=== PATIENT | female | born 1970 | race Hispanic/Latino ===

== ENCOUNTER 2018-08-09 10:46 | Emergency (ER) | payer SELFPAY ==
--- OUTSIDE RECORDS SUMMARY | 2018-08-09 10:48 | XMS REPORT | Clinical Summary ---
:1970 Author Organization [facility] Address [address] [place] [id number] Care Team Providers Name Role Phone Lizz Primary Care Provider Allergies Active Allergy Reactions Severity Noted Date Comments Cephalosporins Rash Low 03/16/2017 Medications Medication Sig Dispensed Refills Start Date End Date Status loratadine (CLARITIN) Take 10 mg by 0 Active 10 mg tablet mouth daily. Active Problems Problem Noted Date Renal mass, right 03/16/2017 Family History Medical History Relation Name Comments Diabetes Father Hypertension Father Diabetes Mother Relation Name Status Comments Father Mother Social History Tobacco Use Types Packs/Day Years Used Date Never Assessed Sex Assigned at Date Recorded Not on file Job Start Date Occupation Industry Not on file Not on file Not on file Travel History Travel Start Travel End No recent travel history available. Last Filed Vital Signs Not on file Plan of Treatment Not on file Results Not on fileafter 08/08/2017 Advance Directives For more information, please contact:[address] [phone] Code Status Date Activated Date Inactivated Comments Full Code 03/16/2017 2:34 AM 03/16/2017 7:57 PM This code status was determined by: Patient
--- OUTSIDE RECORDS SUMMARY | 2018-08-09 10:49 | XMS REPORT ---
:1970 Author [facility] Address [address] [place] [address] Dr. Solis [address] [place] [id number] Care Team Providers Name Role Phone GANGA MARTINS Unavailable Unavailable Problems This patient has no known problems. Allergies, Adverse Reactions, Alerts This patient has no known allergies or adverse reactions. Medications This patient has no known medications. Results Test Description Test Time Test Comments Text Results Atomic Results Result Comments URINE CULTURE 2017-03-18 10:05:00 Test Item Value Reference Range Comments CULTURE (BEAKER) (test drgu=7277) >100,000 col/mL skin fredo URINALYSIS W/ [id number] 14:13:00 Test Item Value Reference Range Comments COLOR (BEAKER) (test ufnp=963) [place] CLARITY (BEAKER) (test rksw=066) [place]y SPECIFIC GRAVITY UA (BEAKER) (test bxyy=069) 1.007 1.001-1.035 PH UA (BEAKER) (test pjbm=041) 6.5 5.0-8.0 PROTEIN UA (BEAKER) (test yfyc=285) 100 mg/dL Negative GLUCOSE UA (BEAKER) (test kwlg=333) Negative Negative KETONES UA (BEAKER) (test xuqo=025) Negative Negative BILIRUBIN UA (BEAKER) (test svff=862) Negative Negative BLOOD UA (BEAKER) (test qtvq=880) Large Negative NITRITE UA (BEAKER) (test qmji=694) Negative Negative LEUKOCYTE ESTERASE UA (BEAKER) (test zprr=174) Small Negative UROBILINOGEN UA (BEAKER) (test hgqf=488) 0.2 mg/dL 0.2-1.0 RBC UA (BEAKER) (test qktl=636) 60 /HPF WBC UA (BEAKER) (test ptim=847) 9 /HPF BACTERIA (BEAKER) (test adbq=255) Few MUCUS (BEAKER) (test uhoq=7665) Rare SQUAMOUS EPITHELIAL (BEAKER) (test cgwj=932) 1 /HPF SOURCE(BEAKER) (test hjcj=6818) Urine, Voided [id number] 05:05:00 Test Item Value Reference Range Comments PHOSPHORUS (BEAKER) (test qfhq=180) 2.4 mg/dL 2.3-4.7 [id number] 05:05:00 Test Item Value Reference Range Comments MAGNESIUM (BEAKER) (test xnbp=943) 2.1 mg/dL 1.6-2.6 BASIC METABOLIC [id number] 05:05:00 Test Item Value Reference Range Comments SODIUM (BEAKER) (test 136 meq/L 136-145 mith=475) POTASSIUM (BEAKER) (test 3.8 meq/L 3.5-5.1 ohpb=071) CHLORIDE (BEAKER) (test 101 meq/L 98-107 yvyn=365) CO2 (BEAKER) (test 28 meq/L 22-29 mvon=387) BLOOD UREA NITROGEN 10 mg/dL 7-21 (BEAKER) (test irhx=459) CREATININE (BEAKER) (test 0.82 mg/dL 0.57-1.25 riky=981) GLUCOSE RANDOM (BEAKER) 132 mg/dL 70-105 (test otso=022) CALCIUM (BEAKER) (test 8.7 mg/dL 8.4-10.2 qgju=350) EGFR (BEAKER) (test 75 mL/min/1.73 sq m ESTIMATED GFR IS NOT yejz=2228) ACCURATE CREATININE CLEARANCE IN PREDICTING GLOMERULAR FILTRATION RATE. ESTIMATED GFR IS NOT APPLICABLE FOR DIALYSIS PATIENTS. HEPATIC FUNCTION [id number] 05:05:00 Test Item Value Reference Range Comments TOTAL PROTEIN (BEAKER) (test uecn=633) 6.9 gm/dL 6.0-8.3 ALBUMIN (BEAKER) (test zcfw=6313) 3.7 g/dL 3.5-5.0 BILIRUBIN TOTAL (BEAKER) (test zqnn=114) 0.6 mg/dL 0.2-1.2 BILIRUBIN DIRECT (BEAKER) (test itrn=968) 0.3 mg/dL 0.1-0.5 ALKALINE PHOSPHATASE (BEAKER) (test kvnm=094) 61 U/L 40-150 AST (SGOT) (BEAKER) (test ruqg=098) 28 U/L 5-34 ALT (SGPT) (BEAKER) (test spub=390) 32 U/L 6-55 PROTHROMBIN [id number] 04:57:00 Test Item Value Reference Range Comments PROTIME (BEAKER) (test bfzi=951) 14.4 seconds 11.7-14.7 INR (BEAKER) (test inxk=788) 1.1 <=5.9 RECOMMENDED COUMADIN/WARFARIN INR THERAPY RANGESSTANDARD DOSE: 2.0 - 3.0 Includes: PROPHYLAXIS forvenous thrombosis, systemic embolization; TREATMENT for venous thrombosis and/or pulmonary embolus.HIGH RISK: Target INR is 2.5-3.5 for patients with mechanical heart valves.CBC W/PLT COUNT & AUTO [id number] 04:44:00 Test Item Value Reference Range Comments WHITE BLOOD CELL COUNT (BEAKER) (test jekn=860) 7.6 K/ L 3.5-10.5 RED BLOOD CELL COUNT (BEAKER) (test npgg=355) 4.10 M/ L 3.93-5.22 HEMOGLOBIN (BEAKER) (test npla=621) 11.7 GM/DL 11.2-15.7 HEMATOCRIT (BEAKER) (test astx=678) 35.3 % 34.1-44.9 MEAN CORPUSCULAR VOLUME (BEAKER) (test nsoh=554) 86.1 fL 79.4-94.8 MEAN CORPUSCULAR HEMOGLOBIN (BEAKER) (test 28.5 pg 25.6-32.2 cdjk=187) MEAN CORPUSCULAR HEMOGLOBIN CONC (BEAKER) (test 33.1 GM/DL 32.2-35.5 oekt=848) RED CELL DISTRIBUTION WIDTH (BEAKER) (test 13.2 % 11.7-14.4 lmmw=947) PLATELET COUNT (BEAKER) (test vwzp=708) 266 K/CU MM 150-450 MEAN PLATELET VOLUME (BEAKER) (test gpcw=101) 9.1 fL 9.4-12.3 NUCLEATED RED BLOOD CELLS (BEAKER) (test 0 /100 WBC 0-0 kkca=517) NEUTROPHILS RELATIVE PERCENT (BEAKER) (test 63 % khfh=585) LYMPHOCYTES RELATIVE PERCENT (BEAKER) (test 29 % cpgn=110) MONOCYTES RELATIVE PERCENT (BEAKER) (test 7 % bsow=300) EOSINOPHILS RELATIVE PERCENT (BEAKER) (test 0 % ekvf=908) BASOPHILS RELATIVE PERCENT (BEAKER) (test 0 % qkca=548) NEUTROPHILS ABSOLUTE COUNT (BEAKER) (test 4.82 K/ L 1.56-6.13 jytc=099) LYMPHOCYTES ABSOLUTE COUNT (BEAKER) (test 2.17 K/ L 1.18-3.74 hvfn=512) MONOCYTES ABSOLUTE COUNT (BEAKER) (test 0.52 K/ L 0.24-0.36 rgrx=033) EOSINOPHILS ABSOLUTE COUNT (BEAKER) (test 0.03 K/ L 0.04-0.36 bmlo=953) BASOPHILS ABSOLUTE COUNT (BEAKER) (test 0.03 K/ L 0.01-0.08 yqwr=190) IMMATURE GRANULOCYTES-RELATIVE PERCENT (BEAKER) 0 % 0-1 (test elcc=7502)
[2018-08-09] MEDS ORDERED: IPRATROPIUM BROM 0.5MG/2.5ML ONE (11:49)
[2018-08-09] MEDS ORDERED: LEVALBUTEROL 1.25 MG/3 ML NEB ONE (11:49)
[2018-08-09] MEDS ORDERED: VANCOMYCIN 1 GM/250 ML BAG ONE (11:50)
[2018-08-09] MEDS ORDERED: PIPER/TAZO/NS 3.375gm 3.375 GM/100 ML BAG ONE (11:50)
[2018-08-09 12:17] LABS: Absolute Lymphocytes (CBC) 1.8 K/uL (0.7-4.9); Absolute Monocytes 0.4 K/uL (0.1-1.3); Absolute Neutrophil 4.3 K/uL (1.8-8.0); Basophils % 0.6 % (0-1.3); Eosinophils % 0.9 % (0-4.4); Hematocrit 39.8 % (36.0-45.0); Lymphocytes % 27.2 % (15.3-44.8); MPV 7.5 fL (7.6-11.3); Monocytes % 6.7 % (3.3-12.3)
[2018-08-09 12:34] LABS: Albumin 3.9 g/dL (3.4-5.0); Bilirubin Direct 0.1 mg/dL (0-0.2); Bilirubin Total 0.4 mg/dL (0.2-1.0); Potassium 3.9 mmol/L (3.5-5.1); Protein, Total 8.1 g/dL (6.4-8.2)
--- NOTE | 2018-08-09 13:21 | RAD REPORT ---
EXAM DESCRIPTION: CT - Chest For Pe Angio - 08/09/2018 1:11 pm CLINICAL HISTORY: Chest pain. shortness of breath, chest pain COMPARISON: Abdomen Pelvis W Contrast dated 08/09/2018; Abdomen Pelvis W Contrast dated 10/10/2017 ; Abdomen Pelvis W Contrast dated 03/15/2017 TECHNIQUE: CT angiogram of the pulmonary arteries was performed with MIP. All CT scans are performed using dose optimization technique as appropriate and may include automated exposure control or mA/KV adjustment according to patient size. FINDINGS: No evidence of pulmonary thromboembolism. No acute aortic finding demonstrated. 6 mm noncalcified pulmonary nodule seen in the anterior right upper lobe. Mild interstitial pulmonary edema is present. No significant pericardial or pleural fluid. No concerning bony finding. IMPRESSION: No evidence of pulmonary thromboembolism. Mild interstitial pulmonary edema. 6 mm noncalcified pulmonary nodule anterior right upper lobe. Given the known history of malignancy i n this patient, a short interval follow-up is recommended in 2-3 months.
--- NOTE | 2018-08-09 13:23 | RAD REPORT ---
EXAM DESCRIPTION: CTAbdomen Pelvis W Contrast - 08/09/2018 1:06 pm CLINICAL HISTORY: Abdominal pain. right flank pain, IV ONLY COMPARISON: Abdomen Pelvis W Contrast dated 10/10/2017; Abdomen Pelvis W Contrast dated 03/15/2017 ; CT ABD PELVIS W CONTRAST dated 11/15/2014 TECHNIQUE: Biphasic CT imaging of the abdomen and pelvis was performed with 100 ml non-ionic IV cont rast. All CT scans are performed using dose optimization technique as appropriate and may include automated exposure control or mA/KV adjustment according to patient size. FINDINGS: The lung bases are clear. Mild diffuse fatty liver is present. Cholecystectomy clips. The spleen, pancreas and adrenal glands a re normal. Normal left kidney seen. Right kidney surgically absent. No abnormality seen in the right renal fossa. No bowel obstruction, free air, free fluid or abscess. The appendix is normal. No evidence of signi ficant lymphadenopathy. No suspicious bony findings. IMPRESSION: No acute intra-abdominal or pelvic finding. Status post right nephrectomy with no worrisome abnormality in the right renal fossa.
--- NOTE | 2018-08-09 13:39 | EDPHYS ---
Physician Documentation [facility] Name: Elvia Dumont Age: 48 yrs Sex: Female : 1970 Arrival Date: 08/09/2018 Time: 10:49 Bed 6 Private MD: None, None ED Physician Modesto Dyer HPI: 08/09 12:04 This 48 yrs old Female presents to ER via Ambulatory with complaints of jmm Shortness Of Breath, Side Pain where kidney was removed 12/08. 12:04 The patient has shortness of breath at rest. Onset: The symptoms/episode began/occurred jmm gradually, 1 month(s) ago. Duration: The symptoms are continuous, and are steadily getting worse. Associated signs and symptoms: Pertinent positives: flank pain. This is a 48 year old female with a history of s/p right nephrectomy due to renal cell cancer that presents to the ED with right flank pain and shortness of breath progressively worsening since this past June. Patient states the pain is similar to the pain experienced with her diagnosis of renal cell carcinoma. . 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 - Social history:: Smoking status: Patient/guardian denies using tobacco. - Ebola Screening: : No symptoms or risks identified at this time. ROS: 12:04 Constitutional: Negative for fever, chills, and weight loss, Cardiovascular: Negative jmm for chest pain, palpitations, and edema. 12:04 Respiratory: Positive for shortness of breath. 12:04 Abdomen/GI: Positive for 12:04 Back: Positive for flank pain. 12:04 All other systems are negative. Exam: 12:04 Constitutional: This is a well developed, well nourished patient who is awake, alert, jmm and in no acute distress. Head/Face: atraumatic. Eyes: EOMI, no conjunctival erythema appreciated ENT: Moist Mucus Membranes Neck: Trachea midline, Supple Chest/axilla: Normal chest wall appearance and motion. Cardiovascular: Regular rate and rhythm. No edema appreciated Respiratory: Normal respirations, no respiratory distress appreciated 12:04 Abdomen/GI: Inspection: abdomen appears normal, Palpation: soft, mild abdominal tenderness, in the right upper quadrant. 12:04 Back: CVA tenderness, that is mild, is noted on the right. 12:04 Musculoskeletal/extremity: ROM: intact in all extremities. 12:04 Skin: Appearance: Color: normal in color. 12:04 Neuro: Orientation: is normal, Mentation: is normal, Memory: is normal. 12:04 Psych: Behavior/mood is pleasant, cooperative. Vital Signs: 11:14 BP 132 / 87; Pulse 75; Resp 18; Temp 97.6; Pulse Ox 100% on R/A; Weight 94.35 kg (R); aj1 Height 4 ft. 8 in. (142.24 cm) (R); Pain 10/10; 12:19 BP 112 / 70; Pulse 68; Resp 18; Pulse Ox 98% on R/A; sv 13:21 BP 108 / 61; Pulse 75; Resp 17; Pulse Ox 100% ; sv 13:55 BP 123 / 58; Pulse 67; Resp 20; Pulse Ox 100% ; sv 11:14 Body Mass Index 46.63 (94.35 kg, 142.24 cm) aj1 MDM: 12:04 Patient medically screened. real 13:37 Data reviewed: vital signs, nurses notes, radiologic studies, CT scan. Counseling: I real had a detailed discussion with the patient and/or guardian regarding: the historical points, exam findings, and any diagnostic results supporting the discharge/admit diagnosis, lab results, radiology results, the need for outpatient follow up, to return to the emergency department if symptoms worsen or persist or if there are any questions or concerns that arise at home. ED course: CT negative for an acute process. Patient is advised to follow up with urology next for reevaluation. Patient is otherwise given strict return precautions. Patient understood and agrees with the plan of care. . 08/09 11:47 Order name: Urine Dipstick--Ancillary (enter results) bd 08/09 11:47 Order name: Urine --Ancillary (enter results) bd 08/09 12:07 Order name: Basic Metabolic Panel; Complete Time: 12:44 isma 08/09 12:07 Order name: CBC with Diff; Complete Time: 12:22 [facility] 08/09 12:07 Order name: Creatinine for Radiology; Complete Time: 12:31 [facility] 08/09 12:07 Order name: Hepatic Function; Complete Time: 12:44 [facility] 08/09 11:47 Order name: Urine Dipstick-Ancillary (obtain specimen); Complete Time: 11:47 sv 08/09 12:07 Order name: Lipase; Complete Time: 12:44 [facility] 08/09 12:07 Order name: IV Saline Lock; Complete Time: 12:13 [facility] 08/09 12:07 Order name: Labs collected and sent; Complete Time: 12:13 [facility] 08/09 12:07 Order name: CT Chest For PE Angio; Complete Time: 13:30 [facility] 08/09 12:07 Order name: CT Abd/Pelvis - W/Contrast; Complete Time: 13:30 [facility] Administered Medications: No medications were administered Disposition: 08/09/18 13:38 Discharged to Home. Impression: Flank Pain. - Condition is Stable. - Discharge Instructions: Flank Pain, Adult. - Prescriptions for Tramadol 50 mg Oral Tablet - take 1 tablet by ORAL route every 8 hours as needed; 12 tablet. - Medication Reconciliation Form, Thank You Letter, Antibiotic Education, Prescription Opioid Use form. - Follow up: Private Physician; When: 2 - 3 days; Reason: Recheck today's complaints, Continuance of care, Re-evaluation by your physician. - Notes: Your CT scan shows you have a pulmonary nodule. It is recommended you get a repeat chest CT in to 2-3 months to reevaluate the nodule. Please return to the ED if your pain worsened, you develop vomiting, chest pain, or worsening shortness of breath. Addendum: 08/11/2018 10:25 Co-signature as Attending Physician, Modesto Dyer MD. g s Signatures: Dispatcher [employer] EDAngie Odom RN RN ajHortencia Marshall RN RN sv aEn Bajwa PA PA jmm Starr, Gregory, MD MD gs Corrections: (The following items were deleted from the chart) 08/09 13:56 13:38 08/09/2018 13:38 Discharged to Home. Impression: Flank Pain. Condition is Stable. sv Forms are Medication Reconciliation Form, Thank You Letter, Antibiotic Education, Prescription Opioid Use. Follow up: Private Physician; When: 2 - 3 days; Reason: Recheck today's complaints, Continuance of care, Re-evaluation by your physician. real
--- NOTE | 2018-08-09 13:39 | ER ---
Nurse's Notes [facility] Name: Elvia Dumont Age: 48 yrs Sex: Female : 1970 Arrival Date: 08/09/2018 Time: 10:49 Bed 6 Private MD: None, None Diagnosis: Flank Pain Presentation: 08/09 11:11 Presenting complaint: Patient states: "I had kidney cancer and I had my kidney removed aj1 in November. I'm feeling a lot of pain in that spot, it goes all the way from my back and into my belly. The pain is taking my breath away. I made an appointment with my doctor but I won't be seen for another two weeks" Reports this pain has been going on for the past week and has gotten progressively worse. Reports nausea, dizziness. Denies V/D. Denies fever. Reports blood in her urine today. Transition of care: patient was not received from another setting of care. Onset of symptoms was August 05, 2017. Risk Assessment: Do you want to hurt yourself or someone else? Patient reports no desire to harm self or others. Initial Sepsis Screen: Does the patient meet any 2 criteria? No. Patient's initial sepsis screen is negative. Does the patient have a suspected source of infection? Yes: Dysuria/Frequency/Urgency/UTI. Care prior to arrival: None. 11:11 Method Of Arrival: Ambulatory aj 11:11 Acuity: ASIA 3 aj1 Triage Assessment: 11:14 General: Appears in no apparent distress. uncomfortable, Behavior is cooperative, aj1 restless. Pain: Complains of pain in back and abdomen Pain currently is 10 out of 10 on a pain scale. Neuro: Level of Consciousness is awake, alert, obeys commands. Cardiovascular: Patient's skin is warm and dry. Respiratory: Reports shortness of breath Airway is patent Respiratory effort is even, unlabored, Respiratory pattern is regular, symmetrical, Onset: The symptoms/episode began/occurred one week ago, the patient has mild shortness of breath. 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 - Social history:: Smoking status: Patient/guardian denies using tobacco. - Ebola Screening: : No symptoms or risks identified at this time. Screenin:05 Abuse screen: Denies threats or abuse. Denies injuries from another. Nutritional sv screening: No deficits noted. Tuberculosis screening: No symptoms or risk factors identified. Fall Risk None identified. Assessment: 11:45 General: Appears in no apparent distress. uncomfortable, obese, well developed, sv Behavior is calm, cooperative, appropriate for age. Pain: Complains of pain in posterior aspect of right lateral abdomen, anterior aspect of right lateral abdomen and right upper quadrant Pain currently is 10 out of 10 on a pain scale. Pain began 2-3 days ago. Is continuous, Aggravated by increased activity, deep breathing Noted to be grimacing, Also complains of shortness of breath. Neuro: Level of Consciousness is awake, alert, obeys commands, Oriented to person, place, time, situation, Moves all extremities. Full function Speech is normal. Cardiovascular: Heart tones S1 S2 present Patient's skin is warm and dry. Rhythm is sinus rhythm Chest pain is denied. Respiratory: Reports shortness of breath at rest on exertion pain with movement pain with respiration Airway is patent Respiratory effort is even, unlabored, Respiratory pattern is regular, symmetrical, Breath sounds are clear bilaterally. : Reports "When I wipe after peeing there is some streaks of blood.". Derm: Skin is pink, warm \\T\\ dry. 12:45 Reassessment: Patient appears in no apparent distress at this time. No changes from sv previously documented assessment. Patient and/or family updated on plan of care and expected duration. Pain level reassessed. Patient is alert, oriented x 3, equal unlabored respirations, skin warm/dry/pink. 13:55 Reassessment: Patient appears in no apparent distress at this time. No changes from sv previously documented assessment. Patient and/or family updated on plan of care and expected duration. Pain level reassessed. Patient is alert, oriented x 3, equal unlabored respirations, skin warm/dry/pink. Vital Signs: 11:14 BP 132 / 87; Pulse 75; Resp 18; Temp 97.6; Pulse Ox 100% on R/A; Weight 94.35 kg (R); aj1 Height 4 ft. 8 in. (142.24 cm) (R); Pain 10/10; 12:19 BP 112 / 70; Pulse 68; Resp 18; Pulse Ox 98% on R/A; sv 13:21 BP 108 / 61; Pulse 75; Resp 17; Pulse Ox 100% ; sv 13:55 BP 123 / 58; Pulse 67; Resp 20; Pulse Ox 100% ; sv 11:14 Body Mass Index 46.63 (94.35 kg, 142.24 cm) aj1 ED Course: 10:49 Patient arrived in ED. sb2 10:50 None, None is Private Physician. sb2 11:14 Triage completed. aj1 11:14 Arm band placed on Patient placed in waiting room, Patient notified of wait time. aj1 11:46 Hortencia Ramirez, LEO is Primary Nurse. sv 11:49 Ean Bajwa PA is PHCP. m 11:49 Modesto Dyer MD is Attending Physician. jmm 11:55 maitre d' on. Pulse ox on. NIBP on. sv 12:05 Patient has correct armband on for positive identification. Placed in gown. Bed in low sv position. Call light in reach. Adult w/ patient. 12:05 Initial lab(s) drawn, by me, sent to lab. Inserted saline lock: 20 gauge in left sv forearm, using aseptic technique. Blood collected. Flushed left forearm with 5 ml normal saline. 13:05 CT completed. Patient moved to CT via stretcher. Patient moved back from CT. bq 13:06 CT Chest For PE Angio In Process Unspecified. EDMS 13:06 CT Abd/Pelvis - W/Contrast In Process Unspecified. EDMS 13:56 No provider procedures requiring assistance completed. IV discontinued, intact, sv bleeding controlled, No redness/swelling at site. Pressure dressing applied. Administered Medications: No medications were administered Outcome: 13:38 Discharge ordered by . jmm 13:56 Discharged to home ambulatory, with family. sv 13:56 Condition: stable 13:56 Discharge instructions given to patient, Instructed on discharge instructions, follow up and referral plans. medication usage, Demonstrated understanding of instructions, follow-up care, medications, Prescriptions given X 1. 13:56 Patient left the ED. sv Signatures: Dispatcher [employer] EDMS Angie Ibanez, RN RN aj1 Hortencia Ramirez RN RN sv Ean Bajwa PA PA jmm Quilty, Betty bq Billeau, Sheri sb2
[2018-08-09 14:09] VITALS: TEMP 97.6
[2018-08-09 14:12] VITALS: O2SAT 100
[2018-08-09 14:13] VITALS: BP 123/58
[2018-08-09 17:44] LABS: Urine Blood NEGATIVE (NEG); Urine Glucose NEGATIVE (NEG); Urine Protein NEGATIVE (NEG); Urine pH 6.5 (5.0-7.0)
== END 2018-08-09 13:56 | disposition home or self-care (01) ==
LOC: ER 10:46
DX: R10.9 Unspecified abdominal pain (principal); Z88.3 Allergy status to other anti-infective agents; Z85.528 Personal history of other malignant neoplasm of kidney; Z90.5 Acquired absence of kidney
CPT/HCPCS: 36415; 71275; 74177; 80048; 80076; 81003; 81025; 83690; 85025; 99285; J2543; J3370; Q9967

== ENCOUNTER 2018-08-30 12:23 | Emergency (ER) | payer SELFPAY ==
--- OUTSIDE RECORDS SUMMARY | 2018-08-30 12:25 | XMS REPORT ---
:1970 Author Organization [facility] Address [address] [place] [address] Dr. Solis [address] [place] [id number] Care Team Providers Name Role Phone GANGA MARTINS Unavailable Unavailable Problems This patient has no known problems. Allergies, Adverse Reactions, Alerts This patient has no known allergies or adverse reactions. Medications This patient has no known medications. Results Test Description Test Time Test Comments Text Results Atomic Results Result Comments URINE CULTURE 2017-03-18 10:05:00 Test Item Value Reference Range Comments CULTURE (BEAKER) (test cqed=0609) >100,000 col/mL skin fredo URINALYSIS W/ [id number] 14:13:00 Test Item Value Reference Range Comments COLOR (BEAKER) (test iadj=758) [place] CLARITY (BEAKER) (test lffy=650) Hazy SPECIFIC GRAVITY UA (BEAKER) (test rhmp=273) 1.007 1.001-1.035 PH UA (BEAKER) (test urfj=639) 6.5 5.0-8.0 PROTEIN UA (BEAKER) (test ndyw=879) 100 mg/dL Negative GLUCOSE UA (BEAKER) (test gknu=121) Negative Negative KETONES UA (BEAKER) (test atym=623) Negative Negative BILIRUBIN UA (BEAKER) (test niyh=900) Negative Negative BLOOD UA (BEAKER) (test zpir=603) Large Negative NITRITE UA (BEAKER) (test wzzn=378) Negative Negative LEUKOCYTE ESTERASE UA (BEAKER) (test dbiu=469) Small Negative UROBILINOGEN UA (BEAKER) (test viqw=130) 0.2 mg/dL 0.2-1.0 RBC UA (BEAKER) (test vqnu=059) 60 /HPF WBC UA (BEAKER) (test fzmv=299) 9 /HPF BACTERIA (BEAKER) (test xacm=794) Few MUCUS (BEAKER) (test jlim=0817) Rare SQUAMOUS EPITHELIAL (BEAKER) (test cbqi=661) 1 /HPF SOURCE(BEAKER) (test jtkg=4347) Urine, Voided [id number] 05:05:00 Test Item Value Reference Range Comments PHOSPHORUS (BEAKER) (test ezls=123) 2.4 mg/dL 2.3-4.7 [id number] 05:05:00 Test Item Value Reference Range Comments MAGNESIUM (BEAKER) (test gnpx=459) 2.1 mg/dL 1.6-2.6 BASIC METABOLIC [id number] 05:05:00 Test Item Value Reference Range Comments SODIUM (BEAKER) (test 136 meq/L 136-145 yjeq=653) POTASSIUM (BEAKER) (test 3.8 meq/L 3.5-5.1 pvys=093) CHLORIDE (BEAKER) (test 101 meq/L 98-107 xvib=338) CO2 (BEAKER) (test 28 meq/L 22-29 zvwj=842) BLOOD UREA NITROGEN 10 mg/dL 7-21 (BEAKER) (test khdp=838) CREATININE (BEAKER) (test 0.82 mg/dL 0.57-1.25 evfx=971) GLUCOSE RANDOM (BEAKER) 132 mg/dL 70-105 (test fbpu=329) CALCIUM (BEAKER) (test 8.7 mg/dL 8.4-10.2 crif=587) EGFR (BEAKER) (test 75 mL/min/1.73 sq m ESTIMATED GFR IS NOT ggva=7290) ACCURATE CREATININE CLEARANCE IN PREDICTING GLOMERULAR FILTRATION RATE. ESTIMATED GFR IS NOT APPLICABLE FOR DIALYSIS PATIENTS. HEPATIC FUNCTION [id number] 05:05:00 Test Item Value Reference Range Comments TOTAL PROTEIN (BEAKER) (test cufh=714) 6.9 gm/dL 6.0-8.3 ALBUMIN (BEAKER) (test dtzj=3879) 3.7 g/dL 3.5-5.0 BILIRUBIN TOTAL (BEAKER) (test sxqk=008) 0.6 mg/dL 0.2-1.2 BILIRUBIN DIRECT (BEAKER) (test yxib=903) 0.3 mg/dL 0.1-0.5 ALKALINE PHOSPHATASE (BEAKER) (test uidy=494) 61 U/L 40-150 AST (SGOT) (BEAKER) (test pubr=479) 28 U/L 5-34 ALT (SGPT) (BEAKER) (test yent=490) 32 U/L 6-55 PROTHROMBIN [id number] 04:57:00 Test Item Value Reference Range Comments PROTIME (BEAKER) (test pmff=322) 14.4 seconds 11.7-14.7 INR (BEAKER) (test lcfd=330) 1.1 <=5.9 RECOMMENDED COUMADIN/WARFARIN INR THERAPY RANGESSTANDARD DOSE: 2.0 - 3.0 Includes: PROPHYLAXIS forvenous thrombosis, systemic embolization; TREATMENT for venous thrombosis and/or pulmonary embolus.HIGH RISK: Target INR is 2.5-3.5 for patients with mechanical heart valves.CBC W/PLT COUNT & AUTO [id number] 04:44:00 Test Item Value Reference Range Comments WHITE BLOOD CELL COUNT (BEAKER) (test mpqs=182) 7.6 K/ L 3.5-10.5 RED BLOOD CELL COUNT (BEAKER) (test nhwt=139) 4.10 M/ L 3.93-5.22 HEMOGLOBIN (BEAKER) (test jkqv=049) 11.7 GM/DL 11.2-15.7 HEMATOCRIT (BEAKER) (test njxj=670) 35.3 % 34.1-44.9 MEAN CORPUSCULAR VOLUME (BEAKER) (test yyrc=900) 86.1 fL 79.4-94.8 MEAN CORPUSCULAR HEMOGLOBIN (BEAKER) (test 28.5 pg 25.6-32.2 upqe=141) MEAN CORPUSCULAR HEMOGLOBIN CONC (BEAKER) (test 33.1 GM/DL 32.2-35.5 jbqo=389) RED CELL DISTRIBUTION WIDTH (BEAKER) (test 13.2 % 11.7-14.4 yqrn=764) PLATELET COUNT (BEAKER) (test akgg=920) 266 K/CU MM 150-450 MEAN PLATELET VOLUME (BEAKER) (test vzuv=498) 9.1 fL 9.4-12.3 NUCLEATED RED BLOOD CELLS (BEAKER) (test 0 /100 WBC 0-0 uzlb=634) NEUTROPHILS RELATIVE PERCENT (BEAKER) (test 63 % hneo=648) LYMPHOCYTES RELATIVE PERCENT (BEAKER) (test 29 % klyp=787) MONOCYTES RELATIVE PERCENT (BEAKER) (test 7 % kvky=043) EOSINOPHILS RELATIVE PERCENT (BEAKER) (test 0 % pcoi=938) BASOPHILS RELATIVE PERCENT (BEAKER) (test 0 % iwse=642) NEUTROPHILS ABSOLUTE COUNT (BEAKER) (test 4.82 K/ L 1.56-6.13 lrxo=302) LYMPHOCYTES ABSOLUTE COUNT (BEAKER) (test 2.17 K/ L 1.18-3.74 eicd=966) MONOCYTES ABSOLUTE COUNT (BEAKER) (test 0.52 K/ L 0.24-0.36 eazl=729) EOSINOPHILS ABSOLUTE COUNT (BEAKER) (test 0.03 K/ L 0.04-0.36 gtmt=961) BASOPHILS ABSOLUTE COUNT (BEAKER) (test 0.03 K/ L 0.01-0.08 pbwn=168) IMMATURE GRANULOCYTES-RELATIVE PERCENT (BEAKER) 0 % 0-1 (test rssu=2633)
--- OUTSIDE RECORDS SUMMARY | 2018-08-30 12:25 | XMS REPORT | Clinical Summary ---
:1970 Author Organization [facility] Address [address] [place] [id number] Care Team Providers Name Role Phone Lizz [...] Not on file Results Not on fileafter 08/29/2017 Advance Directives For more information, please contact:[address] [phone] Code Status Date Activated Date Inactivated Comments Full Code 03/16/2017 2:34 AM 03/16/2017 7:57 PM This code status was determined by: Patient
[2018-08-30 14:30] LABS: Urine Blood 2+ (NEG); Urine Glucose NEGATIVE (NEG); Urine Protein 1+ (NEG); Urine Specific Gravity 1.025 (1.005-1.030)
[2018-08-30 14:33] LABS: Urine Bacteria <20 /HPF (<20); Urine RBC <5 /HPF (NONE SEEN)
[2018-08-30 14:34] LABS: Urine Culture Reflex Order NOT NEEDED
[2018-08-30] MEDS ORDERED: NA CHLORIDE 0.9% 1,000 ML ONE (14:43)
[2018-08-30 15:01] LABS: Absolute Monocytes 0.6 K/uL (0.1-1.3); Absolute Neutrophil 2.7 K/uL (1.8-8.0); Basophils % 0.4 % (0-1.3); Eosinophils % 0.8 % (0-4.4); Hematocrit 39.8 % (36.0-45.0); Lymphocytes % 23.1 % (15.3-44.8); MPV 7.7 fL (7.6-11.3); Monocytes % 14.5 % (3.3-12.3); RBC Red Blood Cell Count 4.67 M/uL (3.86-4.86)
--- NOTE | 2018-08-30 15:09 | RAD REPORT ---
EXAM DESCRIPTION: RAD - Chest Pa And Lat (2 Views) - 08/30/2018 2:50 pm CLINICAL HISTORY: Cough;Fever Chest pain. COMPARISON: Chest For Pe Angio dated 08/09/2018 FINDINGS: The lungs are clear. The heart is normal in size. No displaced fractures. IMPRESSION: No acute or concerning finding suspected.
[2018-08-30 15:22] LABS: Albumin 3.7 g/dL (3.4-5.0); Bilirubin Total 0.4 mg/dL (0.2-1.0); Potassium 3.6 mmol/L (3.5-5.1)
[2018-08-30] MEDS ORDERED: ACETAMINOPHEN 500 MG TAB ONE (15:45)
--- NOTE | 2018-08-30 15:45 | ER ---
Nurse's Notes [facility] Name: Elvia Dumont Age: 48 yrs Sex: Female : 1970 Arrival Date: 08/30/2018 Time: 12:27 Bed 13 Private MD: Diagnosis: Influenza due to identified novel influenza A virus with other respiratory manifestations Presentation: 08/30 12:46 Presenting complaint: Patient states: cough that began on Friday. Pt states "I went to [facility] an ER in [place] but they didn't give me any medicines". Pt also reports fever. Transition of care: patient was not received from another setting of care. Onset of symptoms was July 2018. Risk Assessment: Do you want to hurt yourself or someone else? Patient reports no desire to harm self or others. Initial Sepsis Screen: Does the patient meet any 2 criteria? No. Patient's initial sepsis screen is negative. Does the patient have a suspected source of infection? No. Patient's initial sepsis screen is negative. Care prior to arrival: None. 12:46 Method Of Arrival: Wheelchair [facility] 12:46 Acuity: ASIA 3 aa5 Triage Assessment: 14:42 General: Appears in no apparent distress. uncomfortable, Behavior is calm, cooperative. ls4 Pain: Complains of pain in "all over". Neuro: Level of Consciousness is awake, alert, obeys commands, Oriented to person, place, time, situation, Sales And Service Representative are equal bilaterally. Cardiovascular: Denies chest pain, Capillary refill < 3 seconds Patient's skin is warm and dry. Rhythm is regular. Respiratory: Reports cough that is non-productive, dry. Derm: Skin is intact, Skin is Skin is pink, warm \\T\\ dry. 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 - Social history:: Smoking status: Patient/guardian denies using tobacco. - Ebola Screening: : No symptoms or risks identified at this time. Screenin:46 Abuse screen: Denies threats or abuse. Denies injuries from another. Nutritional ls4 screening: No deficits noted. Tuberculosis screening: No symptoms or risk factors identified. Fall Risk None identified. Assessment: 15:09 Reassessment: Patient and/or family updated on plan of care and expected duration. Pain ls4 level reassessed. Patient is alert, oriented x 3, equal unlabored respirations, skin warm/dry/pink. see triage assessment . Vital Signs: 12:48 BP 106 / 68; Pulse 90; Resp 18 S; Temp 100.2(TE); Pulse Ox 96% on R/A; Weight 92.53 kg aa5 (R); Height 4 ft. 8 in. (142.24 cm) (R); Pain 10/10; 14:00 BP 107 / 70; Pulse 88; Resp 16; Temp 99.9(O); Pulse Ox 99% on R/A; Pain 5/10; ls4 15:30 BP 110 / 78; Pulse 78; Resp 18; Temp 99.0; Pulse Ox 99% on R/A; Pain 4/10; ls4 12:48 Body Mass Index 45.74 (92.53 kg, 142.24 cm) aa5 ED Course: 12:27 Patient arrived in ED. mr 12:47 Triage completed. aa5 12:47 Arm band placed on. aa5 13:43 [facility]. cp 13:43 Matthew Thapa MD is Attending Physician. cp 13:46 Yelena Baxter, LEO is Primary Nurse. ls4 13:46 Patient has correct armband on for positive identification. Placed in gown. Bed in low ls4 position. Call light in reach. Side rails up X 1. Pulse ox on. NIBP on. 13:59 Urine collected: clean catch specimen, cloudy. mh5 14:00 Patient has correct armband on for positive identification. Placed in gown. Bed in low mh5 position. Call light in reach. Side rails up X 1. Adult w/ patient. 14:08 Strep Sent. mh5 14:08 Flu Sent. mh5 14:45 Inserted saline lock: 20 gauge in right antecubital area, using aseptic technique. ls4 14:45 No provider procedures requiring assistance completed. ls4 14:46 IV discontinued, intact, bleeding controlled, No redness/swelling at site. Pressure ls4 dressing applied. 14:48 XRAY Chest Pa And Lat (2 Views) In Process Unspecified. EDMS Administered Medications: 14:41 Drug: NS 0.9% 1000 ml Route: IV; Rate: 1 bolus; Site: right antecubital; ls4 15:45 Follow up: IV Status: Completed infusion; IV Intake: 1000ml ls4 15:44 Drug: Tylenol 1000 mg Route: PO; ls4 16:14 Follow up: Response: No adverse reaction; Marked relief of symptoms; Temperature is ls4 decreased Intake: 15:45 IV: 1000ml; Total: 1000ml. ls4 Outcome: 15:44 Discharge ordered by MD. anthony 16:15 Patient left the ED. ls4 16:16 Condition: stable ls4 16:16 Discharged to home ambulatory, with family. ls4 16:16 Discharge instructions given to patient, family, Instructed on discharge instructions, follow up and referral plans. medication usage, safety practices, Demonstrated understanding of instructions, follow-up care, medications, Prescriptions given X 2. Signatures: Dispatcher [employer] EDFL Jessica CarrollTennille, RN RN aa5 Matthew Daly PA PA Zaira Palomino 5 Yelena Baxter, RN RN ls4
--- NOTE | 2018-08-30 15:45 | EDPHYS ---
Physician Documentation [facility] Name: Elvia Dumont Age: 48 yrs Sex: Female : 1970 Arrival Date: 08/30/2018 Time: 12:27 Bed 13 Private MD: ED Physician Matthew Thapa HPI: 08/30 14:10 This 48 yrs old Female presents to ER via Wheelchair with complaints of Flu cp Symptoms. 14:10 The patient or guardian reports cough, that is intermittent, flu symptoms, arthralgias, cp low-grade fever, myalgias, general weakness. 14:10 Onset: The symptoms/episode began/occurred 2 day(s) ago. Associated signs and symptoms: cp Pertinent positives: nausea, sore throat, Pertinent negatives: chest pain, diarrhea, vomiting. Severity of symptoms: in the emergency department the symptoms are unchanged despite home interventions. 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 - Social history:: Smoking status: Patient/guardian denies using tobacco. - Ebola Screening: : No symptoms or risks identified at this time. ROS: 14:15 Constitutional: Positive for body aches, fever, poor PO intake. cp 14:15 Eyes: Negative for injury, pain, redness, and discharge. cp 14:15 ENT: Positive for rhinorrhea, sore throat, Negative for drainage from ear(s), ear pain, difficulty swallowing, difficulty handling secretions. 14:15 Neck: Negative for stiffness. 14:15 Cardiovascular: Negative for chest pain, palpitations. 14:15 Respiratory: Positive for cough, Negative for shortness of breath, wheezing. 14:15 Abdomen/GI: Negative for abdominal pain, vomiting, diarrhea, constipation. 14:15 Back: Negative for radiated pain. 14:15 : Negative for urinary symptoms. 14:15 Skin: Negative for cellulitis, rash. 14:15 Neuro: Positive for general weakness, Negative for altered mental status. 14:15 All other systems are negative. Exam: 14:20 Constitutional: The patient appears in no acute distress, alert, awake, cp non-diaphoretic, non-toxic, well developed, well nourished. 14:20 Head/Face: Normocephalic, atraumatic. cp 14:20 Eyes: Periorbital structures: appear normal, Pupils: equal, round, and reactive to light and accomodation, Extraocular movements: intact throughout, Conjunctiva: normal, no exudate, no injection, Sclera: no appreciated abnormality, Lids and lashes: appear normal, bilaterally. 14:20 ENT: External ear(s): are unremarkable, Ear canal(s): are normal, clear, TM's: bulging, is not appreciated, bilaterally, dullness, bilaterally, erythema, is not appreciated, bilaterally. 14:20 Neck: ROM/movement: is normal, is supple, without pain, no range of motions limitations, no meningismus, no nuchal rigidity, Lymph nodes: no appreciated lymphadenopathy. 14:20 Chest/axilla: Inspection: normal, Palpation: is normal, no crepitus, no tenderness. 14:20 Cardiovascular: Rate: normal, Rhythm: regular, Heart sounds: murmur, not appreciated, Edema: is not appreciated, JVD: is not appreciated. 14:20 Respiratory: the patient does not display signs of respiratory distress, Respirations: normal, no use of accessory muscles, no retractions, no splinting, no tachypnea, labored breathing, is not present, Breath sounds: are clear throughout, no decreased breath sounds, no stridor, no wheezing. 14:20 Abdomen/GI: Inspection: abdomen appears normal, Bowel sounds: active, all quadrants, Palpation: abdomen is soft and non-tender, in all quadrants, rebound tenderness, is not appreciated, voluntary guarding, is not appreciated, involuntary guarding, is not appreciated. 14:20 Back: pain, is absent, ROM is normal. 14:20 Skin: cellulitis, is not appreciated, no rash present. 14:20 Neuro: Orientation: to person, place \T\ time. Mentation: is normal, Cerebellar function: is grossly normal, Motor: moves all fours, strength is normal, Sensation: is normal. Vital Signs: 12:48 BP 106 / 68; Pulse 90; Resp 18 S; Temp 100.2(TE); Pulse Ox 96% on R/A; Weight 92.53 kg aa5 (R); Height 4 ft. 8 in. (142.24 cm) (R); Pain 10/10; 14:00 BP 107 / 70; Pulse 88; Resp 16; Temp 99.9(O); Pulse Ox 99% on R/A; Pain 5/10; ls4 15:30 BP 110 / 78; Pulse 78; Resp 18; Temp 99.0; Pulse Ox 99% on R/A; Pain 4/10; ls4 12:48 Body Mass Index 45.74 (92.53 kg, 142.24 cm) aa5 MDM: 13:43 Patient medically screened. cp 15:00 Differential diagnosis: bronchitis, flu, pneumonia, UTI. cp 15:44 Data reviewed: vital signs, nurses notes, lab test result(s), radiologic studies, plain cp films. 15:44 Test interpretation: by ED physician or midlevel provider: plain radiologic studies. cp Counseling: I had a detailed discussion with the patient and/or guardian regarding: the historical points, exam findings, and any diagnostic results supporting the discharge/admit diagnosis, lab results, radiology results, to return to the emergency department if symptoms worsen or persist or if there are any questions or concerns that arise at home. Response to treatment: the patient's symptoms have markedly improved after treatment, and as a result, I will discharge patient. 08/30 14:05 Order name: Flu; Complete Time: 15:28 [facility] 08/30 15:28 Interpretation: Normal except: FLUA FLU A ----- \T\nbsp; \T\nbsp; \T\nbsp; \T\nbsp; \T\nbsp; cp \T\nbsp; \T\nbsp; \T\nbsp; \T\nbsp; POSITIVE for FLU A protein antigen. 08/30 14:05 Order name: Strep; Complete Time: 15:28 [facility] 08/30 15:29 Interpretation: Reviewed. 08/30 14:13 Order name: Urine Microscopic Only; Complete Time: 15:28 [facility] 08/30 15:28 Interpretation: Normal except: SQEPI 5-10. 08/30 14:15 Order name: Urine Dipstick--Ancillary (enter results); Complete Time: 15:28 08/30 14:15 Order name: Urine --Ancillary (enter results); Complete Time: 15:28 eb 08/30 14:15 Order name: Urine Dipstick-Ancillary (obtain specimen); Complete Time: 14:42 cp 08/30 14:15 Order name: Urine Test (obtain specimen); Complete Time: 14:42 cp 08/30 14:15 Order name: CBC with Diff; Complete Time: 15:28 cp 08/30 15:29 Interpretation: Normal except: MN% 14.5. cp 08/30 14:15 Order name: CMP; Complete Time: 15:28 cp 08/30 14:15 Order name: XRAY Chest Pa And Lat (2 Views); Complete Time: 15:28 cp 08/30 14:30 Order name: Throat Culture EDMS Administered Medications: 14:41 Drug: NS 0.9% 1000 ml Route: IV; Rate: 1 bolus; Site: right antecubital; ls4 15:45 Follow up: IV Status: Completed infusion; IV Intake: 1000ml ls4 15:44 Drug: Tylenol 1000 mg Route: PO; ls4 16:14 Follow up: Response: No adverse reaction; Marked relief of symptoms; Temperature is ls4 decreased Disposition: 08/31 09:17 Co-signature as Attending Physician, Matthew Thapa MD I agree with the assessment and jen plan of care. PA/BRILLIANDEER LOPPER's history reviewed, patient interviewed, and examined. Disposition: 08/30/18 15:44 Discharged to Home. Impression: Influenza due to identified novel influenza A virus with other respiratory manifestations. - Condition is Stable. - Discharge Instructions: Influenza, Adult. - Prescriptions for Tamiflu 75 mg Oral Capsule - take 1 capsule by ORAL route every 12 hours for 5 days; 10 capsule. Tessalon Perles 100 mg Oral Capsule - take 2 capsule by ORAL route every 8 hours As needed; 30 capsule. - Medication Reconciliation Form, Thank You Letter, Antibiotic Education, Prescription Opioid Use form. - Follow up: Private Physician; When: 1 - 2 days; Reason: Recheck today's complaints. - Problem is new. - Symptoms have improved. Signatures: Dispatcher [employer] EDMS Matthew Thapa MD MD cha Calderon, Audri, RN RN aa5 Matthew Daly PA PA cp Stewart, Lisa RN RN ls4 Corrections: (The following items were deleted from the chart) 08/30 16:15 15:44 08/30/2018 15:44 Discharged to Home. Impression: Influenza due to identified ls4 novel influenza A virus with other respiratory manifestations. Condition is Stable. Forms are Medication Reconciliation Form, Thank You Letter, Antibiotic Education, Prescription Opioid Use. Follow up: Private Physician; When: 1 - 2 days; Reason: Recheck today's complaints. Problem is new. Symptoms have improved. cp
[2018-08-30 16:22] VITALS: BP 106/68; TEMP 100.2; O2SAT 96
== END 2018-08-30 16:15 | disposition home or self-care (01) ==
LOC: ER 12:23
DX: J10.1 Influenza due to other identified influenza virus with other respiratory manifestations (principal)
CPT/HCPCS: 36415; 71046; 80053; 81003; 81015; 81025; 85025; 87070; 87081; 87804; 96360; 99284; J7030

== ENCOUNTER 2020-11-20 18:42 | Inpatient (IN) | payer SELFPAY ==
--- OUTSIDE RECORDS SUMMARY | 2020-11-20 18:45 | XMS REPORT | Continuity of Care Document ---
:1970 Author Organization [facility] t Address [address] [place] [address] Care Team Providers Name Role Phone Sharpless Primary Care Physician Lazaro BAILEY C Attending Clinician YUMIKO MARTINS Attending Clinician Unavailable YUMIKO MARTINS Admitting Clinician Unavailable Problems Condition Condition Condition Status Onset Resolution Last Treating Co mments Source Name Details Category Date Date Treatment Clinician Date Renal Renal Disease Active [facility] Allergies, Adverse Reactions, Alerts Allergy Allergy Status Severity Reaction(s) Onset Inactive Treating Comm ents Source Name Type Date Date Clinician Cephalos Propensi Active Rash [facility] - adverse 00:[facility]: [facility] reaction [facility] s Family History Family Member Diagnosis Comments Start Date Stop Date Source Natural father Diabetes [facility] Natural father Hypertension [facility] Natural mother Diabetes [facility] Social History Social Habit Start Date Stop Date Quantity Comments Source Sex Assigned At [facility] Medications Ordered Filled Start Stop Current Ordering Indication Dosage Frequency Signature Comments Components Source Medication Medication Date Date Medication? Clinician (SIG) Name Name loratadine Yes 10mg QD Take [address] (CLARITIN) 8-20 by mouth [facility] - 10 mg 17:57: daily. Medical tablet [address] [place] [address] Procedures This patient has no known procedures. Encounters Start End Encounter Admission Attending Care Care Encounter Source Date/Time Date/Time Type Type Clinicians Facility Department ID 2019-03-03 2019-03-03 Jos PATEL [id number] 00:00:00 00:00:00 Management , Marli CYR [id number] [facility] [id number] Results Test Description Test Time Test Comments Results Result Comments Source URINE CULTURE 2017-03-18 10:05:00 Test Item Value Reference Range Interpretation Comme nts CULTURE (BEAKER) (test code = 1095) >100,000 col/mL skin fredo URINALYSIS W/ [id number] 14:13:00 Test Item Value Reference Range Interpretation Comments COLOR (BEAKER) (test code = [place] 470) CLARITY (BEAKER) (test code = Hazy 469) SPECIFIC GRAVITY UA (BEAKER) 1.007 1.001-1.035 (test code = 468) PH UA (BEAKER) (test code = 6.5 5.0-8.0 467) PROTEIN UA (BEAKER) (test code 100 mg/dL Negative A = 464) GLUCOSE UA (BEAKER) (test code Negative Negative = 365) KETONES UA (BEAKER) (test code Negative Negative = 371) BILIRUBIN UA (BEAKER) (test Negative Negative code = 462) BLOOD UA (BEAKER) (test code = Large Negative A 461) NITRITE UA (BEAKER) (test code Negative Negative = 465) LEUKOCYTE ESTERASE UA (BEAKER) Small Negative A (test code = 466) UROBILINOGEN UA (BEAKER) (test 0.2 mg/dL 0.2-1.0 code = 463) RBC UA (BEAKER) (test code = 60 /HPF 519) WBC UA (BEAKER) (test code = 9 /HPF 520) BACTERIA (BEAKER) (test code = Few 517) MUCUS (BEAKER) (test code = Rare 1574) SQUAMOUS EPITHELIAL (BEAKER) 1 /HPF (test code = 516) SOURCE(BEAKER) (test code = Urine, Voided 4462) [id number] 05:05:00 Test Item Value Reference Range Interpretation Comments PHOSPHORUS (BEAKER) (test code = 2.4 mg/dL 2.3-4.7 604) [id number] 05:05:00 Test Item Value Reference Range Interpretation Comments MAGNESIUM (BEAKER) (test code = 2.1 mg/dL 1.6-2.6 627) BASIC METABOLIC [id number] 05:05:00 Test Item Value Reference Range Interpretation Comments SODIUM (BEAKER) 136 meq/L 136-145 (test code = 381) POTASSIUM (BEAKER) 3.8 meq/L 3.5-5.1 (test code = 379) CHLORIDE (BEAKER) 101 meq/L 98-107 (test code = 382) CO2 (BEAKER) (test 28 meq/L 22-29 code = 355) BLOOD UREA NITROGEN 10 mg/dL 7-21 (BEAKER) (test code = 354) CREATININE (BEAKER) 0.82 mg/dL 0.57-1.25 (test code = 358) GLUCOSE RANDOM 132 mg/dL 70-105 H (BEAKER) (test code = 652) CALCIUM (BEAKER) 8.7 mg/dL 8.4-10.2 (test code = 697) EGFR (BEAKER) (test 75 mL/min/1.73 ESTIMA LUCI GFR IS code = 1092) sq m NOT ACCURATE CREATININE CLEARANCE IN PREDICTING GLOMERULAR FILTRATION RATE . ESTIMATED GFR I S NOT APPLICABLE FOR DIALYSIS PATIEN TS. HEPATIC FUNCTION [id number] 05:05:00 Test Item Value Reference Range Interpretation Comments TOTAL PROTEIN (BEAKER) (test code = 6.9 gm/dL 6.0-8.3 770) ALBUMIN (BEAKER) (test code = 1145) 3.7 g/dL 3.5-5.0 BILIRUBIN TOTAL (BEAKER) (test code 0.6 mg/dL 0.2-1.2 = 377) BILIRUBIN DIRECT (BEAKER) (test 0.3 mg/dL 0.1-0.5 code = 706) ALKALINE PHOSPHATASE (BEAKER) (test 61 U/L 40-150 code = 346) AST (SGOT) (BEAKER) (test code = 28 U/L 5-34 353) ALT (SGPT) (BEAKER) (test code = 32 U/L 6-55 347) PROTHROMBIN [id number] 04:57:00 Test Item Value Reference Range Interpretation Comments PROTIME (BEAKER) (test code = 14.4 seconds 11.7-14.7 759) INR (BEAKER) (test code = 370) 1.1 <=5.9 RECOMMENDED COUMADIN/WARFARIN INR THERAPY RANGESSTANDARD DOSE: 2.0 - 3.0 Includes: PROPHYLAXIS forvenous thrombosis, systemic embolization; TREATMENT for venous thrombosis and/or pulmonary embolus.HIGH RISK: Target INR is 2.5-3.5 for patients with mechanical heart valves.CBC W/PLT COUNT & AUTO DIFFERENTIAL 2017-03-16 04:44:00 Test Item Value Reference Range Interpretation Comments WHITE BLOOD CELL COUNT (BEAKER) 7.6 K/ L 3.5-10.5 (test code = 775) RED BLOOD CELL COUNT (BEAKER) 4.10 M/ L 3.93-5.22 (test code = 761) HEMOGLOBIN (BEAKER) (test code = 11.7 GM/DL 11.2-15.7 410) HEMATOCRIT (BEAKER) (test code = 35.3 % 34.1-44.9 411) MEAN CORPUSCULAR VOLUME (BEAKER) 86.1 fL 79.4-94.8 (test code = 753) MEAN CORPUSCULAR HEMOGLOBIN 28.5 pg 25.6-32.2 (BEAKER) (test code = 751) MEAN CORPUSCULAR HEMOGLOBIN CONC 33.1 GM/DL 32.2-35.5 (BEAKER) (test code = 752) RED CELL DISTRIBUTION WIDTH 13.2 % 11.7-14.4 (BEAKER) (test code = 412) PLATELET COUNT (BEAKER) (test 266 K/CU MM 150-450 code = 756) MEAN PLATELET VOLUME (BEAKER) 9.1 fL 9.4-12.3 L (test code = 754) NUCLEATED RED BLOOD CELLS 0 /100 WBC 0-0 (BEAKER) (test code = 413) NEUTROPHILS RELATIVE PERCENT 63 % (BEAKER) (test code = 429) LYMPHOCYTES RELATIVE PERCENT 29 % (BEAKER) (test code = 430) MONOCYTES RELATIVE PERCENT 7 % (BEAKER) (test code = 431) EOSINOPHILS RELATIVE PERCENT 0 % (BEAKER) (test code = 432) BASOPHILS RELATIVE PERCENT 0 % (BEAKER) (test code = 437) NEUTROPHILS ABSOLUTE COUNT 4.82 K/ L 1.56-6.13 (BEAKER) (test code = 670) LYMPHOCYTES ABSOLUTE COUNT 2.17 K/ L 1.18-3.74 (BEAKER) (test code = 414) MONOCYTES ABSOLUTE COUNT (BEAKER) 0.52 K/ L 0.24-0.36 H (test code = 415) EOSINOPHILS ABSOLUTE COUNT 0.03 K/ L 0.04-0.36 L (BEAKER) (test code = 416) BASOPHILS ABSOLUTE COUNT (BEAKER) 0.03 K/ L 0.01-0.08 (test code = 417) IMMATURE GRANULOCYTES-RELATIVE 0 % 0-1 PERCENT (BEAKER) (test code = 2305)
[2020-11-20 21:27] LABS: Urine Blood Negative (Negative); Urine Glucose Negative (Negative); Urine Protein Negative (Negative); Urine Specific Gravity 1.025 (1.005-1.030)
[2020-11-20 22:52] LABS: Absolute Lymphocytes (CBC) 2.2 K/uL (0.7-4.9); Basophils % 0.6 % (0-1.3); Lymphocytes % 29.9 % (15.3-44.8); MPV 7.6 fL (7.6-11.3); RBC Red Blood Cell Count 4.63 M/uL (3.86-4.86)
[2020-11-20 22:53] LABS: Protime INR 0.95
[2020-11-20 23:03] LABS: Albumin 3.8 g/dL (3.4-5.0); Bilirubin Direct 0.1 mg/dL (0-0.2); Bilirubin Total 0.4 mg/dL (0.2-1.0); Potassium 3.6 mmol/L (3.5-5.1)
[2020-11-20] MEDS ORDERED: ONDANSETRON 4 MG/2 ML VIAL ONE (23:19)
[2020-11-21] MEDS ORDERED: MEPERIDINE HCL 25 MG/ML SYR ONE (00:13)
--- NOTE | 2020-11-21 00:47 | ER ---
Nurse's Notes [facility] Name: Elvia Dumont Age: 50 yrs Sex: Female : 1970 Arrival Date: 11/20/2020 Time: 18:45 Bed 26 Private MD: Diagnosis: Unspecified abdominal pain;Nonspecific rectal bleeding;Possible rectal mass/cancer Presentation: 11/20 19:11 Chief complaint: Patient states: R flank pain since this morning, radiating across the ca1 back. Reports nausea, bloody-mucous stool Denies fever. Coronavirus screen: nausea, Client presents with at least one sign or symptom that may indicate coronavirus-19. Standard/surgical mask placed on the client. Provider contacted for isolation considerations. Ebola Screen: Patient negative for fever greater than or equal to 101.5 degrees Fahrenheit, and additional compatible Ebola Virus Disease symptoms Patient denies exposure to infectious person. Patient denies travel to an Ebola-affected area in the 21 days before illness onset. No symptoms or risks identified at this time. Initial Sepsis Screen: Does the patient meet any 2 criteria? No. Patient's initial sepsis screen is negative. Does the patient have a suspected source of infection? No. Patient's initial sepsis screen is negative. Risk Assessment: Do you want to hurt yourself or someone else? Patient reports no desire to harm self or others. Onset of symptoms was November 20, 2020. 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 Flu vaccine is not up to date. - Social history:: Smoking status: Patient/guardian denies using tobacco, the patient reports quitting approximately 30 years ago. - Family history:: not pertinent. - Hospitalizations: : No recent hospitalization is reported. Screenin:13 Abuse screen: Denies threats or abuse. Denies injuries from another. Nutritional zb screening: No deficits noted. Tuberculosis screening: No symptoms or risk factors identified. Fall Risk None identified. Assessment: 21:41 Reassessment: ecp at bedside. zb 22:14 General: Appears in no apparent distress. uncomfortable, Behavior is calm, cooperative, zb appropriate for age. Pain: Complains of pain in posterior aspect of right lateral abdomen, anterior aspect of right lateral abdomen and right upper quadrant Pain radiates to back Pain currently is 6 out of 10 on a pain scale. at worst was 10 out of 10 on a pain scale. Quality of pain is described as aching, Pain began today Is intermittent. Neuro: Level of Consciousness is awake, alert, obeys commands, Oriented to person, place, time, Moves all extremities. Full function. Cardiovascular: Patient's skin is warm and dry. Respiratory: Airway is patent Respiratory effort is even, unlabored, Respiratory pattern is regular, symmetrical. GI: Abdomen is round obese, Bowel sounds present X 4 quads. Abdomen is tender to palpation in right upper quadrant Reports upper abdominal pain, constipation, nausea. Derm: Skin is intact, is healthy with good turgor, Skin is dry, Skin is normal, Skin temperature is warm. Musculoskeletal: Circulation, motion, and sensation intact. Range of motion: intact in all extremities. 22:59 Reassessment: Patient appears in no apparent distress at this time. Patient and/or zb family updated on plan of care and expected duration. Pain level reassessed. Patient is alert, oriented x 3, equal unlabored respirations, skin warm/dry/pink. pt c/o nausea. notified ecp. medication ordered. 23:58 Reassessment: notified ecp to c/o of pain. states she was okay with medication. zb medication ordered and given. Vital Signs: 19:11 BP 153 / 90; Pulse 66; Resp 18 S; Temp 98.5(TE); Pulse Ox 95% on R/A; Weight 93.44 kg ca1 (R); Height 4 ft. 8 in. (142.24 cm) (R); Pain 10/10; 22:00 BP 128 / 63; Pulse 70; Resp 16; Pulse Ox 99% on R/A; zb 23:00 BP 124 / 63; Pulse 70; Resp 18; Pulse Ox 99% on R/A; zb 11/21 00:00 BP 120 / 71; Pulse 69; Resp 18; Pulse Ox 100% on R/A; zb 11/20 19:11 Body Mass Index 46.18 (93.44 kg, 142.24 cm) ca1 ED Course: 11/20 18:45 Patient arrived in ED. as 19:14 Triage completed. ca1 19:15 Arm band placed on right wrist. ca1 21:40 Kemar Mendez MD is Attending Physician. rn 21:59 Thao Castellano RN is Primary Nurse. zb 22:13 Patient has correct armband on for positive identification. Placed in gown. Bed in low zb position. Call light in reach. Pulse ox on. NIBP on. Door closed. Noise minimized. Warm blanket given. 22:16 Initial lab(s) drawn, by me, sent to lab. Inserted saline lock: 20 gauge in right zb antecubital area, using aseptic technique. 23:54 CT Abd/Pelvis - IV Contrast Only In Process Unspecified. EDMS 11/21 00:00 Primary Nurse role handed off by Thao Castellano RN iw 00:00 Smita Silverman RN is Primary Nurse. iw 00:46 Tirso Hay DO is Hospitalizing Provider. rn 04:48 No provider procedures requiring assistance completed. Patient admitted, IV remains in iw place. Administered Medications: 11/20 23:00 Drug: Zofran (Ondansetron) 4 mg Route: IVP; Site: right antecubital; zb 23:46 Follow up: Response: No adverse reaction; Nausea unchanged zb 23:57 Drug: Demerol (meperidine) 25 mg {Note: RASS 0.} Route: IVP; Site: right antecubital; zb 11/21 00:30 Follow up: Response: No adverse reaction; Pain is decreased iw Outcome: 00:47 Decision to Hospitalize by Provider. rn 04:48 Admitted to Med/surg accompanied by tech, family with patient. iw 04:48 Condition: good 04:48 Discharge instructions given to patient, Instructed on the need for admit. 04:49 Patient left the ED. iw Signatures: Dispatcher [employer] EDUT Clara Harkins Irene, LEO RN iw Kemar Mendez MD MD rn Acob, Cheryl, RN RN ca1 Thao Castellano RN RN zb
--- NOTE | 2020-11-21 00:47 | EDPHYS ---
Physician Documentation [facility] Name: Elvia Dumont Age: 50 yrs Sex: Female : 1970 Arrival Date: 11/20/2020 Time: 18:45 Bed 26 Private MD: ED Physician Kemar Mendez HPI: 11/20 22:43 This 50 yrs old Female presents to ER via Ambulatory with complaints of Flank rn Pain, Nausea. 22:43 The patient presents with abdominal pain in the right upper quadrant, right lower rn quadrant. Onset: The symptoms/episode began/occurred 2 month(s) ago. The symptoms do not radiate. Associated signs and symptoms: Pertinent positives: anorexia, blood in stools, Pertinent negatives: diarrhea, fever, shortness of breath, vomiting blood. The symptoms are described as achy, crampy, intermittent. Modifying factors: The symptoms are alleviated by nothing, the symptoms are aggravated by touching the area. Severity of pain: At its worst the pain was moderate in the emergency department the pain is unchanged. The patient has not experienced similar symptoms in the past. The patient has been recently seen by a physician:. Reports 2 months right sided abd pain, assoc with intermittent bloody stool, no vomiting or hematemesis, has not had imaging, referred to GI but has not seen them due to insurance reasons. Reports pain worse today so came in.. 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 Flu vaccine is not up to date. - Social history:: Smoking status: Patient/guardian denies using tobacco, the patient reports quitting approximately 30 years ago. - Family history:: not pertinent. - Hospitalizations: : No recent hospitalization is reported. ROS: 22:43 Constitutional: Negative for fever, chills, and weight loss, Eyes: Negative for injury, rn pain, redness, and discharge, Neck: Negative for injury, pain, and swelling, Cardiovascular: Negative for chest pain, palpitations, and edema, Respiratory: Negative for shortness of breath, cough, wheezing, and pleuritic chest pain, Abdomen/GI: + right sided abd pain and blood in stool Back: Negative for injury and pain, : Negative for injury, bleeding, discharge, and swelling, MS/Extremity: Negative for injury and deformity, Skin: Negative for injury, rash, and discoloration, Neuro: Negative for headache, weakness, numbness, tingling, and seizure. Exam: 22:43 Constitutional: This is a well developed, well nourished patient who is awake, alert, rn slow to get into bed Head/Face: Normocephalic, atraumatic. Eyes: Pupils equal round and reactive to light, extra-ocular motions intact. Lids and lashes normal. Conjunctiva and sclera are non-icteric and not injected. Cornea within normal limits. Periorbital areas with no swelling, redness, or edema. Cardiovascular: Regular rate and rhythm. No pulse deficits. Respiratory: No increased work of breathing, no retractions or nasal flaring. Abdomen/GI: soft, + right sided tenderness, no masses Skin: Warm, dry MS/ Extremity: Pulses equal, no cyanosis. Neuro: Awake and alert, GCS 15, oriented to person, place, time, and situation. Cranial nerves II-XII grossly intact. Motor strength 5/5 in all extremities. Sensory grossly intact. Cerebellar exam normal. Normal gait. Vital Signs: 19:11 BP 153 / 90; Pulse 66; Resp 18 S; Temp 98.5(TE); Pulse Ox 95% on R/A; Weight 93.44 kg ca1 (R); Height 4 ft. 8 in. (142.24 cm) (R); Pain 10/10; 22:00 BP 128 / 63; Pulse 70; Resp 16; Pulse Ox 99% on R/A; zb 23:00 BP 124 / 63; Pulse 70; Resp 18; Pulse Ox 99% on R/A; zb 11/21 00:00 BP 120 / 71; Pulse 69; Resp 18; Pulse Ox 100% on R/A; zb 11/20 19:11 Body Mass Index 46.18 (93.44 kg, 142.24 cm) ca1 MDM: 11/20 21:40 Patient medically screened. rn 11/21 00:44 Differential diagnosis: appendicitis, non-specific abd pain, Ureterolithiasis, colon rn cancer, nonspecific pain. Data reviewed: vital signs, nurses notes, lab test result(s), radiologic studies, CT scan, and as a result, I will admit patient. Counseling: I had a detailed discussion with the patient and/or guardian regarding: the historical points, exam findings, and any diagnostic results supporting the discharge/admit diagnosis, lab results, radiology results, the need for further work-up and treatment in the hospital. Response to treatment: the patient's symptoms have mildly improved after treatment, and as a result, I will admit patient. Admission orders: after a detailed discussion of the patient's condition and case, the admit orders are written by me. ED course: Pt with right sided abd pain for atleast a month, denies rectal pain or fullness, having normal bowel movements, CT shows questionable fullness of soft tissues of rectum, possibly a mass/early cancer vs nothing given patient without focal rectal complaints. Will admit to hospitalist service for GI consult, given patient has seen Dr. Hobson and Rashaun in past and has had colonoscopy with them. Stable vitals and h/h. . 11/20 21:26 Order name: Urine Dipstick-Ancillary; Complete Time: 21:40 [facility] 11/20 21:51 Order name: Basic Metabolic Panel 11/20 21:51 Order name: CBC with Diff; Complete Time: 23:34 11/20 21:51 Order name: Hepatic Function 11/20 21:51 Order name: Lipase 11/20 21:51 Order name: Protime (+inr); Complete Time: 23:34 11/20 21:51 Order name: CT Abd/Pelvis - IV Contrast Only 11/20 21:51 Order name: Ptt, Activated; Complete Time: 23:34 11/20 21:52 Order name: Basic Metabolic Panel; Complete Time: 23:34 [facility] 11/20 21:52 Order name: Liver (Hepatic) Function; Complete Time: 23:34 [facility] 11/20 21:52 Order name: Lipase; Complete Time: 23:34 [facility] 11/21 03:08 Order name: SARS-COV-[address] [facility] 11/20 21:51 Order name: IV Saline Lock; Complete Time: 22:12 11/20 21:51 Order name: Labs collected and sent; Complete Time: 22:12 rn Administered Medications: 11/20 23:00 Drug: Zofran (Ondansetron) 4 mg Route: IVP; Site: right antecubital; zb 23:46 Follow up: Response: No adverse reaction; Nausea unchanged zb 23:57 Drug: Demerol (meperidine) 25 mg {Note: RASS 0.} Route: IVP; Site: right antecubital; zb 11/21 00:30 Follow up: Response: No adverse reaction; Pain is decreased iw Disposition: 11/21/20 00:47 Hospitalization ordered by Tirso Hay for Observation. Preliminary diagnosis are Unspecified abdominal pain, Nonspecific rectal bleeding, Possible rectal mass/cancer. - Bed requested for Telemetry/MedSurg (observation). - Status is Observation. iw - Condition is Stable. - Problem is an ongoing problem. - Symptoms are unchanged. Signatures: Dispatcher [employer] EDMS Bibiana Lozada RN RN mw Williams, Irene, RN RN iw Kemar Mendez MD MD rn Acob, Cheryl, RN RN ca1 Brown, Zipporah, RN RN zb Corrections: (The following items were deleted from the chart) 02:05 01:14 CORONAVIRUS+MR.LAB.BRZ ordered. EDWI EDMS 03:16 00:47 Hospitalization Ordered by Tirso Hay DO for Observation. Preliminary mw diagnosis is Unspecified abdominal pain; Nonspecific rectal bleeding; Possible rectal mass/cancer. Bed requested for Telemetry/MedSurg (observation). Status is Observation. Condition is Stable. Problem is an ongoing problem. Symptoms are unchanged. rn 04:49 03:16 11/21/2020 00:47 Hospitalization Ordered by Tirso Hay DO for Observation. iw Preliminary diagnosis is Unspecified abdominal pain; Nonspecific rectal bleeding; Possible rectal mass/cancer. Bed requested for Telemetry/MedSurg (observation). Status is Observation. Condition is Stable. Problem is an ongoing problem. Symptoms are unchanged. mw
--- NOTE | 2020-11-21 02:44 | P.HP ---
Certification for Inpatient Patient admitted to: Observation With expected LOS: <2 Midnights Patient will require the following post-hospital care: None Practitioner: I am a practitioner with admitting privileges, knowledge of patient current condition, hospital course, and medical plan of care. Services: Services provided to patient in accordance with Admission requirements found in Title 42 Section 412.3 of the Code of Federal Regulations Patient History Date of Service: 11/21/20 Primary Care Provider: Erasmo cannon Reason for admission: Hematochezia, rectal mass History of Present Illness: 50-year-old female with history of renal cell carcinoma status post right nephrectomy presents emergency department for bright red blood per rectum for approximately the last 2 months. Patient reports mild worsening in symptoms over the course of the last few days with some right lower quadrant abdominal pain as well. Workup in the emergency department, labs unremarkable hemoglobin 13.1 hematocrit 39.0 chemistry GFR 65 which is actually improved from patient's baseline urinalysis negative, CT demonstrates vague fullness in the soft tissues of the rectum, questionable rectal mass. Patient reports she has been having small amounts of bright red blood, mucus in her stool. ED provider was planning on discharging patient to follow up with GI on an outpatient basis for further evaluation but he was discovered the patient is without insurance and would not be able to follow up outpatient, for this reason ED provider wishes to admit for further evaluation and management. When I saw the patient in the emergency department she is awake, alert, oriented x3. Patient denies any pain at this time, vital signs are stable. Discussed with patient that she will likely not have colonoscopy while she is in the hospital and will need to follow up on outpatient basis, she wishes to stay in the hospital under observation in his case discussed with GI in the morning. Allergies Cephalosporins Allergy (Verified 12/16/14 13:33) Unknown Home Medications: NK [No Home Meds] 03/15/17 - Past Medical/Surgical History Diabetic: No -: Tobacco abuse -: Knee arthritis -: GERD -: Renal cell carcinoma -: Cholecystectomy -: Tubal ligation -: Uterine ablation -: Nephrectomy Psychosocial/ Personal History: The patient is of 20 years, she has 5 children. She does not work. - Family History Father -: Diabetes Mother -: Heart disease, Diabetes - Social History Smoking Status: Never smoker Alcohol use: Yes CD- Drugs: No Caffeine use: Yes Place of Residence: Home Review of Systems 10-point ROS is otherwise unremarkable Gastrointestinal: Constipation, Hematochezia, As per HPI Physical Examination - Physical Exam General: Alert, In no apparent distress HEENT: Atraumatic, PERRLA, Mucous membr. moist/pink Neck: Supple, 2+ carotid pulse no bruit, No LAD Respiratory: Clear to auscultation bilaterally, Normal air movement Cardiovascular: Regular rate/rhythm, Normal S1 S2 Gastrointestinal: Normal bowel sounds, No tenderness Musculoskeletal: No tenderness Integumentary: No rashes Neurological: Normal speech, Normal strength at 5/5 x4 extr, Normal tone, Normal affect - Studies Laboratory Data (last 24 hrs) 11/20/20 22:07: PT 10.9, INR 0.95, APTT 32.2 11/20/20 22:07: WBC 7.30, Hgb 13.1, Hct 39.0, Plt Count 299 11/20/20 22:07: Sodium 137, Potassium 3.6, BUN 12, Creatinine 0.92, Glucose 158 H, Total Bilirubin 0.4, AST 43 H, ALT 58, Alkaline Phosphatase 97, Lipase 171 Assessment and Plan - Plan Assessment Hematochezia, possible rectal mass history of renal cell carcinoma with nephrectomy: Plan Hematochezia, possible rectal mass history of renal cell carcinoma with nephrectomy: CBC unremarkable, hemoglobin hematocrit levels normal, vital signs stable, there is some hematochezia noted but not significant volumes of blood. Rectal exam negative for obvious external hemorrhoids, no obvious rectal mass appreciated on rectal exam. GI consulted, will discuss case with them in the morning, NPO after midnight in case of need for endoscopy. DVT prophylaxis with SCDs. Patient will likely need to follow up with GI on an outpatient basis for further evaluation and management. Discussed with patient additional means for obtaining healthcare insurance so she can have these tests performed, patient reports that she is working with the indigent office at her primary care doctor's office as well as with [facility] financial assistance program. Discharge Plan: Home Plan to discharge in: 24 Hours - Advance Directives Does patient have a Living Will: No Does patient have a Durable POA for Healthcare: No - Code Status/Comfort Care Code Status Assessed: Yes (Full code) Critical Care: No Time Spent Managing Pts Care (In Minutes): 55
[2020-11-21] MEDS ORDERED: ONDANSETRON 4 MG/2 ML VIAL IV PRN (04:52)
[2020-11-21] MEDS ORDERED: MORPHINE 2 MG/ML SYR IV PRN (05:14)
[2020-11-21 05:42] LABS: Absolute Lymphocytes (CBC) 2.1 K/uL (0.7-4.9); Basophils % 0.7 % (0-1.3); Hematocrit 37.5 % (36.0-45.0); MPV 7.7 fL (7.6-11.3)
[2020-11-21 06:03] LABS: Potassium 3.8 mmol/L (3.5-5.1)
[2020-11-21 08:18] VITALS: BMI 46.1
[2020-11-21 10:52] VITALS: O2SAT 94
[2020-11-21] MEDS ORDERED: KCL 20 MEQ/100 mL IVPB 20 MEQ/100 ML BAG IV SCH (12:00)
[2020-11-21 12:11] VITALS: TEMP 97.8
[2020-11-21] MEDS ORDERED: NA CHLORIDE 0.9% 250 ML ONE (12:42)
--- NOTE | 2020-11-21 13:27 | P.DS ---
Admission Date: 11/21/20 Discharge Date: 11/21/20 Primary Care Provider: [facility] Disposition: ROUTINE DISCHARGE Discharge Condition: GOOD Reason for Admission: Hematochezia, rectal mass Consultations: GI-Dr. Rodney Procedures: COVID: Negative CT scan: FINDINGS: Lower lungs are clear. Abdomen: Liver is enlarged and fatty in attenuation. There is no biliary dilatation. Cholecystectomy was performed. The pancreas and spleen are normal in appearance. The adrenal glands and left kidney are normal. Right kidney is absent. Abdominal aorta is normal in course and caliber without aneurysm. There is no free air. There is no retroperitoneal adenopathy. Pelvis: There is no bowel obstruction. Urinary bladder is unremarkable. There is no free fluid. Uterus is normal in size. Appendix is normal. There is vague fullness of the soft tissues of the rectum. Skeleton: There are no acute osseous findings. No suspicious bony lesions. IMPRESSION: Questionable rectal mass. Medical Problem List: Right lower quadrant abdominal pain with noted CT finding of vague fullness in the soft tissue of the rectum Brief History of Present Illness: 50-year-old female with history of renal cell carcinoma status post right nephrectomy presents emergency department for bright red blood per rectum for approximately the last 2 months. Patient reports mild worsening in symptoms over the course of the last few days with some right lower quadrant abdominal pain as well. Workup in the emergency department, labs unremarkable hemoglobin 13.1 hematocrit 39.0 chemistry GFR 65 which is actually improved from patient's baseline urinalysis negative, CT demonstrates vague fullness in the soft tissues of the rectum, questionable rectal mass. Patient reports she has been having small amounts of bright red blood, mucus in her stool. She was admitted for further evaluation and treatment. Hospital Course: Patient presented with right lower quadrant abdominal pain. CT scan showed fullness to the rectal region. Hemoglobin stable. No evidence of bleeding identified. Patient able to tolerate diet. Case discussed in detail with GI. No further intervention required at this time. Patient will follow up with GI as an outpatient to further evaluate. Patient would benefit with colonoscopy to further address. Vital Signs/Physical Exam: Temp Pulse Resp BP Pulse Ox 97.8 F 76 18 129/75 95 11/21/20 12:00 11/21/20 12:00 11/21/20 12:00 11/21/20 12:00 11/21/20 12:00 General: Alert, In no apparent distress, Oriented x3, Cooperative HEENT: Atraumatic Neck: Supple Respiratory: Clear to auscultation bilaterally, Normal air movement Cardiovascular: Normal pulses, Regular rate/rhythm Gastrointestinal: Normal bowel sounds, No tenderness, No masses, No rebound, No guarding Neurological: Normal speech, Normal strength at 5/5 x4 extr, Normal tone, Normal affect Laboratory Data at Discharge: WBC 6.20 K/uL (4.3-10.9) D 11/21/20 05:05 Hgb 12.4 g/dL (12.0-15.0) 11/21/20 05:05 Hct 37.5 % (36.0-45.0) 11/21/20 05:05 Plt Count 295 K/uL (152-406) 11/21/20 05:05 PT 10.9 SECONDS (9.5-12.5) 11/20/20 22:07 INR 0.95 11/20/20 22:07 APTT 32.2 SECONDS (24.3-36.9) 11/20/20 22:07 Sodium 139 mmol/L (136-145) 11/21/20 05:05 Potassium 3.8 mmol/L (3.5-5.1) 11/21/20 05:05 BUN 11 mg/dL (7-18) 11/21/20 05:05 Creatinine 0.88 mg/dL (0.55-1.3) 11/21/20 05:05 Glucose 183 mg/dL (74-106) H 11/21/20 05:05 Total Bilirubin 0.4 mg/dL (0.2-1.0) 11/20/20 22:07 AST 43 U/L (15-37) H 11/20/20 22:07 ALT 58 U/L (12-78) 11/20/20 22:07 Alkaline Phosphatase 97 U/L (45-117) 11/20/20 22:07 Lipase 171 U/L (73-393) 11/20/20 22:07 Home Medications: NK [No Home Meds] 03/15/17 Physician Discharge Instructions: Patient presented with right lower quadrant abdominal pain. CT scan showed fullness to the rectal region. Hemoglobin stable. No evidence of bleeding identified. Patient able to tolerate diet. Case discussed in detail with GI. No further intervention required at this time. Patient will follow up with GI as an outpatient to further evaluate. Patient would benefit with colonoscopy to further address. Diet: GI soft Activity: Ad april Followup: NONE,NONE [Primary Care Provider] - Time spent managing pt's care (in minutes): 55
--- NOTE | 2020-11-21 13:40 | RAD REPORT ---
EXAM DESCRIPTION: CT - Abdomen Pelvis W Contrast - 11/21/2020 6:41 am CLINICAL HISTORY: Right sided abd pain x 2 months, rectal bleeding COMPARISON: None. TECHNIQUE: CT ABDOMEN PELVIS WITH IV CONTRAST on 11/20/2020 9:51 PM CDT This exam was performed according to our departmental dose-optimization program, which includes autom ated exposure control, adjustment of the mA and/or kV according to patient size and/or use of iterati ve reconstruction technique. FINDINGS: Lower lungs are clear. Abdomen: Liver is enlarged and fatty in attenuation. There is no biliary dilatation. Cholecystectomy was performed. The pancreas and spleen are normal in appearance. The adrenal glands and left kidney a re normal. Right kidney is absent. Abdominal aorta is normal in course and caliber without aneurysm. There is no free air. There is no r etroperitoneal adenopathy. Pelvis: There is no bowel obstruction. Urinary bladder is unremarkable. There is no free fluid. Uteru s is normal in size. Appendix is normal. There is vague fullness of the soft tissues of the rectum. Skeleton: There are no acute osseous findings. No suspicious bony lesions. IMPRESSION: Questionable rectal mass. Correlate with physical exam. Electronically signed by: Nate Boo MD 11/21/2020 12:05 AM CDT Due to temporary technical issues with the PACS/Fluency reporting system, reports are being signed by the in house radiologists without review as a courtesy to insure prompt reporting. The interpreting radiologist is fully responsible for the content of the report.
[2020-11-21] MEDS ORDERED: NA CHLORIDE 0.9% 500 ML ONE (15:51)
[2020-11-21] MEDS ORDERED: CIPROFLOXACIN 400mg IV 400 MG/200 ML BAG IV ONE (16:00)
[2020-11-21 16:15] VITALS: BP 146/67
[2020-11-21] MEDS ORDERED: METRONIDAZOLE 500mg IVPB 500 MG/100 ML BAG IV SCH (17:00)
== END 2020-11-21 19:17 | disposition home or self-care (01) | DRG 395 ==
LOC: ER 18:42 → ERHOLD 11-21 02:35 → 4TH 11-21 04:23 → OBSVTOIN 11-21 08:00
PROVIDERS: ADMIT Family Medicine; ATTEND Family Medicine
DX: K62.89 Other specified diseases of anus and rectum (principal); K21.9 Gastro-esophageal reflux disease without esophagitis; Z88.1 Allergy status to other antibiotic agents; Z85.528 Personal history of other malignant neoplasm of kidney; Z90.49 Acquired absence of other specified parts of digestive tract; Z98.51 Tubal ligation status; Z20.822 Contact with and (suspected) exposure to COVID-19
CPT/HCPCS: 36415; 74177; 80048; 80076; 81003; 83690; 85025; 85610; 85730; 96374; 96375; 99285; G0378; J0744; J2405; J3480; J7040; J7050; Q9967; U0003

== ENCOUNTER 2021-02-24 16:48 | Emergency (ER) | payer OTHER ==
--- OUTSIDE RECORDS SUMMARY | 2021-02-24 16:51 | XMS REPORT | Continuity of Care Document ---
:1970 Author Organization [facility] t Address [address] [place] [address] Care Team Providers Name Role Phone Sharpless [...] Date Stop Date Source Natural father Diabetes [facility] Natural father Hypertension [facility] Natural mother Diabetes [facility] Social History Social Habit Start Date Stop Date Quantity Comments Source Sex Assigned At [facility] Medications Ordered Filled Start Stop Current Ordering Indication Dosage Frequency Signature Comments Components Source Medication Medication Date Date Medication? Clinician (SIG) Name Name loratadine Yes 10mg QD Take [address] (CLARITIN) 8-20 by mouth [facility] - 10 mg 17:57: daily. Medical tablet [address] [place] [address] Procedures This patient has no known procedures. Encounters Start End Encounter Admission Attending Care Care Encounter Source Date/Time Date/Time Type Type Clinicians Facility Department ID 2019-03-03 2019-03-03 Jos PATEL [id number] 00:00:00 00:00:00 Management , Marli CYR [id number] [facility] [id number] Results Test Description Test Time Test Comments Results Result Comments Source URINE CULTURE 2017-03-18 10:05:00 Test Item Value Reference Range Interpretation Comme nts CULTURE (BEAKER) (test code = 1095) >100,000 col/mL skin fredo URINALYSIS W/ [id number] 14:13:00 Test Item Value Reference Range Interpretation Comments COLOR (BEAKER) (test code = [place] 470) CLARITY (BEAKER) (test code = Hazy [...] 516) SOURCE(BEAKER) (test code = Urine, Voided 8059) [id number] 05:05:00 Test Item Value Reference Range Interpretation Comments PHOSPHORUS (BEAKER) (test code = 2.4 mg/dL 2.3-4.7 604) [id number] 05:05:00 Test Item Value Reference Range Interpretation Comments MAGNESIUM (BEAKER) (test code = 2.1 mg/dL 1.6-2.6 627) BASIC METABOLIC [id number] 05:05:00 Test Item Value Reference Range Interpretation [...] APPLICABLE FOR DIALYSIS PATIEN TS. HEPATIC FUNCTION [id number] 05:05:00 Test Item Value Reference Range Interpretation [...] code = 32 U/L 6-55 347) PROTHROMBIN [id number] 04:57:00 Test Item Value Reference Range Interpretation [...] % 0-1 PERCENT (BEAKER) (test code = 4082)
[2021-02-24 19:13] LABS: Absolute Lymphocytes (CBC) 0.7 K/uL (0.7-4.9); Basophils % 0.3 % (0-1.3); Hematocrit 41.5 % (36.0-45.0); Lymphocytes % 15.9 % (15.3-44.8); MPV 7.2 fL (7.6-11.3)
[2021-02-24] MEDS ORDERED: NA CHLORIDE 0.9% 1,000 ML ONE (19:13)
[2021-02-24 19:18] LABS: Protime INR 1.03
--- NOTE | 2021-02-24 19:29 | RAD REPORT ---
EXAM DESCRIPTION: RAD - Chest Single View - 02/24/2021 6:20 pm CLINICAL HISTORY: Chest pain;Cough;Dyspnea COMPARISON: Chest Pa And Lat (2 Views) dated 08/30/2018 FINDINGS: No evidence of edema or pneumonia. Relative basilar opacification favored to be secondary to overlapping soft tissues. The heart size is within normal limits.No acute osseous abnormality. No significant pleural effusions or pneumothorax. IMPRESSION: No acute cardiopulmonary disease.
[2021-02-24 19:36] LABS: ALT/SGPT 128 U/L (12-78); AST/SGOT 124 U/L (15-37); Albumin 3.7 g/dL (3.4-5.0); Alkaline Phosphatase 86 U/L (45-117); BUN Blood Urea Nitrogen 11 mg/dL (7-18); Bicarbonate 27 mmol/L (21-32); Bilirubin Direct 0.1 mg/dL (0-0.2); Bilirubin Total 0.4 mg/dL (0.2-1.0); Glucose Level 110 mg/dL (74-106); Magnesium 2.1 mg/dL (1.8-2.4); NT PRO-BNP 14 pg/mL (<125); Protein, Total 8.1 g/dL (6.4-8.2); Sodium Level 137 mmol/L (136-145); Troponin (Emerg Dept Use Only) < 0.02 ng/mL (0.0-0.045)
[2021-02-24] MEDS ORDERED: ACETAMINOPHEN 325 MG TABLET ONE (20:45)
[2021-02-24] MEDS ORDERED: IBUPROFEN 400 MG TAB ONE (20:45)
[2021-02-24] MEDS ORDERED: ONDANSETRON 4 MG/2 ML VIAL ONE (21:43)
--- NOTE | 2021-02-24 22:31 | ER ---
Nurse's Notes [facility] Name: Elvia Dumont Age: 50 yrs Sex: Female : 1970 Arrival Date: 02/24/2021 Time: 16:49 Bed 2 Private MD: Diagnosis: Coronavirus infection, unspecified Presentation: 02/24 17:43 Chief complaint: Patient states: COVID + since February 20, is having pain in midsternal iw area and mild cough, also has fever, nausea diarrhea, fatigue. Coronavirus screen: Ebola Screen: Patient negative for fever greater than or equal to 101.5 degrees Fahrenheit, and additional compatible Ebola Virus Disease symptoms Patient denies exposure to infectious person. Patient denies travel to an Ebola-affected area in the 21 days before illness onset. No symptoms or risks identified at this time. Onset of symptoms was February 20, 2021. 17:43 Method Of Arrival: Ambulatory iw 17:43 Acuity: ASIA 3 iw 19:17 Initial Sepsis Screen: Does the patient meet any 2 criteria? No. Patient's initial ph sepsis screen is negative. Does the patient have a suspected source of infection? No. Patient's initial sepsis screen is negative. Risk Assessment: Do you want to hurt yourself or someone else? Patient reports no desire to harm self or others. PRESS MANAGER: 21:00 LMP 02/24/2021 lp1 Historical: - Allergies: 17:44 CEPHALOSPORINS; iw - PMHx: 17:44 back problems; stage 3 kidney cancer, right kidney removed; iw - Immunization history:: Adult Immunizations unknown. - Social history:: Smoking status: Patient denies any tobacco usage or history of. Screenin:15 Abuse screen: Denies threats or abuse. Denies injuries from another. Nutritional ph screening: No deficits noted. Tuberculosis screening: No symptoms or risk factors identified. Fall Risk None identified. Assessment: 19:15 General: Appears in no apparent distress. comfortable, obese, well groomed, Behavior is ph calm, cooperative, appropriate for age, Reports chills for fever for > 3 days. Pain: Complains of pain in mid-sternal area Is intermittent. Neuro: Level of Consciousness is awake, alert, obeys commands, Oriented to person, place, time, situation, Reports dizziness, weakness. Cardiovascular: Reports chest pain, [employer], denies at this time. Respiratory: Airway is patent Respiratory effort is even, unlabored, Respiratory pattern is regular, symmetrical, Denies cough, shortness of breath. GI: Reports diarrhea, nausea, Patient currently denies abdominal pain, vomiting. Derm: Skin is intact, Skin is pink, warm \T\ dry. Musculoskeletal: Circulation, motion, and sensation intact. Range of motion: intact in all extremities. 20:30 Reassessment: Patient reports feeling cold, chills, general body aches; Provider lp1 notified. Neuro: Level of Consciousness is awake, alert, obeys commands. Respiratory: Respiratory effort is even, unlabored. Derm: Skin is intact, Skin is dry, Skin is flushed. 21:30 Reassessment: Patient appears in no apparent distress at this time. Patient ambulated lp1 independently to bathroom. Vital Signs: 18:05 BP 141 / 73; Pulse 88; Resp 18 S; Temp 98.3; Pulse Ox 98% on R/A; iw 19:57 BP 138 / 69; Pulse 89; Resp 20; Temp 100.1(O); Pulse Ox 100% on R/A; lp1 21:00 BP 116 / 58; Pulse 80; Resp 20; Pulse Ox 100% on R/A; lp1 22:50 BP 109 / 61; Pulse 80; Resp 20; Temp 100(O); Pulse Ox 99% on R/A; lp1 ED Course: 16:49 Patient arrived in ED. mr 17:44 Triage completed. iw 18:03 Zaynab Coyne, RN is Primary Nurse. ph 18:05 Arm band placed on. iw 18:10 Ean Bajwa PA is PHCP. jmm 18:10 Kemar Mendez MD is Attending Physician. jmm 18:20 CXR XRAY In Process Unspecified. EDMS 19:00 Initial lab(s) drawn, by me, sent to lab. Inserted saline lock: 20 gauge in right ph antecubital area, using aseptic technique. Blood collected. 19:17 Patient has correct armband on for positive identification. Call light in reach. Side ph rails up X2. Pulse ox on. NIBP on. Door closed. Noise minimized. Warm blanket given. 19:17 No provider procedures requiring assistance completed. ph 19:43 Primary Nurse role handed off by Zaynba Coyne RN mw2 19:56 Rashmi Enriquez, RN is Primary Nurse. lp1 22:51 IV discontinued, No redness/swelling at site. Pressure dressing applied. lp1 Administered Medications: 19:56 Drug: NS 0.9% 1000 ml Route: IV; Rate: 1 bolus; Site: right antecubital; lp1 21:11 Follow up: IV Status: Completed infusion; IV Intake: 1000ml lp1 21:11 Drug: Motrin (ibuprofen) 400 mg Route: PO; lp1 22:53 Follow up: Response: Temperature is decreased lp1 21:11 Drug: Tylenol 650 mg Route: PO; lp1 22:53 Follow up: Response: Temperature is decreased lp1 21:22 Drug: Zofran (Ondansetron) 4 mg Route: IVP; Site: right antecubital; lp1 22:53 Follow up: Response: Marked relief of symptoms lp1 Intake: 21:11 IV: 1000ml; Total: 1000ml. lp1 Outcome: 22:31 Discharge ordered by . [facility] 22:51 Discharged to home ambulatory. lp1 22:51 Condition: stable 22:51 Discharge instructions given to patient, Instructed on discharge instructions, follow up and referral plans. medication usage, Demonstrated understanding of instructions, follow-up care, medications, Prescriptions given X 1. 22:54 Patient left the ED. lp1 Signatures: Dispatcher [employer] EDMS Ean Bajwa PA PA jmm Rivera, Mary Smita Silverman RN RN Rashmi Enriquez RN RN lp1 Zaynab Coyne RN RN Krystian Byers mw2
--- NOTE | 2021-02-24 22:31 | EDPHYS ---
Physician Documentation [facility] Name: Elvia Dumont Age: 50 yrs Sex: Female : 1970 Arrival Date: 02/24/2021 Time: 16:49 Bed 2 Private MD: ED Physician Kemar Mendez HPI: 02/24 22:29 This 50 yrs old Female presents to ER via Ambulatory with complaints of jmm COVID+, Fever. 22:29 The patient presents to the emergency department with nausea, vomiting, diarrhea. jmm Onset: The symptoms/episode began/occurred gradually, 3 day(s) ago. Possible causes: travel, Coronavirus. The symptoms are aggravated by nothing. The symptoms are alleviated by nothing. Associated signs and symptoms: Pertinent negatives: vomiting. This is a 50-year-old female with a history of of kidney cancer the presents emerged department with complaints of vomiting, diarrhea, fatigue, body aches. Patient was recently diagnosed with coronavirus. 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 - Social history:: Smoking status: Patient denies any tobacco usage or history of. ROS: 22:29 Constitutional: Negative for fever, chills, and weight loss, Cardiovascular: Negative jmm for chest pain, palpitations, and edema, Respiratory: Negative for shortness of breath, cough, wheezing, and pleuritic chest pain. 22:29 Abdomen/GI: Positive for vomiting, diarrhea. 22:29 All other systems are negative. Exam: 22:29 Constitutional: This is a well developed, well nourished patient who is awake, alert, jmm and in no acute distress. Head/Face: atraumatic. Eyes: EOMI, no conjunctival erythema appreciated ENT: Moist Mucus Membranes Neck: Trachea midline, Supple Chest/axilla: Normal chest wall appearance and motion. Cardiovascular: Regular rate and rhythm. No edema appreciated Respiratory: Normal respirations, no respiratory distress appreciated Abdomen/GI: Non distended, soft Back: Normal ROM Skin: General appearance color normal MS/ Extremity: Moves all extremities, no obvious deformities appreciated, no edema noted to the lower extremities Neuro: Awake and alert, normal gait Psych: Behavior is normal, Mood is normal, Patient is cooperative and pleasant Vital Signs: 18:05 BP 141 / 73; Pulse 88; Resp 18 S; Temp 98.3; Pulse Ox 98% on R/A; iw 19:57 BP 138 / 69; Pulse 89; Resp 20; Temp 100.1(O); Pulse Ox 100% on R/A; lp1 21:00 BP 116 / 58; Pulse 80; Resp 20; Pulse Ox 100% on R/A; lp1 22:50 BP 109 / 61; Pulse 80; Resp 20; Temp 100(O); Pulse Ox 99% on R/A; lp1 MDM: 18:26 Patient medically screened. real 22:29 Data reviewed: vital signs, nurses notes. Counseling: I had a detailed discussion with real the patient and/or guardian regarding: the historical points, exam findings, and any diagnostic results supporting the discharge/admit diagnosis, lab results, radiology results, the need for outpatient follow up, to return to the emergency department if symptoms worsen or persist or if there are any questions or concerns that arise at home. ED course: Patient is alert nontoxic in appearance in the ED. Patient is advised to follow-up with PCP and otherwise given strict return precautions. Patient understood and agrees with plan of care.. 02/24 18:26 Order name: Basic Metabolic Panel; Complete Time: 19:41 [facility] 02/24 18:26 Order name: CBC with Diff; Complete Time: 19:41 [facility] 02/24 18:26 Order name: LFT's; Complete Time: 19:41 [facility] 02/24 18:26 Order name: Magnesium; Complete Time: 19:41 [facility] 02/24 18:26 Order name: NT PRO-BNP; Complete Time: 19:41 [facility] 02/24 18:26 Order name: PT-INR; Complete Time: 19:41 [facility] 02/24 17:44 Order name: CXR XRAY; Complete Time: 19:41 02/24 18:26 Order name: Troponin (emerg Dept Use Only); Complete Time: 19:41 [facility] 02/24 18:26 Order name: EKG; Complete Time: 18:27 [facility] 02/24 18:26 Order name: Cardiac monitoring; Complete Time: 21:19 [facility] 02/24 18:26 Order name: EKG - Nurse/Tech; Complete Time: 21:19 [facility] 02/24 18:26 Order name: IV Saline Lock; Complete Time: 19:15 [facility] 02/24 18:26 Order name: Labs collected and sent; Complete Time: 19:15 [facility] 02/24 18:26 Order name: O2 Per Protocol; Complete Time: 19:15 [facility] 02/24 18:26 Order name: O2 Sat Monitoring; Complete Time: 19:15 [facility] Administered Medications: 19:56 Drug: NS 0.9% 1000 ml Route: IV; Rate: 1 bolus; Site: right antecubital; lp1 21:11 Follow up: IV Status: Completed infusion; IV Intake: 1000ml lp1 21:11 Drug: Motrin (ibuprofen) 400 mg Route: PO; lp1 22:53 Follow up: Response: Temperature is decreased lp1 21:11 Drug: Tylenol 650 mg Route: PO; lp1 22:53 Follow up: Response: Temperature is decreased lp1 21:22 Drug: Zofran (Ondansetron) 4 mg Route: IVP; Site: right antecubital; lp1 22:53 Follow up: Response: Marked relief of symptoms lp1 Disposition: 02/25 07:01 Co-signature as Attending Physician, Kemar Mendez MD. rn Disposition Summary: 02/24/21 22:31 Discharge Ordered Location: Home [facility] Condition: Stable [facility] Diagnosis - Coronavirus infection, unspecified [facility] Followup: [facility] - With: Private Physician - When: 2 - 3 days - Reason: Recheck today's complaints, Continuance of care, Re-evaluation by your physician Discharge Instructions: - Discharge Summary Sheet [facility] - COVID-19 [facility] Forms: - Medication Reconciliation Form [facility] - Thank You Letter [facility] - Antibiotic Education [facility] - Prescription Opioid Use [facility] Prescriptions: - ondansetron 4 mg Oral tablet,disintegrating - place 1 tablet by TRANSLINGUAL route 4 times per day; 20 tablet; Refills: 0, [facility] Product Selection Permitted Signatures: Dispatcher [employer] EDEan Holloway PA PA [facility] mSita Silverman RN RN iw Nieto, Roman, MD MD rn Pena, Laura, RN RN 1 Zaynab Coyne RN RN ph
[2021-02-25 00:46] VITALS: BP 109/61; TEMP 100; O2SAT 99
== END 2021-02-24 22:54 | disposition home or self-care (01) ==
LOC: ER 16:48
DX: U07.1 COVID-19 (principal); Z85.528 Personal history of other malignant neoplasm of kidney; Z88.3 Allergy status to other anti-infective agents
CPT/HCPCS: 96361; 93005; 85025; 80048; 36415; 83735; 85610; 80076; 84484; 83880; 71045; 96374; 99284; J7030; J2405

== ENCOUNTER 2021-02-27 19:06 | Inpatient (IN) | payer OTHER ==
--- OUTSIDE RECORDS SUMMARY | 2021-02-27 19:09 | XMS REPORT | Continuity of Care Document ---
:1970 Author Organization [facility] t Address [address] [place] [address] Care Team Providers Name Role Phone Sharpless [...] Date Stop Date Source Natural father Diabetes [facility] Natural father Hypertension [facility] Natural mother Diabetes [facility] Social History Social Habit Start Date Stop Date Quantity Comments Source Sex Assigned At [facility] Medications Ordered Filled Start Stop Current Ordering Indication Dosage Frequency Signature Comments Components Source Medication Medication Date Date Medication? Clinician (SIG) Name Name loratadine Yes 10mg QD Take [address] (CLARITIN) 8-20 by mouth [facility] - 10 mg 17:57: daily. Medical tablet [address] [place] [address] Procedures This patient has no known procedures. Encounters Start End Encounter Admission Attending Care Care Encounter Source Date/Time Date/Time Type Type Clinicians Facility Department ID 2019-03-03 2019-03-03 Jos PATEL [id number] 00:00:00 00:00:00 Management , Marli CYR [id number] [facility] [id number] Results Test Description Test Time Test Comments Results Result Comments Source URINE CULTURE 2017-03-18 10:05:00 Test Item Value Reference Range Interpretation Comme nts CULTURE (BEAKER) (test code = 1095) >100,000 col/mL skin fredo URINALYSIS W/ [id number] 14:13:00 Test Item Value Reference Range Interpretation Comments COLOR (BEAKER) (test code = Decker 470) CLARITY (BEAKER) (test code = Hazy [...] 516) SOURCE(BEAKER) (test code = Urine, Voided 4995) [id number] 05:05:00 Test Item Value Reference Range Interpretation Comments PHOSPHORUS (BEAKER) (test code = 2.4 mg/dL 2.3-4.7 604) [id number] 05:05:00 Test Item Value Reference Range Interpretation Comments MAGNESIUM (BEAKER) (test code = 2.1 mg/dL 1.6-2.6 627) BASIC METABOLIC [id number] 05:05:00 Test Item Value Reference Range Interpretation [...] APPLICABLE FOR DIALYSIS PATIEN TS. HEPATIC FUNCTION [id number] 05:05:00 Test Item Value Reference Range Interpretation [...] code = 32 U/L 6-55 347) PROTHROMBIN [id number] 04:57:00 Test Item Value Reference Range Interpretation [...] % 0-1 PERCENT (BEAKER) (test code = 3072)
[2021-02-27 23:05] LABS: Urine Blood 3+ (Negative); Urine Glucose Negative (Negative); Urine Protein 2+ (Negative); Urine Specific Gravity >=1.030 (1.005-1.030); Urine pH 6.5 (5.0-7.0)
[2021-02-27 23:11] LABS: Absolute Lymphocytes (CBC) 0.5 K/uL (0.7-4.9); Basophils % 0.3 % (0-1.3); Lymphocytes % 19.8 % (15.3-44.8); MPV 7.8 fL (7.6-11.3); Protime INR 1.03; RBC Red Blood Cell Count 4.71 M/uL (3.86-4.86)
[2021-02-27] MEDS ORDERED: AZITHROMYCIN 500 MG INJ IVPB ONE (23:54)
[2021-02-27] MEDS ORDERED: METHYLPREDNISOLONE 40 MG INJ ONE (23:54)
[2021-02-27] MEDS ORDERED: NA CHLORIDE 0.9% 250 ML ONE (23:55)
[2021-02-27] MEDS ORDERED: ALBUTEROL INHALER 60 PUFF/8 GM IH ONE (23:55)
[2021-02-28 00:01] LABS: ALT/SGPT 228 U/L (12-78); Albumin 3.6 g/dL (3.4-5.0); Alkaline Phosphatase 84 U/L (45-117); BUN Blood Urea Nitrogen 8 mg/dL (7-18); Bicarbonate 27 mmol/L (21-32); Bilirubin Direct 0.2 mg/dL (0-0.2); Bilirubin Total 0.3 mg/dL (0.2-1.0); Glucose Level 150 mg/dL (74-106); Magnesium 2.3 mg/dL (1.8-2.4); NT PRO-BNP 41 pg/mL (<125); Protein, Total 7.8 g/dL (6.4-8.2); Sodium Level 135 mmol/L (136-145); Troponin (Emerg Dept Use Only) < 0.02 ng/mL (0.0-0.045)
[2021-02-28 00:02] LABS: AST/SGOT 312 U/L (15-37)
[2021-02-28 00:42] LABS: Urine Specific Gravity/Preg >1.030 (1.005-1.030)
[2021-02-28 00:54] LABS: Blood Morphology Comment NOT SEEN (NOT SEEN); Platelet Estimate ADEQ; White Blood Cell Scan OK (OK)
--- NOTE | 2021-02-28 03:04 | EDPHYS ---
Physician Documentation [facility] Name: Elvia Dumont Age: 50 yrs Sex: Female : 1970 Arrival Date: 02/27/2021 Time: 19:09 Bed 17 Private MD: ED Physician Aneudy Fong HPI: 02/27 22:00 This 50 yrs old Female presents to ER via Wheelchair with complaints of mh7 Breathing Difficulty, Covid+. 22:00 The patient or guardian reports cough, that is intermittent, described as moderate, mh7 with no sputum, difficulty breathing. Onset: The symptoms/episode began/occurred 6 day(s) ago, and became worse 2 day(s) ago. Severity of symptoms: At their worst the symptoms were moderate, 2 day(s) ago, in the emergency department the symptoms are unchanged. Modifying factors: The symptoms are alleviated by nothing, the symptoms are aggravated by exertion. Associated signs and symptoms: Pertinent positives: rhinorrhea, Pertinent negatives: chest pain, diarrhea, ear ache, fever, nausea, sore throat, vomiting. 22:00 States that she tested positive for Covid about 6 days ago. States that she has not mh7 received a Covid vaccination.. 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 - Social history:: Smoking status: Patient denies any tobacco usage or history of. ROS: 22:00 Constitutional: Negative for fever, chills, and weight loss, Eyes: Negative for injury, mh7 pain, redness, and discharge, Neck: Negative for injury, pain, and swelling, Cardiovascular: Negative for chest pain, palpitations, and edema, Abdomen/GI: Negative for abdominal pain, nausea, vomiting, diarrhea, and constipation, Back: Negative for injury and pain, : Negative for injury, bleeding, discharge, and swelling, MS/Extremity: Negative for injury and deformity, Skin: Negative for injury, rash, and discoloration, Neuro: Negative for headache, weakness, numbness, tingling, and seizure, Psych: Negative for depression, anxiety, suicide ideation, homicidal ideation, and hallucinations, Allergy/Immunology: Negative for hives, rash, and allergies, Endocrine: Negative for neck swelling, polydipsia, polyuria, polyphagia, and marked weight changes, Hematologic/Lymphatic: Negative for swollen nodes, abnormal bleeding, and unusual bruising. Exam: 22:00 Constitutional: This is a well developed, well nourished patient who is awake, alert, mh7 and in no acute distress. Head/Face: Normocephalic, atraumatic. Eyes: Pupils equal round and reactive to light, extra-ocular motions intact. Lids and lashes normal. Conjunctiva and sclera are non-icteric and not injected. Cornea within normal limits. Periorbital areas with no swelling, redness, or edema. Neck: Trachea midline, no thyromegaly or masses palpated, and no cervical lymphadenopathy. Supple, full range of motion without nuchal rigidity, or vertebral point tenderness. No Meningismus. Chest/axilla: Normal chest wall appearance and motion. Nontender with no deformity. No lesions are appreciated. Cardiovascular: Regular rate and rhythm with a normal S1 and S2. No gallops, murmurs, or rubs. Normal PMI, no JVD. No pulse deficits. Respiratory: Lungs have equal breath sounds bilaterally, clear to auscultation and percussion. No rales, rhonchi or wheezes noted. No increased work of breathing, no retractions or nasal flaring. Abdomen/GI: Soft, non-tender, with normal bowel sounds. No distension or tympany. No guarding or rebound. No evidence of tenderness throughout. Back: No spinal tenderness. No costovertebral tenderness. Full range of motion. Skin: Warm, dry with normal turgor. Normal color with no rashes, no lesions, and no evidence of cellulitis. MS/ Extremity: Pulses equal, no cyanosis. Neurovascular intact. Full, normal range of motion. Neuro: Awake and alert, GCS 15, oriented to person, place, time, and situation. Cranial nerves II-XII grossly intact. Motor strength 5/5 in all extremities. Sensory grossly intact. Cerebellar exam normal. Normal gait. Psych: Awake, alert, with orientation to person, place and time. Behavior, mood, and affect are within normal limits. Vital Signs: 19:33 BP 105 / 57; Pulse 74; Resp 18 S; Temp 98.3(TE); Pulse Ox 94% on R/A; Weight 95.25 kg ca1 (R); Height 4 ft. 8 in. (142.24 cm) (R); 23:06 BP 147 / 90; Pulse 80; Resp 26; Temp 98.7; Pulse Ox 96% ; ms4 02/28 00:23 BP 128 / 73; Pulse 85; Resp 18; Pulse Ox 96% ; ms4 02:42 Pulse Ox 87% ; ea 02/27 19:33 Body Mass Index 47.08 (95.25 kg, 142.24 cm) ca1 02:42 pt O2 sats dropped to 87% after ambulation, pt placed on O2 at 2L per nasal cannula ea MDM: 03:00 Differential Diagnosis: Bronchitis Influenza Upper Respiratory Infection Viral Syndrome mh7 Pneumonia. Data reviewed: vital signs, nurses notes, lab test result(s), cardiac enzymes, CBC, electrolytes, urinalysis, EKG, radiologic studies, CT scan, plain films. Data interpreted: Pulse oximetry: on 2L(s) per nasal canula, is 94 %. Interpretation: acceptable. Counseling: I had a detailed discussion with the patient and/or guardian regarding: the historical points, exam findings, and any diagnostic results supporting the discharge/admit diagnosis, lab results, radiology results, the need for further work-up and treatment in the hospital. Response to treatment: the patient's symptoms have mildly improved after treatment. 03:03 Patient medically screened. [facility] 02/27 22:04 Order name: Basic Metabolic Panel [facility] 02/27 22:04 Order name: CBC with Diff [facility] 02/27 22:04 Order name: LFT's; Complete Time: 00:31 [facility] 02/27 22:04 Order name: Magnesium; Complete Time: 00:31 [facility] 02/27 22:04 Order name: NT PRO-BNP; Complete Time: 00:31 [facility] 02/27 22:04 Order name: PT-INR; Complete Time: 23:18 [facility] 02/27 22:04 Order name: Troponin (emerg Dept Use Only); Complete Time: 00:31 [facility] 02/27 22:05 Order name: Basic Metabolic Panel; Complete Time: 00:31 EDMS 02/27 22:05 Order name: CBC with Automated Diff; Complete Time: 02:58 [facility] 02/27 22:05 Order name: Lactate; Complete Time: 23:24 mh7 02/27 23:05 Order name: Urine Dipstick-Ancillary; Complete Time: 23:18 EDMS 02/27 23:09 Order name: Urine --Ancillary (enter results); Complete Time: 02:58 ms4 02/27 23:18 Order name: CBC Smear Scan; Complete Time: 02:58 EDMS 02/27 23:25 Order name: Blood Culture Adult (2) mh7 02/27 23:25 Order name: Procalcitonin; Complete Time: 02:58 mh7 02/28 08:50 Order name: C-Reactive Protein; Complete Time: 18:40 EDMS 02/28 09:07 Order name: Ferritin; Complete Time: 18:40 EDMS 02/28 09:30 Order name: Glucose, Ancillary Testing; Complete Time: 18:40 EDMS 02/28 11:43 Order name: Glucose, Ancillary Testing; Complete Time: 18:40 EDMS 02/28 17:09 Order name: Glucose, Ancillary Testing; Complete Time: 18:40 EDMS 02/28 20:51 Order name: Glucose, Ancillary Testing EDMS 03/01 06:06 Order name: CBC with Automated Diff EDMS 03/01 06:43 Order name: Comprehensive Metabolic Panel EDMS 03/01 06:43 Order name: Lipid Profile EDMS 03/01 06:43 Order name: C-Reactive Protein EDMS 03/01 06:43 Order name: T4 Free EDMS 03/01 06:43 Order name: Magnesium EDMS 03/01 06:43 Order name: Thyroid Stimulating Hormone EDMS 03/01 06:43 Order name: Ferritin EDMS 08/ 09:12 Order name: Hemoglobin A1c EDMS / 12:31 Order name: Glucose, Ancillary Testing EDMS 03/01 17:37 Order name: Glucose, Ancillary Testing EDMS 03/01 20:46 Order name: Glucose, Ancillary Testing EDMS 03/02 05:40 Order name: CBC with Automated Diff EDMS / 05:55 Order name: Comprehensive Metabolic Panel EDMS 03/02 05:55 Order name: C-Reactive Protein EDMS 03/02 05:55 Order name: Magnesium EDMS 03/02 05:55 Order name: Ferritin EDMS 03/02 08:30 Order name: Glucose, Ancillary Testing EDMS 03/02 12:42 Order name: Glucose, Ancillary Testing EDMS 08/ 17:11 Order name: Glucose, Ancillary Testing EDMS 08/ 20:18 Order name: Glucose, Ancillary Testing EDMS 08 06:10 Order name: CBC with Automated Diff EDMS 03/03 06:28 Order name: Comprehensive Metabolic Panel EDMS 08/ 06:28 Order name: C-Reactive Protein EDMS 08 06:28 Order name: Magnesium EDMS 08 06:28 Order name: Ferritin EDMS 03/03 08:23 Order name: Glucose, Ancillary Testing EDMS 03/03 09:33 Order name: Manual Differential EDMS 03/03 12:10 Order name: Glucose, Ancillary Testing EDMS 03/03 12:28 Order name: Troponin I EDMS 03/03 17:35 Order name: Glucose, Ancillary Testing EDMS 03/03 20:41 Order name: Glucose, Ancillary Testing EDMS 08 08:18 Order name: Glucose, Ancillary Testing EDMS 03/04 09:30 Order name: Comprehensive Metabolic Panel EDMS 03/04 09:30 Order name: C-Reactive Protein EDMS 03/04 09:30 Order name: Magnesium EDMS 03/04 09:30 Order name: Ferritin EDMS 03/04 09:49 Order name: CBC with Automated Diff EDMS 03/04 12:01 Order name: Glucose, Ancillary Testing EDMS 03/04 17:23 Order name: Glucose, Ancillary Testing EDMS 03/04 21:38 Order name: Glucose, Ancillary Testing EDMS 02/27 22:04 Order name: XRAY Chest (1 view); Complete Time: 18:40 7 02/27 22:04 Order name: EKG; Complete Time: 22:05 mh7 02/27 22:04 Order name: Cardiac monitoring; Complete Time: 23:01 mh7 02/27 22:04 Order name: EKG - Nurse/Tech; Complete Time: 23:00 mh7 02/27 22:04 Order name: IV Saline Lock; Complete Time: 23:01 mh7 02/27 22:04 Order name: Labs collected and sent; Complete Time: 23:01 mh7 02/27 22:04 Order name: O2 Per Protocol; Complete Time: 23:01 mh7 02/27 22:04 Order name: O2 Sat Monitoring; Complete Time: 23:01 mh7 02/27 22:05 Order name: Urine Dipstick-Ancillary (obtain specimen); Complete Time: 23:08 7 02/27 22:05 Order name: Urine Test (obtain specimen); Complete Time: 23:08 7 02/28 00:50 Order name: Chest Abd Pelvis Wo Con; Complete Time: 18:40 EDMS 03/01 09:37 Order name: RAD EDMS 03/05 05:00 Order name: CBC with Automated Diff EDMS 03/05 05:10 Order name: Comprehensive Metabolic Panel EDMS 03/05 05:10 Order name: C-Reactive Protein EDMS 03/05 05:10 Order name: Magnesium EDMS 03/05 05:10 Order name: Ferritin EDMS 03/05 08:07 Order name: Glucose, Ancillary Testing EDMS 03/05 12:03 Order name: Glucose, Ancillary Testing EDMS 03/05 17:01 Order name: Glucose, Ancillary Testing EDMS 03/05 20:51 Order name: Glucose, Ancillary Testing EDMS 03/06 05:13 Order name: CBC with Automated Diff EDMS 03/06 05:29 Order name: Comprehensive Metabolic Panel EDMS 03/06 05:29 Order name: C-Reactive Protein EDMS 03/06 05:29 Order name: Magnesium EDMS 03/06 05:29 Order name: Ferritin EDMS 03/06 07:40 Order name: Glucose, Ancillary Testing EDMS 03/06 12:33 Order name: Glucose, Ancillary Testing EDMS 03/06 17:25 Order name: Glucose, Ancillary Testing EDMS 03/06 21:57 Order name: Glucose, Ancillary Testing EDMS 03/07 04:53 Order name: CBC with Automated Diff EDMS 03/07 05:14 Order name: Comprehensive Metabolic Panel EDMS 03/07 05:14 Order name: C-Reactive Protein EDMS 03/07 05:14 Order name: Magnesium EDMS 03/07 05:14 Order name: Ferritin EDMS 03/07 05:33 Order name: Manual Differential EDMS 03/07 07:45 Order name: Glucose, Ancillary Testing EDMS Administered Medications: 00:11 Drug: SOLU-Medrol (methylPrednisoLONE) 80 mg Route: IVP; Rate: bolus; Infused Over: 5 ms4 mins; Site: right antecubital; 02:00 Follow up: Response: No adverse reaction ea 00:12 Drug: AZITHromycin 500 mg Route: IVPB; Infused Over: 1 hrs; Site: right antecubital; ms4 02:00 Follow up: IV Status: Completed infusion ea 00:12 Drug: Albuterol HFA Inhaler 2 puffs Route: Inhalation; ms4 02:00 Follow up: Response: No adverse reaction ea Disposition Summary: 02/28/21 03:03 Hospitalization Ordered Hospitalization Status: Inpatient Admission [facility] Provider: Tirso Hay [facility] Condition: Stable [facility] Problem: an ongoing problem [facility] Symptoms: have improved [facility] Bed/Room Type: Standard [facility] Location: Telemetry/MedSurg (Inpatient)(03/07/21 10:24) Room Assignment: [facility](03/07/21 10:24) Diagnosis - COVID Pneumonia, Hypoxia [facility] Forms: - Medication Reconciliation Form [facility] - SBAR form [facility] Signatures: Dispatcher [employer] EDMS Quyen Maier Martha, RN RN Leonard Hubbard, AVIATION TACTICAL READINESS OFFICER-C AVIATION TACTICAL READINESS OFFICER-Cla1 Simin Salcido RN RN [facility] Aneudy Fong MD MD [facility] Marilynn Galindo RN RN ms4 Katie Mayo RN, ea Corrections: (The following items were deleted from the chart) 00:50 00:34 Thorax Wo Con+CT.RAD.BRZ ordered. EDMS EDMS 00:50 00:34 Abdomen Pelvis Wo Con+CT.RAD.BRZ ordered. EDMS EDMS 03:19 03:03 Telemetry/MedSurg (Inpatient) [facility] mw 03:19 03:03 [facility] mw 03/07 10:24 02/28 03:19 [facility] ER HOLD mw bd 03/07 10:24 02/28 03:19 ERHOLD- mw bd
--- NOTE | 2021-02-28 03:04 | ER ---
Nurse's Notes [facility] Name: Elvia Dumont Age: 50 yrs Sex: Female : 1970 Arrival Date: 02/27/2021 Time: 19:09 Bed 17 Private MD: Diagnosis: COVID Pneumonia, Hypoxia Presentation: 02/27 19:31 Chief complaint: Patient states: Covid+ 02/20/2021. Symptoms getting worse, can't keep ca1 anything down, SPO2 at home was at 84%. C/O cough and SOB. Coronavirus screen: Client denies travel out of the [place] in the last 14 days. Client reports previous positive COVID test result. Date of collection: February 20, 2021 Staff notified of need for isolation. Ebola Screen: Patient negative for fever greater than or equal to 101.5 degrees Fahrenheit, and additional compatible Ebola Virus Disease symptoms Patient denies exposure to infectious person. Patient denies travel to an Ebola-affected area in the 21 days before illness onset. No symptoms or risks identified at this time. 19:31 Method Of Arrival: Wheelchair ca1 19:33 Initial Sepsis Screen: Does the patient meet any 2 criteria? No. Patient's initial ca1 sepsis screen is negative. Does the patient have a suspected source of infection? No. Patient's initial sepsis screen is negative. Risk Assessment: Do you want to hurt yourself or someone else? Patient reports no desire to harm self or others. Onset of symptoms was February 20, 2021. 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 - Social history:: Smoking status: Patient denies any tobacco usage or history of. Screenin:33 Abuse screen: Denies threats or abuse. Nutritional screening: No deficits noted. ea Tuberculosis screening: No symptoms or risk factors identified. Fall Risk None identified. Assessment: 23:33 General: Appears uncomfortable, Behavior is appropriate for age. Pain: Denies pain. ea Neuro: Level of Consciousness is awake, alert, obeys commands, Oriented to person, place, time. Cardiovascular: Patient's skin is warm and dry. Respiratory: Airway is patent Respiratory effort is even, unlabored, Respiratory pattern is tachypnea. Derm: Skin is dry, Skin is pale, Skin temperature is warm. 02/28 01:39 Reassessment: Mother [phone]. ms4 03:02 Reassessment: Patient and/or family updated on plan of care and expected duration. Pain ea level reassessed. Pt ambulated approx 50 ft sats decreased to 87% room air, pt placed on O2 at 2L per nasal cannula, provider notified. Vital Signs: 02/27 19:33 BP 105 / 57; Pulse 74; Resp 18 S; Temp 98.3(TE); Pulse Ox 94% on R/A; Weight 95.25 kg ca1 (R); Height 4 ft. 8 in. (142.24 cm) (R); 23:06 BP 147 / 90; Pulse 80; Resp 26; Temp 98.7; Pulse Ox 96% ; ms4 04 00:23 BP 128 / 73; Pulse 85; Resp 18; Pulse Ox 96% ; ms4 02:42 Pulse Ox 87% ; ea 02/27 19:33 Body Mass Index 47.08 (95.25 kg, 142.24 cm) ca1 02:42 pt O2 sats dropped to 87% after ambulation, pt placed on O2 at 2L per nasal cannula ea ED Course: 02/27 19:09 Patient arrived in ED. bp1 19:34 Triage completed. ca1 19:34 Arm band placed on right wrist. ca1 21:47 Aneudy Fong MD is Attending Physician. mh7 22:44 XRAY Chest (1 view) In Process Unspecified. EDMS 23:05 Inserted saline lock: 20 gauge in right antecubital area, using aseptic technique. ms4 Blood collected. Flushed right antecubital. 23:33 Patient has correct armband on for positive identification. Bed in low position. Call ea light in reach. Side rails up X2. 23:34 Katie Mayo, LEO is Primary Nurse. ea 02/28 01:24 Chest Abd Pelvis Wo Con In Process Unspecified. EDMS 03:02 Tirso Hay DO is Hospitalizing Provider. 7 03:03 No provider procedures requiring assistance completed. Patient admitted, IV remains in ea place. Administered Medications: 00:11 Drug: SOLU-Medrol (methylPrednisoLONE) 80 mg Route: IVP; Rate: bolus; Infused Over: 5 ms4 mins; Site: right antecubital; 02:00 Follow up: Response: No adverse reaction ea 00:12 Drug: AZITHromycin 500 mg Route: IVPB; Infused Over: 1 hrs; Site: right antecubital; ms4 02:00 Follow up: IV Status: Completed infusion ea 00:12 Drug: Albuterol HFA Inhaler 2 puffs Route: Inhalation; ms4 02:00 Follow up: Response: No adverse reaction Outcome: 03:03 Decision to Hospitalize by Provider. [facility] 03:03 Admitted to ER Hold. Please see [facility] for further documentation. ea 03:03 Condition: stable 03:03 Instructed on the need for admit, Demonstrated understanding of instructions. 03/07 11:38 Patient left the ED. tr6 Signatures: Dispatcher [employer] EDKatie Cho RN RN Simin Salcido RN RN [facility] Lucie Garcia Maurice, MD MD [facility] Kianna Rapp RN RN tr6 Marilynn Galindo RN RN ms4
--- NOTE | 2021-02-28 03:27 | P.HP ---
Certification for Inpatient Patient admitted to: Inpatient With expected LOS: >2 Midnights Patient will require the following post-hospital care: None Practitioner: I am a practitioner with admitting privileges, knowledge of patient current condition, hospital course, and medical plan of care. Services: Services provided to patient in accordance with Admission requirements found in Title 42 Section 412.3 of the Code of Federal Regulations Patient History Date of Service: 02/28/21 Reason for admission: COVID-19 pneumonia History of Present Illness: 50-year-old female with history of renal cancer status post right nephrectomy, diabetes mellitus type 2 presents emergency department for shortness of breath. Patient reports testing positive for Covid on 02/20/2021 with worsening shortness of breath since then. Patient was evaluated in the emergency department, labs were significant for white blood cell count 2.7 platelet count 115 sodium 135 GFR 52 glucose 150 AST 312 ALT 228 procalcitonin 0.17 specific gravity of the urine greater than 1.030. When ambulating patient saturations dropped into the high 80s, tachypneic at rest. Patient does admit to history of hepatic steatosis, elevated LFTs and also has been taking Tylenol for the last week approximately 2 to 3 g/day. ED provider wishes to admit for further evaluation and management. Patient unvaccinated Allergies Cephalosporins Allergy (Verified 11/21/20 05:15) Unknown Home Medications: Ciprofloxacin HCl [Cipro 500 MG Tablet] 500 mg PO BID #20 tab 11/21/20 metroNIDAZOLE [Flagyl] 500 mg PO Q8H #30 tablet 11/21/20 - Past Medical/Surgical History Diabetic: No -: Fatty liver -: GERD -: Renal cell carcinoma -: Cholecystectomy -: Tubal ligation -: Uterine ablation -: Right nephrectomy Psychosocial/ Personal History: The patient is of 20 years, she has 5 children. She does not work. - Family History Father -: Diabetes Mother -: Heart disease, Diabetes - Social History Smoking Status: Former smoker Alcohol use: Yes CD- Drugs: No Caffeine use: No Place of Residence: Home Review of Systems 10-point ROS is otherwise unremarkable General: Fever, Chills, Weakness, Malaise Respiratory: Cough, Dry, Shortness of Breath Physical Examination - Physical Exam General: Alert, In no apparent distress, Oriented x3 HEENT: Atraumatic, PERRLA, EOMI, Sclerae nonicteric Neck: Supple, 2+ carotid pulse no bruit, No LAD, Without JVD or thyroid abnormality Respiratory: Normal air movement, Diminished Cardiovascular: Regular rate/rhythm, Normal S1 S2 Gastrointestinal: Normal bowel sounds, No tenderness Musculoskeletal: No tenderness Integumentary: No rashes Neurological: Normal speech, Normal strength at 5/5 x4 extr, Normal tone, Normal affect - Studies Laboratory Data (last 24 hrs) 02/27/21 22:48: PT 11.8, INR 1.03 02/27/21 22:48: WBC 2.70 L D, Hgb 13.0, Hct 40.0, Plt Count 115 L D 02/27/21 22:48: Sodium 135 L, Potassium 4.0, BUN 8, Creatinine 1.12, Glucose 150 H, Magnesium 2.3, Total Bilirubin 0.3, AST 312 H* D, ALT 228 H D, Alkaline Phosphatase 84 Assessment and Plan - Plan Assessment: Acute hypoxic respiratory failure secondary to COVID-19 pneumonia complicated with leukopenia/thrombocytopenia Elevated aminotransferase levels secondary to fatty liver disease complicated with Tylenol use Diabetes mellitus type 2 History of renal cancer status post right nephrectomy Plan: Acute hypoxic respiratory failure secondary to COVID-19 pneumonia complicated with leukopenia/thrombocytopenia: Continue with IV steroids, oral supplements, supplemental oxygen as needed, daily room air saturations, room air saturations for home O2. Pulmonology consulted anticipate discharge on home oxygen in the next 24 to 48 hours. Patient stable at this time. Hold parameters in place for Lovenox with platelet count less than 100. Elevated aminotransferase levels secondary to fatty liver disease complicated with Tylenol use: Patient cautioned on overuse of Tylenol, patient has been taking appropriate doses reports taking 650 mg p.o. twice daily to 3 times daily for fever at home over the course of the last 1 week. We will try to limit patient's Tylenol use, also need to avoid NSAIDs given patient's history of renal cancer, nephrectomy. Diabetes mellitus type 2: AC at bedtime Accu-Chek, sliding scale insulin therapy. A1c with lab. History of renal cancer status post right nephrectomy: Stable. DVT PPX: Lovenox Code status: Full Discharge Plan: Home Plan to discharge in: 48 Hours - Advance Directives Does patient have a Living Will: No Does patient have a Durable POA for Healthcare: No - Code Status/Comfort Care Code Status Assessed: Yes (Full code) Critical Care: No Time Spent Managing Pts Care (In Minutes): 55
--- NOTE | 2021-02-28 06:21 | P.PN ---
Subjective Date of Service: 02/28/21 Chief Complaint: COVID-19 pneumonia Subjective: Other (Overall stable currently on 2 L per nasal cannula) Physical Examination - Studies Laboratory Data (last 24 hrs) 02/27/21 22:48: PT 11.8, INR 1.03 02/27/21 22:48: WBC 2.70 L D, Hgb 13.0, Hct 40.0, Plt Count 115 L D 02/27/21 22:48: Sodium 135 L, Potassium 4.0, BUN 8, Creatinine 1.12, Glucose 150 H, Magnesium 2.3, Total Bilirubin 0.3, AST 312 H* D, ALT 228 H D, Alkaline Phosphatase 84 Assessment & Plan Discharge Plan: Home Plan to discharge in: 72 Hours Physician Review Additional Text: COVID: Positive, unvaccinated CT scan: COMPARISON: 11/20/2020 TECHNIQUE: CT of the chest, abdomen and pelvis performed without IV contrast. Suboptimal evaluation of the soft tissues, solid organs, and vasculature due to lack of IV contrast. This exam was performed according to our departmental dose- optimization program, which includes automated exposure control, adjustment of the mA and/or kV according to patient size and/or use of iterative reconstr uction technique. FINDINGS: Chest: Thyroid: No abnormalities of the visualized thyroid. Great Vessels: Great vessels have normal anatomic configuration. Thoracic Aorta: No abnormalities of the thoracic aorta identified. Pulmonary arteries: The main pulmonary artery is not dilated. Heart: No cardiomegaly, significant pericardial effusion, or coronary artery atherosclerosis Lymph Nodes: No enlarged mediastinal lymph nodes identified. Esophagus: No abnormalities of the esophagus identified Other: No additional findings. Lungs: Diffuse multifocal bilateral groundglass and airspace opacities. Pleura: No pleural effusion or pneumothorax. Trachea/Airways: No abnormalities of the visualized trachea or airways. Abdomen: Liver: Hepatomegaly and decreased density. Gallbladder: Prior cholecystectomy. Spleen, Pancreas, and Adrenal Glands: The spleen, pancreas, and adrenal glands are unremarkable. Kidneys: Prior right colectomy. No left-sided hydronephrosis. Vasculature: Aortoiliac atherosclerosis. IVC is unremarkable. Stomach: The stomach and duodenum have normal course. Other: No free intraperitoneal air. No free fluid or lymphadenopathy. Pelvis: Bladder: Urinary bladder is unremarkable. Bowel: No dilated loops of large or small bowel. Appendix: Normal appendix. Pelvis: Uterus is not enlarged. Bones: Multilevel degenerative endplate spondylosis of the spine. Osteoarthritic change of IMPRESSION: 1. Diffuse multifocal bilateral groundglass and airspace opacities. Commonly reported imaging features of viral pneumonia are present. Other processes such as influenza pneumonia and organizing pneumonia, as can be seen with drug toxicity and connective tissue disease, can cause similar imaging pattern. 2. Hepatomegaly and hepatic steatosis. CXR: COMPARISON: Chest Single View dated 02/24/2021; Chest Pa And Lat (2 Views) dated 08/30/2018 FINDINGS: Portable technique limits examination quality. Moderate bilateral pulmonary opacities are present most compatible with underlying COVID-19 infection. Findings are moderately worsened since the comparative study. The heart is normal in size. No displaced fractures. Physical exam: General: Alert, In no apparent distress, Oriented x3 HEENT: Atraumatic, PERRLA, EOMI, Sclerae nonicteric Neck: Neck supple Respiratory: Diminished. Currently on 2 L per nasal cannula Cardiovascular: Regular rate/rhythm, Normal S1 S2 Gastrointestinal: Normal bowel sounds, No tenderness Musculoskeletal: No tenderness Integumentary: No rashes Neurological: Normal speech, Normal strength at 5/5 x4 extr, Normal tone, Normal affect Impression: Acute hypoxic respiratory failure secondary to COVID-19 pneumonia complicated with leukopenia/thrombocytopenia, unvaccinated Elevated aminotransferase levels secondary to fatty liver disease complicated with Tylenol use Diabetes mellitus type 2 History of renal cancer status post right nephrectomy Plan: Acute hypoxic respiratory failure secondary to COVID-19 pneumonia complicated with leukopenia/thrombocytopenia, unvaccinated: Overall stable. Continue with oxygen. Currently on 2 L per nasal cannula. Continue IV steroids and supplements. Patient not a candidate for remdesivir or baricitinib due to elevated liver function. Pulmonology consulted. Await recommendation. Encourage ambulation, proning, incentive spirometer. Anticipate continued improvement over the next 48 hours. Elevated aminotransferase levels secondary to fatty liver disease complicated with Tylenol use: We will monitor lab closely. Avoid excessive Tylenol use. Diabetes mellitus type 2: Monitor Accu-Cheks. Sliding scale in place. Will check A1c. History of renal cancer status post right nephrectomy: Stable. DVT PPX: Lovenox Code status: Full Advance care [id number] minutes: Home at discharge Time Spent Managing Pts Care (In Minutes): 55
[2021-02-28] MEDS: INSULIN -REGULAR HUMAN 50 UNIT/0.5 ML ML SQ SCH ×4 (07:30→21:00)
--- NOTE | 2021-02-28 07:40 | EKG ---
Test Date: 2021-02-27 Test Time: 22:47:37 [employer] Reconditioning: MS MEASUREMENT RESULTS: Intervals: Rate: 76 FL: 150 QRSD: 72 QT: 394 QTc: 443 Rindge: P: 45 FL: 150 QRS: -5 T: 25 INTERPRETIVE STATEMENTS: Normal sinus rhythm Minimal voltage criteria for LVH, may be normal variant Cannot rule out Anterior infarct, age undetermined Abnormal ECG Compared to ECG 02/24/2021 21:17:03 Left ventricular hypertrophy now present Myocardial infarct finding still present Electronically Signed On 02-28-21 07:39:43 CDT by Brayden Pedroza
[2021-02-28] MEDS ORDERED: VITAMIN D 1000 UNIT TAB ONE (07:57)
[2021-02-28] MEDS ORDERED: ZINC SULFATE 220 MG CAP ONE (07:57)
[2021-02-28] MEDS ORDERED: METHYLPREDNISOLONE 40 MG INJ ONE ×3 (07:57→21:36)
[2021-02-28] MEDS ORDERED: ASCORBIC ACID 500 MG TABLET ONE ×3 (07:57→21:36)
[2021-02-28] MEDS ORDERED: ENOXAPARIN 40 MG/0.4 ML SQ ONE (07:58)
--- NOTE | 2021-02-28 08:38 | RAD REPORT ---
EXAM DESCRIPTION: RAD - Chest Single View - 02/27/2021 10:44 pm CLINICAL HISTORY: Cough;SOB Chest pain. COMPARISON: Chest Single View dated 02/24/2021; Chest Pa And Lat (2 Views) dated 08/30/2018 FINDINGS: Portable technique limits examination quality. Moderate bilateral pulmonary opacities are present most compatible with underlying COVID-19 infection . Findings are moderately worsened since the comparative study. The heart is normal in size. No displ aced fractures.
[2021-02-28] MEDS: VITAMIN D 1000 UNIT TAB PO SCH (08:44)
[2021-02-28] MEDS: ENOXAPARIN 40 MG/0.4 ML SQ SCH (08:44)
[2021-02-28] MEDS: ASCORBIC ACID 500 MG TABLET PO SCH ×4 (08:44→21:00)
[2021-02-28] MEDS: ZINC SULFATE 220 MG CAP PO SCH (08:45)
[2021-02-28] MEDS ORDERED: METHYLPREDNISOLONE 40 MG INJ IV SCH (09:00)
[2021-02-28] MEDS: THIAMINE HCL 100 MG TABLET PO SCH (09:00)
[2021-02-28] MEDS ORDERED: INSULIN -REGULAR HUMAN 50 UNIT/0.5 ML ML ONE ×3 (12:02→21:36)
--- NOTE | 2021-02-28 12:05 | RAD REPORT ---
EXAM DESCRIPTION: CT of the chest, abdomen, and pelvis without contrast CLINICAL HISTORY: Pneumonia COMPARISON: 11/20/2020 TECHNIQUE: CT of the chest, abdomen and pelvis performed without IV contrast. Suboptimal evaluation of the soft tissues, solid organs, and vasculature due to lack of IV contrast. This exam was performe d according to our departmental dose-optimization program, which includes automated exposure control, adjustment of the mA and/or kV according to patient size and/or use of iterative reconstruction tech nique. FINDINGS: Chest: Thyroid: No abnormalities of the visualized thyroid. Great Vessels: Great vessels have normal anatomic configuration. Thoracic Aorta: No abnormalities of the thoracic aorta identified. Pulmonary arteries: The main pulmonary artery is not dilated. Heart: No cardiomegaly, significant pericardial effusion, or coronary artery atherosclerosis Lymph Nodes: No enlarged mediastinal lymph nodes identified. Esophagus: No abnormalities of the esophagus identified Other: No additional findings. Lungs: Diffuse multifocal bilateral groundglass and airspace opacities. Pleura: No pleural effusion or pneumothorax. Trachea/Airways: No abnormalities of the visualized trachea or airways. Abdomen: Liver: Hepatomegaly and decreased density. Gallbladder: Prior cholecystectomy. Spleen, Pancreas, and Adrenal Glands: The spleen, pancreas, and adrenal glands are unremarkable. Kidneys: Prior right colectomy. No left-sided hydronephrosis. Vasculature: Aortoiliac atherosclerosis. IVC is unremarkable. Stomach: The stomach and duodenum have normal course. Other: No free intraperitoneal air. No free fluid or lymphadenopathy. Pelvis: Bladder: Urinary bladder is unremarkable. Bowel: No dilated loops of large or small bowel. Appendix: Normal appendix. Pelvis: Uterus is not enlarged. Bones: Multilevel degenerative endplate spondylosis of the spine. Osteoarthritic change of IMPRESSION: 1. Diffuse multifocal bilateral groundglass and airspace opacities. Commonly reported imaging features of viral pneumonia are present. Other processes such as influenza pneumonia and orga nizing pneumonia, as can be seen with drug toxicity and connective tissue disease, can cause similar imaging pattern. 2. Hepatomegaly and hepatic steatosis. Electronically signed by: Rohit Fenton 02/28/2021 1:48 AM CDT Due to temporary technical issues with the PACS/Fluency reporting system, reports are being signed by the in house radiologists without review as a courtesy to insure prompt reporting. The interpreting radiologist is fully responsible for the content of the report.
[2021-02-28] MEDS: METHYLPREDNISOLONE 125 MG INJ IV SCH ×2 (14:00→21:00)
[2021-02-28] MEDS ORDERED: METHYLPREDNISOLONE 125 MG INJ IV SCH (21:00)
[2021-03-01 05:59] LABS: Absolute Lymphocytes (CBC) 0.3 K/uL (0.7-4.9); Basophils % 0.1 % (0-1.3); Hematocrit 37.6 % (36.0-45.0); Lymphocytes % 11.1 % (15.3-44.8); MPV 7.7 fL (7.6-11.3); RBC Red Blood Cell Count 4.43 M/uL (3.86-4.86)
--- NOTE | 2021-03-01 06:17 | P.PN ---
Subjective Date of Service: 03/01/21 Chief Complaint: COVID-19 pneumonia Subjective: Other (Slight improvement noted) Physical Examination - Vital Signs Temperature: 98.0 F Blood Pressure: 120/60 Pulse: 63 Respirations: 22 Pulse Ox (%): 94 Assessment & Plan Discharge Plan: Home Plan to discharge in: 24 Hours Physician Review Additional Text: COVID: Positive, unvaccinated CT scan: COMPARISON: 11/20/2020 TECHNIQUE: CT of the chest, abdomen and pelvis performed without IV contrast. Suboptimal evaluation of the soft tissues, solid organs, and vasculature due to lack of IV contrast. This exam was performed according to our departmental dose- optimization program, which includes automated exposure control, adjustment of the mA and/or kV according to patient size and/or use of iterative reconstruction technique. FINDINGS: Chest: Thyroid: No abnormalities of the visualized thyroid. Great Vessels: Great vessels have normal anatomic configuration. Thoracic Aorta: No abnormalities of the thoracic aorta identified. Pulmonary arteries: The main pulmonary artery is not dilated. Heart: No cardiomegaly, significant pericardial effusion, or coronary artery atherosclerosis Lymph Nodes: No enlarged mediastinal lymph nodes identified. Esophagus: No abnormalities of the esophagus identified Other: No additional findings. Lungs: Diffuse multifocal bilateral groundglass and airspace opacities. Pleura: No pleural effusion or pneumothorax. Trachea/Airways: No abnormalities of the visualized trachea or airways. Abdomen: Liver: Hepatomegaly and decreased density. Gallbladder: Prior cholecystectomy. Spleen, Pancreas, and Adrenal Glands: The spleen, pancreas, and adrenal glands are unremarkable. Kidneys: Prior right colectomy. No left-sided hydronephrosis. Vasculature: Aortoiliac atherosclerosis. IVC is unremarkable. Stomach: The stomach and duodenum have normal course. Other: No free intraperitoneal air. No free fluid or lymphadenopathy. Pelvis: Bladder: Urinary bladder is unremarkable. Bowel: No dilated loops of large or small bowel. Appendix: Normal appendix. Pelvis: Uterus is not enlarged. Bones: Multilevel degenerative endplate spondylosis of the spine. Osteoarthritic change of IMPRESSION: 1. Diffuse multifocal bilateral groundglass and airspace opacities. Commonly reported imaging features of viral pneumonia are present. Other processes such as influenza pneumonia and organizing pneumonia, as can be seen with drug toxicity and connective tissue disease, can cause similar imaging pattern. 2. Hepatomegaly and hepatic steatosis. Follow up CXR: COMPARISON: Chest Single View dated 02/27/2021; Chest Single View dated 02/24/2021; Chest Pa And Lat (2 Views) dated 08/30/2018 FINDINGS: Portable technique limits examination quality. Mild bilateral pulmonary opacities are present, appearing slightly progressive since the comparative study. The heart is normal in size. No displaced fractures. IMPRESSION: Mild worsening in lung aeration is noted. Physical exam: General: Alert, In no apparent distress, Oriented x3 HEENT: Atraumatic, PERRLA, EOMI, Sclerae nonicteric Neck: Neck supple Respiratory: Better air movement today. Currently on 2 L per nasal cannula Cardiovascular: Regular rate/rhythm, Normal S1 S2 Gastrointestinal: Normal bowel sounds, No tenderness Musculoskeletal: No tenderness Integumentary: No rashes Neurological: Normal speech, Normal strength at 5/5 x4 extr, Normal tone, Normal affect Impression: Acute hypoxic respiratory failure secondary to COVID-19 pneumonia complicated with leukopenia/thrombocytopenia, unvaccinated Elevated aminotransferase levels secondary to fatty liver disease complicated with Tylenol use Diabetes mellitus type 2 History of renal cancer status post right nephrectomy Plan: Acute hypoxic respiratory failure secondary to COVID-19 pneumonia complicated with leukopenia/thrombocytopenia, unvaccinated: Slight improvement noted. Still on 2 L per nasal cannula. Some desaturations with exertion. Still slightly tachypneic. Continue with IV steroids and supplements. Patient not a candidate for remdesivir or baricitinib due to elevated liver function. Encourage ambulation, incentive spirometer, and proning. Likely home tomorrow. Anticipate continued improvement over the next 48 hours. Elevated aminotransferase levels secondary to fatty liver disease complicated with Tylenol use: Lab improved.. Avoid excessive Tylenol use. Diabetes mellitus type 2: Monitor Accu-Cheks. Sliding scale in place. Sliding scale in place. Hemoglobin A1c 7.7. Will start low-dose Lantus. History of renal cancer status post right nephrectomy: Stable. DVT PPX: Lovenox Code status: Full Advance care [id number] minutes: Home at discharge Time Spent Managing Pts Care (In Minutes): 55
[2021-03-01] MEDS: BENZONATATE 100 MG CAP PO PRN ×2 (06:24→17:31)
[2021-03-01] MEDS ORDERED: BENZONATATE 100 MG CAP PO ONE ×3 (06:38→17:51)
[2021-03-01 06:41] LABS: Albumin 3.2 g/dL (3.4-5.0); Bilirubin Total 0.3 mg/dL (0.2-1.0); C-Reactive Protein 28.7 mg/L (<3.00); Ferritin 1709.2 ng/mL (8-388); Magnesium 2.5 mg/dL (1.8-2.4); Potassium 4.2 mmol/L (3.5-5.1); Protein, Total 7.3 g/dL (6.4-8.2); Thyroid Stimulating Hormone 0.711 uIU/mL (0.360-3.740)
[2021-03-01] MEDS: ENOXAPARIN 40 MG/0.4 ML SQ SCH (08:17)
[2021-03-01] MEDS: INSULIN -REGULAR HUMAN 50 UNIT/0.5 ML ML SQ SCH ×4 (08:17→21:14)
[2021-03-01] MEDS: THIAMINE HCL 100 MG TABLET PO SCH (08:17)
[2021-03-01] MEDS: VITAMIN D 1000 UNIT TAB PO SCH (08:17)
[2021-03-01] MEDS: ASCORBIC ACID 500 MG TABLET PO SCH ×4 (08:17→21:14)
[2021-03-01] MEDS: ZINC SULFATE 220 MG CAP PO SCH (08:18)
[2021-03-01] MEDS: METHYLPREDNISOLONE 125 MG INJ IV SCH ×3 (08:18→21:14)
[2021-03-01] MEDS ORDERED: METHYLPREDNISOLONE 125 MG INJ ONE ×3 (08:36→21:05)
[2021-03-01] MEDS ORDERED: ZINC SULFATE 220 MG CAP ONE (08:36)
[2021-03-01] MEDS ORDERED: THIAMINE HCL 100 MG TABLET ONE (08:36)
[2021-03-01] MEDS ORDERED: ASCORBIC ACID 500 MG TABLET ONE ×4 (08:37→21:05)
[2021-03-01] MEDS ORDERED: ENOXAPARIN 40 MG/0.4 ML SQ ONE (08:37)
[2021-03-01] MEDS ORDERED: INSULIN -REGULAR HUMAN 50 UNIT/0.5 ML ML ONE ×3 (08:37→21:03)
[2021-03-01] MEDS ORDERED: VITAMIN D 1000 UNIT TAB ONE (08:37)
--- NOTE | 2021-03-01 09:36 | RAD REPORT ---
EXAM DESCRIPTION: RAD - Chest Single View - 03/01/2021 5:53 am CLINICAL HISTORY: Follow-up Covid Chest pain. COMPARISON: Chest Single View dated 02/27/2021; Chest Single View dated 02/24/2021; Chest Pa And Lat (2 Views) dated 08/30/2018 FINDINGS: Portable technique limits examination quality. Mild bilateral pulmonary opacities are present, appearing slightly progressive since the comparative study. The heart is normal in size. No displaced fractures. IMPRESSION: Mild worsening in lung aeration is noted.
[2021-03-01] MEDS ORDERED: GLUCAGON 1 MG/VIAL IM PRN (13:47)
[2021-03-01] MEDS ORDERED: D50W 25 GM/50 ML SYRINGE IV PRN (13:47)
--- NOTE | 2021-03-01 14:39 | P.CNS ---
Date of Consult: 03/01/21 (pt consented to TV) Chief Complaint: COVID-19 pneumonia History of Present Illness: Age 50 Aw COVID penumonia, Metabolic syndrome. abnormal LFT Not vaccinated Allergies Cephalosporins Allergy (Verified 11/21/20 05:15) Unknown Home Medications: Glipizide [Glipizide ER] 5 mg PO DAILY 03/01/21 Pantoprazole Sodium [Protonix] 1 tab PO DAILY 03/01/21 - Past Medical/Surgical History Diabetic: No -: Fatty liver -: GERD -: Renal cell carcinoma -: Cholecystectomy -: Tubal ligation -: Uterine ablation -: Right nephrectomy Psychosocial/ Personal History: The patient is of 20 years, she has 5 children. She does not work. - Family History Father Medical History: Heart disease, Diabetes, Kidney disease Mother Medical History: Heart disease, Diabetes - Social History Alcohol use: Yes CD- Drugs: No Caffeine use: No Place of Residence: Home Review of Systems General: Weakness Respiratory: Shortness of Breath Physical Examination Temp Pulse Resp BP Pulse Ox 98.0 F 63 22 H 120/60 94 03/01/21 13:47 03/01/21 13:47 03/01/21 13:47 03/01/21 13:47 03/01/21 13:47 General: Alert, Oriented x3, Cooperative, Mild distress - Problems (1) Pneumonia due to COVID-19 virus Current Visit: Yes Status: Acute Plan: Ae 50 AW COVIDpenumonia/on NC O2/Ct scan conistent with COVID/ Abnormal LFT/Add ivermactin/ Pt does qualify for barcitinib/ poss DC am
[2021-03-01] MEDS ORDERED: ONDANSETRON 4 MG (ODT) TAB ONE (16:28)
[2021-03-01] MEDS ORDERED: predniSONE 20 MG TAB ONE (16:39)
[2021-03-01] MEDS ORDERED: INSULIN GLARGINE 100 UNITS/ML SQ SCH (21:00)
[2021-03-01] MEDS ORDERED: INSULIN GLARGINE 100 UNITS/ML SQ ONE (21:02)
[2021-03-01] MEDS ORDERED: MELATONIN 5 MG TABLET PO ONE (22:21)
[2021-03-01] MEDS: MELATONIN 5 MG TABLET PO PRN (22:50)
[2021-03-02 05:21] LABS: Absolute Lymphocytes (CBC) 0.3 K/uL (0.7-4.9); Basophils % 0.2 % (0-1.3); Hematocrit 37.7 % (36.0-45.0); Lymphocytes % 6.9 % (15.3-44.8); MPV 7.5 fL (7.6-11.3); RBC Red Blood Cell Count 4.42 M/uL (3.86-4.86)
[2021-03-02 05:54] LABS: Albumin 3.1 g/dL (3.4-5.0); Bilirubin Total 0.3 mg/dL (0.2-1.0); C-Reactive Protein 12.2 mg/L (<3.00); Ferritin 1310.9 ng/mL (8-388); Magnesium 2.9 mg/dL (1.8-2.4); Potassium 4.1 mmol/L (3.5-5.1); Protein, Total 7.1 g/dL (6.4-8.2)
--- NOTE | 2021-03-02 06:22 | P.PN ---
Subjective Date of Service: 03/02/21 Chief Complaint: COVID-19 pneumonia Subjective: Other (Patient requiring more oxygen. This morning was at 6 L.) Physical Examination - Vital Signs Temperature: 98.6 F Blood Pressure: 98/43 Pulse: 73 Respirations: 28 Pulse Ox (%): 90 Assessment & Plan Discharge Plan: Home Plan to discharge in: Greater than 2 days Physician Review Additional Text: COVID: Positive, unvaccinated CT scan: COMPARISON: 11/20/2020 TECHNIQUE: CT of the chest, abdomen and pelvis performed without IV contrast. Suboptimal evaluation of the soft tissues, solid organs, and vasculature due to lack of IV contrast. This exam was performed according to our departmental dose- optimization program, which includes automated exposure control, adjustment of the mA and/or kV according to patient size and/or use of iterative reconstruction technique. FINDINGS: Chest: Thyroid: No abnormalities of the visualized thyroid. Great Vessels: Great vessels have normal anatomic configuration. Thoracic Aorta: No abnormalities of the thoracic aorta identified. Pulmonary arteries: The main pulmonary artery is not dilated. Heart: No cardiomegaly, significant pericardial effusion, or coronary artery atherosclerosis Lymph Nodes: No enlarged mediastinal lymph nodes identified. Esophagus: No abnormalities of the esophagus identified Other: No additional findings. Lungs: Diffuse multifocal bilateral groundglass and airspace opacities. Pleura: No pleural effusion or pneumothorax. Trachea/Airways: No abnormalities of the visualized trachea or airways. Abdomen: Liver: Hepatomegaly and decreased density. Gallbladder: Prior cholecystectomy. Spleen, Pancreas, and Adrenal Glands: The spleen, pancreas, and adrenal glands are unremarkable. Kidneys: Prior right colectomy. No left-sided hydronephrosis. Vasculature: Aortoiliac atherosclerosis. IVC is unremarkable. Stomach: The stomach and duodenum have normal course. Other: No free intraperitoneal air. No free fluid or lymphadenopathy. Pelvis: Bladder: Urinary bladder is unremarkable. Bowel: No dilated loops of large or small bowel. Appendix: Normal appendix. Pelvis: Uterus is not enlarged. Bones: Multilevel degenerative endplate spondylosis of the spine. Osteoarthritic change of IMPRESSION: 1. Diffuse multifocal bilateral groundglass and airspace opacities. Commonly reported imaging features of viral pneumonia are present. Other processes such as influenza pneumonia and organizing pneumonia, as can be seen with drug toxicity and connective tissue disease, can cause similar imaging pattern. 2. Hepatomegaly and hepatic steatosis. Follow up CXR: COMPARISON: Chest Single View dated 02/27/2021; Chest Single View dated 02/24/2021; Chest Pa And Lat (2 Views) dated 08/30/2018 FINDINGS: Portable technique limits examination quality. Mild bilateral pulmonary opacities are present, appearing slightly progressive since the comparative study. The heart is normal in size. No displaced fractures. IMPRESSION: Mild worsening in lung aeration is noted. Physical exam: General: Alert, In no apparent distress, Oriented x3 HEENT: Atraumatic, PERRLA, EOMI, Sclerae nonicteric Neck: Neck supple Respiratory: Better air movement today. Currently on 6 L. Cardiovascular: Regular rate/rhythm, Normal S1 S2 Gastrointestinal: Normal bowel sounds, No tenderness Musculoskeletal: No tenderness Integumentary: No rashes Neurological: Normal speech, Normal strength at 5/5 x4 extr, Normal tone, Normal affect Impression: Acute hypoxic respiratory failure secondary to COVID-19 pneumonia complicated with leukopenia/thrombocytopenia, unvaccinated Elevated aminotransferase levels secondary to fatty liver disease complicated with Tylenol use Diabetes mellitus type 2 History of renal cancer status post right nephrectomy Plan: Acute hypoxic respiratory failure secondary to COVID-19 pneumonia complicated with leukopenia/thrombocytopenia, unvaccinated: Patient requiring more oxygen. Continue to wean off if possible. Patient not a candidate for baricitinib. Continue IV steroids, supplements. Encourage incentive spirometer. Encourage ambulation. Encourage proning. Await recommendations by pulmonology. We will continue to monitor closely. Elevated aminotransferase levels secondary to fatty liver disease complicated with Tylenol use: Lab improved.. Avoid excessive Tylenol use. Diabetes mellitus type 2: Monitor Accu-Cheks. Sliding scale in place. Sliding scale in place. Hemoglobin A1c 7.7. Continue to adjust Lantus for better control History of renal cancer status post right nephrectomy: Stable. DVT PPX: Lovenox Code status: Full Advance care minutes: Home at discharge Time Spent Managing Pts Care (In Minutes): 55
[2021-03-02] MEDS: INSULIN -REGULAR HUMAN 50 UNIT/0.5 ML ML SQ SCH ×4 (07:30→22:11)
[2021-03-02] MEDS: METHYLPREDNISOLONE 125 MG INJ IV SCH ×3 (09:00→20:44)
[2021-03-02] MEDS: ZINC SULFATE 220 MG CAP PO SCH (09:00)
[2021-03-02] MEDS: VITAMIN D 1000 UNIT TAB PO SCH (09:00)
[2021-03-02] MEDS: ENOXAPARIN 40 MG/0.4 ML SQ SCH (09:00)
[2021-03-02] MEDS: ASCORBIC ACID 500 MG TABLET PO SCH ×4 (09:00→20:44)
[2021-03-02] MEDS ORDERED: INSULIN GLARGINE 100 UNITS/ML SQ SCH ×2 (09:00→21:00)
[2021-03-02] MEDS: THIAMINE HCL 100 MG TABLET PO SCH (09:00)
[2021-03-02] MEDS ORDERED: INSULIN -REGULAR HUMAN 50 UNIT/0.5 ML ML ONE ×4 (09:25→21:52)
[2021-03-02] MEDS ORDERED: INSULIN GLARGINE 100 UNITS/ML SQ ONE ×2 (09:25→21:52)
[2021-03-02] MEDS ORDERED: METHYLPREDNISOLONE 125 MG INJ ONE ×4 (09:27→20:14)
[2021-03-02] MEDS ORDERED: VITAMIN D 1000 UNIT TAB ONE (09:27)
[2021-03-02] MEDS ORDERED: ZINC SULFATE 220 MG CAP ONE (09:27)
[2021-03-02] MEDS ORDERED: THIAMINE HCL 100 MG TABLET ONE (09:27)
[2021-03-02] MEDS ORDERED: ENOXAPARIN 40 MG/0.4 ML SQ ONE (09:28)
[2021-03-02] MEDS ORDERED: ASCORBIC ACID 500 MG TABLET ONE ×3 (09:28→20:13)
--- NOTE | 2021-03-02 12:53 | P.PN ---
Subjective Date of Service: 03/02/21 Chief Complaint: COVID-19 pneumonia Subjective: Worsening (o2 requirements has increased) Review of Systems General: Weakness Respiratory: Shortness of Breath Physical Examination - Vital Signs Temperature: 98.0 F Blood Pressure: 108/66 Pulse: 69 Respirations: 30 Pulse Ox (%): 86 - Physical Exam General: Alert, Cooperative, Mild distress Assessment & Plan - Problems (Diagnosis) (1) Pneumonia due to COVID-19 virus Current Visit: Yes Status: Acute Plan: Resp failure/ Worse/ Continue to monitor/ Xarleto/ Does nto qualify for Barcitinib
[2021-03-02] MEDS ORDERED: ALBUTEROL INHALER 60 PUFF/8 GM IH ONE (16:44)
[2021-03-02] MEDS: RIVAROXABAN 20 MG TABLET PO SCH (17:00)
[2021-03-03 06:06] LABS: Absolute Lymphocytes (CBC) 0.3 K/uL (0.7-4.9); Basophils % 0.1 % (0-1.3); Hematocrit 37.2 % (36.0-45.0); Lymphocytes % 5.8 % (15.3-44.8); MPV 7.3 fL (7.6-11.3); RBC Red Blood Cell Count 4.42 M/uL (3.86-4.86)
--- NOTE | 2021-03-03 06:18 | P.PN ---
Subjective Date of Service: 03/03/21 Chief Complaint: COVID-19 pneumonia Subjective: Other (Patient remained stable on 15 L. Some report of indigestion and epigastric pain.) Physical Examination - Vital Signs Temperature: 97.3 F Blood Pressure: 93/44 Pulse: 61 Respirations: 19 Pulse Ox (%): 95 Assessment & Plan Discharge Plan: Home Plan to discharge in: Greater than 2 days Physician Review Additional Text: COVID: Positive, unvaccinated CT scan: COMPARISON: 11/20/2020 TECHNIQUE: CT of the chest, abdomen and pelvis performed without IV contrast. Suboptimal evaluation of the soft tissues, solid organs, and vasculature due to lack of IV contrast. This exam was performed according to our departmental dose- optimization program, which includes automated exposure control, adjustment of the mA and/or kV according to patient size and/or use of iterative reconstruction technique. FINDINGS: Chest: Thyroid: No abnormalities of the visualized thyroid. Great Vessels: Great vessels have normal anatomic configuration. Thoracic Aorta: No abnormalities of the thoracic aorta identified. Pulmonary arteries: The main pulmonary artery is not dilated. Heart: No cardiomegaly, significant pericardial effusion, or coronary artery atherosclerosis Lymph Nodes: No enlarged mediastinal lymph nodes identified. Esophagus: No abnormalities of the esophagus identified Other: No additional findings. Lungs: Diffuse multifocal bilateral groundglass and airspace opacities. Pleura: No pleural effusion or pneumothorax. Trachea/Airways: No abnormalities of the visualized trachea or airways. Abdomen: Liver: Hepatomegaly and decreased density. Gallbladder: Prior cholecystectomy. Spleen, Pancreas, and Adrenal Glands: The spleen, pancreas, and adrenal glands are unremarkable. Kidneys: Prior right colectomy. No left-sided hydronephrosis. Vasculature: Aortoiliac atherosclerosis. IVC is unremarkable. Stomach: The stomach and duodenum have normal course. Other: No free intraperitoneal air. No free fluid or lymphadenopathy. Pelvis: Bladder: Urinary bladder is unremarkable. Bowel: No dilated loops of large or small bowel. Appendix: Normal appendix. Pelvis: Uterus is not enlarged. Bones: Multilevel degenerative endplate spondylosis of the spine. Osteoarthritic change of IMPRESSION: 1. Diffuse multifocal bilateral groundglass and airspace opacities. Commonly reported imaging features of viral pneumonia are present. Other processes such as influenza pneumonia and organizing pneumonia, as can be seen with drug toxicity and connective tissue disease, can cause similar imaging pattern. 2. Hepatomegaly and hepatic steatosis. Follow up CXR: COMPARISON: Chest Single View dated 02/27/2021; Chest Single View dated 02/24/2021; Chest Pa And Lat (2 Views) dated 08/30/2018 FINDINGS: Portable technique limits examination quality. Mild bilateral pulmonary opacities are present, appearing slightly progressive since the comparative study. The heart is normal in size. No displaced fractures. IMPRESSION: Mild worsening in lung aeration is noted. Physical exam: General: Alert, In no apparent distress, Oriented x3 HEENT: Atraumatic, PERRLA, EOMI, Sclerae nonicteric Neck: Neck supple Respiratory: Overall stable. Currently on 15 L. Cardiovascular: Regular rate/rhythm, Normal S1 S2 Gastrointestinal: Normal bowel sounds, No tenderness Musculoskeletal: No tenderness Integumentary: No rashes Neurological: Normal speech, Normal strength at 5/5 x4 extr, Normal tone, Normal affect Impression: Acute hypoxic respiratory failure secondary to bilateral Covid pneumonia with hypoxia, unvaccinated Elevated aminotransferase levels secondary to fatty liver disease complicated with Tylenol use Diabetes mellitus type 2 History of renal cancer status post right nephrectomy GERD Plan: Acute hypoxic respiratory failure secondary to bilateral Covid pneumonia with hypoxia, unvaccinated: Patient stable on 15 L. Continue to wean off. Continue IV steroids and supplements. CRP and ferritin improved. Continue to monitor CRP, ferritin and lab closely. Encourage incentive spirometer, ambulation and proning. Case discussed with pulmonology. Patient on Xarelto for DVT prophylaxis. Continue to monitor closely. Continue to adjust insulin for better diabetic control. Consider decreasing steroids if less than 10 L on oxygen. Elevated aminotransferase levels secondary to fatty liver disease complicated with Tylenol use: Lab improved.. Avoid excessive Tylenol use. Diabetes mellitus type 2: Monitor Accu-Cheks. Sliding scale in place. Sliding scale in place. Hemoglobin A1c 7.7. Continue to adjust Lantus for better control. History of renal cancer status post right nephrectomy: Overall stable. GERD: Patient with epigastric pain. Will provide Pepcid. Will check troponin DVT PPX: Xarelto Code status: Full Advance care [id number] minutes: Home at discharge Time Spent Managing Pts Care (In Minutes): 55
[2021-03-03 06:28] LABS: Bilirubin Total 0.4 mg/dL (0.2-1.0); C-Reactive Protein 10.4 mg/L (<3.00); Ferritin 838.4 ng/mL (8-388); Magnesium 2.8 mg/dL (1.8-2.4); Potassium 4.3 mmol/L (3.5-5.1)
[2021-03-03] MEDS: INSULIN -REGULAR HUMAN 50 UNIT/0.5 ML ML SQ SCH ×4 (07:30→21:57)
[2021-03-03] MEDS: INSULIN GLARGINE 100 UNITS/ML SQ SCH ×2 (08:45→21:58)
[2021-03-03] MEDS: METHYLPREDNISOLONE 125 MG INJ IV SCH ×3 (08:45→22:02)
[2021-03-03] MEDS: ZINC SULFATE 220 MG CAP PO SCH (08:45)
[2021-03-03] MEDS: VITAMIN D 1000 UNIT TAB PO SCH (08:45)
[2021-03-03] MEDS ORDERED: INSULIN GLARGINE 100 UNITS/ML SQ ONE ×2 (08:45→22:15)
[2021-03-03] MEDS ORDERED: INSULIN -REGULAR HUMAN 50 UNIT/0.5 ML ML ONE ×4 (08:46→22:16)
[2021-03-03] MEDS ORDERED: METHYLPREDNISOLONE 125 MG INJ ONE ×3 (08:48→20:44)
[2021-03-03] MEDS ORDERED: VITAMIN D 1000 UNIT TAB ONE (08:48)
[2021-03-03] MEDS ORDERED: ZINC SULFATE 220 MG CAP ONE (08:48)
[2021-03-03] MEDS: THIAMINE HCL 100 MG TABLET PO SCH (09:00)
[2021-03-03] MEDS: ASCORBIC ACID 500 MG TABLET PO SCH ×4 (09:00→21:57)
[2021-03-03 09:33] LABS: Blood Morphology Comment NOT SEEN (NOT SEEN); Platelet Estimate ADEQ
[2021-03-03] MEDS ORDERED: ASCORBIC ACID 500 MG TABLET ONE ×4 (09:56→20:44)
[2021-03-03] MEDS ORDERED: THIAMINE HCL 100 MG TABLET ONE (09:56)
[2021-03-03] MEDS ORDERED: ONDANSETRON 4 MG/2 ML VIAL ONE (10:24)
[2021-03-03] MEDS: RIVAROXABAN 20 MG TABLET PO SCH (17:00)
[2021-03-03] MEDS ORDERED: FAMOTIDINE 20 MG TAB ONE (20:44)
[2021-03-03] MEDS: FAMOTIDINE 20 MG TAB PO SCH (21:57)
--- NOTE | 2021-03-04 06:26 | P.PN ---
Subjective Date of Service: 03/04/21 Chief Complaint: COVID-19 pneumonia Subjective: Improving Physical Examination - Vital Signs Temperature: 98.4 F Blood Pressure: 126/70 Pulse: 62 Respirations: 21 Pulse Ox (%): 95 Assessment & Plan Discharge Plan: Home Plan to discharge in: 48 Hours Physician Review Additional Text: COVID: Positive, unvaccinated CT scan: COMPARISON: 11/20/2020 TECHNIQUE: CT of the chest, abdomen and pelvis performed without IV contrast. Suboptimal evaluation of the soft tissues, solid organs, and vasculature due to lack of IV contrast. This exam was performed according to our departmental dose- optimization program, which includes automated exposure control, adjustment of the mA and/or kV according to patient size and/or use of iterative reconstruction technique. FINDINGS: Chest: Thyroid: No abnormalities of the visualized thyroid. Great Vessels: Great vessels have normal anatomic configuration. Thoracic Aorta: No abnormalities of the thoracic aorta identified. Pulmonary arteries: The main pulmonary artery is not dilated. Heart: No cardiomegaly, significant pericardial effusion, or coronary artery atherosclerosis Lymph Nodes: No enlarged mediastinal lymph nodes identified. Esophagus: No abnormalities of the esophagus identified Other: No additional findings. Lungs: Diffuse multifocal bilateral groundglass and airspace opacities. Pleura: No pleural effusion or pneumothorax. Trachea/Airways: No abnormalities of the visualized trachea or airways. Abdomen: Liver: Hepatomegaly and decreased density. Gallbladder: Prior cholecystectomy. Spleen, Pancreas, and Adrenal Glands: The spleen, pancreas, and adrenal glands are unremarkable. Kidneys: Prior right colectomy. No left-sided hydronephrosis. Vasculature: Aortoiliac atherosclerosis. IVC is unremarkable. Stomach: The stomach and duodenum have normal course. Other: No free intraperitoneal air. No free fluid or lymphadenopathy. Pelvis: Bladder: Urinary bladder is unremarkable. Bowel: No dilated loops of large or small bowel. Appendix: Normal appendix. Pelvis: Uterus is not enlarged. Bones: Multilevel degenerative endplate spondylosis of the spine. Osteoarthritic change of IMPRESSION: 1. Diffuse multifocal bilateral groundglass and airspace opacities. Commonly reported imaging features of viral pneumonia are present. Other processes such as influenza pneumonia and organizing pneumonia, as can be seen with drug toxicity and connective tissue disease, can cause similar imaging pattern. 2. Hepatomegaly and hepatic steatosis. Follow up CXR: COMPARISON: Chest Single View dated 02/27/2021; Chest Single View dated 02/24/2021; Chest Pa And Lat (2 Views) dated 08/30/2018 FINDINGS: Portable technique limits examination quality. Mild bilateral pulmonary opacities are present, appearing slightly progressive since the comparative study. The heart is normal in size. No displaced fractures. IMPRESSION: Mild worsening in lung aeration is noted. Physical exam: General: Alert, In no apparent distress, Oriented x3 HEENT: Atraumatic, PERRLA, EOMI, Sclerae nonicteric Neck: Neck supple Respiratory: Overall stable. Currently on 15 L. Cardiovascular: Regular rate/rhythm, Normal S1 S2 Gastrointestinal: Normal bowel sounds, No tenderness Musculoskeletal: No tenderness Integumentary: No rashes Neurological: Normal speech, Normal strength at 5/5 x4 extr, Normal tone, Normal affect Impression: Acute hypoxic respiratory failure secondary to bilateral Covid pneumonia with hypoxia, unvaccinated Elevated aminotransferase levels secondary to fatty liver disease complicated with Tylenol use Diabetes mellitus type 2 History of renal cancer status post right nephrectomy GERD Plan: Acute hypoxic respiratory failure secondary to bilateral Covid pneumonia with hypoxia, unvaccinated: Patient improved yesterday. Improvement in respirations. Currently on 6 L per nasal cannula. Continue to wean off oxygen to maintain sats above 93%. Continue IV steroids and supplements. CRP and ferritin improved. Continue to monitor CRP, ferritin and lab closely. Encourage incentive spirometer, ambulation and proning. Case discussed with pulmonology. Patient on Xarelto for DVT prophylaxis. Continue to monitor closely. Continue to adjust insulin for better diabetic control. Anticipate continued improvement over the next 48 hours. I will turn the service over to the hospitalist team tomorrow. I will go over the plan of care with him. Elevated aminotransferase levels secondary to fatty liver disease complicated with Tylenol use: Lab improved.. Avoid excessive Tylenol use. Diabetes mellitus type 2: Monitor Accu-Cheks. Sliding scale in place. Sliding scale in place. Hemoglobin A1c 7.7. Continue to adjust Lantus for better control. History of renal cancer status post right nephrectomy: Overall stable. GERD: Patient with epigastric pain. Will provide Pepcid. DVT PPX: Xarelto Code status: Full Advance care [id number] minutes: Home at discharge Time Spent Managing Pts Care (In Minutes): 55
[2021-03-04] MEDS: INSULIN -REGULAR HUMAN 50 UNIT/0.5 ML ML SQ SCH ×4 (07:30→21:00)
[2021-03-04] MEDS ORDERED: INSULIN GLARGINE 100 UNITS/ML SQ ONE (08:36)
[2021-03-04] MEDS ORDERED: INSULIN -REGULAR HUMAN 50 UNIT/0.5 ML ML ONE ×4 (08:37→22:10)
[2021-03-04] MEDS ORDERED: METHYLPREDNISOLONE 125 MG INJ ONE ×2 (08:40→22:09)
[2021-03-04] MEDS ORDERED: FAMOTIDINE 20 MG TAB ONE ×2 (08:40→22:09)
[2021-03-04] MEDS ORDERED: THIAMINE HCL 100 MG TABLET ONE (08:40)
[2021-03-04] MEDS ORDERED: ASCORBIC ACID 500 MG TABLET ONE ×4 (08:40→22:09)
[2021-03-04] MEDS ORDERED: ZINC SULFATE 220 MG CAP ONE (08:40)
[2021-03-04] MEDS ORDERED: VITAMIN D 1000 UNIT TAB ONE (08:40)
[2021-03-04] MEDS: INSULIN GLARGINE 100 UNITS/ML SQ SCH ×2 (09:00→21:00)
[2021-03-04] MEDS: METHYLPREDNISOLONE 125 MG INJ IV SCH ×3 (09:00→21:00)
[2021-03-04] MEDS: ZINC SULFATE 220 MG CAP PO SCH (09:00)
[2021-03-04] MEDS: ASCORBIC ACID 500 MG TABLET PO SCH ×4 (09:00→21:00)
[2021-03-04] MEDS: FAMOTIDINE 20 MG TAB PO SCH ×2 (09:00→21:00)
[2021-03-04] MEDS: THIAMINE HCL 100 MG TABLET PO SCH (09:00)
[2021-03-04] MEDS: VITAMIN D 1000 UNIT TAB PO SCH (09:00)
[2021-03-04 09:23] LABS: Absolute Lymphocytes (CBC) 0.3 K/uL (0.7-4.9); Basophils % 0.2 % (0-1.3); Hematocrit 39.9 % (36.0-45.0); Lymphocytes % 5.5 % (15.3-44.8); RBC Red Blood Cell Count 4.68 M/uL (3.86-4.86)
[2021-03-04 09:30] LABS: Bilirubin Total 0.4 mg/dL (0.2-1.0); C-Reactive Protein 23.9 mg/L (<3.00); Ferritin 774.2 ng/mL (8-388); Potassium 4.2 mmol/L (3.5-5.1); Protein, Total 7.5 g/dL (6.4-8.2)
[2021-03-04] MEDS ORDERED: METHYLPREDNISOLONE 40 MG INJ ONE (15:06)
[2021-03-04] MEDS: RIVAROXABAN 20 MG TABLET PO SCH (17:00)
[2021-03-04] MEDS: FENTANYL CITR 100 MCG/2 ML IV PRN (21:30)
[2021-03-04] MEDS ORDERED: FENTANYL CITR 100 MCG/2 ML ONE (22:09)
[2021-03-04] MEDS ORDERED: MELATONIN 5 MG TABLET PO ONE (22:22)
[2021-03-05 04:49] LABS: Absolute Lymphocytes (CBC) 0.3 K/uL (0.7-4.9); Basophils % 0.1 % (0-1.3); Hematocrit 39.5 % (36.0-45.0); Lymphocytes % 7.3 % (15.3-44.8); MPV 6.9 fL (7.6-11.3); RBC Red Blood Cell Count 4.67 M/uL (3.86-4.86)
[2021-03-05 05:09] LABS: Albumin 2.9 g/dL (3.4-5.0); Bilirubin Total 0.4 mg/dL (0.2-1.0); Ferritin 723.8 ng/mL (8-388); Magnesium 2.8 mg/dL (1.8-2.4); Potassium 4.6 mmol/L (3.5-5.1); Protein, Total 7.2 g/dL (6.4-8.2)
[2021-03-05] MEDS: FENTANYL CITR 100 MCG/2 ML IV PRN (06:00)
[2021-03-05] MEDS ORDERED: FENTANYL CITR 100 MCG/2 ML ONE (06:16)
[2021-03-05] MEDS: INSULIN -REGULAR HUMAN 50 UNIT/0.5 ML ML SQ SCH ×4 (07:30→21:27)
[2021-03-05] MEDS ORDERED: ASCORBIC ACID 500 MG TABLET ONE ×3 (08:13→21:37)
[2021-03-05] MEDS ORDERED: METHYLPREDNISOLONE 125 MG INJ ONE ×3 (08:13→21:37)
[2021-03-05] MEDS ORDERED: FAMOTIDINE 20 MG TAB ONE ×2 (08:14→21:38)
[2021-03-05] MEDS ORDERED: INSULIN GLARGINE 100 UNITS/ML SQ ONE ×2 (08:14→21:38)
[2021-03-05] MEDS ORDERED: THIAMINE HCL 100 MG TABLET ONE (08:14)
[2021-03-05] MEDS ORDERED: ZINC SULFATE 220 MG CAP ONE (08:14)
[2021-03-05] MEDS ORDERED: VITAMIN D 1000 UNIT TAB ONE (08:14)
[2021-03-05] MEDS: FAMOTIDINE 20 MG TAB PO SCH ×2 (08:43→21:27)
[2021-03-05] MEDS: THIAMINE HCL 100 MG TABLET PO SCH (08:43)
[2021-03-05] MEDS: METHYLPREDNISOLONE 125 MG INJ IV SCH ×3 (08:43→21:27)
[2021-03-05] MEDS: ASCORBIC ACID 500 MG TABLET PO SCH ×4 (08:44→21:27)
[2021-03-05] MEDS: VITAMIN D 1000 UNIT TAB PO SCH (08:44)
[2021-03-05] MEDS: ZINC SULFATE 220 MG CAP PO SCH (08:44)
[2021-03-05] MEDS ORDERED: INSULIN -REGULAR HUMAN 50 UNIT/0.5 ML ML ONE ×4 (08:55→21:39)
[2021-03-05] MEDS: INSULIN GLARGINE 100 UNITS/ML SQ SCH ×2 (09:00→21:28)
[2021-03-05 10:29] VITALS: BMI 46.8
[2021-03-05] MEDS: RIVAROXABAN 20 MG TABLET PO SCH (17:00)
--- NOTE | 2021-03-05 18:03 | P.PN ---
Subjective Date of Service: 03/05/21 Patient is doing well with no new complaints. States her whole family has been sick. She has got really ill and is very oxygen dependent. Continue monitoring her closely. Review of Systems 10-point ROS is otherwise unremarkable Physical Examination - Vital Signs Temperature: 97.9 F Blood Pressure: 123/77 Pulse: 61 Respirations: 18 Pulse Ox (%): 93 - Physical Exam General: Alert, In no apparent distress, Oriented x3 Respiratory: Diminished, Crackles/rales Cardiovascular: Regular rate/rhythm, Normal S1 S2, No murmurs Gastrointestinal: Normal bowel sounds, Soft and benign, Non-distended, No tend erness, No rebound, No guarding Musculoskeletal: No clubbing, No swelling, No tenderness Neurological: Normal strength at 5/5 x4 extr, Sensation intact, Cranial nerves 3-12 intact - Studies Microbiology Data (last 24 hrs): 02/27/21 23:56 Blood - Blood Aerobic Blood Culture - Final No growth in 5 days. 02/27/21 23:56 Blood - Blood Anaerobic Blood Culture - Final No growth in 5 days. 02/27/21 23:56 Blood - Blood Aerobic Blood Culture - Final No growth in 5 days. 02/27/21 23:56 Blood - Blood Anaerobic Blood Culture - Final No growth in 5 days. Medications List Reviewed: Yes Assessment & Plan - Problems (Diagnosis) (1) Pneumonia due to COVID-19 virus Current Visit: Yes Status: Acute (2) Dehydration Current Visit: No Status: Acute - Plan 1. Continue with IV steroids 2. Monitor inflammatory markers 3. Repeat chest x-ray 4. O2 per protocol 5. Pulmonary consultation pending 6. Continue with albuterol inhaler therapy; also supportive care 7. Monitor LFTs 8. GI and DVT prophylaxis Discharge Plan: Home Plan to discharge in: Greater than 2 days - Advance Directives Does patient have a Living Will: No Does patient have a Durable POA for Healthcare: No - Code Status/Comfort Care Code Status Assessed: Yes Code Status: Full Code Critical Care: No Time Spent Managing PTS Care (In Minutes): 30
--- NOTE | 2021-03-05 21:24 | P.PN ---
Subjective Date of Service: 03/05/21 Chief Complaint: COVID-19 pneumonia Subjective: Improving (Doign better) Review of Systems General: Weakness Respiratory: Shortness of Breath Physical Examination - Vital Signs Temperature: 97.9 F Blood Pressure: 123/77 Pulse: 61 Respirations: 18 Pulse Ox (%): 93 - Physical Exam General: Alert, In no apparent distress, Oriented x3, Cooperative - Studies Microbiology Data (last 24 hrs): 02/27/21 23:56 Blood - Blood Aerobic Blood Culture - Final No growth in 5 days. 02/27/21 23:56 Blood - Blood Anaerobic Blood Culture - Final No growth in 5 days. 02/27/21 23:56 Blood - Blood Aerobic Blood Culture - Final No growth in 5 days. 02/27/21 23:56 Blood - Blood Anaerobic Blood Culture - Final No growth in 5 days. Medications List Reviewed: Yes Assessment & Plan - Problems (Diagnosis) (1) Pneumonia due to COVID-19 virus Current Visit: Yes Status: Acute Plan: Imprvingposs Dc Am / titratge O2 down/ low dose lasix poss DC
[2021-03-06] MEDS: MELATONIN 5 MG TABLET PO PRN ×2 (00:02→21:59)
[2021-03-06] MEDS: ACETAMINOPHEN 500 MG TAB PO PRN (00:02)
[2021-03-06] MEDS ORDERED: ACETAMINOPHEN 500 MG TAB ONE (00:17)
[2021-03-06] MEDS ORDERED: MELATONIN 5 MG TABLET PO ONE ×2 (00:17→22:01)
[2021-03-06 05:10] LABS: Absolute Lymphocytes (CBC) 0.3 K/uL (0.7-4.9); Basophils % 0.2 % (0-1.3); Hematocrit 39.2 % (36.0-45.0); Lymphocytes % 7.6 % (15.3-44.8); MPV 6.7 fL (7.6-11.3); RBC Red Blood Cell Count 4.64 M/uL (3.86-4.86)
[2021-03-06 05:28] LABS: Albumin 2.8 g/dL (3.4-5.0); Bilirubin Total 0.4 mg/dL (0.2-1.0); C-Reactive Protein 4.9 mg/L (<3.00); Ferritin 598.2 ng/mL (8-388); Magnesium 2.5 mg/dL (1.8-2.4); Potassium 4.8 mmol/L (3.5-5.1)
[2021-03-06] MEDS: INSULIN -REGULAR HUMAN 50 UNIT/0.5 ML ML SQ SCH ×4 (07:30→21:00)
[2021-03-06] MEDS ORDERED: FUROSEMIDE 20 MG TABLET ONE (08:12)
[2021-03-06] MEDS ORDERED: ASCORBIC ACID 500 MG TABLET ONE (08:12)
[2021-03-06] MEDS ORDERED: METHYLPREDNISOLONE 125 MG INJ ONE (08:12)
[2021-03-06] MEDS ORDERED: INSULIN GLARGINE 100 UNITS/ML SQ ONE ×2 (08:12→22:33)
[2021-03-06] MEDS ORDERED: ZINC SULFATE 220 MG CAP ONE (08:13)
[2021-03-06] MEDS ORDERED: VITAMIN D 1000 UNIT TAB ONE (08:13)
[2021-03-06] MEDS ORDERED: FAMOTIDINE 20 MG TAB ONE (08:13)
[2021-03-06] MEDS ORDERED: THIAMINE HCL 100 MG TABLET ONE (08:13)
[2021-03-06] MEDS ORDERED: INSULIN -REGULAR HUMAN 50 UNIT/0.5 ML ML ONE ×4 (08:14→22:35)
[2021-03-06] MEDS: FAMOTIDINE 20 MG TAB PO SCH ×2 (09:00→21:00)
[2021-03-06] MEDS: FUROSEMIDE 20 MG TABLET PO SCH (09:00)
[2021-03-06] MEDS: INSULIN GLARGINE 100 UNITS/ML SQ SCH ×2 (09:00→21:00)
[2021-03-06] MEDS: METHYLPREDNISOLONE 125 MG INJ IV SCH ×3 (09:00→21:00)
[2021-03-06] MEDS: ZINC SULFATE 220 MG CAP PO SCH (09:00)
[2021-03-06] MEDS: VITAMIN D 1000 UNIT TAB PO SCH (09:00)
[2021-03-06] MEDS: ASCORBIC ACID 500 MG TABLET PO SCH ×4 (09:00→21:00)
[2021-03-06] MEDS: THIAMINE HCL 100 MG TABLET PO SCH (09:00)
[2021-03-06] MEDS: ALBUTEROL INHALER 60 PUFF/8 GM IH SCH ×3 (10:30→20:30)
[2021-03-06] MEDS ORDERED: ALBUTEROL INHALER 60 PUFF/8 GM IH ONE (11:06)
[2021-03-06] MEDS ORDERED: METHYLPREDNISOLONE 40 MG INJ ONE (11:06)
[2021-03-06] MEDS: FENTANYL CITR 100 MCG/2 ML IV PRN ×2 (12:21→21:55)
[2021-03-06] MEDS ORDERED: FENTANYL CITR 100 MCG/2 ML ONE ×2 (12:35→22:01)
[2021-03-06] MEDS: BENZONATATE 100 MG CAP PO PRN ×2 (13:56→21:59)
[2021-03-06] MEDS ORDERED: BENZONATATE 100 MG CAP PO ONE ×2 (14:07→22:00)
[2021-03-06] MEDS: RIVAROXABAN 20 MG TABLET PO SCH (17:00)
[2021-03-06] MEDS: ONDANSETRON 4 MG/2 ML VIAL IV PRN (21:59)
[2021-03-06] MEDS ORDERED: ONDANSETRON 4 MG/2 ML VIAL ONE (22:01)
[2021-03-07] MEDS: ALBUTEROL INHALER 60 PUFF/8 GM IH SCH ×4 (02:30→19:35)
[2021-03-07 04:52] LABS: Absolute Lymphocytes (CBC) 0.3 K/uL (0.7-4.9); Basophils % 0.4 % (0-1.3); Hematocrit 39.4 % (36.0-45.0); Lymphocytes % 4.9 % (15.3-44.8); RBC Red Blood Cell Count 4.71 M/uL (3.86-4.86)
[2021-03-07 05:13] LABS: Albumin 2.8 g/dL (3.4-5.0); Bilirubin Total 0.4 mg/dL (0.2-1.0); C-Reactive Protein 6.12 mg/L (<3.00); Magnesium 2.4 mg/dL (1.8-2.4); Potassium 4.4 mmol/L (3.5-5.1); Protein, Total 6.9 g/dL (6.4-8.2)
[2021-03-07 05:33] LABS: Blood Morphology Comment NOT SEEN (NOT SEEN); Platelet Estimate ADEQ
[2021-03-07] MEDS: INSULIN -REGULAR HUMAN 50 UNIT/0.5 ML ML SQ SCH ×4 (07:30→20:20)
[2021-03-07] MEDS: ZINC SULFATE 220 MG CAP PO SCH (09:00)
[2021-03-07] MEDS: FAMOTIDINE 20 MG TAB PO SCH ×2 (09:00→19:35)
[2021-03-07] MEDS: FUROSEMIDE 20 MG TABLET PO SCH (09:00)
[2021-03-07] MEDS: THIAMINE HCL 100 MG TABLET PO SCH (09:00)
[2021-03-07] MEDS: ASCORBIC ACID 500 MG TABLET PO SCH ×4 (09:00→19:34)
[2021-03-07] MEDS: VITAMIN D 1000 UNIT TAB PO SCH (09:00)
[2021-03-07] MEDS: INSULIN GLARGINE 100 UNITS/ML SQ SCH ×2 (09:00→20:20)
[2021-03-07] MEDS: METHYLPREDNISOLONE 125 MG INJ IV SCH ×3 (09:00→19:35)
[2021-03-07] MEDS ORDERED: INSULIN GLARGINE 100 UNITS/ML SQ ONE (09:19)
[2021-03-07] MEDS ORDERED: INSULIN -REGULAR HUMAN 50 UNIT/0.5 ML ML ONE (09:19)
[2021-03-07] MEDS ORDERED: THIAMINE HCL 100 MG TABLET ONE (09:21)
[2021-03-07] MEDS ORDERED: ASCORBIC ACID 500 MG TABLET ONE (09:21)
[2021-03-07] MEDS ORDERED: VITAMIN D 1000 UNIT TAB ONE (09:21)
[2021-03-07] MEDS ORDERED: METHYLPREDNISOLONE 40 MG INJ ONE (09:21)
[2021-03-07] MEDS ORDERED: ZINC SULFATE 220 MG CAP ONE (09:21)
[2021-03-07] MEDS ORDERED: FUROSEMIDE 20 MG TABLET ONE (09:21)
[2021-03-07] MEDS ORDERED: FAMOTIDINE 20 MG TAB ONE (09:22)
[2021-03-07] MEDS: BENZONATATE 100 MG CAP PO PRN ×2 (09:57→19:49)
[2021-03-07] MEDS ORDERED: BENZONATATE 100 MG CAP PO ONE (10:22)
[2021-03-07] MEDS: RIVAROXABAN 20 MG TABLET PO SCH (16:37)
[2021-03-07] MEDS: FENTANYL CITR 100 MCG/2 ML IV PRN (19:44)
[2021-03-07] MEDS: ONDANSETRON 4 MG/2 ML VIAL IV PRN (19:49)
[2021-03-07] MEDS: MELATONIN 5 MG TABLET PO PRN (19:49)
[2021-03-07] MEDS: ENSURE HIGH PROTEIN 237 ML CAN PO SCH (20:22)
[2021-03-07] MEDS: ACETAMINOPHEN 500 MG TAB PO PRN (22:32)
[2021-03-08] MEDS: ALBUTEROL INHALER 60 PUFF/8 GM IH SCH ×4 (02:04→20:30)
--- NOTE | 2021-03-08 02:21 | P.PN ---
Date of Service: 03/06/21 Subjective Patient is feeling a little bit better. Patient's oxygen saturations are improving. Review of Systems 10-point ROS is otherwise unremarkable Physical Examination - Vital Signs Reviewed - Physical Exam General: Alert, In no apparent distress, Oriented x3 Respiratory: Diminished breath sound bilaterally Cardiovascular: Regular rate/rhythm, Normal S1 S2, No murmurs Gastrointestinal: Normal bowel sounds, Soft and benign, Non-distended, No tenderness, No rebound, No guarding Musculoskeletal: No clubbing, No swelling, No tenderness Neurological: Generalized weakness; cranial nerves are intact Assessment & Plan - Problems (Diagnosis) (1) Pneumonia due to COVID-19 virus Current Visit: Yes Status: Acute (2) Dehydration Current Visit: No Status: Acute - Plan Continue with plan of care as mentioned below: 1. Continue with IV steroids 2. Monitor inflammatory markers 3. Repeat chest x-ray 4. O2 per protocol 5. Pulmonary consultation pending 6. Continue with albuterol inhaler therapy; also supportive care 7. Monitor LFTs 8. GI and DVT prophylaxis
--- NOTE | 2021-03-08 02:22 | P.PN ---
Date of Service: 03/07/21 Subjective Patient continues to improve with no new complaints. Oxygen saturations are improving. Her is also in the hospital but he is doing well. Review of Systems 10-point ROS is otherwise unremarkable Physical Examination - Vital Signs Reviewed - Physical Exam General: Alert, In no apparent distress, Oriented x3 Respiratory: Diminished breath sound bilaterally Cardiovascular: Regular rate/rhythm, Normal S1 S2, No murmurs Gastrointestinal: Normal bowel sounds, Soft and benign, Non-distended, No t enderness, No rebound, No guarding Musculoskeletal: No clubbing, No swelling, No tenderness Neurological: Generalized weakness; cranial nerves are intact Assessment & Plan - Problems (Diagnosis) (1) Pneumonia due to COVID-19 virus Current Visit: Yes Status: Acute (2) Dehydration Current Visit: No Status: Acute - Plan Continue with plan of care as mentioned below: 1. Continue with IV steroids; may change to oral steroids 2. Monitor inflammatory markers; these are improving 3. Repeat chest x-ray as needed 4. O2 per protocol 5. Pulmonary consultation pending 6. Continue with albuterol inhaler therapy; also supportive care 7. Monitor LFTs 8. GI and DVT prophylaxis
[2021-03-08] MEDS: THIAMINE HCL 100 MG TABLET PO SCH (07:53)
[2021-03-08] MEDS: ZINC SULFATE 220 MG CAP PO SCH (07:56)
[2021-03-08] MEDS: VITAMIN D 1000 UNIT TAB PO SCH (07:56)
[2021-03-08] MEDS: FAMOTIDINE 20 MG TAB PO SCH ×2 (07:56→20:42)
[2021-03-08] MEDS: ASCORBIC ACID 500 MG TABLET PO SCH ×4 (07:57→20:40)
[2021-03-08] MEDS: FUROSEMIDE 20 MG TABLET PO SCH (07:57)
[2021-03-08] MEDS: ENSURE HIGH PROTEIN 237 ML CAN PO SCH ×2 (07:58→21:00)
[2021-03-08] MEDS: METHYLPREDNISOLONE 125 MG INJ IV SCH ×3 (07:58→20:38)
[2021-03-08] MEDS: INSULIN -REGULAR HUMAN 50 UNIT/0.5 ML ML SQ SCH ×4 (08:14→21:08)
[2021-03-08] MEDS: INSULIN GLARGINE 100 UNITS/ML SQ SCH ×2 (08:14→21:09)
[2021-03-08] MEDS: BENZONATATE 100 MG CAP PO PRN ×2 (09:13→15:13)
[2021-03-08] MEDS ORDERED: INSULIN 70/30 100 UNITS/ML SQ ONE (16:00)
[2021-03-08] MEDS: RIVAROXABAN 20 MG TABLET PO SCH (16:07)
[2021-03-08] MEDS: FENTANYL CITR 100 MCG/2 ML IV PRN (20:39)
[2021-03-08] MEDS: ONDANSETRON 4 MG/2 ML VIAL IV PRN (20:42)
[2021-03-08] MEDS: MELATONIN 5 MG TABLET PO PRN (22:37)
[2021-03-09] MEDS: ALBUTEROL INHALER 60 PUFF/8 GM IH SCH ×4 (02:30→19:35)
[2021-03-09] MEDS: FUROSEMIDE 20 MG TABLET PO SCH (08:02)
[2021-03-09] MEDS: INSULIN -REGULAR HUMAN 50 UNIT/0.5 ML ML SQ SCH ×4 (08:02→20:22)
[2021-03-09] MEDS: VITAMIN D 1000 UNIT TAB PO SCH (08:03)
[2021-03-09] MEDS: THIAMINE HCL 100 MG TABLET PO SCH (08:03)
[2021-03-09] MEDS: METHYLPREDNISOLONE 125 MG INJ IV SCH ×3 (08:03→19:37)
[2021-03-09] MEDS: FAMOTIDINE 20 MG TAB PO SCH ×2 (08:03→19:38)
[2021-03-09] MEDS: ASCORBIC ACID 500 MG TABLET PO SCH ×4 (08:03→19:38)
[2021-03-09] MEDS: ENSURE HIGH PROTEIN 237 ML CAN PO SCH ×2 (08:04→19:40)
[2021-03-09] MEDS: INSULIN GLARGINE 100 UNITS/ML SQ SCH ×2 (08:04→20:23)
[2021-03-09] MEDS: ZINC SULFATE 220 MG CAP PO SCH (08:06)
[2021-03-09] MEDS: ONDANSETRON 4 MG/2 ML VIAL IV PRN (08:20)
--- NOTE | 2021-03-09 10:39 | P.PN ---
Date of Service: 03/08/21 Subjective Patient with no new complaints. Clinically patient continues to slowly improve. She needs to start again out of bed and doing more. Review of Systems 10-point ROS is otherwise unremarkable Physical Examination - Vital Signs Reviewed - Physical Exam General: Alert, In no apparent distress, Oriented x3 Respiratory: Diminished breath sound bilaterally Cardiovascular: Regular rate/rhythm, Normal S1 S2, No murmurs Gastrointestinal: Normal bowel sounds, Soft and benign, Non-distended, No tenderness, No rebound, No guarding Musculoskeletal: No clubbing, No swelling, No tenderness Neurological: Generalized weakness; cranial nerves are intact Assessment & Plan - Problems (Diagnosis) (1) Pneumonia due to COVID-19 virus Current Visit: Yes Status: Acute (2) Dehydration Current Visit: No Status: Acute - Plan Continue with plan of care as mentioned below: 1. Continue with IV steroids; may change to oral steroids 2. Monitor inflammatory markers; these are improving 3. Repeat chest x-ray as needed 4. O2 per protocol 5. Pulmonary consultation pending 6. Continue with albuterol inhaler therapy; also supportive care 7. Monitor LFTs 8. GI and DVT prophylaxis
[2021-03-09] MEDS: ACETAMINOPHEN 500 MG TAB PO PRN (15:36)
[2021-03-09] MEDS: RIVAROXABAN 20 MG TABLET PO SCH (16:55)
[2021-03-09] MEDS: BENZONATATE 100 MG CAP PO PRN (18:34)
[2021-03-09] MEDS: MELATONIN 5 MG TABLET PO PRN (19:38)
--- NOTE | 2021-03-09 21:38 | P.PN ---
Subjective Date of Service: 03/09/21 Chief Complaint: COVID-19 pneumonia Subjective: Improving (Better) Review of Systems General: Weakness Respiratory: Shortness of Breath Physical Examination - Vital Signs Temperature: 97.4 F Blood Pressure: 137/71 Pulse: 60 Respirations: 24 Pulse Ox (%): 93 - Physical Exam General: Alert, In no apparent distress, Oriented x3, Mild distress - Studies Medications List Reviewed: Yes Assessment & Plan - Problems (Diagnosis) (1) Pneumonia due to COVID-19 virus Current Visit: Yes Status: Acute Plan: IImproving CW wean down on o2/ labs reviewed/ DC palnning
[2021-03-10] MEDS: ALBUTEROL INHALER 60 PUFF/8 GM IH SCH ×4 (02:30→20:02)
[2021-03-10] MEDS: ACETAMINOPHEN 500 MG TAB PO PRN ×2 (03:20→19:59)
[2021-03-10] MEDS: ONDANSETRON 4 MG/2 ML VIAL IV PRN (03:21)
[2021-03-10 07:08] LABS: Albumin 2.9 g/dL (3.4-5.0); Bilirubin Total 0.5 mg/dL (0.2-1.0); Potassium 4.2 mmol/L (3.5-5.1); Protein, Total 6.7 g/dL (6.4-8.2)
--- NOTE | 2021-03-10 07:54 | P.PN ---
Date of Service: 03/09/21 Subjective Patient still feeling weak. She still feels like she is not short of breath. Have encouraged her to continue ambulating a little bit him placing will trying to lay prone as much as possible. She needs to continue working with the incentive spirometer. Review of Systems 10-point ROS is otherwise unremarkable Physical Examination - Vital Signs Reviewed - Physical Exam General: Alert, In no apparent distress, Oriented x3 Respiratory: Diminished breath sound bilaterally Cardiovascular: Regular rate/rhythm, Normal S1 S2, No murmurs Gastrointestinal: Normal bowel sounds, Soft and benign, Non-distended, No tenderness, No rebound, No guarding Musculoskeletal: No clubbing, No swelling, No tenderness Neurological: Generalized weakness; cranial nerves are intact Assessment & Plan - Problems (Diagnosis) (1) Pneumonia due to COVID-19 virus Current Visit: Yes Status: Acute (2) Dehydration Current Visit: No Status: Acute - Plan Continue with plan of care as mentioned below: 1. Continue with IV steroids; may change to oral steroids as clinically she is improving 2. Monitor inflammatory markers; these are improving 3. Continue aggressively try to wean down the oxygen to keep sats greater than 90% 4. GI and DVT prophylaxis
[2021-03-10] MEDS: VITAMIN D 1000 UNIT TAB PO SCH (08:14)
[2021-03-10] MEDS: ZINC SULFATE 220 MG CAP PO SCH (08:14)
[2021-03-10] MEDS: FUROSEMIDE 20 MG TABLET PO SCH (08:15)
[2021-03-10] MEDS: METHYLPREDNISOLONE 125 MG INJ IV SCH ×3 (08:15→19:59)
[2021-03-10] MEDS: FAMOTIDINE 20 MG TAB PO SCH ×2 (08:15→19:59)
[2021-03-10] MEDS: ASCORBIC ACID 500 MG TABLET PO SCH ×4 (08:15→19:59)
[2021-03-10] MEDS: THIAMINE HCL 100 MG TABLET PO SCH (08:15)
[2021-03-10] MEDS: INSULIN GLARGINE 100 UNITS/ML SQ SCH (08:17)
[2021-03-10] MEDS: ENSURE HIGH PROTEIN 237 ML CAN PO SCH ×2 (08:18→20:00)
[2021-03-10] MEDS: INSULIN -REGULAR HUMAN 50 UNIT/0.5 ML ML SQ SCH ×4 (08:20→20:00)
--- NOTE | 2021-03-10 08:23 | RAD REPORT ---
EXAM DESCRIPTION: RAD - Chest Single View - 03/10/2021 5:38 am CLINICAL HISTORY: penumonia, COVID-19 COMPARISON: March 01, February 27 chest films, February 28 CT chest TECHNIQUE: AP portable chest image was obtained 03/10/2021 5:38 am . FINDINGS: Lung volumes remain low. Bilateral pneumonia pattern has shown slightly improved aeration with the differential from prior imaging minimal. Heart and vasculature are normal. No measurable ple ural effusion and no pneumothorax. No acute bony abnormality seen. No acute aortic findings suspected . IMPRESSION: Chest is not substantially different from March 01. There does appear to be slightly imp roved aeration in the lower right lung field.
[2021-03-10] MEDS: BENZONATATE 100 MG CAP PO PRN (10:57)
--- NOTE | 2021-03-10 11:08 | P.PN ---
Subjective Date of Service: 03/10/21 Chief Complaint: COVID-19 pneumonia Subjective: No new changes, No C/O voiced Physical Examination - Vital Signs Temperature: 96.9 F Blood Pressure: 127/70 Pulse: 54 Respirations: 22 Pulse Ox (%): 92 - Physical Exam General: Alert, In no apparent distress, Oriented x3 HEENT: Atraumatic, Normocephalic, PERRLA Neck: Supple, 2+ carotid pulse no bruit, JVD not distended Respiratory: Clear to auscultation bilaterally, Normal air movement, Diminished Cardiovascular: No edema, Regular rate/rhythm, Normal S1 S2 Gastrointestinal: Normal bowel sounds, Soft and benign, Non-distended Integumentary: No rashes, No breakdown, No significant lesion - Studies Medications List Reviewed: Yes Assessment And Plan Physician Review Additional Text: COVID: Positive, unvaccinated CT scan: COMPARISON: 11/20/2020 TECHNIQUE: CT of the chest, abdomen and pelvis performed without IV contrast. Suboptimal evaluation of the soft tissues, solid organs, and vasculature due to lack of IV contrast. This exam was performed according to our departmental dose- optimization program, which includes automated exposure control, adjustment of the mA and/or kV according to patient size and/or use of iterative reconstruction technique. FINDINGS: Chest: Thyroid: No abnormalities of the visualized thyroid. Great Vessels: Great vessels have normal anatomic configuration. Thoracic Aorta: No abnormalities of the thoracic aorta identified. Pulmonary arteries: The main pulmonary artery is not dilated. Heart: No cardiomegaly, significant pericardial effusion, or coronary artery atherosclerosis Lymph Nodes: No enlarged mediastinal lymph nodes identified. Esophagus: No abnormalities of the esophagus identified Other: No additional findings. Lungs: Diffuse multifocal bilateral groundglass and airspace opacities. Pleura: No pleural effusion or pneumothorax. Trachea/Airways: No abnormalities of the visualized trachea or airways. Abdomen: Liver: Hepatomegaly and decreased density. Gallbladder: Prior cholecystectomy. Spleen, Pancreas, and Adrenal Glands: The spleen, pancreas, and adrenal glands are unremarkable. Kidneys: Prior right colectomy. No left-sided hydronephrosis. Vasculature: Aortoiliac atherosclerosis. IVC is unremarkable. Stomach: The stomach and duodenum have normal course. Other: No free intraperitoneal air. No free fluid or lymphadenopathy. Pelvis: Bladder: Urinary bladder is unremarkable. Bowel: No dilated loops of large or small bowel. Appendix: Normal appendix. Pelvis: Uterus is not enlarged. Impression: Acute hypoxic respiratory failure secondary to bilateral Covid pneumonia with hypoxia, unvaccinated Elevated aminotransferase levels secondary to fatty liver disease complicated with Tylenol use Diabetes mellitus type 2 History of renal cancer status post right nephrectomy GERD Plan: Doing well, O2 need weaning down to 11 L Continue to wean down as tolerated Continue steroids Continue antitussives Continue to monitor inflammatory markers Continue anticoagulation with Xarelto Continue insulin sliding scale with Accu-Cheks as well as long-acting insulin continue GI prophylaxis with Pepcid. DVT PPX: Xarelto Code status: Full Advance care [id number] minutes: Home at discharge Time Spent Managing PTS Care (In Minutes): 30
[2021-03-10] MEDS: RIVAROXABAN 20 MG TABLET PO SCH (16:38)
[2021-03-10] MEDS: MELATONIN 5 MG TABLET PO PRN (19:59)
[2021-03-10] MEDS ORDERED: INSULIN GLARGINE 100 UNITS/ML SQ SCH (21:00)
[2021-03-11] MEDS: ALBUTEROL INHALER 60 PUFF/8 GM IH SCH ×2 (02:30→08:30)
[2021-03-11 03:58] LABS: Hematocrit 38.1 % (36.0-45.0); MPV 7.1 fL (7.6-11.3); RBC Red Blood Cell Count 4.54 M/uL (3.86-4.86)
[2021-03-11 04:15] LABS: Albumin 2.8 g/dL (3.4-5.0); Bilirubin Total 0.5 mg/dL (0.2-1.0); Ferritin 402.6 ng/mL (8-388); Potassium 4.6 mmol/L (3.5-5.1); Protein, Total 6.5 g/dL (6.4-8.2)
--- NOTE | 2021-03-11 06:10 | P.PN ---
Subjective Date of Service: 03/11/21 Chief Complaint: COVID-19 pneumonia Subjective: Other (Patient reports improvement. Currently on 11 L per nasal cannula.) Physical Examination - Vital Signs Temperature: 97.5 F Blood Pressure: 124/66 Pulse: 52 Respirations: 20 Pulse Ox (%): 93 - Studies Medications List Reviewed: Yes Assessment & Plan Discharge Plan: LTAC Plan to discharge in: 48 Hours Physician Review Additional Text: COVID: Positive, unvaccinated CT scan: COMPARISON: 11/20/2020 TECHNIQUE: CT of the chest, abdomen and pelvis performed without IV contrast. Suboptimal evaluation of the soft tissues, solid organs, and vasculature due to lack of IV contrast. This exam was performed according to our departmental dose- optimization program, which includes automated exposure control, adjustment of the mA and/or kV according to patient size and/or use of iterative reconstruction technique. FINDINGS: Chest: Thyroid: No abnormalities of the visualized thyroid. Great Vessels: Great vessels have normal anatomic configuration. Thoracic Aorta: No abnormalities of the thoracic aorta identified. Pulmonary arteries: The main pulmonary artery is not dilated. Heart: No cardiomegaly, significant pericardial effusion, or coronary artery atherosclerosis Lymph Nodes: No enlarged mediastinal lymph nodes identified. Esophagus: No abnormalities of the esophagus identified Other: No additional findings. Lungs: Diffuse multifocal bilateral groundglass and airspace opacities. Pleura: No pleural effusion or pneumothorax. Trachea/Airways: No abnormalities of the visualized trachea or airways. Abdomen: Liver: Hepatomegaly and decreased density. Gallbladder: Prior cholecystectomy. Spleen, Pancreas, and Adrenal Glands: The spleen, pancreas, and adrenal glands are unremarkable. Kidneys: Prior right colectomy. No left-sided hydronephrosis. Vasculature: Aortoiliac atherosclerosis. IVC is unremarkable. Stomach: The stomach and duodenum have normal course. Other: No free intraperitoneal air. No free fluid or lymphadenopathy. Pelvis: Bladder: Urinary bladder is unremarkable. Bowel: No dilated loops of large or small bowel. Appendix: Normal appendix. Pelvis: Uterus is not enlarged. Bones: Multilevel degenerative endplate spondylosis of the spine. Osteoarthritic change of IMPRESSION: 1. Diffuse multifocal bilateral groundglass and airspace opacities. Commonly reported imaging features of viral pneumonia are present. Other processes such as influenza pneumonia and organizing pneumonia, as can be seen with drug toxicity and connective tissue disease, can cause similar imaging pattern. 2. Hepatomegaly and hepatic steatosis. Follow up CXR 03/10/2021: COMPARISON: March 01, February 27 chest films, February 28 CT chest TECHNIQUE: AP portable chest image was obtained 03/10/2021 5:38 am . FINDINGS: Lung volumes remain low. Bilateral pneumonia pattern has shown slightly improved aeration with the differential from prior imaging minimal. Heart and vasculature are normal. No measurable pleural effusion and no pneumothorax. No acute bony abnormality seen. No acute aortic findings gonzalez spected. IMPRESSION: Chest is not substantially different from March 01. There does appear to be slightly improved aeration in the lower right lung field. Physical exam: General: Alert, In no apparent distress, Oriented x3 HEENT: Atraumatic, PERRLA, EOMI, Sclerae nonicteric Neck: Neck supple Respiratory: Clear anteriorly. Currently on 11 L per nasal cannula Cardiovascular: Regular rate/rhythm, Normal S1 S2 Gastrointestinal: Normal bowel sounds, No tenderness Musculoskeletal: No tenderness Integumentary: No rashes Neurological: Normal speech, Normal strength at 5/5 x4 extr, Normal tone, Normal affect Impression: Acute hypoxic respiratory failure secondary to bilateral Covid pneumonia with hypoxia, unvaccinated Elevated aminotransferase levels secondary to fatty liver disease complicated with Tylenol use Diabetes mellitus type 2 History of renal cancer status post right nephrectomy GERD Plan: Acute hypoxic respiratory failure secondary to bilateral Covid pneumonia with hypoxia, unvaccinated: Patient reports improvement. Currently on 11 L per nasal cannula. This is improved. CRP remains improved. Continue to wean off oxygen to maintain at 93%. Continue to monitor CRP, ferritin and lab closely. Encourage incentive spirometer, ambulation and proning. Patient on Xarelto for DVT prophylaxis. Continue to monitor closely. Continue to adjust insulin for better diabetic control. Spoke with patient about long-term acute care facility placement. Patient in agreement. Will discuss with social worker. Elevated aminotransferase levels secondary to fatty liver disease complicated with Tylenol use: Lab improved.. Avoid excessive Tylenol use. Diabetes mellitus type 2: Monitor Accu-Cheks. Sliding scale in place. Sliding scale in place. Hemoglobin A1c 7.7. Continue to adjust Lantus for better control. History of renal cancer status post right nephrectomy: Overall stable. GERD: Patient with epigastric pain. Will provide Pepcid. DVT PPX: Xarelto Code status: Full [facility] care minutes: Long-term acute care facility placement Time Spent Managing Pts Care (In Minutes): 55
[2021-03-11] MEDS: INSULIN -REGULAR HUMAN 50 UNIT/0.5 ML ML SQ SCH ×4 (08:30→20:40)
[2021-03-11] MEDS: FUROSEMIDE 20 MG TABLET PO SCH (08:31)
[2021-03-11] MEDS: VITAMIN D 1000 UNIT TAB PO SCH (08:31)
[2021-03-11] MEDS: INSULIN GLARGINE 100 UNITS/ML SQ SCH ×2 (08:31→20:40)
[2021-03-11] MEDS: ZINC SULFATE 220 MG CAP PO SCH (08:31)
[2021-03-11] MEDS: METHYLPREDNISOLONE 125 MG INJ IV SCH (08:32)
[2021-03-11] MEDS: FAMOTIDINE 20 MG TAB PO SCH ×2 (08:32→20:39)
[2021-03-11] MEDS: ASCORBIC ACID 500 MG TABLET PO SCH ×4 (08:32→20:39)
[2021-03-11] MEDS: THIAMINE HCL 100 MG TABLET PO SCH (08:32)
[2021-03-11] MEDS: ENSURE HIGH PROTEIN 237 ML CAN PO SCH ×2 (08:33→20:40)
--- NOTE | 2021-03-11 12:33 | P.PN ---
Subjective Date of Service: 03/11/21 Chief Complaint: COVID-19 pneumonia Subjective: Improving (On 13l O2) Review of Systems Respiratory: Shortness of Breath Physical Examination - Vital Signs Temperature: 96.9 F Blood Pressure: 127/71 Pulse: 67 Respirations: 22 Pulse Ox (%): 91 - Physical Exam General: Alert, Cachectic - Studies Medications List Reviewed: Yes Assessment & Plan - Problems (Diagnosis) (1) Pneumonia due to COVID-19 virus Current Visit: Yes Status: Acute Plan: Stable improving.Wean down on o2/Decrease sose of steroids
[2021-03-11] MEDS: METHYLPREDNISOLONE 40 MG INJ IV SCH ×2 (14:12→20:40)
[2021-03-11] MEDS: RIVAROXABAN 20 MG TABLET PO SCH (16:18)
[2021-03-11] MEDS: ACETAMINOPHEN 500 MG TAB PO PRN (20:39)
[2021-03-11] MEDS: MELATONIN 5 MG TABLET PO PRN (20:43)
[2021-03-12 04:02] LABS: Absolute Lymphocytes (CBC) 0.3 K/uL (0.7-4.9); Basophils % 0.3 % (0-1.3); MPV 7.4 fL (7.6-11.3); RBC Red Blood Cell Count 4.53 M/uL (3.86-4.86)
[2021-03-12 04:35] LABS: ALT/SGPT 53 U/L (12-78); AST/SGOT 23 U/L (15-37); Albumin 2.8 g/dL (3.4-5.0); Alkaline Phosphatase 57 U/L (45-117); BUN Blood Urea Nitrogen 25 mg/dL (7-18); Bicarbonate 34 mmol/L (21-32); Bilirubin Total 0.5 mg/dL (0.2-1.0); Ferritin 389.5 ng/mL (8-388); Glucose Level 284 mg/dL (74-106); Magnesium 2.3 mg/dL (1.8-2.4); Potassium 4.7 mmol/L (3.5-5.1); Protein, Total 6.3 g/dL (6.4-8.2); Sodium Level 134 mmol/L (136-145)
[2021-03-12 04:45] LABS: C-Reactive Protein < 2.90 mg/L (<3.00)
--- NOTE | 2021-03-12 06:20 | P.PN ---
Subjective Date of Service: 03/12/21 Chief Complaint: COVID-19 pneumonia Subjective: Improving (Patient now down to 9 L per nasal cannula) Physical Examination - Vital Signs Temperature: 96.9 F Blood Pressure: 125/58 Pulse: 52 Respirations: 18 Pulse Ox (%): 93 - Studies Medications List Reviewed: Yes Assessment & Plan Discharge Plan: Home Plan to discharge in: Greater than 2 days Physician Review Additional Text: COVID: Positive, unvaccinated CT scan: COMPARISON: 11/20/2020 TECHNIQUE: CT of the chest, abdomen and pelvis performed without IV contrast. Suboptimal evaluation of the soft tissues, solid organs, and vasculature due to lack of IV contrast. This exam was performed according to our departmental dose- optimization program, which includes automated exposure control, adjustment of the mA and/or kV according to patient size and/or use of iterative reconstruction technique. FINDINGS: Chest: Thyroid: No abnormalities of the visualized thyroid. Great Vessels: Great vessels have normal anatomic configuration. Thoracic Aorta: No abnormalities of the thoracic aorta identified. Pulmonary arteries: The main pulmonary artery is not dilated. Heart: No cardiomegaly, significant pericardial effusion, or coronary artery atherosclerosis Lymph Nodes: No enlarged mediastinal lymph nodes identified. Esophagus: No abnormalities of the esophagus identified Other: No additional findings. Lungs: Diffuse multifocal bilateral groundglass and airspace opacities. Pleura: No pleural effusion or pneumothorax. Trachea/Airways: No abnormalities of the visualized trachea or airways. Abdomen: Liver: Hepatomegaly and decreased density. Gallbladder: Prior cholecystectomy. Spleen, Pancreas, and Adrenal Glands: The spleen, pancreas, and adrenal glands are unremarkable. Kidneys: Prior right colectomy. No left-sided hydronephrosis. Vasculature: Aortoiliac atherosclerosis. IVC is unremarkable. Stomach: The stomach and duodenum have normal course. Other: No free intraperitoneal air. No free fluid or lymphadenopathy. Pelvis: Bladder: Urinary bladder is unremarkable. Bowel: No dilated loops of large or small bowel. Appendix: Normal appendix. Pelvis: Uterus is not enlarged. Bones: Multilevel degenerative endplate spondylosis of the spine. Osteoarthritic change of IMPRESSION: 1. Diffuse multifocal bilateral groundglass and airspace opacities. Commonly reported imaging features of viral pneumonia are present. Other processes such as influenza pneumonia and organizing pneumonia, as can be seen with drug toxicity and connective tissue disease, can cause similar imaging pattern. 2. Hepatomegaly and hepatic steatosis. Follow up CXR 03/10/2021: COMPARISON: March 01, February 27 chest films, February 28 CT chest TECHNIQUE: AP portable chest image was obtained 03/10/2021 5:38 am . FINDINGS: Lung volumes remain low. Bilateral pneumonia pattern has shown slightly improved aeration with the differential from prior imaging minimal. Heart and vasculature are normal. No measurable pleural effusion and no pneumothorax. No acute bony abnormality seen. No acute aortic findings suspected. IMPRESSION: Chest is not substantially different from March 01. There does appear to be slightly improved aeration in the lower right lung field. Physical exam: General: Alert, In no apparent distress, Oriented x3 HEENT: Atraumatic, PERRLA, EOMI, Sclerae nonicteric Neck: Neck supple Respiratory: Clear anteriorly. Patient now down to 9 L. Cardiovascular: Regular rate/rhythm, Normal S1 S2 Gastrointestinal: Normal bowel sounds, No tenderness Musculoskeletal: No tenderness Integumentary: No rashes Neurological: Normal speech, Normal strength at 5/5 x4 extr, Normal tone, Normal affect Impression: Acute hypoxic respiratory failure secondary to bilateral Covid pneumonia with hypoxia, unvaccinated Elevated aminotransferase levels secondary to fatty liver disease complicated with Tylenol use Diabetes mellitus type 2 History of renal cancer status post right nephrectomy GERD Plan: Acute hypoxic respiratory failure secondary to bilateral Covid pneumonia with hypoxia, unvaccinated: Patient continues to slowly improve. Now down to 9 L per nasal cannula. Continue to wean off oxygen to maintain sats above 93%. CRP and ferritin improved. Continue to monitor CRP, ferritin and lab closely. Continue with IV Solu-Medrol, vitamin supplementation. Encourage incentive spirometer, ambulation and proning. Patient on Xarelto for DVT prophylaxis. Continue to monitor closely. Continue to adjust insulin for better diabetic control. Hopefully patient will continue to improve and possibility of home later this week. Elevated aminotransferase levels secondary to fatty liver disease complicated with Tylenol use: Lab improved. Avoid excessive Tylenol use. Diabetes mellitus type 2: Monitor Accu-Cheks. Sliding scale in place. Sliding scale in place. Hemoglobin A1c 7.7. Continue to adjust Lantus for better control. History of renal cancer status post right nephrectomy: Overall stable. GERD: Continue Pepcid. DVT PPX: Xarelto Code status: Full Advance care [id number] minutes: Home at discharge Time Spent Managing Pts Care (In Minutes): 55
[2021-03-12] MEDS: INSULIN -REGULAR HUMAN 50 UNIT/0.5 ML ML SQ SCH ×5 (07:30→20:10)
[2021-03-12 08:53] LABS: Blood Morphology Comment NOT SEEN (NOT SEEN); Platelet Estimate ADEQ; Platelets, Giant PRESENT
[2021-03-12] MEDS: INSULIN GLARGINE 100 UNITS/ML SQ SCH ×2 (09:12→20:10)
[2021-03-12] MEDS: ZINC SULFATE 220 MG CAP PO SCH (09:13)
[2021-03-12] MEDS: VITAMIN D 1000 UNIT TAB PO SCH (09:13)
[2021-03-12] MEDS: FUROSEMIDE 20 MG TABLET PO SCH (09:13)
[2021-03-12] MEDS: THIAMINE HCL 100 MG TABLET PO SCH (09:14)
[2021-03-12] MEDS: ASCORBIC ACID 500 MG TABLET PO SCH ×4 (09:14→20:11)
[2021-03-12] MEDS: ENSURE HIGH PROTEIN 237 ML CAN PO SCH ×2 (09:14→20:13)
[2021-03-12] MEDS: METHYLPREDNISOLONE 40 MG INJ IV SCH ×3 (09:14→20:11)
[2021-03-12] MEDS: FAMOTIDINE 20 MG TAB PO SCH ×2 (09:14→20:11)
[2021-03-12] MEDS: RIVAROXABAN 20 MG TABLET PO SCH (16:39)
[2021-03-12] MEDS: MELATONIN 5 MG TABLET PO PRN (20:11)
[2021-03-12] MEDS: ACETAMINOPHEN 500 MG TAB PO PRN (20:11)
[2021-03-13] MEDS: INSULIN -REGULAR HUMAN 50 UNIT/0.5 ML ML SQ SCH ×5 (00:31→22:27)
[2021-03-13] MEDS: ONDANSETRON 4 MG/2 ML VIAL IV PRN (03:36)
[2021-03-13 03:51] LABS: Absolute Lymphocytes (CBC) 0.3 K/uL (0.7-4.9); Basophils % 0.2 % (0-1.3); Hematocrit 40.1 % (36.0-45.0); Lymphocytes % 3.5 % (15.3-44.8); MPV 7.3 fL (7.6-11.3); RBC Red Blood Cell Count 4.75 M/uL (3.86-4.86)
[2021-03-13 04:14] LABS: ALT/SGPT 60 U/L (12-78); AST/SGOT 20 U/L (15-37); Alkaline Phosphatase 61 U/L (45-117); BUN Blood Urea Nitrogen 22 mg/dL (7-18); Bicarbonate 35 mmol/L (21-32); Bilirubin Total 0.6 mg/dL (0.2-1.0); Glucose Level 246 mg/dL (74-106); Magnesium 2.4 mg/dL (1.8-2.4); Potassium 4.6 mmol/L (3.5-5.1); Protein, Total 6.5 g/dL (6.4-8.2); Sodium Level 136 mmol/L (136-145)
[2021-03-13 04:41] LABS: C-Reactive Protein < 2.90 mg/L (<3.00)
--- NOTE | 2021-03-13 06:06 | P.PN ---
Subjective Date of Service: 03/13/21 Chief Complaint: COVID-19 pneumonia Subjective: Improving (Patient down to 7 L per nasal cannula) Physical Examination - Vital Signs Temperature: 97 F Blood Pressure: 129/73 Pulse: 86 Respirations: 19 Pulse Ox (%): 91 - Studies Medications List Reviewed: Yes Assessment & Plan Discharge Plan: Home Plan to discharge in: 48 Hours Physician Review Additional Text: COVID: Positive, unvaccinated CT scan: COMPARISON: 11/20/2020 TECHNIQUE: CT of the chest, abdomen and pelvis performed without IV contrast. Suboptimal evaluation of the soft tissues, solid organs, and vasculature due to lack of IV contrast. This exam was performed according to our departmental dose- optimization program, which includes automated exposure control, adjustment of the mA and/or kV according to patient size and/or use of iterative reconstruction technique. FINDINGS: Chest: Thyroid: No abnormalities of the visualized thyroid. Great Vessels: Great vessels have normal anatomic configuration. Thoracic Aorta: No abnormalities of the thoracic aorta identified. Pulmonary arteries: The main pulmonary artery is not dilated. Heart: No cardiomegaly, significant pericardial effusion, or coronary artery atherosclerosis Lymph Nodes: No enlarged mediastinal lymph nodes identified. Esophagus: No abnormalities of the esophagus identified Other: No additional findings. Lungs: Diffuse multifocal bilateral groundglass and airspace opacities. Pleura: No pleural effusion or pneumothorax. Trachea/Airways: No abnormalities of the visualized trachea or airways. Abdomen: Liver: Hepatomegaly and decreased density. Gallbladder: Prior cholecystectomy. Spleen, Pancreas, and Adrenal Glands: The spleen, pancreas, and adrenal glands are unremarkable. Kidneys: Prior right colectomy. No left-sided hydronephrosis. Vasculature: Aortoiliac atherosclerosis. IVC is unremarkable. Stomach: The stomach and duodenum have normal course. Other: No free intraperitoneal air. No free fluid or lymphadenopathy. Pelvis: Bladder: Urinary bladder is unremarkable. Bowel: No dilated loops of large or small bowel. Appendix: Normal appendix. Pelvis: Uterus is not enlarged. Bones: Multilevel degenerative endplate spondylosis of the spine. Osteoarthritic change of IMPRESSION: 1. Diffuse multifocal bilateral groundglass and airspace opacities. Commonly reported imaging features of viral pneumonia are present. Other processes such as influenza pneumonia and organizing pneumonia, as can be seen with drug toxicity and connective tissue disease, can cause similar imaging pattern. 2. Hepatomegaly and hepatic steatosis. Follow up CXR 03/10/2021: COMPARISON: March 01, February 27 chest films, February 28 CT chest TECHNIQUE: AP portable chest image was obtained 03/10/2021 5:38 am . FINDINGS: Lung volumes remain low. Bilateral pneumonia pattern has shown slightly improved aeration with the differential from prior imaging minimal. Heart and vasculature are normal. No measurable pleural effusion and no pneumothorax. No acute bony abnormality seen. No acute aortic findings suspected. IMPRESSION: Chest is not substantially different from March 01. There does appear to be slightly improved aeration in the lower right lung field. Physical exam: General: Alert, In no apparent distress, Oriented x3 HEENT: Atraumatic, PERRLA, EOMI, Sclerae nonicteric Neck: Neck supple Respiratory: Clear anteriorly. Patient now down to 7 L. Cardiovascular: Regular rate/rhythm, Normal S1 S2 Gastrointestinal: Normal bowel sounds, No tenderness Musculoskeletal: No tenderness Integumentary: No rashes Neurological: Normal speech, Normal strength at 5/5 x4 extr, Normal tone, Normal affect Impression: Acute hypoxic respiratory failure secondary to bilateral Covid pneumonia with hypoxia, unvaccinated Elevated aminotransferase levels secondary to fatty liver disease complicated with Tylenol use Diabetes mellitus type 2 History of renal cancer status post right nephrectomy GERD Plan: Acute hypoxic respiratory failure secondary to bilateral Covid pneumonia with hypoxia, unvaccinated: Patient continues to improve. Now down to 7 L per nasal cannula. Continue to wean off oxygen to maintain sats above 93%. CRP and ferritin improved. Continue to monitor CRP, ferritin and lab closely. Continue with IV Solu-Medrol, vitamin supplementation. Will decrease IV Solu-Medrol. Encourage incentive spirometer, ambulation and proning. Patient on Xarelto for DVT prophylaxis. Continue to monitor closely. Continue to adjust insulin for better diabetic control. Hopefully patient will continue to improve and possibility of home later this week. Elevated aminotransferase levels secondary to fatty liver disease complicated with Tylenol use: Lab improved. Avoid excessive Tylenol use. Diabetes mellitus type 2: Monitor Accu-Cheks. Sliding scale in place. Sliding scale in place. Hemoglobin A1c 7.7. Continue to adjust Lantus for better control. History of renal cancer status post right nephrectomy: Overall stable. GERD: Continue Pepcid. DVT PPX: Xarelto Code status: Full [facility] care [id number] minutes: Home at discharge Time Spent Managing Pts Care (In Minutes): 55
[2021-03-13] MEDS: VITAMIN D 1000 UNIT TAB PO SCH (09:02)
[2021-03-13] MEDS: METHYLPREDNISOLONE 40 MG INJ IV SCH ×3 (09:02→20:52)
[2021-03-13] MEDS: ASCORBIC ACID 500 MG TABLET PO SCH ×4 (09:02→20:52)
[2021-03-13] MEDS: INSULIN GLARGINE 100 UNITS/ML SQ SCH ×2 (09:03→22:27)
[2021-03-13] MEDS: ZINC SULFATE 220 MG CAP PO SCH (09:03)
[2021-03-13] MEDS: THIAMINE HCL 100 MG TABLET PO SCH (09:03)
[2021-03-13] MEDS: ENSURE HIGH PROTEIN 237 ML CAN PO SCH ×2 (09:05→20:52)
[2021-03-13] MEDS: FAMOTIDINE 20 MG TAB PO SCH ×2 (09:05→20:52)
[2021-03-13] MEDS: RIVAROXABAN 20 MG TABLET PO SCH (16:57)
[2021-03-13] MEDS: ACETAMINOPHEN 500 MG TAB PO PRN (20:53)
[2021-03-13] MEDS: BENZONATATE 100 MG CAP PO PRN (20:53)
[2021-03-13] MEDS: MELATONIN 5 MG TABLET PO PRN (20:53)
[2021-03-13 23:21] VITALS: O2SAT 93
[2021-03-14 04:24] LABS: Absolute Lymphocytes (CBC) 0.3 K/uL (0.7-4.9); Hematocrit 38.6 % (36.0-45.0); Lymphocytes % 3.3 % (15.3-44.8); MPV 7.2 fL (7.6-11.3); RBC Red Blood Cell Count 4.59 M/uL (3.86-4.86)
[2021-03-14 04:35] LABS: ALT/SGPT 65 U/L (12-78); AST/SGOT 18 U/L (15-37); Albumin 2.9 g/dL (3.4-5.0); Alkaline Phosphatase 59 U/L (45-117); BUN Blood Urea Nitrogen 23 mg/dL (7-18); Bicarbonate 33 mmol/L (21-32); Bilirubin Total 0.5 mg/dL (0.2-1.0); Ferritin 379.1 ng/mL (8-388); Glucose Level 261 mg/dL (74-106); Magnesium 2.4 mg/dL (1.8-2.4); Potassium 4.5 mmol/L (3.5-5.1); Protein, Total 6.2 g/dL (6.4-8.2); Sodium Level 137 mmol/L (136-145)
[2021-03-14 04:41] LABS: C-Reactive Protein < 2.90 mg/L (<3.00)
--- NOTE | 2021-03-14 06:09 | P.DS ---
Admission Date: 02/28/21 Discharge Date: 03/14/21 Primary Care Provider: [facility] Disposition: ROUTINE DISCHARGE Discharge Condition: GOOD Reason for Admission: COVID-19 pneumonia Consultations: Pulmonary-Dr. Walters Procedures: COVID: Positive, unvaccinated CT scan: COMPARISON: 11/20/2020 TECHNIQUE: CT of the chest, abdomen and pelvis performed without IV contrast. Suboptimal evaluation of the soft tissues, solid organs, and vasculature due to lack of IV contrast. This exam was performed according to our departmental dose- optimization program, which includes automated exposure control, adjustment of the mA and/or kV according to patient size and/or use of iterative reconstruction technique. FINDINGS: Chest: Thyroid: No abnormalities of the visualized thyroid. Great Vessels: Great vessels have normal anatomic configuration. Thoracic Aorta: No abnormalities of the thoracic aorta identified. Pulmonary arteries: The main pulmonary artery is not dilated. Heart: No cardiomegaly, significant pericardial effusion, or coronary artery atherosclerosis Lymph Nodes: No enlarged mediastinal lymph nodes identified. Esophagus: No abnormalities of the esophagus identified Other: No additional findings. Lungs: Diffuse multifocal bilateral groundglass and airspace opacities. Pleura: No pleural effusion or pneumothorax. Trachea/Airways: No abnormalities of the visualized trachea or airways. Abdomen: Liver: Hepatomegaly and decreased density. Gallbladder: Prior cholecystectomy. Spleen, Pancreas, and Adrenal Glands: The spleen, pancreas, and adrenal glands are unremarkable. Kidneys: Prior right colectomy. No left-sided hydronephrosis. Vasculature: Aortoiliac atherosclerosis. IVC is unremarkable. Stomach: The stomach and duodenum have normal course. Other: No free intraperitoneal air. No free fluid or lymphadenopathy. Pelvis: Bladder: Urinary bladder is unremarkable. Bowel: No dilated loops of large or small bowel. Appendix: Normal appendix. Pelvis: Uterus is not enlarged. Bones: Multilevel degenerative endplate spondylosis of the spine. Osteoarthritic change of IMPRESSION: 1. Diffuse multifocal bilateral groundglass and airspace opacities. Commonly reported imaging features of viral pneumonia are present. Other processes such as influenza pneumonia and organizing pneumonia, as can be seen with drug toxicity and connective tissue disease, can cause similar imaging pattern. 2. Hepatomegaly and hepatic steatosis. Follow up CXR 03/10/2021: COMPARISON: March 01, February 27 chest films, February 28 CT chest TECHNIQUE: AP portable chest image was obtained 03/10/2021 5:38 am . FINDINGS: Lung volumes remain low. Bilateral pneumonia pattern has shown slightly improved aeration with the differential from prior imaging minimal. Heart and vasculature are normal. No measurable pleural effusion and no pneumothorax. No acute bony abnormality seen. No acute aortic findings suspected. IMPRESSION: Chest is not substantially different from March 01. There does appear to be slightly improved aeration in the lower right lung field. Medical Problem List: Acute hypoxic respiratory failure secondary to bilateral Covid pneumonia with hypoxia, unvaccinated Elevated aminotransferase levels secondary to fatty liver disease complicated with Tylenol use Diabetes mellitus type 2 History of renal cancer status post right nephrectomy GERD Brief History of Present Illness: 50-year-old female with history of renal cancer status post right nephrectomy, diabetes mellitus type 2 presents emergency department for shortness of breath. Patient reports testing positive for Covid on 02/20/2021 with worsening shortness of breath since then. Patient was evaluated in the emergency department, labs were significant for white blood cell count 2.7 platelet count 115 sodium 135 GFR 52 glucose 150 AST 312 ALT 228 procalcitonin 0.17 specific gravity of the urine greater than 1.030. When ambulating patient saturations dropped into the high 80s, tachypneic at rest. Patient does admit to history of hepatic steatosis, elevated LFTs and also has been taking Tylenol for the last week approximately 2 to 3 g/day. Patient was admitted for treatment. Hospital Course: Patient presented with acute hypoxic respiratory failure secondary to bilateral Covid pneumonia with hypoxia. Patient is unvaccinated. The patient was admitted for treatment. The patient improved with IV Solumedrol and supplementation. Patient down to 4 L per nasal cannula. At discharge the patient will continue with home oxygen. At discharge she is to maintain sats above 93%. Continue with 4 L per nasal cannula. At discharge the patient will continue with prednisone 20 mg 1 pill twice daily for 7 days then 1 pill once daily for 7 days. At discharge the patient will continue with aspirin 81 mg daily. Patient will be given a limited supply of Tessalon Perles 100 mg 3 times a day as needed for cough. At discharge the patient will continue with vitamin supplementation including vitamin C 500 mg 1 pill 3 times a day, vitamin D 2000 units 1 pill daily, thiamine 100 mg 1 pill twice daily, zinc 220 mg 1 pill once daily, and Pepcid 20 mg 1 pill twice daily. Patient will continue with CDC guidelines on isolation for at least 10 days. The patient will continue with incentive spirometer, proning and slow ambulation. Patient may need to limit her activities. At discharge the patient will continue with handwashing, facemask use and social distancing. Recommend follow-up with pulmonology in 1 week to follow-up this hospitalization. Pulmonology will help wean the patient off oxygen and medication. The patient will establish care with a local PCP to follow-up this hospitalization as well. Patient had elevated liver function. Patient with fatty liver disease. This has remained stable. Recommend to recheck labCMP in 2 to 4 weeks to monitor her progress. Patient with diabetes mellitus type 2. Hemoglobin A1c 7.7. Patient previously on glipizide. This was discontinued. Patient required Lantus. At discharge the patient will continue with Lantus 25 units subcu twice daily. Recommend to monitor her blood sugars at least twice daily. Recommend to maintain blood sugar less than 140 fasting and less than 200 after meals. If blood sugar remains above 200 then she may need to increase her Lantus by 1 to 2 units. If blood sugars remain less than 100 then Lantus can be decreased. Her Lantus can eventually be decreased and switched over to oral agent with the help of her PCP. Patient will establish with a PCP locally. Recommend to recheck hem oglobin A1c every 3 months to monitor her progress. Recommend follow-up with PCP in 1 week to follow-up her care and further address her diabetes. Patient with history of renal cell carcinoma with prior right nephrectomy. Renal function stable at this time. Patient with GERD. At discharge patient will continue with Pepcid 20 mg 1 pill twice daily. Recommend to discontinue Protonix. Vital Signs/Physical Exam: Temp Pulse Resp BP Pulse Ox 96.1 F L 54 18 123/62 93 03/14/21 04:00 03/14/21 04:00 03/14/21 04:00 03/14/21 04:00 03/14/21 04:00 General: Alert, In no apparent distress, Oriented x3, Cooperative HEENT: Atraumatic Neck: Supple Respiratory: Clear to auscultation bilaterally, Other (On 4 L/m) Cardiovascular: Normal pulses, Regular rate/rhythm Gastrointestinal: Normal bowel sounds Musculoskeletal: No erythema, No tenderness, No warmth Integumentary: No tenderness/swelling Neurological: Normal speech, Normal strength at 5/5 x4 extr, Normal tone Laboratory Data at Discharge: WBC 8.00 K/uL (4.3-10.9) 03/14/21 03:45 Hgb 12.9 g/dL (12.0-15.0) 03/14/21 03:45 Hct 38.6 % (36.0-45.0) 03/14/21 03:45 Plt Count 318 K/uL (152-406) 03/14/21 03:45 PT 11.8 SECONDS (9.5-12.5) 02/27/21 22:48 INR 1.03 02/27/21 22:48 Sodium 137 mmol/L (136-145) 03/14/21 03:45 Potassium 4.5 mmol/L (3.5-5.1) 03/14/21 03:45 BUN 23 mg/dL (7-18) H 03/14/21 03:45 Creatinine 0.79 mg/dL (0.55-1.3) 03/14/21 03:45 Glucose 261 mg/dL (74-106) H 03/14/21 03:45 Magnesium 2.4 mg/dL (1.8-2.4) 03/14/21 03:45 Total Bilirubin 0.5 mg/dL (0.2-1.0) 03/14/21 03:45 AST 18 U/L (15-37) 03/14/21 03:45 ALT 65 U/L (12-78) 03/14/21 03:45 Alkaline Phosphatase 59 U/L (45-117) 03/14/21 03:45 Troponin I < 0.02 ng/mL (0.0-0.045) 03/03/21 11:59 Triglycerides 261 mg/dL (<150) H 03/01/21 05:38 Cholesterol 122 mg/dL (<200) 03/01/21 05:38 HDL Cholesterol 23 mg/dL (40-60) L 03/01/21 05:38 Cholesterol/HDL Ratio 5.30 03/01/21 05:38 Home Medications: Ascorbic Acid [Vitamin C*] 500 mg PO TID #90 tablet 03/14/21 Aspirin [Aspirin EC 81 MG] 81 mg PO DAILY #30 tablet. 03/14/21 Benzonatate [Tessalon Perle*] 100 mg PO TID PRN #15 cap 03/14/21 Cholecalciferol (Vitamin D3) [Vitamin D 1000 Iu Tab*] 2,000 unit PO DAILY #60 tab 03/14/21 Famotidine [Pepcid*] 20 mg PO BID #60 tab 03/14/21 Insulin Glargine Human [Lantus*] 25 units SQ BID #1 vial 03/14/21 Thiamine HCl [Vitamin B-1*] 100 mg PO BID #60 tablet 03/14/21 Zinc Sulfate [Zinc Sulfate*] 220 mg PO DAILY #30 cap 03/14/21 predniSONE [Prednisone*] 20 mg PO SEECOM #21 tab 03/14/21 New Medications: Aspirin [Aspirin EC 81 MG] 81 mg PO DAILY #30 tablet. Insulin Glargine Human [Lantus*] 25 units SQ BID #1 vial Famotidine [Pepcid*] 20 mg PO BID #60 tab predniSONE [Prednisone*] 20 mg PO SEECOM #21 tab Benzonatate [Tessalon Perle*] 100 mg PO TID PRN #15 cap PRN Reason: Cough Thiamine HCl [Vitamin B-1*] 100 mg PO BID #60 tablet Ascorbic Acid [Vitamin C*] 500 mg PO TID #90 tablet Cholecalciferol (Vitamin D3) [Vitamin D 1000 Iu Tab*] 2,000 unit PO DAILY #60 tab Zinc Sulfate [Zinc Sulfate*] 220 mg PO DAILY #30 cap Physician Discharge Instructions: Patient presented with acute hypoxic respiratory failure secondary to bilateral Covid pneumonia with hypoxia. Patient is unvaccinated. The patient was admitted for treatment. The patient improved with IV Solumedrol and supplementation. Patient down to 4 L per nasal cannula. At discharge the patient will continue with home oxygen. At discharge she is to maintain sats above 93%. Continue with 4 L per nasal cannula. At discharge the patient will continue with prednisone 20 mg 1 pill twice daily for 7 days then 1 pill once daily for 7 days. At discharge the patient will continue with aspirin 81 mg daily. Patient will be given a limited supply of Tessalon Perles 100 mg 3 times a day as needed for cough. At discharge the patient will continue with vitamin supplementation including vitamin C 500 mg 1 pill 3 times a day, vitamin D 2000 units 1 pill daily, thiamine 100 mg 1 pill twice daily, zinc 220 mg 1 pill once daily, and Pepcid 20 mg 1 pill twice daily. Patient will continue with CDC guidelines on isolation for at least 10 days. The patient will continue with incentive spirometer, proning and slow ambulation. Patient may need to limit her activities. At discharge the patient will continue with handwashing, facemask use and social distancing. Recommend follow-up with pulmonology in 1 week to follow-up this hospitalization. Pulmonology will help wean the patient off oxygen and medication. The patient will establish care with a local PCP to follow-up this hospitalization as well. Patient had elevated liver function. Patient with fatty liver disease. This has remained stable. Recommend to recheck labCMP in 2 to 4 weeks to monitor her progress. Patient with diabetes mellitus type 2. Hemoglobin A1c 7.7. Patient previously on glipizide. This was discontinued. Patient required Lantus. At discharge the patient will continue with Lantus 25 units subcu twice daily. Recommend to monitor her blood sugars at least twice daily. Recommend to maintain blood sugar less than 140 fasting and less than 200 after meals. If blood sugar remains above 200 then she may need to increase her Lantus by 1 to 2 units. If blood sugars remain less than 100 then Lantus can be decreased. Her Lantus can eventually be decreased and switched over to oral agent with the help of her PCP. Patient will establish with a PCP locally. Recommend to recheck hemoglobin A1c every 3 months to monitor her progress. Recommend follow-up with PCP in 1 week to follow-up her care and further address her diabetes. Patient with history of renal cell carcinoma with prior right nephrectomy. Renal function stable at this time. Patient with GERD. At discharge patient will continue with Pepcid 20 mg 1 pill twice daily. Recommend to discontinue Protonix. Diet: ADA Activity: Ad april Followup: Unknown,U [Primary Care Provider] - Time spent managing pt's care (in minutes): 55
--- NOTE | 2021-03-14 07:44 | RAD REPORT ---
EXAM DESCRIPTION: RAD - Chest Single View - 03/14/2021 5:05 am CLINICAL HISTORY: Follow-up Covid COMPARISON: Chest Single View dated 03/10/2021; Chest Single View dated 03/01/2021; Chest Single View d ated 02/27/2021; Chest Single View dated 02/24/2021 FINDINGS: Moderate widespread bilateral airspace disease which is not significant changed since 02/25 peer The heart size is within normal limits.No acute osseous abnormality. No significant pleur al effusions or pneumothorax. IMPRESSION: Multifocal pneumonia not significantly changed since 03/10/2021.
[2021-03-14] MEDS: VITAMIN D 1000 UNIT TAB PO SCH (08:54)
[2021-03-14] MEDS: THIAMINE HCL 100 MG TABLET PO SCH (08:54)
[2021-03-14] MEDS: ZINC SULFATE 220 MG CAP PO SCH (08:54)
[2021-03-14] MEDS: ASCORBIC ACID 500 MG TABLET PO SCH (08:54)
[2021-03-14] MEDS: ENSURE HIGH PROTEIN 237 ML CAN PO SCH (08:55)
[2021-03-14] MEDS: INSULIN -REGULAR HUMAN 50 UNIT/0.5 ML ML SQ SCH ×2 (08:55→11:30)
[2021-03-14] MEDS: FAMOTIDINE 20 MG TAB PO SCH (08:55)
[2021-03-14] MEDS: INSULIN GLARGINE 100 UNITS/ML SQ SCH (08:56)
[2021-03-14 09:00] VITALS: BP 115/57; TEMP 96.8
[2021-03-14] MEDS: METHYLPREDNISOLONE 40 MG INJ IV SCH (09:00)
== END 2021-03-14 12:49 | disposition home or self-care (01) | DRG 177 ==
LOC: ER 19:06 → ERHOLD 02-28 03:15 → 4TH 03-07 11:26
PROVIDERS: ADMIT Family Medicine; ATTEND Family Medicine
DX: U07.1 COVID-19 (principal); J12.82 Pneumonia due to coronavirus disease 2019; J96.01 Acute respiratory failure with hypoxia; E11.9 Type 2 diabetes mellitus without complications; K21.9 Gastro-esophageal reflux disease without esophagitis; R74.01 Elevation of levels of liver transaminase levels; K76.0 Fatty (change of) liver, not elsewhere classified; E86.0 Dehydration; D72.819 Decreased white blood cell count, unspecified; D69.6 Thrombocytopenia, unspecified; Z90.5 Acquired absence of kidney; Z85.528 Personal history of other malignant neoplasm of kidney
CPT/HCPCS: 36415; 71045; 71250; 74176; 80048; 80053; 80061; 80076; 81003; 81025; 82728; 82947; 83036; 83605; 83735; 83880; 84145; 84439; 84443; 84484; 85025; 85027; 85610; 86140; 87040; 93005; 94010; 94760; 96365; 96366; 96375; 99285; J0456; J1650; J1815; J2405; J2920; J2930; J3010; J7050; J7512

== ENCOUNTER 2022-05-19 08:10 | Emergency (ER) | payer OTHER ==
--- OUTSIDE RECORDS SUMMARY | 2022-05-19 08:19 | XMS REPORT | Continuity of Care Document ---
:1970 Author Organization [facility] t Address [address] [place] [address] Care Team Providers Name Role Phone Sharpless Primary Care Physician Miriam Attending Clinician Unavailable RADIOLOGY Attending Clinician Unavailable Marli Willis RN Attending Clinician GANGA MARTINS Attending Clinician Unavailable Miriam Admitting Clinician Unavailable GANGA MARTINS Admitting Clinician Unavailable Payers Payer Name Policy Type Policy Number Effective Date Expiration Date S friday HEALTH PLANS [id number] [place] Problems Condition Condition Condition Status Onset Resolution Last Treating Co mments Source Name Details Category Date Date Treatment Clinician Date Morbid Morbid Disease Active [facility] obesity obesity 5-14 [place] [place] index 00 [place] [facility]ical of of Branch 40.0-49.9 40.0-49.9 Renal mass Renal mass Disease Active Overview : Univers 4-02 Added ity of 00:00: automatic [place] 00 ally from Medical request Branch for surgery [id number] Renal Renal Disease Active [facility] Allergies, Adverse Reactions, Alerts Allergy Allergy Status Severity Reaction(s) Onset Inactive Treating Comm ents Source Name Type Date Date Clinician Cephalos Propensi Active porins ty to 5-09 adverse 00:00: reaction 00 to drug CEPHALOS Drug Active Low Rash [facility] PORINS Class 8-20 ity of 00:00: [address] Cephalos Propensi Active Rash [facility] adverse 00:[facility]: Medical reaction 00 Center s Family History Family Member Diagnosis Comments Start Date Stop Date Source Natural father Diabetes [facility] Natural father Hypertension [facility] Natural mother Diabetes [facility] Social History Social Habit Start Date Stop Date Quantity Comments Source Tobacco Comment 2017-12-05 2017-12-05 quit 30 years Univer sity of 00:00:00 00:00:00 ago [facility] Sex Ass[birth year] At [birth year] [facility] [address] Aleida [facility] 00:00:00 00:00:00 [facility] Center Smoking Status Start Date Stop Date Source Former smoker 2018-11-20 00:00:00 2018-11-20 00:00:00 [facility] Medications Ordered Filled Start Stop Current Ordering Indication Dosage Frequency Signature Comments Components Source Medication Medication Date Date Medication? Clinician (SIG) Name Name Dose No Unknown 02-01 00:00: 00 Dose 2021-0 No Unknown 02-01 00:00: 00 Vitamin D2 2021-0 No 1(50,00 1,250 mcg 5-11 0 unit) (50,000 00:00: unit) 00 capsule Dose 2021-0 No Unknown 5-11 00:00: 00 Dose 2021-0 No Unknown 5-11 00:00: 00 Dose 2021-0 No Unknown 5-11 00:00: 00 Dose 2021-0 No Unknown 5-11 00:00: 00 Dose 2-0 No Unknown 5-11 00:00: 00 Dose 2021-0 No Unknown 5-11 00:00: 00 Dose 2021-0 No Unknown 5-11 00:00: 00 Dose 2021-0 No Unknown 5-11 00:00: 00 Dose 2021-0 No Unknown 5-11 00:00: 00 Dose 2-0 No Unknown 5-11 00:00: 00 Dose 2021-0 No Unknown 5-10 00:00: 00 Dose 2022-0 No Unknown 5-10 00:00: 00 Dose 2022-0 No Unknown 5-10 00:00: 00 Dose 2022-0 No Unknown 5-09 00:00: 00 Dose 2022-0 No Unknown 5-09 00:00: 00 Dose 2022-0 No Unknown 5-09 00:00: 00 Dose 2022-0 No Unknown 5-09 00:00: 00 Dose 2022-0 No Unknown 5-09 00:00: 00 Dose 2022-0 No Unknown 5-09 00:00: 00 Dose 2022-0 No Unknown 5-09 00:00: 00 Dose 2022-0 No Unknown 5-09 00:00: 00 Dose 2022-0 No Unknown 5-09 00:00: 00 Dose 2022-0 No Unknown 5-09 00:00: 00 Dose 2022-0 No Unknown 5-09 00:00: 00 Dose 2022-0 No Unknown 5-09 00:00: 00 Dose 2022-0 No Unknown 5-09 00:00: 00 Dose 2022-0 No Unknown 5-09 00:00: 00 Dose 2022-0 No Unknown 5-09 00:00: 00 Dose 2022-0 No Unknown 5-09 00:00: 00 Dose 2022-0 No Unknown 5-09 00:00: 00 Dose 2022-0 No Unknown 5-09 00:00: 00 Dose 2022-0 No Unknown 5-09 00:00: 00 Dose 2022-0 No Unknown 5-09 00:00: 00 Dose 2022-0 No Unknown 5-09 00:00: 00 Dose 2022-0 No Unknown 5-09 00:00: 00 Dose 2022-0 No Unknown 5-09 00:00: 00 Dose 2022-0 No Unknown 5-09 00:00: 00 Dose 2022-0 No Unknown 5-09 00:00: 00 Dose 2022-0 No Unknown 5-09 00:00: 00 Dose 2022-0 No Unknown 5-09 00:00: 00 Dose 2022-0 No Unknown 5-09 00:00: 00 Dose 2022-0 No Unknown 5-09 00:00: 00 Dose 2022-0 No Unknown 5-09 00:00: 00 Dose 2022-0 No Unknown 5-09 00:00: 00 Dose 2022-0 No Unknown 5-09 00:00: 00 Dose 2022-0 No Unknown 5-09 00:00: 00 Dose 2022-0 No Unknown 5-09 00:00: 00 Dose 2022-0 No Unknown 5-09 00:00: 00 Dose 2022-0 No Unknown 5-09 00:00: 00 Dose 2022-0 No Unknown 5-09 00:00: 00 Dose 2022-0 No Unknown 5-09 00:00: 00 Dose 2022-0 No Unknown 5-09 00:00: 00 Dose 2022-0 No Unknown 5-09 00:00: 00 Dose 2022-0 No Unknown 5-09 00:00: 00 Dose 2022-0 No Unknown 5-09 00:00: 00 Dose 2022-0 No Unknown 5-09 00:00: 00 Dose 2022-0 No Unknown 5-09 00:00: 00 Dose 2022-0 No Unknown 5-09 00:00: 00 Dose 2022-0 No Unknown 5-09 00:00: 00 Dose 2022-0 No Unknown 5-09 00:00: 00 Dose 2022-0 No Unknown 5-09 00:00: 00 Dose 2022-0 No Unknown 5-09 00:00: 00 Dose 2022-0 No Unknown 5-09 00:00: 00 Dose 2022-0 No Unknown 5-09 00:00: 00 Dose 2022-0 No Unknown 5-09 00:00: 00 Dose 2022-0 No Unknown 5-09 00:00: 00 Dose 2022-0 No Unknown 5-09 00:00: 00 Dose 2022-0 No Unknown 5-09 00:00: 00 Dose 2022-0 No Unknown 5-09 00:00: 00 Dose 2022-0 No Unknown 5-09 00:00: 00 Dose 2022-0 No Unknown 5-09 00:00: 00 Dose 2022-0 No Unknown 5-09 00:00: 00 Dose 2022-0 No Unknown 5-09 00:00: 00 Dose 2022-0 No Unknown 5-09 00:00: 00 Dose 2022-0 No Unknown 5-09 00:00: 00 Dose 2022-0 No Unknown 5-09 00:00: 00 Dose 2022-0 No Unknown 5-09 00:00: 00 Dose 2022-0 No Unknown 5-09 00:00: 00 Dose 2022-0 No Unknown 5-09 00:00: 00 Dose 2022-0 No Unknown 5-09 00:00: 00 Dose 2022-0 No Unknown 5-09 00:00: 00 Dose 2022-0 No Unknown 5-09 00:00: 00 Dose 2022-0 No Unknown 5-09 00:00: 00 Dose 2022-0 No Unknown 5-09 00:00: 00 Dose 2022-0 No Unknown 5-09 00:00: 00 Dose 2022-0 No Unknown 5-09 00:00: 00 Dose 2022-0 No Unknown 5-09 00:00: 00 Dose 2022-0 No Unknown 5-09 00:00: 00 Dose 2022-0 No Unknown 5-09 00:00: 00 Dose 2022-0 No Unknown 5-09 00:00: 00 Dose 2022-0 No Unknown 5-09 00:00: 00 Dose 2022-0 No Unknown 5-09 00:00: 00 Dose 2022-0 No Unknown 5-09 00:00: 00 Dose 2022-0 No Unknown 5-09 00:00: 00 Dose 2022-0 No Unknown 5-09 00:00: 00 Dose 2022-0 No Unknown 5-09 00:00: 00 Dose 2022-0 No Unknown 5-09 00:00: 00 Dose 2022-0 No Unknown 5-09 00:00: 00 Dose 2022-0 No Unknown 5-09 00:00: 00 Dose 2022-0 No Unknown 5-09 00:00: 00 Dose 2022-0 No Unknown 5-09 00:00: 00 Dose 2022-0 No Unknown 5-09 00:00: 00 Dose 2022-0 No Unknown 5-09 00:00: 00 Dose 2022-0 No Unknown 5-09 00:00: 00 Dose 2022-0 No Unknown 5-09 00:00: 00 Dose 2022-0 No Unknown 5-09 00:00: 00 Dose 2022-0 No Unknown 5-09 00:00: 00 Dose 2022-0 No Unknown 5-09 00:00: 00 Dose 2022-0 No Unknown 5-09 00:00: 00 Dose 2022-0 No Unknown 5-09 00:00: 00 Dose 2022-0 No Unknown 5-09 00:00: 00 Dose 2022-0 No Unknown 5-09 00:00: 00 Dose 2022-0 No Unknown 5-09 00:00: 00 Dose 2022-0 No Unknown 5-09 00:00: 00 Dose 2022-0 No Unknown 5-09 00:00: 00 Dose 2022-0 No Unknown 5-09 00:00: 00 Dose 2022-0 No Unknown 5-09 00:00: 00 Dose 2022-0 No Unknown 5-09 00:00: 00 Dose 2022-0 No Unknown 5-09 00:00: 00 Dose 2022-0 No Unknown 5-09 00:00: 00 Dose 2022-0 No Unknown 5-09 00:00: 00 Dose 2022-0 No Unknown 5-09 00:00: 00 Dose 2022-0 No Unknown 5-09 00:00: 00 Dose 2022-0 No Unknown 5-09 00:00: 00 Dose 2022-0 No Unknown 5-09 00:00: 00 Dose 2022-0 No Unknown 5-09 00:00: 00 Dose 2022-0 No Unknown 5-09 00:00: 00 Dose 2022-0 No Unknown 5-09 00:00: 00 Dose 2022-0 No Unknown 5-09 00:00: 00 Dose 2022-0 No Unknown 5-09 00:00: 00 Dose 2022-0 No Unknown 5-09 00:00: 00 Dose 2022-0 No Unknown 5-09 00:00: 00 Dose 2022-0 No Unknown 5-09 00:00: 00 Dose 2022-0 No Unknown 5-09 00:00: 00 Dose 2022-0 No Unknown 5-09 00:00: 00 Dose 2022-0 No Unknown 5-09 00:00: 00 Dose 2022-0 No Unknown 5-09 00:00: 00 Dose 2022-0 No Unknown 5-09 00:00: 00 Dose 2022-0 No Unknown 5-09 00:00: 00 Dose 2022-0 No Unknown 5-09 00:00: 00 Dose 2022-0 No Unknown 5-09 00:00: 00 Dose 2022-0 No Unknown 5-09 00:00: 00 Dose 2022-0 No Unknown 5-09 00:00: 00 Dose 2022-0 No Unknown 5-09 00:00: 00 Dose 2022-0 No Unknown 5-09 00:00: 00 Dose 2022-0 No Unknown 5-09 00:00: 00 Dose 2022-0 No Unknown 5-09 00:00: 00 Dose 2022-0 No Unknown 5-09 00:00: 00 Dose 2022-0 No Unknown 5-09 00:00: 00 Dose 2022-0 No Unknown 5-09 00:00: 00 Dose 2022-0 No Unknown 5-09 00:00: 00 Dose 2022-0 No Unknown 5-09 00:00: 00 Dose 2022-0 No Unknown 5-09 00:00: 00 Dose 2022-0 No Unknown 5-09 00:00: 00 Dose 2022-0 No Unknown 5-09 00:00: 00 Dose 2022-0 No Unknown 5-09 00:00: 00 Dose 2022-0 No Unknown 5-09 00:00: 00 Dose 2022-0 No Unknown 5-09 00:00: 00 Dose 2022-0 No Unknown 5-09 00:00: 00 Dose 2022-0 No Unknown 5-09 00:00: 00 Dose 2022-0 No Unknown 5-09 00:00: 00 Dose 2022-0 No Unknown 5-09 00:00: 00 Dose 2022-0 No Unknown 5-09 00:00: 00 Dose 2022-0 No Unknown 5-09 00:00: 00 Dose 2022-0 No Unknown 5-09 00:00: 00 Dose 2022-0 No Unknown 5-09 00:00: 00 Dose 2022-0 No Unknown 5-09 00:00: 00 Dose 2022-0 No Unknown 5-09 00:00: 00 Dose 2022-0 No Unknown 5-09 00:00: 00 Dose 2022-0 No Unknown 5-09 00:00: 00 Dose 2022-0 No Unknown 5-09 00:00: 00 Dose 2022-0 No Unknown 5-09 00:00: 00 Dose 2022-0 No Unknown 5-09 00:00: 00 Dose 2022-0 No Unknown 5-09 00:00: 00 Dose 2022-0 No Unknown 5-09 00:00: 00 Dose 2022-0 No Unknown 5-09 00:00: 00 Dose 2022-0 No Unknown 5-09 00:00: 00 Dose 2022-0 No Unknown 5-09 00:00: 00 Dose 2022-0 No Unknown 5-09 00:00: 00 Dose 2022-0 No Unknown 5-09 00:00: 00 Dose 2022-0 No Unknown 5-09 00:00: 00 Dose 2022-0 No Unknown 5-09 00:00: 00 Dose 2022-0 No Unknown 5-09 00:00: 00 Dose 2022-0 No Unknown 5-09 00:00: 00 Dose 2022-0 No Unknown 5-09 00:00: 00 Dose 2022-0 No Unknown 5-09 00:00: 00 Dose 2022-0 No Unknown 5-09 00:00: 00 Dose 2022-0 No Unknown 5-09 00:00: 00 Dose 2022-0 No Unknown 5-09 00:00: 00 Dose 2022-0 No Unknown 5-09 00:00: 00 Dose 2022-0 No Unknown 5-09 00:00: 00 Dose 2022-0 No Unknown 5-09 00:00: 00 Dose 2022-0 No Unknown 5-09 00:00: 00 Dose 2022-0 No Unknown 5-09 00:00: 00 Dose 2022-0 No Unknown 5-09 00:00: 00 Dose 2022-0 No Unknown 5-09 00:00: 00 Dose 2022-0 No Unknown 5-09 00:00: 00 Dose 2022-0 No Unknown 5-09 00:00: 00 Dose 2022-0 No Unknown 5-09 00:00: 00 Dose 2022-0 No Unknown 5-09 00:00: 00 Dose 2022-0 No Unknown 5-09 00:00: 00 Dose 2022-0 No Unknown 5-09 00:00: 00 Dose 2022-0 No Unknown 5-09 00:00: 00 Dose 2022-0 No Unknown 5-09 00:00: 00 Dose 2022-0 No Unknown 5-09 00:00: 00 Dose 2022-0 No Unknown 5-09 00:00: 00 Dose 2022-0 No Unknown 5-09 00:00: 00 Dose 2022-0 No Unknown 5-09 00:00: 00 Dose 2022-0 No Unknown 5-09 00:00: 00 Dose 2022-0 No Unknown 5-09 00:00: 00 Dose 2022-0 No Unknown 5-09 00:00: 00 Dose 2022-0 No Unknown 5-09 00:00: 00 Dose 2022-0 No Unknown 5-09 00:00: 00 Dose 2022-0 No Unknown 5-09 00:00: 00 Dose 2022-0 No Unknown 5-09 00:00: 00 Dose 2022-0 No Unknown 5-09 00:00: 00 Dose 2022-0 No Unknown 5-09 00:00: 00 Dose 2022-0 No Unknown 5-09 00:00: 00 Dose 2022-0 No Unknown 5-09 00:00: 00 Dose 2022-0 No Unknown 5-09 00:00: 00 Dose 2022-0 No Unknown 5-09 00:00: 00 Dose 2022-0 No Unknown 5-09 00:00: 00 Dose 2022-0 No Unknown 5-09 00:00: 00 Dose 2022-0 No Unknown 5-09 00:00: 00 Dose 2022-0 No Unknown 5-09 00:00: 00 Dose 2022-0 No Unknown 5-09 00:00: 00 Dose 2022-0 No Unknown 5-09 00:00: 00 Dose 2022-0 No Unknown 5-09 00:00: 00 Dose 2022-0 No Unknown 5-09 00:00: 00 Dose 2022-0 No Unknown 5-09 00:00: 00 Dose 2022-0 No Unknown 5-09 00:00: 00 Dose 2022-0 No Unknown 5-09 00:00: 00 Dose 2022-0 No Unknown 5-09 00:00: 00 Dose 2022-0 No Unknown 5-09 00:00: 00 Dose 2022-0 No Unknown 5-09 00:00: 00 Dose 2022-0 No Unknown 5-09 00:00: 00 Dose 2022-0 No Unknown 5-09 00:00: 00 Dose 2022-0 No Unknown 5-09 00:00: 00 Dose 2022-0 No Unknown 5-09 00:00: 00 Dose 2022-0 No Unknown 5-09 00:00: 00 Dose 2022-0 No Unknown 5-09 00:00: 00 Dose 2022-0 No Unknown 5-09 00:00: 00 Dose 2022-0 No Unknown 5-09 00:00: 00 Dose 2022-0 No Unknown 5-09 00:00: 00 Dose 2022-0 No Unknown 5-09 00:00: 00 Dose 2022-0 No Unknown 5-09 00:00: 00 Dose 2022-0 No Unknown 5-09 00:00: 00 Dose 2022-0 No Unknown 5-09 00:00: 00 Dose 2022-0 No Unknown 5-09 00:00: 00 Dose 2022-0 No Unknown 5-09 00:00: 00 Dose 2022-0 No Unknown 5-09 00:00: 00 Dose 2022-0 No Unknown 5-09 00:00: 00 Dose 2022-0 No Unknown 5-09 00:00: 00 Dose 2022-0 No Unknown 5-09 00:00: 00 Dose 2022-0 No Unknown 5-09 00:00: 00 Dose 2022-0 No Unknown 5-09 00:00: 00 Dose 2022-0 No Unknown 5-09 00:00: 00 Dose 2022-0 No Unknown 5-09 00:00: 00 Dose 2022-0 No Unknown 5-09 00:00: 00 Dose 2022-0 No Unknown 5-09 00:00: 00 Dose 2022-0 No Unknown 5-09 00:00: 00 Dose 2022-0 No Unknown 5-09 00:00: 00 Dose 2022-0 No Unknown 5-09 00:00: 00 Dose 2022-0 No Unknown 5-09 00:00: 00 Dose 2022-0 No Unknown 5-09 00:00: 00 Dose 2022-0 No Unknown 5-09 00:00: 00 Dose 2022-0 No Unknown 5-09 00:00: 00 Dose 2022-0 No Unknown 5-09 00:00: 00 Dose 2022-0 No Unknown 5-09 00:00: 00 Dose 2022-0 No Unknown 5-09 00:00: 00 Dose 2022-0 No Unknown 5-09 00:00: 00 Dose 2022-0 No Unknown 5-09 00:00: 00 Dose 2022-0 No Unknown 5-09 00:00: 00 Dose 2022-0 No Unknown 5-09 00:00: 00 Dose 2022-0 No Unknown 5-09 00:00: 00 Dose 2022-0 No Unknown 5-09 00:00: 00 Dose 2022-0 No Unknown 5-09 00:00: 00 Dose 2022-0 No Unknown 5-09 00:00: 00 Dose 2022-0 No Unknown 5-09 00:00: 00 Dose 2022-0 No Unknown 5-09 00:00: 00 Dose 2022-0 No Unknown 5-09 00:00: 00 Dose 2022-0 No Unknown 5-09 00:00: 00 Dose 2022-0 No Unknown 5-09 00:00: 00 Dose 2022-0 No Unknown 5-09 00:00: 00 Dose 2022-0 No Unknown 5-09 00:00: 00 Dose 2022-0 No Unknown 5-09 00:00: 00 Dose 2022-0 No Unknown 5-09 00:00: 00 Dose 2022-0 No Unknown 5-09 00:00: 00 Dose 2022-0 No Unknown 5-09 00:00: 00 Dose 2022-0 No Unknown 5-09 00:00: 00 Dose 2022-0 No Unknown 5-09 00:00: 00 Dose 2022-0 No Unknown 5-09 00:00: 00 Dose 2022-0 No Unknown 5-09 00:00: 00 Dose 2022-0 No Unknown 5-09 00:00: 00 Dose 2022-0 No Unknown 5-09 00:00: 00 Dose 2022-0 No Unknown 5-09 00:00: 00 Dose 2022-0 No Unknown 5-09 00:00: 00 Dose 2022-0 No Unknown 5-09 00:00: 00 Dose 2022-0 No Unknown 5-09 00:00: 00 Dose 2022-0 No Unknown 5-09 00:00: 00 Dose 2022-0 No Unknown 5-09 00:00: 00 Dose 2022-0 No Unknown 5-09 00:00: 00 Dose 2022-0 No Unknown 5-09 00:00: 00 Dose 2022-0 No Unknown 5-09 00:00: 00 Dose 2022-0 No Unknown 5-09 00:00: 00 Dose 2022-0 No Unknown 5-09 00:00: 00 Dose 2022-0 No Unknown 5-09 00:00: 00 Dose 2022-0 No Unknown 5-09 00:00: 00 Dose 2022-0 No Unknown 5-09 00:00: 00 Dose 2022-0 No Unknown 5-09 00:00: 00 Dose 2022-0 No Unknown 5-09 00:00: 00 Dose 2022-0 No Unknown 5-09 00:00: 00 Dose 2022-0 No Unknown 5-09 00:00: 00 Dose 2022-0 No Unknown 5-09 00:00: 00 Dose 2022-0 No Unknown 5-09 00:00: 00 Dose 2022-0 No Unknown 5-09 00:00: 00 Dose 2022-0 No Unknown 5-09 00:00: 00 Dose 2022-0 No Unknown 5-09 00:00: 00 Dose 2022-0 No Unknown 5-09 00:00: 00 Dose 2022-0 No Unknown 5-09 00:00: 00 Dose 2022-0 No Unknown 5-09 00:00: 00 Dose 2022-0 No Unknown 5-09 00:00: 00 Dose 2022-0 No Unknown 5-09 00:00: 00 Dose 2022-0 No Unknown 5-09 00:00: 00 Dose 2022-0 No Unknown 5-09 00:00: 00 Dose 2022-0 No Unknown 5-09 00:00: 00 Dose 2022-0 No Unknown 5-09 00:00: 00 Dose 2022-0 No Unknown 5-09 00:00: 00 Dose 2022-0 No Unknown 5-09 00:00: 00 Dose 2022-0 No Unknown 5-09 00:00: 00 Dose 2022-0 No Unknown 5-09 00:00: 00 Dose 2022-0 No Unknown 5-09 00:00: 00 Dose 2022-0 No Unknown 5-09 00:00: 00 Dose 2022-0 No Unknown 5-09 00:00: 00 Dose 2022-0 No Unknown 5-09 00:00: 00 Dose 2022-0 No Unknown 5-09 00:00: 00 Dose 2022-0 No Unknown 5-09 00:00: 00 Dose 2022-0 No Unknown 5-09 00:00: 00 Dose 2022-0 No Unknown 5-09 00:00: 00 Dose 2022-0 No Unknown 5-09 00:00: 00 Dose 2022-0 No Unknown 5-09 00:00: 00 Dose 2022-0 No Unknown 5-09 00:00: 00 Dose 2022-0 No Unknown 5-09 00:00: 00 Dose 2022-0 No Unknown 5-09 00:00: 00 Dose 2022-0 No Unknown 5-09 00:00: 00 Dose 2022-0 No Unknown 5-09 00:00: 00 Dose 2022-0 No Unknown 5-09 00:00: 00 Dose 2022-0 No Unknown 5-09 00:00: 00 Dose 2022-0 No Unknown 5-09 00:00: 00 Dose 2022-0 No Unknown 5-09 00:00: 00 Dose 2022-0 No Unknown 5-09 00:00: 00 Dose 2022-0 No Unknown 5-09 00:00: 00 Dose 2022-0 No Unknown 5-09 00:00: 00 Dose 2022-0 No Unknown 5-09 00:00: 00 Dose 2022-0 No Unknown 5-09 00:00: 00 Dose 2022-0 No Unknown 5-09 00:00: 00 Dose 2022-0 No Unknown 5-09 00:00: 00 Dose 2022-0 No Unknown 5-09 00:00: 00 Dose 2022-0 No Unknown 5-09 00:00: 00 Dose 2022-0 No Unknown 5-09 00:00: 00 Dose 2022-0 No Unknown 5-09 00:00: 00 Dose 2022-0 No Unknown 5-09 00:00: 00 Dose 2022-0 No Unknown 5-09 00:00: 00 Dose 2022-0 No Unknown 5-09 00:00: 00 Dose 2022-0 No Unknown 5-09 00:00: 00 Dose 2022-0 No Unknown 5-09 00:00: 00 Dose 2022-0 No Unknown 5-09 00:00: 00 Dose 2022-0 No Unknown 5-09 00:00: 00 Dose 2022-0 No Unknown 5-09 00:00: 00 Dose 2022-0 No Unknown 5-09 00:00: 00 Dose 2022-0 No Unknown 5-09 00:00: 00 Dose 2022-0 No Unknown 5-09 00:00: 00 Dose 2022-0 No Unknown 5-09 00:00: 00 Dose 2022-0 No Unknown 5-09 00:00: 00 Dose 2022-0 No Unknown 5-09 00:00: 00 Dose 2022-0 No Unknown 5-09 00:00: 00 Dose 2022-0 No Unknown 5-09 00:00: 00 Dose 2022-0 No Unknown 5-09 00:00: 00 Dose 2022-0 No Unknown 5-09 00:00: 00 Dose 2022-0 No Unknown 5-09 00:00: 00 Dose 2022-0 No Unknown 5-09 00:00: 00 Dose 2022-0 No Unknown 5-09 00:00: 00 Dose 2022-0 No Unknown 5-09 00:00: 00 Dose 2022-0 No Unknown 5-09 00:00: 00 Dose 2022-0 No Unknown 5-09 00:00: 00 Dose 2022-0 No Unknown 5-09 00:00: 00 Dose 2022-0 No Unknown 5-09 00:00: 00 Dose 2022-0 No Unknown 5-09 00:00: 00 Dose 2022-0 No Unknown 5-09 00:00: 00 Dose 2022-0 No Unknown 5-09 00:00: 00 Dose 2022-0 No Unknown 5-09 00:00: 00 Dose 2022-0 No Unknown 5-09 00:00: 00 Dose 2022-0 No Unknown 5-09 00:00: 00 Dose 2022-0 No Unknown 5-09 00:00: 00 Dose 2022-0 No Unknown 5-09 00:00: 00 Dose 2022-0 No Unknown 5-09 00:00: 00 Dose 2022-0 No Unknown 5-09 00:00: 00 Dose 2022-0 No Unknown 5-09 00:00: 00 Dose 2022-0 No Unknown 5-09 00:00: 00 Dose 2022-0 No Unknown 5-09 00:00: 00 Dose 2022-0 No Unknown 5-09 00:00: 00 Dose 2022-0 No Unknown 5-09 00:00: 00 Dose 2022-0 No Unknown 5-09 00:00: 00 Dose 2022-0 No Unknown 5-09 00:00: 00 Dose 2022-0 No Unknown 5-09 00:00: 00 Dose 2022-0 No Unknown 5-09 00:00: 00 Dose 2022-0 No Unknown 5-09 00:00: 00 Dose 2022-0 No Unknown 5-09 00:00: 00 Dose 2022-0 No Unknown 5-09 00:00: 00 Dose 2022-0 No Unknown 5-09 00:00: 00 Dose 2022-0 No Unknown 5-09 00:00: 00 Dose 2022-0 No Unknown 5-09 00:00: 00 Dose 2022-0 No Unknown 5-09 00:00: 00 Dose 2022-0 No Unknown 5-09 00:00: 00 Dose 2022-0 No Unknown 5-09 00:00: 00 Dose 2022-0 No Unknown 5-09 00:00: 00 Dose 2022-0 No Unknown 5-09 00:00: 00 Dose 2022-0 No Unknown 5-09 00:00: 00 Dose 2022-0 No Unknown 5-09 00:00: 00 Dose 2022-0 No Unknown 5-09 00:00: 00 Dose 2022-0 No Unknown 5-09 00:00: 00 Dose 2022-0 No Unknown 5-09 00:00: 00 Dose 2022-0 No Unknown 5-09 00:00: 00 Dose 2022-0 No Unknown 5-09 00:00: 00 Dose 2022-0 No Unknown 5-09 00:00: 00 Dose 2022-0 No Unknown 5-09 00:00: 00 Dose 2022-0 No Unknown 5-09 00:00: 00 Dose 2022-0 No Unknown 5-09 00:00: 00 Dose 2022-0 No Unknown 5-09 00:00: 00 Dose 2022-0 No Unknown 5-09 00:00: 00 Dose 2022-0 No Unknown 5-09 00:00: 00 Dose 2022-0 No Unknown 5-09 00:00: 00 Dose 2022-0 No Unknown 5-09 00:00: 00 Dose 2022-0 No Unknown 5-09 00:00: 00 Dose 2022-0 No Unknown 5-09 00:00: 00 Dose 2022-0 No Unknown 5-09 00:00: 00 Dose 2022-0 No Unknown 5-09 00:00: 00 Dose 2022-0 No Unknown 5-09 00:00: 00 Dose 2022-0 No Unknown 5-09 00:00: 00 Dose 2022-0 No Unknown 5-09 00:00: 00 Dose 2022-0 No Unknown 5-09 00:00: 00 Dose 2022-0 No Unknown 5-09 00:00: 00 Dose 2022-0 No Unknown 5-09 00:00: 00 Dose 2022-0 No Unknown 5-09 00:00: 00 Dose 2022-0 No Unknown 5-09 00:00: 00 Dose 2022-0 No Unknown 5-09 00:00: 00 Dose 2022-0 No Unknown 5-09 00:00: 00 Dose 2022-0 No Unknown 5-09 00:00: 00 Dose 2022-0 No Unknown 5-09 00:00: 00 Dose 2022-0 No Unknown 5-09 00:00: 00 Dose 2022-0 No Unknown 5-09 00:00: 00 Dose 2022-0 No Unknown 5-09 00:00: 00 Dose 2022-0 No Unknown 5-09 00:00: 00 Dose 2022-0 No Unknown 5-09 00:00: 00 Dose 2022-0 No Unknown 5-09 00:00: 00 Dose 2022-0 No Unknown 5-09 00:00: 00 Dose 2022-0 No Unknown 5-09 00:00: 00 Dose 2022-0 No Unknown 5-09 00:00: 00 Dose 2022-0 No Unknown 5-09 00:00: 00 Dose 2022-0 No Unknown 5-09 00:00: 00 Dose 2022-0 No Unknown 5-09 00:00: 00 Dose 2022-0 No Unknown 5-09 00:00: 00 Dose 2022-0 No Unknown 5-09 00:00: 00 Dose 2022-0 No Unknown 5-09 00:00: 00 Dose 2022-0 No Unknown 5-09 00:00: 00 Dose 2022-0 No Unknown 5-09 00:00: 00 Dose 2022-0 No Unknown 5-09 00:00: 00 Dose 2022-0 No Unknown 5-09 00:00: 00 Dose 2022-0 No Unknown 5-09 00:00: 00 Dose 2022-0 No Unknown 5-09 00:00: 00 Dose 2022-0 No Unknown 5-09 00:00: 00 Dose 2022-0 No Unknown 5-09 00:00: 00 Dose 2022-0 No Unknown 5-09 00:00: 00 Dose 2022-0 No Unknown 5-09 00:00: 00 Dose 2022-0 No Unknown 5-09 00:00: 00 Dose 2022-0 No Unknown 5-09 00:00: 00 Dose 2022-0 No Unknown 5-09 00:00: 00 Dose 2022-0 No Unknown 5-09 00:00: 00 Dose 2022-0 No Unknown 5-09 00:00: 00 Dose 2022-0 No Unknown 5-09 00:00: 00 Dose 2022-0 No Unknown 5-09 00:00: 00 Dose 2022-0 No Unknown 5-09 00:00: 00 Dose 2022-0 No Unknown 5-09 00:00: 00 Dose 2022-0 No Unknown 5-09 00:00: 00 Dose 2022-0 No Unknown 5-09 00:00: 00 Dose 2022-0 No Unknown 5-09 00:00: 00 Dose 2022-0 No Unknown 5-09 00:00: 00 Dose 2022-0 No Unknown 5-09 00:00: 00 Dose 2022-0 No Unknown 5-09 00:00: 00 Dose 2022-0 No Unknown 5-09 00:00: 00 Dose 2022-0 No Unknown 5-09 00:00: 00 Dose 2022-0 No Unknown 5-09 00:00: 00 Dose 2022-0 No Unknown 5-09 00:00: 00 Dose 2022-0 No Unknown 5-09 00:00: 00 Dose 2022-0 No Unknown 5-09 00:00: 00 Dose 2022-0 No Unknown 5-09 00:00: 00 Dose 2022-0 No Unknown 5-09 00:00: 00 Dose 2022-0 No Unknown 5-09 00:00: 00 Dose 2022-0 No Unknown 5-09 00:00: 00 Dose 2022-0 No Unknown 5-09 00:00: 00 Dose 2022-0 No Unknown 5-09 00:00: 00 Dose 2022-0 No Unknown 5-09 00:00: 00 Dose 2022-0 No Unknown 5-09 00:00: 00 Dose 2022-0 No Unknown 5-09 00:00: 00 Dose 2022-0 No Unknown 5-09 00:00: 00 Dose 2022-0 No Unknown 5-09 00:00: 00 Dose 2022-0 No Unknown 5-09 00:00: 00 Dose 2022-0 No Unknown 5-09 00:00: 00 Dose 2022-0 No Unknown 5-09 00:00: 00 Dose 2022-0 No Unknown 5-09 00:00: 00 Dose 2022-0 No Unknown 5-09 00:00: 00 Dose 2022-0 No Unknown 5-09 00:00: 00 Dose 2022-0 No Unknown 5-09 00:00: 00 Dose 2022-0 No Unknown 5-09 00:00: 00 Dose 2022-0 No Unknown 5-09 00:00: 00 Dose 2022-0 No Unknown 5-09 00:00: 00 Dose 2022-0 No Unknown 5-09 00:00: 00 Dose 2022-0 No Unknown 5-09 00:00: 00 Dose 2022-0 No Unknown 5-09 00:00: 00 Dose 2022-0 No Unknown 5-09 00:00: 00 Dose 2022-0 No Unknown 5-09 00:00: 00 Dose 2022-0 No Unknown 5-09 00:00: 00 Dose 2022-0 No Unknown 5-09 00:00: 00 Dose 2022-0 No Unknown 5-09 00:00: 00 Dose 2022-0 No Unknown 5-09 00:00: 00 Dose 2022-0 No Unknown 5-09 00:00: 00 Dose 2022-0 No Unknown 5-09 00:00: 00 Dose 2022-0 No Unknown 5-09 00:00: 00 Dose 2022-0 No Unknown 5-09 00:00: 00 Dose 2022-0 No Unknown 5-09 00:00: 00 Dose 2022-0 No Unknown 5-09 00:00: 00 Dose 2022-0 No Unknown 5-09 00:00: 00 Dose 2022-0 No Unknown 5-09 00:00: 00 Dose 2022-0 No Unknown 5-09 00:00: 00 Dose 2022-0 No Unknown 5-09 00:00: 00 Dose 2022-0 No Unknown 5-09 00:00: 00 Dose 2022-0 No Unknown 5-09 00:00: 00 Dose 2022-0 No Unknown 5-09 00:00: 00 Dose 2022-0 No Unknown 5-09 00:00: 00 Dose 2022-0 No Unknown 5-09 00:00: 00 Dose 2022-0 No Unknown 5-09 00:00: 00 Dose 2022-0 No Unknown 5-09 00:00: 00 Dose 2022-0 No Unknown 5-09 00:00: 00 Dose 2022-0 No Unknown 5-09 00:00: 00 Dose 2022-0 No Unknown 5-09 00:00: 00 Dose 2022-0 No Unknown 5-09 00:00: 00 Dose 2022-0 No Unknown 5-09 00:00: 00 Dose 2022-0 No Unknown 5-09 00:00: 00 Dose 2022-0 No Unknown 5-09 00:00: 00 Dose 2022-0 No Unknown 5-09 00:00: 00 Dose 2022-0 No Unknown 5-09 00:00: 00 Dose 2022-0 No Unknown 5-09 00:00: 00 Dose 2022-0 No Unknown 5-09 00:00: 00 Dose 2022-0 No Unknown 5-09 00:00: 00 Dose 2022-0 No Unknown 5-09 00:00: 00 Dose 2022-0 No Unknown 5-09 00:00: 00 Dose 2022-0 No Unknown 5-09 00:00: 00 Dose 2022-0 No Unknown 5-09 00:00: 00 Dose 2022-0 No Unknown 5-09 00:00: 00 Dose 2022-0 No Unknown 5-09 00:00: 00 Dose 2022-0 No Unknown 5-09 00:00: 00 Dose 2022-0 No Unknown 5-09 00:00: 00 Dose 2022-0 No Unknown 5-09 00:00: 00 Dose 2022-0 No Unknown 5-09 00:00: 00 Dose 2022-0 No Unknown 5-09 00:00: 00 Dose 2022-0 No Unknown 5-09 00:00: 00 Dose 2022-0 No Unknown 5-09 00:00: 00 Dose 2022-0 No Unknown 5-09 00:00: 00 Dose 2022-0 No Unknown 5-09 00:00: 00 Dose 2022-0 No Unknown 5-09 00:00: 00 Dose 2022-0 No Unknown 5-09 00:00: 00 Dose 2022-0 No Unknown 5-09 00:00: 00 Dose 2022-0 No Unknown 5-09 00:00: 00 Dose 2022-0 No Unknown 5-09 00:00: 00 Dose 2022-0 No Unknown 5-09 00:00: 00 Dose 2022-0 No Unknown 5-09 00:00: 00 Dose 2022-0 No Unknown 5-09 00:00: 00 Dose 2022-0 No Unknown 5-09 00:00: 00 Dose 2022-0 No Unknown 5-09 00:00: 00 Dose 2022-0 No Unknown 5-09 00:00: 00 Dose 2022-0 No Unknown 5-09 00:00: 00 Dose 2022-0 No Unknown 5-09 00:00: 00 Dose 2022-0 No Unknown 5-09 00:00: 00 Dose 2022-0 No Unknown 5-09 00:00: 00 Dose 2022-0 No Unknown 5-09 00:00: 00 Dose 2022-0 No Unknown 5-09 00:00: 00 Dose 2022-0 No Unknown 5-09 00:00: 00 Dose 2022-0 No Unknown 5-09 00:00: 00 Dose 2022-0 No Unknown 5-09 00:00: 00 Dose 2022-0 No Unknown 5-09 00:00: 00 Dose 2022-0 No Unknown 5-09 00:00: 00 Dose 2022-0 No Unknown 5-09 00:00: 00 Dose 2022-0 No Unknown 5-09 00:00: 00 Dose 2022-0 No Unknown 5-09 00:00: 00 Dose 2022-0 No Unknown 5-09 00:00: 00 Dose 2022-0 No Unknown 5-09 00:00: 00 Dose 2022-0 No Unknown 5-09 00:00: 00 Dose 2022-0 No Unknown 5-09 00:00: 00 Dose 2022-0 No Unknown 5-09 00:00: 00 Dose 2022-0 No Unknown 5-09 00:00: 00 Dose 2022-0 No Unknown 5-09 00:00: 00 Dose 2022-0 No Unknown 5-09 00:00: 00 Dose 2022-0 No Unknown 5-09 00:00: 00 Dose 2022-0 No Unknown 5-09 00:00: 00 Dose 2022-0 No Unknown 5-09 00:00: 00 Dose 2022-0 No Unknown 5-09 00:00: 00 Dose 2022-0 No Unknown 5-09 00:00: 00 Dose 2022-0 No Unknown 5-09 00:00: 00 Dose 2022-0 No Unknown 5-09 00:00: 00 Dose 2022-0 No Unknown 5-09 00:00: 00 Dose 2022-0 No Unknown 5-09 00:00: 00 diclofenac 2022-0 No % 1 % topical 5-09 gel 00:00: 00 Dose 2022-0 No Unknown 5-09 00:00: 00 Dose 2022-0 No Unknown 5-09 00:00: 00 Dose 2022-0 No Unknown 5-09 00:00: 00 Dose 2022-0 No Unknown 5-09 00:00: 00 Dose 2022-0 No Unknown 5-09 00:00: 00 Dose 2022-0 No Unknown 5-09 00:00: 00 Dose 2022-0 No Unknown 5-09 00:00: 00 Dose 2022-0 No Unknown 5-09 00:00: 00 Dose 2022-0 No Unknown 5-09 00:00: 00 Dose 2022-0 No Unknown 5-09 00:00: 00 escitalopra 2-0 No 1mg m 10 mg 5-09 tablet 00:00: 00 Dose 2022-0 No Unknown 5-09 00:00: 00 Dose 2022-0 No Unknown 5-09 00:00: 00 Dose 2022-0 No Unknown 5-09 00:00: 00 Dose 2022-0 No Unknown 5-09 00:00: 00 Dose 2022-0 No Unknown 5-09 00:00: 00 Dose 2022-0 No Unknown 5-09 00:00: 00 Dose 2022-0 No Unknown 5-09 00:00: 00 Dose 2022-0 No Unknown 5-09 00:00: 00 Dose 2022-0 No Unknown 5-09 00:00: 00 Dose 2022-0 No Unknown 5-09 00:00: 00 rosuvastati 2-0 No 1mg n 10 mg 5-09 tablet 00:00: 00 Dose 2022-0 No Unknown 5-09 00:00: 00 Dose 2022-0 No Unknown 5-09 00:00: 00 Dose 2022-0 No Unknown 5-09 00:00: 00 Dose 2022-0 No Unknown 5-09 00:00: 00 Dose 2022-0 No Unknown 5-09 00:00: 00 Dose 2022-0 No Unknown 5-09 00:00: 00 Dose 2022-0 No Unknown 5-09 00:00: 00 Dose 2022-0 No Unknown 5-09 00:00: 00 Dose 2022-0 No Unknown 5-09 00:00: 00 Dose 2022-0 No Unknown 5-09 00:00: 00 glipizide 2022-0 No 1mg 10 mg 5-09 tablet 00:00: 00 Dose 2022-0 No Unknown 5-09 00:00: 00 Dose 2022-0 No Unknown 5-09 00:00: 00 Dose 2022-0 No Unknown 5-09 00:00: 00 Dose 2022-0 No Unknown 5-09 00:00: 00 Dose 2022-0 No Unknown 5-09 00:00: 00 Dose 2022-0 No Unknown 5-09 00:00: 00 Dose 2022-0 No Unknown 5-09 00:00: 00 Dose 2022-0 No Unknown 5-09 00:00: 00 Dose 2022-0 No Unknown 5-09 00:00: 00 Dose 2022-0 No Unknown 5-09 00:00: 00 Dose 2022-0 No Unknown 5-09 00:00: 00 Dose 2022-0 No Unknown 5-09 00:00: 00 Dose 2022-0 No Unknown 5-09 00:00: 00 Dose 2022-0 No Unknown 5-09 00:00: 00 Dose 2022-0 No Unknown 5-09 00:00: 00 Dose 2022-0 No Unknown 5-09 00:00: 00 Dose 2022-0 No Unknown 5-09 00:00: 00 Dose 2022-0 No Unknown 5-09 00:00: 00 Dose 2022-0 No Unknown 5-09 00:00: 00 Dose 2022-0 No Unknown 5-09 00:00: 00 Dose 2022-0 No Unknown 5-09 00:00: 00 Dose 2022-0 No Unknown 5-09 00:00: 00 Dose 2022-0 No Unknown 5-09 00:00: 00 Dose 2022-0 No Unknown 5-09 00:00: 00 Dose 2022-0 No Unknown 5-09 00:00: 00 Dose 2022-0 No Unknown 5-09 00:00: 00 Dose 2022-0 No Unknown 5-09 00:00: 00 Dose 2022-0 No Unknown 5-09 00:00: 00 Dose 2022-0 No Unknown 5-09 00:00: 00 Dose 2022-0 No Unknown 5-09 00:00: 00 Dose 2022-0 No Unknown 5-09 00:00: 00 Dose 2022-0 No Unknown 5-09 00:00: 00 Dose 2022-0 No Unknown 5-09 00:00: 00 Dose 2022-0 No Unknown 5-09 00:00: 00 Dose 2022-0 No Unknown 5-09 00:00: 00 Dose 2022-0 No Unknown 5-09 00:00: 00 Dose 2022-0 No Unknown 5-09 00:00: 00 Dose 2022-0 No Unknown 5-09 00:00: 00 Dose 2022-0 No Unknown 5-09 00:00: 00 Dose 2022-0 No Unknown 5-09 00:00: 00 Dose 2022-0 No Unknown 5-09 00:00: 00 Dose 2022-0 No Unknown 5-09 00:00: 00 Dose 2022-0 No Unknown 5-09 00:00: 00 Dose 2022-0 No Unknown 5-09 00:00: 00 Dose 2022-0 No Unknown 5-09 00:00: 00 Dose 2022-0 No Unknown 5-09 00:00: 00 Dose 2022-0 No Unknown 5-09 00:00: 00 Dose 2022-0 No Unknown 5-09 00:00: 00 Dose 2022-0 No Unknown 5-09 00:00: 00 Dose 2022-0 No Unknown 5-09 00:00: 00 Dose 2022-0 No Unknown 5-09 00:00: 00 Dose 2022-0 No Unknown 5-09 00:00: 00 Dose 2022-0 No Unknown 5-09 00:00: 00 Dose 2022-0 No Unknown 5-09 00:00: 00 Dose 2022-0 No Unknown 5-09 00:00: 00 Dose 2022-0 No Unknown 5-09 00:00: 00 Dose 2022-0 No Unknown 5-09 00:00: 00 Dose 2022-0 No Unknown 5-09 00:00: 00 Dose 2022-0 No Unknown 5-09 00:00: 00 Dose 2022-0 No Unknown 5-09 00:00: 00 Dose 2022-0 No Unknown 5-09 00:00: 00 Dose 2022-0 No Unknown 5-09 00:00: 00 Dose 2022-0 No Unknown 5-09 00:00: 00 Dose 2022-0 No Unknown 5-09 00:00: 00 Dose 2022-0 No Unknown 5-09 00:00: 00 Dose 2022-0 No Unknown 5-09 00:00: 00 Dose 2022-0 No Unknown 5-09 00:00: 00 Dose 2022-0 No Unknown 5-09 00:00: 00 Dose 2022-0 No Unknown 5-09 00:00: 00 Dose 2022-0 No Unknown 5-09 00:00: 00 Dose 2022-0 No Unknown 5-09 00:00: 00 Dose 2022-0 No Unknown 5-09 00:00: 00 Dose 2022-0 No Unknown 5-09 00:00: 00 Dose 2022-0 No Unknown 5-09 00:00: 00 Dose 2022-0 No Unknown 5-09 00:00: 00 Dose 2022-0 No Unknown 5-09 00:00: 00 Dose 2022-0 No Unknown 5-09 00:00: 00 Dose 2022-0 No Unknown 5-09 00:00: 00 Dose 2022-0 No Unknown 5-09 00:00: 00 Dose 2022-0 No Unknown 5-09 00:00: 00 Dose 2022-0 No Unknown 5-09 00:00: 00 Dose 2022-0 No Unknown 5-09 00:00: 00 Dose 2022-0 No Unknown 5-09 00:00: 00 Dose 2022-0 No Unknown 5-09 00:00: 00 Dose 2022-0 No Unknown 5-09 00:00: 00 Dose 2022-0 No Unknown 5-09 00:00: 00 Dose 2022-0 No Unknown 5-09 00:00: 00 Dose 2022-0 No Unknown 5-09 00:00: 00 Dose 2022-0 No Unknown 5-09 00:00: 00 Dose 2022-0 No Unknown 5-09 00:00: 00 Dose 2022-0 No Unknown 5-09 00:00: 00 Dose 2022-0 No Unknown 5-09 00:00: 00 Dose 2022-0 No Unknown 5-09 00:00: 00 Dose 2022-0 No Unknown 5-09 00:00: 00 Dose 2022-0 No Unknown 5-09 00:00: 00 Dose 2022-0 No Unknown 5-09 00:00: 00 Dose 2022-0 No Unknown 5-09 00:00: 00 Dose 2022-0 No Unknown 5-09 00:00: 00 Dose 2022-0 No Unknown 5-09 00:00: 00 Dose 2022-0 No Unknown 5-09 00:00: 00 Dose 2022-0 No Unknown 5-09 00:00: 00 Dose 2022-0 No Unknown 5-09 00:00: 00 Dose 2022-0 No Unknown 5-09 00:00: 00 Dose 2022-0 No Unknown 5-09 00:00: 00 Dose 2022-0 No Unknown 5-09 00:00: 00 Dose 2022-0 No Unknown 5-09 00:00: 00 Dose 2022-0 No Unknown 5-09 00:00: 00 Dose 2022-0 No Unknown 5-09 00:00: 00 Dose 2022-0 No Unknown 5-09 00:00: 00 Dose 2022-0 No Unknown 5-09 00:00: 00 Dose 2022-0 No Unknown 5-09 00:00: 00 Dose 2022-0 No Unknown 5-09 00:00: 00 Dose 2022-0 No Unknown 5-09 00:00: 00 Dose 2022-0 No Unknown 5-09 00:00: 00 Dose 2022-0 No Unknown 5-09 00:00: 00 Dose 2022-0 No Unknown 5-09 00:00: 00 Dose 2022-0 No Unknown 5-09 00:00: 00 Dose 2022-0 No Unknown 5-09 00:00: 00 Dose 2022-0 No Unknown 5-09 00:00: 00 Dose 2022-0 No Unknown 5-09 00:00: 00 Dose 2022-0 No Unknown 5-09 00:00: 00 Dose 2022-0 No Unknown 5-09 00:00: 00 Dose 2022-0 No Unknown 5-09 00:00: 00 Dose 2022-0 No Unknown 5-09 00:00: 00 Dose 2022-0 No Unknown 5-09 00:00: 00 Dose 2022-0 No Unknown 5-09 00:00: 00 Dose 2022-0 No Unknown 5-09 00:00: 00 Dose 2022-0 No Unknown 5-09 00:00: 00 Dose 2022-0 No Unknown 5-09 00:00: 00 Dose 2022-0 No Unknown 5-09 00:00: 00 Dose 2022-0 No Unknown 5-09 00:00: 00 Dose 2022-0 No Unknown 5-09 00:00: 00 Dose 2022-0 No Unknown 5-09 00:00: 00 Dose 2022-0 No Unknown 5-09 00:00: 00 Dose 2022-0 No Unknown 5-09 00:00: 00 Dose 2022-0 No Unknown 5-09 00:00: 00 Dose 2022-0 No Unknown 5-09 00:00: 00 Dose 2022-0 No Unknown 5-09 00:00: 00 Dose 2022-0 No Unknown 5-09 00:00: 00 Dose 2022-0 No Unknown 5-09 00:00: 00 Dose 2022-0 No Unknown 5-09 00:00: 00 Dose 2022-0 No Unknown 5-09 00:00: 00 Dose 2022-0 No Unknown 5-09 00:00: 00 Dose 2022-0 No Unknown 5-09 00:00: 00 Dose 2022-0 No Unknown 5-09 00:00: 00 Dose 2022-0 No Unknown 5-09 00:00: 00 Dose 2022-0 No Unknown 5-09 00:00: 00 Dose 2022-0 No Unknown 5-09 00:00: 00 Dose 2022-0 No Unknown 5-09 00:00: 00 Dose 2022-0 No Unknown 5-09 00:00: 00 Dose 2022-0 No Unknown 5-09 00:00: 00 Dose 2022-0 No Unknown 5-09 00:00: 00 Dose 2022-0 No Unknown 5-09 00:00: 00 Dose 2022-0 No Unknown 5-09 00:00: 00 Dose 2022-0 No Unknown 5-09 00:00: 00 Dose 2022-0 No Unknown 5-09 00:00: 00 Dose 2022-0 No Unknown 5-09 00:00: 00 Dose 2022-0 No Unknown 5-09 00:00: 00 Dose 2022-0 No Unknown 5-09 00:00: 00 Dose 2022-0 No Unknown 5-09 00:00: 00 Dose 2022-0 No Unknown 5-09 00:00: 00 Dose 2022-0 No Unknown 5-09 00:00: 00 Dose 2022-0 No Unknown 5-09 00:00: 00 Dose 2022-0 No Unknown 5-09 00:00: 00 Dose 2022-0 No Unknown 5-09 00:00: 00 Dose 2022-0 No Unknown 5-09 00:00: 00 Dose 2022-0 No Unknown 5-09 00:00: 00 Dose 2022-0 No Unknown 5-09 00:00: 00 Dose 2022-0 No Unknown 5-09 00:00: 00 Dose 2022-0 No Unknown 5-09 00:00: 00 Dose 2022-0 No Unknown 5-09 00:00: 00 Dose 2022-0 No Unknown 5-09 00:00: 00 Dose 2022-0 No Unknown 5-09 00:00: 00 Dose 2022-0 No Unknown 5-09 00:00: 00 Dose 2022-0 No Unknown 5-09 00:00: 00 Dose 2022-0 No Unknown 5-09 00:00: 00 Dose 2022-0 No Unknown 5-09 00:00: 00 Dose 2022-0 No Unknown 5-09 00:00: 00 Dose 2022-0 No Unknown 5-09 00:00: 00 Dose 2022-0 No Unknown 5-09 00:00: 00 Dose 2022-0 No Unknown 5-09 00:00: 00 Dose 2022-0 No Unknown 5-09 00:00: 00 Dose 2022-0 No Unknown 5-09 00:00: 00 Dose 2022-0 No Unknown 5-09 00:00: 00 Dose 2022-0 No Unknown 5-09 00:00: 00 Dose 2022-0 No Unknown 5-09 00:00: 00 Dose 2022-0 No Unknown 5-09 00:00: 00 Dose 2022-0 No Unknown 5-09 00:00: 00 Dose 2022-0 No Unknown 5-09 00:00: 00 Dose 2022-0 No Unknown 5-09 00:00: 00 Dose 2022-0 No Unknown 5-09 00:00: 00 Dose 2022-0 No Unknown 5-09 00:00: 00 Dose 2022-0 No Unknown 5-09 00:00: 00 Dose 2022-0 No Unknown 5-09 00:00: 00 Dose 2022-0 No Unknown 5-09 00:00: 00 Dose 2022-0 No Unknown 5-09 00:00: 00 Dose 2022-0 No Unknown 5-09 00:00: 00 Dose 2022-0 No Unknown 5-09 00:00: 00 Dose 2022-0 No Unknown 5-09 00:00: 00 Dose 2022-0 No Unknown 5-09 00:00: 00 Dose 2022-0 No Unknown 5-09 00:00: 00 Dose 2022-0 No Unknown 5-09 00:00: 00 Dose 2022-0 No Unknown 5-09 00:00: 00 Dose 2022-0 No Unknown 5-09 00:00: 00 Dose 2022-0 No Unknown 5-09 00:00: 00 Dose 2022-0 No Unknown 5-09 00:00: 00 Dose 2022-0 No Unknown 5-09 00:00: 00 Dose 2022-0 No Unknown 5-09 00:00: 00 Dose 2022-0 No Unknown 5-09 00:00: 00 Dose 2022-0 No Unknown 5-09 00:00: 00 Dose 2022-0 No Unknown 5-09 00:00: 00 Dose 2022-0 No Unknown 5-09 00:00: 00 Dose 2022-0 No Unknown 5-09 00:00: 00 Dose 2022-0 No Unknown 5-09 00:00: 00 Dose 2022-0 No Unknown 5-09 00:00: 00 Dose 2022-0 No Unknown 5-09 00:00: 00 Dose 2022-0 No Unknown 5-09 00:00: 00 Dose 2022-0 No Unknown 5-09 00:00: 00 Dose 2022-0 No Unknown 5-09 00:00: 00 Dose 2022-0 No Unknown 5-09 00:00: 00 Dose 2022-0 No Unknown 5-09 00:00: 00 Dose 2022-0 No Unknown 5-09 00:00: 00 Dose 2022-0 No Unknown 5-09 00:00: 00 Dose 2022-0 No Unknown 5-09 00:00: 00 Dose 2022-0 No Unknown 5-09 00:00: 00 Dose 2022-0 No Unknown 5-09 00:00: 00 Dose 2022-0 No Unknown 5-09 00:00: 00 Dose 2022-0 No Unknown 5-09 00:00: 00 Dose 2022-0 No Unknown 5-09 00:00: 00 Dose 2022-0 No Unknown 5-09 00:00: 00 Dose 2022-0 No Unknown 5-09 00:00: 00 Dose 2022-0 No Unknown 5-09 00:00: 00 Dose 2022-0 No Unknown 5-09 00:00: 00 Dose 2022-0 No Unknown 5-09 00:00: 00 Dose 2022-0 No Unknown 5-09 00:00: 00 Dose 2022-0 No Unknown 5-09 00:00: 00 Dose 2022-0 No Unknown 5-09 00:00: 00 Dose 2022-0 No Unknown 5-09 00:00: 00 Dose 2022-0 No Unknown 5-09 00:00: 00 Dose 2022-0 No Unknown 5-09 00:00: 00 Dose 2022-0 No Unknown 5-09 00:00: 00 Dose 2022-0 No Unknown 5-09 00:00: 00 Dose 2022-0 No Unknown 5-09 00:00: 00 Dose 2022-0 No Unknown 5-09 00:00: 00 Dose 2022-0 No Unknown 5-09 00:00: 00 Dose 2022-0 No Unknown 5-09 00:00: 00 Dose 2022-0 No Unknown 5-09 00:00: 00 Dose 2022-0 No Unknown 5-09 00:00: 00 Dose 2022-0 No Unknown 5-09 00:00: 00 Dose 2022-0 No Unknown 5-09 00:00: 00 Dose 2022-0 No Unknown 5-09 00:00: 00 Dose 2022-0 No Unknown 5-09 00:00: 00 Dose 2022-0 No Unknown 5-09 00:00: 00 Dose 2022-0 No Unknown 5-09 00:00: 00 Dose 2022-0 No Unknown 5-09 00:00: 00 Dose 2022-0 No Unknown 5-09 00:00: 00 Dose 2022-0 No Unknown 5-09 00:00: 00 Dose 2022-0 No Unknown 5-09 00:00: 00 Dose 2022-0 No Unknown 5-09 00:00: 00 Dose 2022-0 No Unknown 5-09 00:00: 00 Dose 2022-0 No Unknown 5-09 00:00: 00 Dose 2022-0 No Unknown 5-09 00:00: 00 Dose 2022-0 No Unknown 5-09 00:00: 00 Dose 2022-0 No Unknown 5-09 00:00: 00 Dose 2022-0 No Unknown 5-09 00:00: 00 Dose 2022-0 No Unknown 5-09 00:00: 00 Dose 2022-0 No Unknown 5-09 00:00: 00 Dose 2022-0 No Unknown 5-09 00:00: 00 Dose 2022-0 No Unknown 5-09 00:00: 00 Dose 2022-0 No Unknown 5-09 00:00: 00 Dose 2022-0 No Unknown 5-09 00:00: 00 Dose 2022-0 No Unknown 5-09 00:00: 00 Dose 2022-0 No Unknown 5-09 00:00: 00 Dose 2022-0 No Unknown 5-09 00:00: 00 Dose 2022-0 No Unknown 5-09 00:00: 00 Dose 2022-0 No Unknown 5-09 00:00: 00 Dose 2022-0 No Unknown 5-09 00:00: 00 Dose 2022-0 No Unknown 5-09 00:00: 00 Dose 2022-0 No Unknown 5-09 00:00: 00 Dose 2022-0 No Unknown 5-09 00:00: 00 Dose 2022-0 No Unknown 5-09 00:00: 00 Dose 2022-0 No Unknown 5-09 00:00: 00 Dose 2022-0 No Unknown 5-09 00:00: 00 Dose 2022-0 No Unknown 5-09 00:00: 00 Dose 2022-0 No Unknown 5-09 00:00: 00 Dose 2022-0 No Unknown 5-09 00:00: 00 Dose 2022-0 No Unknown 5-09 00:00: 00 Dose 2022-0 No Unknown 5-09 00:00: 00 Dose 2022-0 No Unknown 5-09 00:00: 00 Dose 2022-0 No Unknown 5-09 00:00: 00 Dose 2022-0 No Unknown 5-09 00:00: 00 Dose 2022-0 No Unknown 5-09 00:00: 00 Dose 2022-0 No Unknown 5-09 00:00: 00 Dose 2022-0 No Unknown 5-09 00:00: 00 Dose 2022-0 No Unknown 5-09 00:00: 00 Dose 2022-0 No Unknown 5-09 00:00: 00 Dose 2022-0 No Unknown 5-09 00:00: 00 Dose 2022-0 No Unknown 5-09 00:00: 00 Dose 2022-0 No Unknown 5-09 00:00: 00 Dose 2022-0 No Unknown 5-09 00:00: 00 Dose 2022-0 No Unknown 5-09 00:00: 00 Dose 2022-0 No Unknown 5-09 00:00: 00 Dose 2022-0 No Unknown 5-09 00:00: 00 Dose 2022-0 No Unknown 5-09 00:00: 00 Dose 2022-0 No Unknown 5-09 00:00: 00 Dose 2022-0 No Unknown 5-09 00:00: 00 Dose 2022-0 No Unknown 5-09 00:00: 00 Dose 2022-0 No Unknown 5-09 00:00: 00 Dose 2022-0 No Unknown 5-09 00:00: 00 Dose 2022-0 No Unknown 5-09 00:00: 00 Dose 2022-0 No Unknown 5-09 00:00: 00 Dose 2022-0 No Unknown 5-09 00:00: 00 Dose 2022-0 No Unknown 5-09 00:00: 00 Dose 2022-0 No Unknown 5-09 00:00: 00 Dose 2022-0 No Unknown 5-09 00:00: 00 Dose 2022-0 No Unknown 5-09 00:00: 00 Dose 2022-0 No Unknown 5-09 00:00: 00 Dose 2022-0 No Unknown 5-09 00:00: 00 Dose 2022-0 No Unknown 5-09 00:00: 00 Dose 2022-0 No Unknown 5-09 00:00: 00 Dose 2022-0 No Unknown 5-09 00:00: 00 Dose 2022-0 No Unknown 5-09 00:00: 00 Dose 2022-0 No Unknown 5-09 00:00: 00 Dose 2022-0 No Unknown 5-09 00:00: 00 Dose 2022-0 No Unknown 5-09 00:00: 00 Dose 2022-0 No Unknown 5-09 00:00: 00 Dose 2022-0 No Unknown 5-09 00:00: 00 Dose 2022-0 No Unknown 5-09 00:00: 00 Dose 2022-0 No Unknown 5-09 00:00: 00 Dose 2022-0 No Unknown 5-09 00:00: 00 Dose 2022-0 No Unknown 5-09 00:00: 00 Dose 2022-0 No Unknown 5-09 00:00: 00 Dose 2022-0 No Unknown 5-09 00:00: 00 Dose 2022-0 No Unknown 5-09 00:00: 00 Dose 2022-0 No Unknown 5-09 00:00: 00 Dose 2022-0 No Unknown 5-09 00:00: 00 Dose 2022-0 No Unknown 5-09 00:00: 00 Dose 2022-0 No Unknown 5-09 00:00: 00 Dose 2022-0 No Unknown 5-09 00:00: 00 Dose 2022-0 No Unknown 5-09 00:00: 00 Dose 2022-0 No Unknown 5-09 00:00: 00 Dose 2022-0 No Unknown 5-09 00:00: 00 Dose 2022-0 No Unknown 5-09 00:00: 00 Dose 2022-0 No Unknown 5-09 00:00: 00 Dose 2022-0 No Unknown 5-09 00:00: 00 Dose 2022-0 No Unknown 5-09 00:00: 00 Dose 2022-0 No Unknown 5-09 00:00: 00 Dose 2022-0 No Unknown 5-09 00:00: 00 Dose 2022-0 No Unknown 5-09 00:00: 00 Dose 2022-0 No Unknown 5-09 00:00: 00 Dose 2022-0 No Unknown 5-09 00:00: 00 Dose 2022-0 No Unknown 5-09 00:00: 00 Dose 2022-0 No Unknown 5-09 00:00: 00 Dose 2022-0 No Unknown 5-09 00:00: 00 Dose 2022-0 No Unknown 5-09 00:00: 00 Dose 2022-0 No Unknown 5-09 00:00: 00 Dose 2022-0 No Unknown 5-09 00:00: 00 Dose 2022-0 No Unknown 5-09 00:00: 00 Dose 2022-0 No Unknown 5-09 00:00: 00 Dose 2022-0 No Unknown 5-09 00:00: 00 Dose 2022-0 No Unknown 5-09 00:00: 00 Dose 2022-0 No Unknown 5-09 00:00: 00 Dose 2022-0 No Unknown 5-09 00:00: 00 Dose 2022-0 No Unknown 5-09 00:00: 00 Dose 2022-0 No Unknown 5-09 00:00: 00 Dose 2022-0 No Unknown 5-09 00:00: 00 Dose 2022-0 No Unknown 5-09 00:00: 00 Dose 2022-0 No Unknown 5-09 00:00: 00 Dose 2022-0 No Unknown 5-09 00:00: 00 Dose 2022-0 No Unknown 5-09 00:00: 00 Dose 2022-0 No Unknown 5-09 00:00: 00 Dose 2022-0 No Unknown 5-09 00:00: 00 Dose 2022-0 No Unknown 5-09 00:00: 00 Dose 2022-0 No Unknown 5-09 00:00: 00 Dose 2022-0 No Unknown 5-09 00:00: 00 Dose 2022-0 No Unknown 5-09 00:00: 00 Dose 2022-0 No Unknown 5-09 00:00: 00 Dose 2022-0 No Unknown 5-09 00:00: 00 Dose 2022-0 No Unknown 5-09 00:00: 00 Dose 2022-0 No Unknown 5-09 00:00: 00 Dose 2022-0 No Unknown 5-09 00:00: 00 Dose 2022-0 No Unknown 5-09 00:00: 00 Dose 2022-0 No Unknown 5-09 00:00: 00 Dose 2022-0 No Unknown 5-09 00:00: 00 Dose 2022-0 No Unknown 5-09 00:00: 00 Dose 2022-0 No Unknown 5-09 00:00: 00 Dose 2022-0 No Unknown 5-09 00:00: 00 Dose 2022-0 No Unknown 5-09 00:00: 00 Dose 2022-0 No Unknown 5-09 00:00: 00 Dose 2022-0 No Unknown 5-09 00:00: 00 Dose 2022-0 No Unknown 5-09 00:00: 00 Dose 2022-0 No Unknown 5-09 00:00: 00 Dose 2022-0 No Unknown 5-09 00:00: 00 Dose 2022-0 No Unknown 5-09 00:00: 00 Dose 2022-0 No Unknown 5-09 00:00: 00 Dose 2022-0 No Unknown 5-09 00:00: 00 Dose 2022-0 No Unknown 5-09 00:00: 00 Dose 2022-0 No Unknown 5-09 00:00: 00 Dose 2022-0 No Unknown 5-09 00:00: 00 Dose 2022-0 No Unknown 5-09 00:00: 00 Dose 2-0 No Unknown 5-09 00:00: 00 Dose 2-0 No Unknown 5-09 00:00: 00 Dose 2-0 No Unknown 5-09 00:00: 00 Dose 2-0 No Unknown 5-09 00:00: 00 Dose 2-0 No Unknown 5-09 00:00: 00 Dose 2-0 No Unknown 5-09 00:00: 00 Dose 2-0 No Unknown 5-09 00:00: 00 Dose 2-0 No Unknown 5-09 00:00: 00 Dose 2-0 No Unknown 5-09 00:00: 00 Dose 2-0 No Unknown 5-09 00:00: 00 Dose 1-1 No Unknown 2-21 00:00: 00 Dose 1-1 No Unknown 2-21 00:00: 00 Claritin 10 2020-1 No 1mg mg tablet 2-17 00:00: 00 Dose 2020-1 No Unknown 2-17 00:00: 00 glipizide 5 1-1 No 1mg mg tablet 2-17 00:00: 00 Dose 1-1 No Unknown 0-04 00:00: 00 Dose 1-1 No Unknown 0-04 00:00: 00 Dose 1-1 No Unknown 0-04 00:00: 00 glipizide 5 1-0 No 1mg mg tablet 9-23 00:00: 00 Dose 1-0 No Unknown 8-26 00:00: 00 glipizide 5 1-0 No 1mg mg tablet 7-01 00:00: 00 Dose 1-0 No Unknown 6-30 00:00: 00 Dose 1-0 No Unknown 2-26 00:00: 00 Dose 1-0 No Unknown 1-07 00:00: 00 Dose 2019-0 No Unknown 6-10 00:00: 00 Dose 2019-0 No Unknown 6-10 00:00: 00 Dose 2019-0 No Unknown 6-10 00:00: 00 Dose 2019-0 No Unknown 6-10 00:00: 00 Dose 2019-0 No Unknown 6-05 00:00: 00 Dose 2019-0 No Unknown 3-05 00:00: 00 naproxen 2019-0 Yes naproxen Unive rs 375 mg 4-26 375 mg ity of tablet 15:44: tablet [facility] Dose 2019-0 No Unknown 1-30 00:00: 00 duloxetine 2019-0 No 1mg 60 mg 1-30 capsule,del 00:00: ayed 00 release indomethaci 2019-0 No 1mg n 50 mg 1-30 capsule 00:00: 00 loratadine 2017-0 Yes 10mg QD Take [address] [facility] (CLARITIN) 8-20 [facility] 17:57: daily. Medical tablet [address] [place] [address] loratadine 2017-0 Yes 10mg QD Take [address] [facility] (CLARITIN) 8-20 [facility] mg 17:57: daily. Medical tablet [address] [place] [address] hydroxyzine 2015-0 No 1mg HCl 50 mg 6-20 tablet 00:00: 00 Zithromax 2016-0 No mg 250 mg 6-20 tablet 00:00: 00 metformin 2016-0 No 1mg 500 mg 2-03 tablet 00:00: 00 Protonix 40 2016-0 No 1mg mg 2-01 tablet,thor 00:00: yed release 00 naproxen 2015-0 No 1mg 375 mg 6-26 tablet 00:00: 00 Protonix 40 2015-0 No 1mg mg 4-27 tablet,thor 00:00: yed release 00 Protonix 40 2015-0 No 1mg mg 4-27 tablet,thor 00:00: yed release 00 Zofran 4 mg 2015-0 No 1mg tablet 4-27 00:00: 00 Zofran 4 mg 2015-0 No 1mg tablet 4-27 00:00: 00 Immunizations Ordered Immunization Filled Immunization Date Status Commen ts Source Name Name Mireya COVID-19 2021-07-10 Completed Vaccine 00:00:00 Mireya COVID-19 2021-06-01 Completed Vaccine 00:00:00 Vital Signs Vital Name Observation Time Observation Value Comments Source BP Systolic 2022-02-01 08:08:00 130 mm[Hg] BP Diastolic 2022-02-01 08:08:00 79 mm[Hg] Weight Measured 2022-02-01 08:08:00 206.00 pounds Height Measured 2022-02-01 08:08:00 58.00 inches Body Temperature 2022-02-01 08:08:00 98.20 degrees Heart Rate 2022-02-01 08:08:00 82.00 /min Respiratory Rate 2022-02-01 08:08:00 18.00 /min BP Systolic 2021-12-03 14:17:00 110 mm[Hg] BP Diastolic 2021-12-03 14:17:00 65 mm[Hg] Weight Measured 2021-12-03 14:17:00 203.20 pounds Height Measured 2021-12-03 14:17:00 58.00 inches Body Temperature 2021-12-03 14:17:00 98.30 degrees Heart Rate 2021-12-03 14:17:00 75.00 /min Respiratory Rate 2021-12-03 14:17:00 20.00 /min BP Systolic 2021-08-06 15:45:00 107 mm[Hg] BP Diastolic 2021-08-06 15:45:00 71 mm[Hg] Weight Measured 2021-08-06 15:45:00 204.00 pounds Height Measured 2021-08-06 15:45:00 58.00 inches Body Temperature 2021-08-06 15:45:00 98.00 degrees Heart Rate 2021-08-06 15:45:00 79.00 /min Respiratory Rate 2021-08-06 15:45:00 BP Systolic 2021-07-13 10:40:00 116 mm[Hg] BP Diastolic 2021-07-13 10:40:00 72 mm[Hg] Weight Measured 2021-07-13 10:40:00 202.40 pounds Height Measured 2021-07-13 10:40:00 58.00 inches Body Temperature 2021-07-13 10:40:00 98.20 degrees Heart Rate 2021-07-13 10:40:00 79.00 /min Respiratory Rate 2021-07-13 10:40:00 21.00 /min BP Systolic 2021-04-30 10:05:00 132 mm[Hg] BP Diastolic 2021-04-30 10:05:00 81 mm[Hg] Weight Measured 2021-04-30 10:05:00 200.00 pounds Height Measured 2021-04-30 10:05:00 58.00 inches Body Temperature 2021-04-30 10:05:00 98.40 degrees Heart Rate 2021-04-30 10:05:00 90.00 /min Respiratory Rate 2021-04-30 10:05:00 17.00 /min BP Systolic 2021-04-16 15:47:00 128 mm[Hg] BP Diastolic 2021-04-16 15:47:00 80 mm[Hg] Weight Measured 2021-04-16 15:47:00 192.60 pounds Height Measured 2021-04-16 15:47:00 58.00 inches Body Temperature 2021-04-16 15:47:00 98.20 degrees Heart Rate 2021-04-16 15:47:00 94.00 /min Respiratory Rate 2021-04-16 15:47:00 17.00 /min BP Systolic 2021-02-20 15:00:00 BP Diastolic 2021-02-20 15:00:00 Weight Measured 2021-02-20 15:00:00 212.00 pounds Height Measured 2021-02-20 15:00:00 58.00 inches Body Temperature 2021-02-20 15:00:00 Heart Rate 2021-02-20 15:00:00 Respiratory Rate 2021-02-20 15:00:00 BP Systolic 2021-01-18 09:01:00 122 mm[Hg] BP Diastolic 2021-01-18 09:01:00 52 mm[Hg] Weight Measured 2021-01-18 09:01:00 212.40 pounds Height Measured 2021-01-18 09:01:00 58.00 inches Body Temperature 2021-01-18 09:01:00 98.10 degrees Heart Rate 2021-01-18 09:01:00 70.00 /min Respiratory Rate 2021-01-18 09:01:00 21.00 /min BP Systolic 2020-09-22 13:59:00 125 mm[Hg] BP Diastolic 2020-09-22 13:59:00 73 mm[Hg] Weight Measured 2020-09-22 13:59:00 204.80 pounds Height Measured 2020-09-22 13:59:00 58.00 inches Body Temperature 2020-09-22 13:59:00 99.30 degrees Heart Rate 2020-09-22 13:59:00 72.00 /min Respiratory Rate 2020-09-22 13:59:00 BP Systolic 2020-08-03 15:20:00 118 mm[Hg] BP Diastolic 2020-08-03 15:20:00 78 mm[Hg] Weight Measured 2020-08-03 15:20:00 206.60 pounds Height Measured 2020-08-03 15:20:00 58.00 inches Body Temperature 2020-08-03 15:20:00 98.30 degrees Heart Rate 2020-08-03 15:20:00 73.00 /min Respiratory Rate 2020-08-03 15:20:00 Procedures This patient has no known procedures. Plan of Care Planned Activity Planned Date Details Comments Source Goal Plan of Care Note [code = 99424-1] Goal Plan of Care Note [code = 92671-0] Goal Plan of Care Note [code = 53559-2] Goal Plan of Care Note [code = 24916-1] Goal Plan of Care Note [code = 56946-0] Goal Plan of Care Note [code = 99180-6] Goal Plan of Care Note [code = 33846-8] Goal Plan of Care Note [code = 54477-8] Goal Plan of Care Note [code = 39628-1] Goal Plan of Care Note [code = 57295-2] Goal Plan of Care Note [code = 43697-8] Goal Plan of Care Note [code = 39384-1] Goal Plan of Care Note [code = 96914-8] Goal Plan of Care Note [code = 25822-9] Goal Plan of Care Note [code = 40441-8] Goal Plan of Care Note [code = 21769-6] Goal Plan of Care Note [code = 16073-3] Goal Plan of Care Note [code = 80688-3] Goal Plan of Care Note [code = 51619-0] Goal Plan of Care Note [code = 75913-7] Goal Plan of Care Note [code = 74151-8] Goal Plan of Care Note [code = 15430-9] Goal Plan of Care Note [code = 82788-5] Goal Plan of Care Note [code = 77206-0] Goal Plan of Care Note [code = 22156-8] Goal Plan of Care Note [code = 99878-6] Goal Plan of Care Note [code = 75944-7] Goal Plan of Care Note [code = 28976-6] Goal Plan of Care Note [code = 37168-0] Goal Plan of Care Note [code = 46218-1] Goal Plan of Care Note [code = 60078-9] Goal Plan of Care Note [code = 87793-8] Goal Plan of Care Note [code = 83628-1] Goal Plan of Care Note [code = 19031-7] Goal Plan of Care Note [code = 41221-6] Goal Plan of Care Note [code = 48282-6] Goal Plan of Care Note [code = 74975-4] Goal Plan of Care Note [code = 14872-1] Goal Plan of Care Note [code = 32505-8] Goal Plan of Care Note [code = 85315-6] Goal Plan of Care Note [code = 60877-5] Goal Plan of Care Note [code = 68522-2] Goal Plan of Care Note [code = 32998-2] Goal Plan of Care Note [code = 31618-5] Goal Plan of Care Note [code = 45673-4] Goal Plan of Care Note [code = 81595-1] Goal Plan of Care Note [code = 50456-1] Goal Plan of Care Note [code = 04058-5] Goal Plan of Care Note [code = 78153-1] Encounters Start End Encounter Admission Attending Care Care Encounter Source Date/Time Date/Time Type Type Clinicians Facility Department ID 2022-05-16 2022-05-16 Outpatient [facility] AOSM 628 Riya 00:00:00 00:00:00 [facility] [id number] [facility] 2022-05-10 2022-05-10 Outpatient [facility] AOSM 628 99 Riya 00:00:00 00:00:00 Coleman [id number] [facility] 2022-04-10 2022-04-10 Outpatient [facility] AOSM 628 Riya 00:00:00 00:00:00 Coleman [id number] [facility] 2022-04-07 2022-04-07 Outpatient [facility] AOSM 628 [id number] Riya 00:00:00 00:00:00 Coleman [id number] [facility] 2022-03-07 2022-03-07 Outpatient [facility] A[facility] AOSM 628 [id number] Riya 00:00:00 00:00:00 Coleman [id number] [facility] 2022-03-01 2022-03-01 Outpatient [facility] AOSM 628 [id number] Riya 00:00:00 00:00:00 Coleman [id number] [facility] 2022-02-01 2022-02-01 Outpatient [id number] 00:00:00 00:00:00 Visit [id number] 2022-01-26 2022-01-26 Outpatient [facility] A[facility] AOSM 628 [id number] Riya 05:23:00 05:23:00 Coleman [id number] [facility] 2021-01-31 2021-01-31 Outpatient R RADIOLOGY [facility] [id number] [facility]-03 Jos PATEL [id number] 00:00:00 00:00:00 Management , Marli C KLARISSA [id number] [place] [id number] 2019-03-03 2019-03-03 Jos PATEL [id number] [facility] 00:00:00 00:00:00 [id number] [place] as [phone] Medi derek 025 Branch Results Test Description Test Time Test Comments Results Result Comments Source LIPID PANEL 2021-12-05 06:55:15 Test Item Value Reference Range Interpretation Comme nts CHOLESTEROL (test code = 2210) 197 MG/DL <200 TRIGLYCERIDES (test code = 223) 386 MG/DL <150 H HDL CHOLESTEROL (test code = 30 MG/DL >39 L 2219) CALC LDL CHOL (test code = 2237) 112 MG/DL <100 H NOTE: CALCULATED LDL IS BASED ON KEENAN-BRYANT METHOD WHICHINCLUDES A DJUSTABLE TRIGLYCERIDE:VL DL CHOLESTEROL RATIO.THIS FACT OR VARIES BY MEASURED TRIGLY CERIDE AND NON-HDLCHOLESTE ROL CONCENTRATIONS WITH INCREASED CALCULATED LDL SEENIN HIGHER T RIGLYCERIDE OR LOWER NON-HDL S PECIMENS. FOR MOREINFORMATION , SEE CLIENT ANNOUNCEMENT AT [email or web address] [email or web address] RATIO LDL/HDL (test code = 3.73 RATIO <3.22 H 2237) HEPATIC FUNCTION [id number] 06:55:15 Test Item Value Reference Range Interpretation Comments PROTEIN, TOTAL (test 7.4 G/DL 6.1-8.3 code = 2228) ALBUMIN (test code = 4.1 G/DL 3.5-5.2 2200) BILIRUBIN, TOTAL 0.4 MG/DL See_Comment [Automated message] (test code = 2206) The syste m which generated this result transmitted ref erence range: <=1.2. T he reference range was not used to interpr et this result as normal/abnormal . BILIRUBIN, DIRECT 0.1 MG/DL 0.0-0.3 (test code = 2021) ALKALINE PHOSPHATASE 123 U/L 40-128 (test code = 2203) AST (test code = 77 U/L 9-40 H 2217) ALT (test code = 75 U/L 5-40 H UNLESS OTH ERWISE 2218) INDICATED, ALL TESTING PERFORMED [facility] [employer] [employer] [address] [place] [address], [place] [address] LABORATORY DIRE CTOR: SUREKHA GALLARDO M.D. CLIA NUMBER [id number] [place] [id number] VITAMIN D, 25 [id number] 06:37:05 Test Item Value Reference Range Interpretation Comments VITAMIN D, 25 OH 12 NG/ML SEE BELOW L NOTE: 25-H YDROXYVITAMIN D (test code = 4958) ASSAY INC LUDES 25-HYDROXYVITAM IN D2 AND D3. METHODOLOGY IS CHEMILUMINESCEN T IMMUNOASSAY. INTERPRETIVE RA NGES PEDIATRIC (<17 YEARS) . . . . . . . . . . . NG/ML 20-100ADULT: IN SUFFICIENT . . . . . . . . . . . . . . NG/ML <20 SUBOP TIMAL . . . . . . . . . . . . . . . NG/ML 20-29 OPT IMAL . . . . . . . . . . . . . . . . . NG/ML 30-100 HEMOGLOBIN [id number] 04:26:32 Test Item Value Reference Range Interpretation Comments HEMOGLOBIN A1c (test 9.3 % 4.2-5.6 H AMERIC AN DIABETES code = 85145) ASSOCIATION IDELINES FOR HGB A1C: PREDIABETES/INC REASED RISK . . . . . . . 5.7 -6.4% DIAGNOSIS OF DI ABETES . . . . . . . . . >=6 .5% WITH CONFIRMATION OR APPROPRIATE SYMPTOMS NOTE: ASSAY MAY BE AFFECTED BY HEMOGLOBINOPATH IES (SICKLE CELL ANEMIA, S- C DISEASE, OTHERS) OR ELIN FICIALLY LOWERED BY DECR EASED RED CELL SURVIVAL ( HEMOLYTIC ANEMIAS, BLOOD LOSS, ETC.). CONSIDER ALTERN ATE TESTING OR LABORATORY C ONSULTATION. HEMOGLOBIN [id number] 00:00:00 Test Item Value Reference Range Interpretation Comments HEMOGLOBIN A1c (test code = 44875) 9.3 % HEMOGLOBIN [id number] 00:00:00 Test Item Value Reference Range Interpretation Comments HEMOGLOBIN A1c (test code = 51835) 9.3 % LIPID [id number] 00:00:00 Test Item Value Reference Range Interpretation Comments CHOLESTEROL (test code = 2210) 197 MG/DL TRIGLYCERIDES (test code = 2232) 386 MG/DL HDL CHOLESTEROL (test code = 2220) 30 MG/DL CALC LDL CHOL (test code = 2237) 112 MG/DL RISK RATIO LDL/HDL (test code = 3.73 RATIO 2238) VITAMIN D, 25 [id number] 00:00:00 Test Item Value Reference Range Interpretation Comments VITAMIN D, 25 OH (test code = 4958) 12 NG/ML LIVER (HEPATIC) FUNCTION [id number] 00:00:00 Test Item Value Reference Range Interpretation Comments PROTEIN, TOTAL (test code = 2229) 7.4 G/DL ALBUMIN (test code = 2201) 4.1 G/DL BILIRUBIN, TOTAL (test code = 2207) 0.4 MG/DL BILIRUBIN, DIRECT (test code = 0.1 MG/DL 2021) ALKALINE PHOSPHATASE (test code = 123 U/L 2203) AST (test code = 2218) 77 U/L ALT (test code = 2219) 75 U/L TSH, THIRD [id number] 06:59:20 Test Item Value Reference Range Interpretation Comments TSH, THIRD GENERATION (test code 2.250 UIU/ML 0.400-4.100 = 2821) VITAMIN D, 25 [id number] 06:30:33 Test Item Value Reference Range Interpretation Comments VITAMIN D, 25 OH 17 NG/ML SEE BELOW L NOTE: 25-H YDROXYVITAMIN D (test code = 4958) ASSAY INC LUDES 25-HYDROXYVITAM IN D2 AND D3. METHODOLOGY IS CHEMILUMINESCEN T IMMUNOASSAY. INTERPRETIVE RA NGES PEDIATRIC (<17 YEARS) . . . . . . . . . . . NG/ML 20-100ADULT: IN SUFFICIENT . . . . . . . . . . . . . . NG/ML <20 SUBOP TIMAL . . . . . . . . . . . . . . . NG/ML 20-29 OPT IMAL . . . . . . . . . . . . . . . . . NG/ML 30-100 LIPID [id number] 06:05:05 Test Item Value Reference Range Interpretation Comments CHOLESTEROL (test 210 MG/DL <200 H code = 2210) TRIGLYCERIDES (test 400 MG/DL <150 H code = 2232) HDL CHOLESTEROL (test 31 MG/DL >39 L code = 2220) CALC LDL CHOL (test (NOTE) MG/DL <100 UNABLE TO CALCULATE code = 2237) NOTE: CALCULATE D LDL IS BASED ON KEENAN-BRYANT METHOD WHICHINCLUDES ADJUSTABLE TRIGLYCERIDE:VL DL CHOLESTEROL RATIO.THIS FACT OR VARIES BY MEASU RED TRIGLYCERIDE AN D NON-HDLCHOLESTE ROL CONCENTRATIONS WITH INCREASED CALCU LATED LDL SEENIN HIGH ER TRIGLYCERIDE OR LOWER NON-HDL SPECIME NS. FOR MOREINFORMA TION, SEE CLIENT ANNOUNCEMENT AT [email or web address] RISK RATIO LDL/HDL 4.19 RATIO <3.22 H UNABLE T O CALCULATE (test code = 2238) COMPREHENSIVE METABOLIC [id number] 06:05:05 Test Item Value Reference Range Interpretation Comments GLUCOSE (test code = 117 MG/DL 70-99 H 2216) BUN (test code = 12 MG/DL 6-20 2207) CREATININE (test 0.79 MG/DL 0.60-1.30 EFFECTIVE code = 2214) 07/09/2021, [facility] HAS IMPLEMENTED THE NKF-ASN RECOMME NDED KD-EPI EGF R REFIT CALCULATI ON THAT DOES NOT INCLUDE A COEFFICIENT FOR RACE. FOR MORE INFORMATION, SE E ANNOUNCEMENT [email or web address] eGFR (2020 CKD-EPI) 91 ML/MIN/1.73 >60 (test code = 27559) CALC BUN/CREAT (test 15 RATIO 6-28 code = 2235) SODIUM (test code = 138 MEQ/L 476-291 7984) POTASSIUM (test code 3.7 MEQ/L 3.5-5.4 = 2228) CHLORIDE (test code 101 MEQ/L 95-107 = 2215) CARBON DIOXIDE (test 22 MEQ/L 19-31 code = 2206) CALCIUM (test code = 9.6 MG/DL 8.5-10.5 2208) PROTEIN, TOTAL (test 7.7 G/DL 6.1-8.3 code = 2229) ALBUMIN (test code = 4.5 G/DL 3.5-5.2 2200) CALC GLOBULIN (test 3.2 G/DL 1.9-3.7 code = 2240) CALC A/G RATIO (test 1.4 RATIO 1.0-2.6 code = 2234) BILIRUBIN, TOTAL 0.3 MG/DL See_Comment [Automated message] (test code = 2207) The syste m which generated this result transmit luci reference range : <=1.2. The refe rence range was not u sed to interpret th is result as normal/abnormal . ALKALINE PHOSPHATASE 88 U/L 40-128 (test code = 2204) AST (test code = 96 U/L 9-40 H 8) ALT (test code = 79 U/L 5-40 H 2218) HIV 1/2 4TH GEN, RFLX [id number] 05:57:02 Test Item Value Reference Range Interpretation Comments HIV 1/2 4TH GEN, RFLX CONF (test NON-REACTIVE NON-REACTIVE code = 3514) HEPATITIS PANEL, [id number] 05:57:02 Test Item Value Reference Range Interpretation Comments HEPATITIS A IgM (test NON-REACTIVE NON-REACTIVE code = 69763) HEPATITIS B CORE IgM NON-REACTIVE NON-REACTIVE (test code = 4644) HEPATITIS B SURF AG NON-REACTIVE NON-REACTIVE (test code = 2739) HEPATITIS C ANTIBODY NON-REACTIVE NON-REACTIVE (test code = 4675) INTERPRETATION (NOTE) Hepatitis A HEPATITIS A: (test code sero logy shows no = 2552) evidence of acu te hepatitis A. INTERPRETATION (NOTE) Hepatitis B HEPATITIS B: (test code sero logy shows no = 54542) evidence of acu te hepatitis B and no indication of exposure to hepatitis B vir us in the previous mulu eight months. INTERPRETATION (NOTE) Hepatitis C HEPATITIS C: (test code sero logy shows no = 72483) evidence of exposure to hepatitisC viru s at this time. I t can take up to 12 months after exposure tothe hepatitis C vir us for antibodies to become detectab le in the blood in certain patient s. ALBUMIN/CREATININE RATIO, URINE, [id number] 05:09:25 Test Item Value Reference Range Interpretation Comments CREATININE, URINE, 139.6 MG/DL NOT ESTAB Referenc e interval for CONC. (test code = random ur ine samples has 2071) not been establ ished. ALBUMIN, URINE, 0.9 MG/DL Note: Test name is RANDOM (test code changed to Urine Albumin = 91807) from [employer] in in accordance with ADA and NKF Guidelines, and Albumin/Creatin ine ratio reference inter zenaida reflects those Guidelines. Jacey lytic methodology is unchanged. No r eference interval for Ra ndom Urine Albumin i s available. CALC 6 MG/G <30 UNLESS OTHERWI SE ALBUMIN/CREAT, RND INDICATED , ALL TESTING (test code = PERFORMED ATCLI NICAL 78253) PATHOLOGY LABOR [employer] [address] [facility], [place] [address] LABORATORY DIRE CTOR: SUREKHA GALLARDO M.D. CLIA NUMBER [id number] [facility] [id number] HEMOGLOBIN [id number] 04:59:20 Test Item Value Reference Range Interpretation Comments HEMOGLOBIN A1c (test 7.2 % 4.2-5.6 H AMERIC AN DIABETES code = 32596) ASSOCIATION IDELINES FOR HGB A1C: PREDIABETES/INC REASED RISK . . . . . . . 5.7 -6.4% DIAGNOSIS OF DI ABETES . . . . . . . . . >=6 .5% WITH CONFIRMATION OR APPROPRIATE SYMPTOMS NOTE: ASSAY MAY BE AFFECTED BY HEMOGLOBINOPATH IES (SICKLE CELL ANEMIA, S- C DISEASE, OTHERS) OR ELIN FICIALLY LOWERED BY DECR EASED RED CELL SURVIVAL ( HEMOLYTIC ANEMIAS, BLOOD LOSS, ETC.). CONSIDER ALTERN ATE TESTING OR LABORATORY C ONSULTATION. CBC W/AUTO DIFF WITH [id number] 04:45:05 Test Item Value Reference Range Interpretation Comments WBC (test code = 7.7 K/UL 3.5-11.0 1001) RBC (test code = 4.83 M/UL 3.80-5.40 1002) HEMOGLOBIN (test code 14.1 G/DL 11.5-15.5 = 1003) HEMATOCRIT (test code 41.3 % 34.0-45.0 = 1004) MCV (test code = 85.5 fL 80.0-99.0 1005) MCH (test code = 29.2 PG 25.0-33.0 1006) MCHC (test code = 34.1 G/DL 31.0-36.0 1007) RDW (test code = 12.4 % 11.5-15.0 1038) NEUTROPHILS (test 61.8 % NOTE: EFF ECTIVE code = 1008) 06/18/2021, REFERENCE INTER VALS AND FLAGGING FORRELATIVE (%) WBC DIFFERENTIAL WI LL BE ELIMINATED REDUNDANT TOABS OLUTE COUNTS.SEE [email or web address] [email or web address] _upda te LYMPHOCYTES (test 27.2 % code = 1010) MONOCYTES (test code 8.2 % = 1011) EOSINOPHILS (test 2.0 % code = 1012) BASOPHILS (test code 0.5 % = 1013) IMMATURE GRANYLOCYTES 0.3 % (test code = 1036) NUCLEATED RBCS (test 0.0 /100 See_Comment [Autom ated message] code = 1065) WBC'S The system [employer] generated this result transmit luci reference range : 0.0. The refere nce range was not u sed to interpret th is result as normal/abnormal . PLATELET COUNT (test 325 K/UL 130-400 code = 1015) ABSOLUTE NEUTROPHILS 4.76 K/UL 1.50-7.50 (test code = 1066) ABSOLUTE LYMPHOCYTES 2.09 K/UL 1.00-4.00 (test code = 1067) ABSOLUTE MONOCYTES 0.63 K/UL 0.20-1.00 (test code = 1068) ABSOLUTE EOSINOPHILS 0.15 K/UL 0.00-0.50 (test code = 1040) ABSOLUTE BASOPHILS 0.04 K/UL 0.00-0.20 (test code = 1069) ABS IMMATURE 0.02 K/UL 0.00-0.10 GRANULOCYTES (test code = 1020) ABS NUCLEATED RBCS 0.00 K/UL 0.00-0.11 (test code = 48343) CBC W/AUTO [id number] 00:00:00 Test Item Value Reference Range Interpretation Comments WBC (test code = 1001) 7.7 K/UL RBC (test code = 1002) 4.83 M/UL HEMOGLOBIN (test code = 1003) 14.1 G/DL HEMATOCRIT (test code = 1004) 41.3 % MCV (test code = 1005) 85.5 fL MCH (test code = 1006) 29.2 PG MCHC (test code = 1007) 34.1 G/DL RDW (test code = 1038) 12.4 % NEUTROPHILS (test code = 1008) 61.8 % LYMPHOCYTES (test code = 1010) 27.2 % MONOCYTES (test code = 1011) 8.2 % EOSINOPHILS (test code = 1012) 2.0 % BASOPHILS (test code = 1013) 0.5 % IMMATURE GRANYLOCYTES (test 0.3 % code = 1036) NUCLEATED RBCS (test code = 0.0 /100WBC'S 1065) PLATELET COUNT (test code = 325 K/UL 1015) ABSOLUTE NEUTROPHILS (test code 4.76 K/UL = 1066) ABSOLUTE LYMPHOCYTES (test code 2.09 K/UL = 1067) ABSOLUTE MONOCYTES (test code = 0.63 K/UL 1068) ABSOLUTE EOSINOPHILS (test code 0.15 K/UL = 1040) ABSOLUTE BASOPHILS (test code = 0.04 K/UL 1069) ABS IMMATURE GRANULOCYTES (test 0.02 K/UL code = 1020) ABS NUCLEATED RBCS (test code = 0.00 K/UL 97134) CBC W/AUTO [id number] 00:00:00 Test Item Value Reference Range Interpretation Comments WBC (test code = 1001) 7.7 K/UL RBC (test code = 1002) 4.83 M/UL HEMOGLOBIN (test code = 1003) 14.1 G/DL HEMATOCRIT (test code = 1004) 41.3 % MCV (test code = 1005) 85.5 fL MCH (test code = 1006) 29.2 PG MCHC (test code = 1007) 34.1 G/DL RDW (test code = 1038) 12.4 % NEUTROPHILS (test code = 1008) 61.8 % LYMPHOCYTES (test code = 1010) 27.2 % MONOCYTES (test code = 1011) 8.2 % EOSINOPHILS (test code = 1012) 2.0 % BASOPHILS (test code = 1013) 0.5 % IMMATURE GRANYLOCYTES (test 0.3 % code = 1036) NUCLEATED RBCS (test code = 0.0 /100WBC'S 1065) PLATELET COUNT (test code = 325 K/UL 1015) ABSOLUTE NEUTROPHILS (test code 4.76 K/UL = 1066) ABSOLUTE LYMPHOCYTES (test code 2.09 K/UL = 1067) ABSOLUTE MONOCYTES (test code = 0.63 K/UL 1068) ABSOLUTE EOSINOPHILS (test code 0.15 K/UL = 1040) ABSOLUTE BASOPHILS (test code = 0.04 K/UL 1069) ABS IMMATURE GRANULOCYTES (test 0.02 K/UL code = 1020) ABS NUCLEATED RBCS (test code = 0.00 K/UL 04014) HEMOGLOBIN [id number] 00:00:00 Test Item Value Reference Range Interpretation Comments HEMOGLOBIN A1c (test code = 13512) 7.2 % HEMOGLOBIN [id number] 00:00:00 Test Item Value Reference Range Interpretation Comments HEMOGLOBIN A1c (test code = 25579) 7.2 % LIPID [id number] 00:00:00 Test Item Value Reference Range Interpretation Comments CHOLESTEROL (test code = 2210) 210 MG/DL TRIGLYCERIDES (test code = 2232) 400 MG/DL HDL CHOLESTEROL (test code = 31 MG/DL 0) CALC LDL CHOL (test code = 2237) (NOTE) MG/DL RISK RATIO LDL/HDL (test code = 4.19 RATIO 2238) COMPREHENSIVE METABOLIC [id number] 00:00:00 Test Item Value Reference Range Interpretation Comments GLUCOSE (test code = 2217) 117 MG/DL BUN (test code = 2208) 12 MG/DL CREATININE (test code = 2214) 0.79 MG/DL eGFR (2020 CKD-EPI) (test code 91 ML/MIN/1.73 = 62509) CALC BUN/CREAT (test code = 15 RATIO 2235) SODIUM (test code = 2231) 138 MEQ/L POTASSIUM (test code = 2228) 3.7 MEQ/L CHLORIDE (test code = 2215) 101 MEQ/L CARBON DIOXIDE (test code = 22 MEQ/L 2205) CALCIUM (test code = 2209) 9.6 MG/DL PROTEIN, TOTAL (test code = 7.7 G/DL 2228) ALBUMIN (test code = 2201) 4.5 G/DL CALC GLOBULIN (test code = 3.2 G/DL 0) CALC A/G RATIO (test code = 1.4 RATIO 4) BILIRUBIN, TOTAL (test code = 0.3 MG/DL 2206) ALKALINE PHOSPHATASE (test 88 U/L code = 2204) AST (test code = 2218) 96 U/L ALT (test code = 2219) 79 U/L [id number] 00:00:00 Test Item Value Reference Range Interpretation Comments TSH, THIRD GENERATION (test code 2.250 UIU/ML = 2821) [id number] 00:00:00 Test Item Value Reference Range Interpretation Comments TSH, THIRD GENERATION (test code 2.250 UIU/ML = 2821) VITAMIN D, 25 [id number] 00:00:00 Test Item Value Reference Range Interpretation Comments VITAMIN D, 25 OH (test code = 4958) 17 NG/ML HIV AB/AG COMBO RFLX [id number] 00:00:00 Test Item Value Reference Range Interpretation Comments HIV 1/2 4TH GEN, RFLX CONF (test NON-REACTIVE code = 3514) ACUTE HEPATITIS [id number] 00:00:00 Test Item Value Reference Range Interpretation Comments HEPATITIS A IgM (test code = NON-REACTIVE 83615) HEPATITIS B CORE IgM (test code NON-REACTIVE = 4644) HEPATITIS B SURF AG (test code = NON-REACTIVE 9249) HEPATITIS C ANTIBODY (test code NON-REACTIVE = 4636) INTERPRETATION HEPATITIS A: (NOTE) (test code = 2552) INTERPRETATION HEPATITIS B: (NOTE) (test code = 94653) INTERPRETATION HEPATITIS C: (NOTE) (test code = 17608) MICROALBUMIN/CREATININE, RANDOM AND [id number] 00:00:00 Test Item Value Reference Range Interpretation Comments CREATININE, URINE, CONC. (test 139.6 MG/DL code = 2072) ALBUMIN, URINE, RANDOM (test code 0.9 MG/DL = 92901) CALC ALBUMIN/CREAT, RND (test 6 MG/G code = 75548) CBC W/AUTO [id number] 00:00:00 Test Item Value Reference Range Interpretation Comments WBC (test code = 1001) 7.2 K/UL RBC (test code = 1002) 4.60 M/UL HEMOGLOBIN (test code = 1003) 12.8 G/DL HEMATOCRIT (test code = 1004) 39.1 % MCV (test code = 1005) 85.0 fL MCH (test code = 1006) 27.8 PG MCHC (test code = 1007) 32.7 G/DL RDW (test code = 1038) 15.5 % NEUTROPHILS (test code = 1008) 64.8 % LYMPHOCYTES (test code = 1010) 23.7 % MONOCYTES (test code = 1011) 7.9 % EOSINOPHILS (test code = 1012) 1.5 % BASOPHILS (test code = 1013) 0.6 % IMMATURE GRANULOCYTES (test 1.5 % code = 1036) NUCLEATED RBCS (test code = 0.0 /100WBC'S 1065) PLATELET COUNT (test code = 212 K/UL 1015) ABSOLUTE NEUTROPHILS (test code 4.65 K/UL = 1066) ABSOLUTE LYMPHOCYTES (test code 1.70 K/UL = 1067) ABSOLUTE MONOCYTES (test code = 0.57 K/UL 1068) ABSOLUTE EOSINOPHILS (test code 0.11 K/UL = 1040) ABSOLUTE BASOPHILS (test code = 0.04 K/UL 1069) ABS IMMATURE GRANULOCYTES (test 0.11 K/UL code = 1020) ABS NUCLEATED RBCS (test code = 0.00 K/UL 87902) CBC W/AUTO [id number] 00:00:00 Test Item Value Reference Range Interpretation Comments WBC (test code = 1001) 7.2 K/UL RBC (test code = 1002) 4.60 M/UL HEMOGLOBIN (test code = 1003) 12.8 G/DL HEMATOCRIT (test code = 1004) 39.1 % MCV (test code = 1005) 85.0 fL MCH (test code = 1006) 27.8 PG MCHC (test code = 1007) 32.7 G/DL RDW (test code = 1038) 15.5 % NEUTROPHILS (test code = 1008) 64.8 % LYMPHOCYTES (test code = 1010) 23.7 % MONOCYTES (test code = 1011) 7.9 % EOSINOPHILS (test code = 1012) 1.5 % BASOPHILS (test code = 1013) 0.6 % IMMATURE GRANULOCYTES (test 1.5 % code = 1036) NUCLEATED RBCS (test code = 0.0 /100WBC'S 1065) PLATELET COUNT (test code = 212 K/UL 1015) ABSOLUTE NEUTROPHILS (test code 4.65 K/UL = 1066) ABSOLUTE LYMPHOCYTES (test code 1.70 K/UL = 1067) ABSOLUTE MONOCYTES (test code = 0.57 K/UL 1068) ABSOLUTE EOSINOPHILS (test code 0.11 K/UL = 1040) ABSOLUTE BASOPHILS (test code = 0.04 K/UL 1069) ABS IMMATURE GRANULOCYTES (test 0.11 K/UL code = 1020) ABS NUCLEATED RBCS (test code = 0.00 K/UL 50943) HEMOGLOBIN [id number] 00:00:00 Test Item Value Reference Range Interpretation Comments HEMOGLOBIN A1c (test code = 31036) 8.6 % HEMOGLOBIN [id number] 00:00:00 Test Item Value Reference Range Interpretation Comments HEMOGLOBIN A1c (test code = 44663) 8.6 % COMPREHENSIVE METABOLIC [id number] 00:00:00 Test Item Value Reference Range Interpretation Comments GLUCOSE (test code = 2217) 156 MG/DL BUN (test code = 2208) 12 MG/DL CREATININE (test code = 2214) 0.65 MG/DL eGFR AMER. (test code 120 ML/MIN/1.73 = 25828) eGFR NON- AMER. (test 104 ML/MIN/1.73 code = 40084) CALC BUN/CREAT (test code = 18 RATIO 2235) SODIUM (test code = 2231) 139 MEQ/L POTASSIUM (test code = 2228) 3.4 MEQ/L CHLORIDE (test code = 2215) 104 MEQ/L CARBON DIOXIDE (test code = 24 MEQ/L 2205) CALCIUM (test code = 2209) 8.8 MG/DL PROTEIN, TOTAL (test code = 6.2 G/DL 2228) ALBUMIN (test code = 2201) 4.0 G/DL CALC GLOBULIN (test code = 2.2 G/DL 2239) CALC A/G RATIO (test code = 1.8 RATIO 2233) BILIRUBIN, TOTAL (test code = 0.6 MG/DL 2206) ALKALINE PHOSPHATASE (test 69 U/L code = 2204) AST (test code = 2218) 30 U/L ALT (test code = 2219) 41 U/L CBC W/AUTO [id number] 00:00:00 Test Item Value Reference Range Interpretation Comments WBC (test code = 1001) 5.1 K/UL RBC (test code = 1002) 4.54 M/UL HEMOGLOBIN (test code = 1003) 12.8 G/DL HEMATOCRIT (test code = 1004) 37.9 % MCV (test code = 1005) 83.5 fL MCH (test code = 1006) 28.2 PG MCHC (test code = 1007) 33.8 G/DL RDW (test code = 1038) 13.4 % NEUTROPHILS (test code = 1008) 62.8 % LYMPHOCYTES (test code = 1010) 27.7 % MONOCYTES (test code = 1011) 7.1 % EOSINOPHILS (test code = 1012) 1.4 % BASOPHILS (test code = 1013) 0.4 % IMMATURE GRANULOCYTES (test 0.6 % code = 1036) NUCLEATED RBCS (test code = 0.0 /100WBC'S 1065) PLATELET COUNT (test code = 278 K/UL 1015) ABSOLUTE NEUTROPHILS (test code 3.17 K/UL = 1066) ABSOLUTE LYMPHOCYTES (test code 1.40 K/UL = 1067) ABSOLUTE MONOCYTES (test code = 0.36 K/UL 1068) ABSOLUTE EOSINOPHILS (test code 0.07 K/UL = 1040) ABSOLUTE BASOPHILS (test code = 0.02 K/UL 1069) ABS IMMATURE GRANULOCYTES (test 0.03 K/UL code = 1020) ABS NUCLEATED RBCS (test code = 0.00 K/UL 03105) CBC W/AUTO [id number] 00:00:00 Test Item Value Reference Range Interpretation Comments WBC (test code = 1001) 5.1 K/UL RBC (test code = 1002) 4.54 M/UL HEMOGLOBIN (test code = 1003) 12.8 G/DL HEMATOCRIT (test code = 1004) 37.9 % MCV (test code = 1005) 83.5 fL MCH (test code = 1006) 28.2 PG MCHC (test code = 1007) 33.8 G/DL RDW (test code = 1038) 13.4 % NEUTROPHILS (test code = 1008) 62.8 % LYMPHOCYTES (test code = 1010) 27.7 % MONOCYTES (test code = 1011) 7.1 % EOSINOPHILS (test code = 1012) 1.4 % BASOPHILS (test code = 1013) 0.4 % IMMATURE GRANULOCYTES (test 0.6 % code = 1036) NUCLEATED RBCS (test code = 0.0 /100WBC'S 1065) PLATELET COUNT (test code = 278 K/UL 1015) ABSOLUTE NEUTROPHILS (test code 3.17 K/UL = 1066) ABSOLUTE LYMPHOCYTES (test code 1.40 K/UL = 1067) ABSOLUTE MONOCYTES (test code = 0.36 K/UL 1068) ABSOLUTE EOSINOPHILS (test code 0.07 K/UL = 1040) ABSOLUTE BASOPHILS (test code = 0.02 K/UL 1069) ABS IMMATURE GRANULOCYTES (test 0.03 K/UL code = 1020) ABS NUCLEATED RBCS (test code = 0.00 K/UL 18729) HEMOGLOBIN [id number] 00:00:00 Test Item Value Reference Range Interpretation Comments HEMOGLOBIN A1c (test code = 96829) 8.1 % HEMOGLOBIN [id number] 00:00:00 Test Item Value Reference Range Interpretation Comments HEMOGLOBIN A1c (test code = 17383) 8.1 % LIPID [id number] 00:00:00 Test Item Value Reference Range Interpretation Comments CHOLESTEROL (test code = 2210) 151 MG/DL TRIGLYCERIDES (test code = 2232) 257 MG/DL HDL CHOLESTEROL (test code = 2220) 32 MG/DL CALC LDL CHOL (test code = 2237) 85 MG/DL RISK RATIO LDL/HDL (test code = 2.66 RATIO 2238) COMPREHENSIVE METABOLIC [id number] 00:00:00 Test Item Value Reference Range Interpretation Comments GLUCOSE (test code = 2217) 185 MG/DL BUN (test code = 2208) 13 MG/DL CREATININE (test code = 2214) 0.83 MG/DL eGFR AMER. (test code 96 ML/MIN/1.73 = 76108) eGFR NON- AMER. (test 83 ML/MIN/1.73 code = 96611) CALC BUN/CREAT (test code = 16 RATIO 2235) SODIUM (test code = 2231) 139 MEQ/L POTASSIUM (test code = 2228) 4.0 MEQ/L CHLORIDE (test code = 2215) 102 MEQ/L CARBON DIOXIDE (test code = 24 MEQ/L 2205) CALCIUM (test code = 2209) 8.8 MG/DL PROTEIN, TOTAL (test code = 7.2 G/DL 2228) ALBUMIN (test code = 2201) 4.3 G/DL CALC GLOBULIN (test code = 2.9 G/DL 2240) CALC A/G RATIO (test code = 1.5 RATIO 4) BILIRUBIN, TOTAL (test code = 0.4 MG/DL 2206) ALKALINE PHOSPHATASE (test 95 U/L code = 2204) AST (test code = 2218) 42 U/L ALT (test code = 2219) 42 U/L [id number] 00:00:00 Test Item Value Reference Range Interpretation Comments TSH, THIRD GENERATION (test code 2.080 UIU/ML = 2821) [id number] 00:00:00 Test Item Value Reference Range Interpretation Comments TSH, THIRD GENERATION (test code 2.080 UIU/ML = 2821) VITAMIN D, 25 [id number] 00:00:00 Test Item Value Reference Range Interpretation Comments VITAMIN D, 25 OH (test code = 4958) 9 NG/ML [id number] 00:00:00 Test Item Value Reference Range Interpretation Comments FERRITIN (test code = 2075) 132 NG/ML CBC W/AUTO [id number] 00:00:00 Test Item Value Reference Range Interpretation Comments WBC (test code = 1001) 7.9 K/UL RBC (test code = 1002) 4.70 M/UL HEMOGLOBIN (test code = 1003) 13.2 G/DL HEMATOCRIT (test code = 1004) 39.8 % MCV (test code = 1005) 84.7 fL MCH (test code = 1006) 28.1 PG MCHC (test code = 1007) 33.2 G/DL RDW (test code = 1038) 13.2 % NEUTROPHILS (test code = 1008) 68.6 % LYMPHOCYTES (test code = 1010) 23.4 % MONOCYTES (test code = 1011) 6.7 % EOSINOPHILS (test code = 1012) 0.9 % BASOPHILS (test code = 1013) 0.4 % PLATELET COUNT (test code = 1015) 307 K/UL CBC W/AUTO [id number] 00:00:00 Test Item Value Reference Range Interpretation Comments WBC (test code = 1001) 7.9 K/UL RBC (test code = 1002) 4.70 M/UL HEMOGLOBIN (test code = 1003) 13.2 G/DL HEMATOCRIT (test code = 1004) 39.8 % MCV (test code = 1005) 84.7 fL MCH (test code = 1006) 28.1 PG MCHC (test code = 1007) 33.2 G/DL RDW (test code = 1038) 13.2 % NEUTROPHILS (test code = 1008) 68.6 % LYMPHOCYTES (test code = 1010) 23.4 % MONOCYTES (test code = 1011) 6.7 % EOSINOPHILS (test code = 1012) 0.9 % BASOPHILS (test code = 1013) 0.4 % PLATELET COUNT (test code = 1015) 307 K/UL COMPREHENSIVE METABOLIC [id number] 00:00:00 Test Item Value Reference Range Interpretation Comments GLUCOSE (test code = 2217) 117 MG/DL BUN (test code = 2208) 14 MG/DL CREATININE (test code = 2214) 0.88 MG/DL eGFR AMER. (test code 89 ML/MIN/1.73 = 09380) eGFR NON- AMER. (test 77 ML/MIN/1.73 code = 99733) CALC BUN/CREAT (test code = 16 RATIO 2235) SODIUM (test code = 2231) 140 MEQ/L POTASSIUM (test code = 2228) 4.0 MEQ/L CHLORIDE (test code = 2215) 102 MEQ/L CARBON DIOXIDE (test code = 26 MEQ/L 2205) CALCIUM (test code = 2209) 9.4 MG/DL PROTEIN, TOTAL (test code = 7.6 G/DL 2228) ALBUMIN (test code = 2201) 4.7 G/DL CALC GLOBULIN (test code = 2.9 G/DL 2240) CALC A/G RATIO (test code = 1.6 RATIO 2234) BILIRUBIN, TOTAL (test code = 0.3 MG/DL 2206) ALKALINE PHOSPHATASE (test 81 U/L code = 2204) AST (test code = 2218) 47 U/L ALT (test code = 2219) 46 U/L COMPREHENSIVE METABOLIC [id number] 00:00:00 Test Item Value Reference Range Interpretation Comments GLUCOSE (test code = 2217) 134 MG/DL BUN (test code = 2208) 10 MG/DL CREATININE (test code = 2214) 0.91 MG/DL eGFR AMER. (test code 86 ML/MIN/1.73 = 01260) eGFR NON- AMER. (test 75 ML/MIN/1.73 code = 91556) CALC BUN/CREAT (test code = 11 RATIO 2235) SODIUM (test code = 2231) 140 MEQ/L POTASSIUM (test code = 2228) 4.2 MEQ/L CHLORIDE (test code = 2215) 102 MEQ/L CARBON DIOXIDE (test code = 24 MEQ/L 2205) CALCIUM (test code = 2209) 9.1 MG/DL PROTEIN, TOTAL (test code = 7.4 G/DL 2228) ALBUMIN (test code = 2201) 4.5 G/DL CALC GLOBULIN (test code = 2.9 G/DL 2240) CALC A/G RATIO (test code = 1.6 RATIO 2234) BILIRUBIN, TOTAL (test code = 0.5 MG/DL 2206) ALKALINE PHOSPHATASE (test 78 U/L code = 2204) AST (test code = 2218) 64 U/L ALT (test code = 2219) 50 U/L LIPID [id number] 00:00:00 Test Item Value Reference Range Interpretation Comments CHOLESTEROL (test code = 2210) 167 MG/DL TRIGLYCERIDES (test code = 2232) 223 MG/DL HDL CHOLESTEROL (test code = 2220) 33 MG/DL CALC LDL CHOL (test code = 2237) 100 MG/DL RISK RATIO LDL/HDL (test code = 3.03 RATIO 2238) CBC W/AUTO [id number] 00:00:00 Test Item Value Reference Range Interpretation Comments WBC (test code = 1001) 6.2 K/UL RBC (test code = 1002) 4.66 M/UL HEMOGLOBIN (test code = 1003) 13.3 G/DL HEMATOCRIT (test code = 1004) 39.4 % MCV (test code = 1005) 84.5 fL MCH (test code = 1006) 28.5 PG MCHC (test code = 1007) 33.8 G/DL RDW (test code = 1038) 13.6 % NEUTROPHILS (test code = 1008) 66.0 % LYMPHOCYTES (test code = 1010) 26.3 % MONOCYTES (test code = 1011) 6.1 % EOSINOPHILS (test code = 1012) 1.0 % BASOPHILS (test code = 1013) 0.6 % PLATELET COUNT (test code = 1015) 313 K/UL CBC W/AUTO [id number] 00:00:00 Test Item Value Reference Range Interpretation Comments WBC (test code = 1001) 6.2 K/UL RBC (test code = 1002) 4.66 M/UL HEMOGLOBIN (test code = 1003) 13.3 G/DL HEMATOCRIT (test code = 1004) 39.4 % MCV (test code = 1005) 84.5 fL MCH (test code = 1006) 28.5 PG MCHC (test code = 1007) 33.8 G/DL RDW (test code = 1038) 13.6 % NEUTROPHILS (test code = 1008) 66.0 % LYMPHOCYTES (test code = 1010) 26.3 % MONOCYTES (test code = 1011) 6.1 % EOSINOPHILS (test code = 1012) 1.0 % BASOPHILS (test code = 1013) 0.6 % PLATELET COUNT (test code = 1015) 313 K/UL HEMOGLOBIN [id number] 00:00:00 Test Item Value Reference Range Interpretation Comments HEMOGLOBIN A1c (test code = 94090) 7.3 % HEMOGLOBIN [id number] 00:00:00 Test Item Value Reference Range Interpretation Comments HEMOGLOBIN A1c (test code = 38526) 7.3 % [id number] 00:00:00 Test Item Value Reference Range Interpretation Comments TSH, THIRD GENERATION (test code 2.260 UIU/ML = 2821) [id number] 00:00:00 Test Item Value Reference Range Interpretation Comments TSH, THIRD GENERATION (test code 2.260 UIU/ML = 2821) VITAMIN D, 25 [id number] 00:00:00 Test Item Value Reference Range Interpretation Comments VITAMIN D, 25 OH (test code = 4958) 8 NG/ML [id number] 00:00:00 Test Item Value Reference Range Interpretation Comments FERRITIN (test code = 2075) 191 NG/ML IRON BINDING CAPACITY AND IRON AND % [id number] 00:00:00 Test Item Value Reference Range Interpretation Comments IRON, SERUM (test code = 2222) 63 UG/DL UNSATURATED IBC (test code = 64913) 261 UG/DL CALC TOTAL IBC (test code = 2077) 324 UG/DL CALC % IRON SAT (test code = 2079) 19 % RETICULOCYTE [id number] 00:00:00 Test Item Value Reference Range Interpretation Comments RETICULOCYTE COUNT (test code = 1018) 2.8 % RETICULOCYTE [id number] 00:00:00 Test Item Value Reference Range Interpretation Comments RETICULOCYTE COUNT (test code = 1018) 2.8 % PAP TEST, THINPREP, [id number] 00:00:00 Test Item Value Reference Range Interpretation Comments SOURCE: (test code = 8001) Cervical/Endocervi derek SLIDES: (test code = 8011) 1 LMP: (test code = 8021) 10/03/2019 SPECIMEN ADEQUACY: (test (NOTE) code = 15019) INTERPRETATION: (test code ASCUS/EPITH. = 41620) ABNORMALITY; SEE BELOW OTHER COMMENTS: (test code (NOTE) = 8081) SAW FILER: (test REZWAN code = 8101) REESE LOZOYA(ASCP)IA C PATHOLOGIST INTERPRETATION [employer] BY: (test code = 8122) D. LOCATION: (test code = (NOTE) 10761) CPT: (test code = 8140) (NOTE) HPV HIGH RISK WITH GENOTYPE, [id number] 00:00:00 Test Item Value Reference Range Interpretation Comments HPV HIGH RISK INTERP (test code = NEGATIVE 66566) HPV 16 (test code = 94233) NEGATIVE HPV 18 (test code = 06875) NEGATIVE HPV, HR, OTHER GENOTYPES (test code NEGATIVE = 49043) URINE [id number] 10:05:00 Test Item Value Reference Range Interpretation Comments CULTURE (BEAKER) (test >100,000 col/mL skin code = 1095) fredo URINALYSIS W/ [id number] 14:13:00 Test Item Value Reference Range Interpretation Comments COLOR (BEAKER) (test code = [place] 470) CLARITY (BEAKER) (test code = Hazy [...] 516) SOURCE(BEAKER) (test code = Urine, Voided 9157) [id number] 05:05:00 Test Item Value Reference Range Interpretation Comments PHOSPHORUS (BEAKER) (test code = 2.4 mg/dL 2.3-4.7 604) [id number] 05:05:00 Test Item Value Reference Range Interpretation Comments MAGNESIUM (BEAKER) (test code = 2.1 mg/dL 1.6-2.6 627) BASIC METABOLIC [id number] 05:05:00 Test Item Value Reference Range Interpretation [...] APPLICABLE FOR DIALYSIS PATIEN TS. HEPATIC FUNCTION [id number] 05:05:00 Test Item Value Reference Range Interpretation [...] code = 32 U/L 6-55 347) PROTHROMBIN [id number] 04:57:00 Test Item Value Reference Range Interpretation Comments PROTIME (BEAKER) (test code = 14.4 seconds 11.7-14.7 759) INR (BEAKER) (test code = 370) 1.1 <=5.9 RECOMMENDED COUMADIN/WARFARIN INR THERAPY RANGESSTANDARD DOSE: 2.0 - 3.0 Includes: PROPHYLAXIS for venous thrombosis, systemic embolization; TREATMENT for venous thrombosis and/or pulmonary embolus.HIGH RISK: Target INR is 2.5-3.5 for patients with mechanical heart valves.CBC W/PLT COUNT & AUTO [id number] 04:44:00 Test Item Value Reference Range Interpretation [...] % 0-1 PERCENT (BEAKER) (test code = 2801) COMPREHENSIVE METABOLIC [id number] 00:00:00 Test Item Value Reference Range Interpretation Comments GLUCOSE (test code = 2217) 102 MG/DL BUN (test code = 2208) 8 MG/DL CREATININE (test code = 2214) 0.65 MG/DL eGFR AMER. (test code 125 ML/MIN/1.73 = 96743) eGFR NON- AMER. (test 108 ML/MIN/1.73 code = 07255) CALCULATED BUN/CREAT (test 12 RATIO code = 2235) SODIUM (test code = 2231) 140 MEQ/L POTASSIUM (test code = 2228) 3.9 MEQ/L CHLORIDE (test code = 2215) 105 MEQ/L CARBON DIOXIDE (test code = 24 MEQ/L 220) CALCIUM (test code = 2209) 8.5 MG/DL PROTEIN, TOTAL (test code = 6.3 G/DL 2228) ALBUMIN (test code = 2201) 3.7 G/DL CALCULATED GLOBULIN (test 2.6 G/DL code = 2240) CALCULATED A/G RATIO (test 1.4 RATIO code = 2234) BILIRUBIN, TOTAL (test code = 0.3 MG/DL 2206) ALKALINE PHOSPHATASE (test 68 U/L code = 2204) SGOT (AST) (test code = 2218) 27 U/L SGPT (ALT) (test code = 2219) 29 U/L LIPID [id number] 00:00:00 Test Item Value Reference Range Interpretation Comments CHOLESTEROL (test code = 2210) 147 MG/DL TRIGLYCERIDES (test code = 2232) 167 MG/DL HDL CHOLESTEROL (test code = 2220) 32 MG/DL CALCULATED LDL CHOL (test code = 82 MG/DL 2236) RISK RATIO LDL/HDL (test code = 2.55 RATIO 2238) CBC W/AUTO [id number] 00:00:00 Test Item Value Reference Range Interpretation Comments WBC (test code = 1001) 4.9 K/UL RBC (test code = 1002) 4.32 M/UL HEMOGLOBIN (test code = 1003) 12.0 G/DL HEMATOCRIT (test code = 1004) 36.8 % MCV (test code = 1005) 85.2 fL MCH (test code = 1006) 27.8 PG MCHC (test code = 1007) 32.6 G/DL RDW (test code = 1038) 13.9 % NEUTROPHILS (test code = 1008) 58 % LYMPHOCYTES (test code = 1010) 32 % MONOCYTES (test code = 1011) 8 % EOSINOPHILS (test code = 1012) 2 % BASOPHILS (test code = 1013) % PLATELET COUNT (test code = 1015) 291 K/UL CBC W/AUTO [id number] 00:00:00 Test Item Value Reference Range Interpretation Comments WBC (test code = 1001) 4.9 K/UL RBC (test code = 1002) 4.32 M/UL HEMOGLOBIN (test code = 1003) 12.0 G/DL HEMATOCRIT (test code = 1004) 36.8 % MCV (test code = 1005) 85.2 fL MCH (test code = 1006) 27.8 PG MCHC (test code = 1007) 32.6 G/DL RDW (test code = 1038) 13.9 % NEUTROPHILS (test code = 1008) 58 % LYMPHOCYTES (test code = 1010) 32 % MONOCYTES (test code = 1011) 8 % EOSINOPHILS (test code = 1012) 2 % BASOPHILS (test code = 1013) % PLATELET COUNT (test code = 1015) 291 K/UL HEMOGLOBIN [id number] 00:00:00 Test Item Value Reference Range Interpretation Comments HEMOGLOBIN A1c (test code = 87383) 6.3 % HEMOGLOBIN [id number] 00:00:00 Test Item Value Reference Range Interpretation Comments HEMOGLOBIN A1c (test code = 63022) 6.3 % [id number] 00:00:00 Test Item Value Reference Range Interpretation Comments TSH (test code = 2821) 2.2 UIU/ML [id number] 00:00:00 Test Item Value Reference Range Interpretation Comments TSH (test code = 2821) 2.2 UIU/ML
[2022-05-19] MEDS ORDERED: ONDANSETRON 4 MG/2 ML VIAL ONE (08:33)
[2022-05-19 08:58] LABS: Absolute Lymphocytes (CBC) 1.1 K/uL (0.7-4.9); Hematocrit 43.3 % (36.0-45.0); Lymphocytes % 17.7 % (15.3-44.8); MCV 85.7 fL (80-100); MPV 7.6 fL (7.6-11.3); RBC Red Blood Cell Count 5.05 M/uL (3.86-4.86)
[2022-05-19 09:10] LABS: Albumin 3.8 g/dL (3.4-5.0); Bilirubin Total 0.6 mg/dL (0.2-1.0); Potassium 3.8 mmol/L (3.5-5.1); Protein, Total 7.7 g/dL (6.4-8.2)
[2022-05-19] MEDS ORDERED: MORPHINE 2 MG/ML SYR ONE ×2 (09:21→11:16)
[2022-05-19] MEDS ORDERED: PROMETHAZINE INJ 25 MG/ML AMP ONE (09:25)
--- NOTE | 2022-05-19 09:56 | RAD REPORT ---
EXAM DESCRIPTION: CTAbdomen Pelvis W Contrast - 05/19/2022 9:45 am CLINICAL HISTORY: right sided abdominal pain, diarrhea COMPARISON: <Comparisons> TECHNIQUE: CT of the abdomen and pelvis was performed with IV contrast. All CT scans are performed using dose optimization technique as appropriate and may include automated exposure control or mA/KV adjustment according to patient size. FINDINGS: Lower chest: No acute abnormality. Mild circumferential thickened distal esophagus. Liver: No acute abnormality or suspicious lesions. Hepatic steatosis. Biliary: No biliary ductal dilatation. Stomach: No significant focal abnormality. Duodenum: No significant focal abnormality. Pancreas: No significant abnormality. Spleen: No significant abnormality. Adrenal: No suspicious lesions. Kidney/ureter: No hydronephrosis. No renal calculi. Right nephrectomy Retroperitoneum: No retroperitoneal adenopathy. Vascular: No aneurysm. Bowel: Wall thickening at the lower third of the rectum and soft tissue prominence at the anus is aga in identified.. Normal appendix. Peritoneum: No ascites or free air. Bladder: Grossly unremarkable. Reproductive: No adnexal masses. Bones: No acute fracture. Other: n/a IMPRESSION: No acute intra-abdominal or pelvic finding. As noted on the prior CT, soft tissue fullne ss in the lower third of the rectum and at the anus is nonspecific. Suggest clinical correlation. Nor mal appendix. Surgically absent right kidney.
[2022-05-19 11:02] LABS: Urine Blood Negative (Negative); Urine Glucose Negative (Negative); Urine Protein Negative (Negative)
--- NOTE | 2022-05-19 11:12 | EDPHYS ---
Physician Documentation [facility] Name: Elvia Dumont Age: 52 yrs Sex: Female : 1970 Arrival Date: 05/19/2022 Time: 08:15 Bed 8 Private MD: ED Physician Kemar Mendez HPI: 05/19 08:25 This 52 yrs old Female presents to ER via Ambulatory with complaints of jmm Abdominal Pain, Diarrhea, Nausea. 08:25 The patient presents with abdominal pain. Onset: The symptoms/episode began/occurred jmm gradually. The symptoms do not radiate. Associated signs and symptoms: Pertinent positives: diarrhea, nausea. The symptoms are described as achy. This is a 52 year old female with a history of kidney cancer, dm that presents to the ED with complaiints of diarrhea and right sided abdominal pain. patient states she has had similar symptoms chronically but the diarrhea is new. Denies fever.. Historical: - Allergies: 08:24 CEPHALOSPORINS; iw - Home Meds: 08:24 Glipizide Oral [Active]; iw - PMHx: 08:24 back problems; diabetes mellitus; stage 3 kidney cancer, right kidney removed; iw - PSHx: 08:24 polyps removed; nephrectomy; Cholecystectomy; uterine ablation; iw - Immunization history:: Adult Immunizations unknown. - Social history:: Smoking status: Patient denies any tobacco usage or history of. ROS: 08:25 Constitutional: Positive for body aches, chills. jmm 08:25 Abdomen/GI: Positive for abdominal pain, nausea, diarrhea. 08:25 All other systems are negative. Exam: 08:25 Constitutional: This is a well developed, well nourished patient who is awake, alert, jmm and in no acute distress. Head/Face: atraumatic. Eyes: EOMI, no conjunctival erythema appreciated ENT: Moist Mucus Membranes Neck: Trachea midline, Supple Chest/axilla: Normal chest wall appearance and motion. Cardiovascular: Regular rate and rhythm. No edema appreciated Respiratory: Normal respirations, no respiratory distress appreciated 08:25 Back: Normal ROM Skin: General appearance color normal MS/ Extremity: Moves all extremities, no obvious deformities appreciated, no edema noted to the lower extremities Neuro: Awake and alert Psych: Behavior is normal, Mood is normal, Patient is cooperative and pleasant 08:25 Abdomen/GI: Inspection: abdomen appears normal, Bowel sounds: normal, Palpation: soft, mild abdominal tenderness, in the right upper quadrant and right lower quadrant. Vital Signs: 08:22 BP 129 / 82; Pulse 87; Resp 16; Temp 97.6; Pulse Ox 98% on R/A; iw 09:35 BP 125 / 77; Pulse 84; Resp 18; Pulse Ox 98% on R/A; ph 11:03 BP 118 / 82; Pulse 76; Resp 18; Temp 97.0; Pulse Ox 98% on R/A; ph MDM: 08:25 Patient medically screened. [facility] 11:09 Data reviewed: vital signs, nurses notes. Counseling: I had a detailed discussion with [facility] the patient and/or guardian regarding: the historical points, exam findings, and any diagnostic results supporting the discharge/admit diagnosis, lab results, the need for outpatient follow up, to return to the emergency department if symptoms worsen or persist or if there are any questions or concerns that arise at home. ED course: Pain relieved in the ED. CT negative. Patient will follow up with her GI, Dr. Pearce for reevaluation. Patient otherwise given strict return precautions. Patient understood and agrees with the plan of care. . 05/19 08:26 Order name: CBC with Diff; Complete Time: 09:16 [facility] 05/19 08:26 Order name: CMP; Complete Time: 09:16 [facility] 05/19 08:26 Order name: Lipase; Complete Time: 09:16 [facility] 05/19 09:17 Order name: CT Abd/Pelvis - IV Contrast Only; Complete Time: 10:05 [facility] 05/19 11:02 Order name: Urine Dipstick-Ancillary; Complete Time: 11:05 [facility] 05/19 08:26 Order name: IV Saline Lock; Complete Time: 08:48 [facility] 05/19 08:26 Order name: Labs collected and sent; Complete Time: 08:48 [facility] 05/19 08:26 Order name: Urine Dipstick-Ancillary (obtain specimen); Complete Time: 11:02 [facility] 05/19 08:26 Order name: Urine Test (obtain specimen); Complete Time: 11:02 [facility] 05/19 10:06 Order name: Misc. Order: need urine for dispo; Complete Time: 11:02 jmm Administered Medications: 08:48 Drug: Zofran (Ondansetron) 4 mg Route: IVP; Site: right antecubital; ph 09:29 Follow up: Response: No adverse reaction; Nausea unchanged ph 09:22 Drug: morphine 2 mg Route: IVP; Infused Over: 4 mins; Site: right antecubital; ph 11:02 Follow up: Response: No adverse reaction ph 09:29 Drug: Promethazine 12.5 mg Route: IVP; Site: right antecubital; ph 11:02 Follow up: Response: No adverse reaction; Nausea is decreased ph 11:20 Drug: morphine 2 mg Route: IVP; Infused Over: 4 mins; Site: right antecubital; ph 11:45 Follow up: Response: No adverse reaction; Pain is decreased; RASS: Drowsy (-1) ph Disposition: 15:09 Co-signature as Attending Physician, Kemar Mendez MD. rn Disposition Summary: 05/19/22 11:11 Discharge Ordered Location: Home jm Condition: Stable jm Diagnosis - Abdominal pain, unspecified jmm - Diarrhea, unspecified jmm Followup: [facility] - With: Private Physician - When: 2 - 3 days - Reason: Recheck today's complaints, Continuance of care, Re-evaluation by your physician Discharge Instructions: - Discharge Summary Sheet jmm - Abdominal Pain, Adult jmm - Food Choices to Help Relieve Diarrhea, Adult jmm - Diarrhea, Adult jmm Forms: - Medication Reconciliation Form [facility] - Thank You Letter jmm - Antibiotic Education jmm - Prescription Opioid Use jm - Family Work Release Prescriptions: - ondansetron 4 mg Oral tablet,disintegrating - place 1 tablet by TRANSLINGUAL route every 4-6 hours As needed; 30 tablet; [facility] Refills: 0, Product Selection Permitted - dicyclomine 20 mg Oral Tablet - take 1 tablet by ORAL route 3 times per day As needed; 30 tablet; Refills: 0, [facility] Product Selection Permitted Signatures: Dispatcher [employer] Ean Alford PA PA jmm Williams, Irene, RN RN Kemar Mendez MD MD rn Hall, Patricia, RN RN
--- NOTE | 2022-05-19 11:12 | ER ---
Nurse's Notes [facility] Name: Elvia Dumont Age: 52 yrs Sex: Female : 1970 Arrival Date: 05/19/2022 Time: 08:15 Bed 8 Private MD: Diagnosis: Abdominal pain, unspecified;Diarrhea, unspecified Presentation: 05/19 08:22 Chief complaint: Patient states: right side pain, intermittent for a while, worse this iw week this morning I woke up feeling nauseous and diarrhea, hx of polyps on her colon and only has one kidney due to cancer. Coronavirus screen: At this time, the client does not indicate any symptoms associated with coronavirus-19. Ebola Screen: Patient negative for fever greater than or equal to 101.5 degrees Fahrenheit, and additional compatible Ebola Virus Disease symptoms Patient denies exposure to infectious person. Patient denies travel to an Ebola-affected area in the 21 days before illness onset. No symptoms or risks identified at this time. Initial Sepsis Screen: Does the patient meet any 2 criteria? No. Patient's initial sepsis screen is negative. Does the patient have a suspected source of infection? No. Patient's initial sepsis screen is negative. Risk Assessment: Do you want to hurt yourself or someone else? Patient reports no desire to harm self or others. Onset of symptoms was May 12, 2022. 08:22 Method Of Arrival: Ambulatory iw 08:22 Acuity: ASIA 3 iw Historical: - Allergies: 08:24 CEPHALOSPORINS; iw - Home Meds: 08:24 Glipizide Oral [Active]; iw - PMHx: 08:24 back problems; diabetes mellitus; stage 3 kidney cancer, right kidney removed; iw - PSHx: 08:24 polyps removed; nephrectomy; Cholecystectomy; uterine ablation; iw - Immunization history:: Adult Immunizations unknown. - Social history:: Smoking status: Patient denies any tobacco usage or history of. Screenin:33 Abuse screen: Denies threats or abuse. Denies injuries from another. Nutritional ph screening: No deficits noted. Tuberculosis screening: No symptoms or risk factors identified. Fall Risk None identified. Assessment: 09:34 General: Appears in no apparent distress. uncomfortable, Behavior is calm, cooperative, ph appropriate for age. Pain: Complains of pain in anterior aspect of right lateral abdomen. Neuro: Level of Consciousness is awake, alert, obeys commands, Oriented to person, place, time, situation. Cardiovascular: Capillary refill < 3 seconds in bilateral fingers Patient's skin is warm and dry. GI: Abdomen is round non-distended, Abd is soft X 4 quads Reports upper abdominal pain, diarrhea, nausea, Patient currently denies vomiting. : Reports pain in right flank(s), Denies burning with urination, urinary frequency. Derm: Skin is healthy with good turgor, Skin is pink, warm \T\ dry. Musculoskeletal: Circulation, motion, and sensation intact. Range of motion: intact in all extremities. 10:30 Reassessment: Patient appears in no apparent distress at this time. Patient and/or ph family updated on plan of care and expected duration. Pain level reassessed. Patient is alert, oriented x 3, equal unlabored respirations, skin warm/dry/pink. 12:00 Reassessment: Pt resting comfortably, d/c pending ride home from . ph Vital Signs: 08:22 BP 129 / 82; Pulse 87; Resp 16; Temp 97.6; Pulse Ox 98% on R/A; iw 09:35 BP 125 / 77; Pulse 84; Resp 18; Pulse Ox 98% on R/A; ph 11:03 BP 118 / 82; Pulse 76; Resp 18; Temp 97.0; Pulse Ox 98% on R/A; ph ED Course: 08:15 Patient arrived in ED. mr 08:19 Ean Bajwa PA is PHCP. jmm 08:19 Kemar Mendez MD is Attending Physician. jmm 08:24 Triage completed. iw 08:26 Arm band placed on. iw 08:29 Zaynab Coyne, LEO is Primary Nurse. ph 08:40 Initial lab(s) drawn, by ne, sent to lab. Inserted saline lock: 22 gauge in right ph antecubital area, using aseptic technique. Blood collected. 09:33 Patient has correct armband on for positive identification. Pulse ox on. NIBP on. ph 09:47 CT Abd/Pelvis - IV Contrast Only In Process Unspecified. EDMS 11:03 No provider procedures requiring assistance completed. ph 12:25 IV discontinued, intact, bleeding controlled, No redness/swelling at site. Pressure ph dressing applied. Administered Medications: 08:48 Drug: Zofran (Ondansetron) 4 mg Route: IVP; Site: right antecubital; ph 09:29 Follow up: Response: No adverse reaction; Nausea unchanged ph 09:22 Drug: morphine 2 mg Route: IVP; Infused Over: 4 mins; Site: right antecubital; ph 11:02 Follow up: Response: No adverse reaction ph 09:29 Drug: Promethazine 12.5 mg Route: IVP; Site: right antecubital; ph 11:02 Follow up: Response: No adverse reaction; Nausea is decreased ph 11:20 Drug: morphine 2 mg Route: IVP; Infused Over: 4 mins; Site: right antecubital; ph 11:45 Follow up: Response: No adverse reaction; Pain is decreased; RASS: Drowsy (-1) ph Medication: 09:33 VIS not applicable for this client. ph Outcome: 11:11 Discharge ordered by . real 12:29 Patient left the ED. iw 12:29 Discharged to home via wheelchair, with significant other. ph 12:29 Condition: good 12:29 Discharge instructions given to patient, Instructed on discharge instructions, follow up and referral plans. medication usage, Demonstrated understanding of instructions, follow-up care, medications, Prescriptions given X 2. Signatures: Dispatcher [employer] EDMS Ean Bajwa PA PA jmm Rivera, Mary mr Williams, Irene, RN LEO Zaynab Coyne RN RN
[2022-05-19 13:03] VITALS: O2SAT 98
[2022-05-19 13:10] VITALS: BP 118/82; TEMP 97
== END 2022-05-19 12:29 | disposition home or self-care (01) ==
LOC: ER 08:10
DX: R10.9 Unspecified abdominal pain (principal); R19.7 Diarrhea, unspecified
CPT/HCPCS: 85025; 36415; 81003; 83690; 80053; 74177; 96375; 96374; 99284; Q9967; J2550; J2270 ×2; J2405

== ENCOUNTER → 2023-07-15 | Emergency (ER) | payer OTHER, SELFPAY ==
[~2023-07-15] MED LIST: IBUPROFEN 400 MG TAB ONE; IPRATROPIUM BROM 0.5MG/2.5ML ONE; LEVALBUTEROL 1.25 MG/3 ML NEB ONE; levoFLOXacin 750 MG TAB ONE; predniSONE 20 MG TAB ONE
[2023-07-15 10:30] LABS: SARS-COV-2 RT PCR NEGATIVE (NEGATIVE)
--- NOTE | 2023-07-15 11:53 | RAD REPORT ---
EXAM DESCRIPTION: RAD - Chest Pa And Lat (2 Views) - 07/15/2023 11:47 am CLINICAL HISTORY: COUGH COMPARISON: Chest Single View dated 03/14/2021; Chest Single View dated 03/10/2021; Chest Single View dated 03/01/2021; Chest Single View dated 02/27/2021 FINDINGS: Lines: None. Lungs: Diffusely coarsened interstitium both overall improvement compared with 03/14/2021. Pleural: No significant pleural effusions or pneumothorax. Cardiac: The heart size is within normal limits. Mediastinum: Within normal limits. Bones: No acute fractures. Other: None IMPRESSION: Coarsened interstitium bilaterally is nonspecific and could reflect either an acute infe ctious or inflammatory process versus sequela of remote pneumonia. No consolidative airspace disease or edema.
[2023-07-15 12:29] LABS: Specific Gravity 1.029 (1.005-1.030); Urine Bacteria 20-50 /HPF (<20); Urine Bilirubin NEGATIVE (Negative); Urine Blood Negative (Negative); Urine Clarity Extremely Turbid (Clear); Urine Color Yellow (Yellow); Urine Glucose NEGATIVE (Negative); Urine Mucus 1+ /HPF (None Seen); Urine Protein 1+ (Negative); Urine RBC <5 /HPF (None Seen); Urine Urobilinogen 1+ (Normal)
--- NOTE | 2023-07-15 12:45 | EDPHYS ---
Physician Documentation [facility] Name: Elvia Dumont Age: 53 yrs Sex: Female : 1970 Arrival Date: 07/15/2023 Time: 09:29 Bed 13 Private MD: MELANIE Physician Matthew Thapa HPI: 07/15 11:36 This 53 yrs old Female presents to ER via Ambulatory with complaints of Flu jen Symptoms. 11:36 The patient or guardian reports airway noise, cough, flu symptoms. Onset: The jen symptoms/episode began/occurred 3 day(s) ago. Modifying factors: The symptoms are alleviated by remaining still, the symptoms are aggravated by activity. Severity of symptoms: At their worst the symptoms were mild, moderate, in the emergency department the symptoms are unchanged. Associated signs and symptoms: The patient has no apparent associated signs or symptoms. The patient reports fever, that was measured at 100.6 degrees Fahrenheit. Historical: - Allergies: 09:39 CEPHALOSPORINS; ld1 - PMHx: 09:39 back problems; diabetes mellitus; stage 3 kidney cancer; stage 3 kidney cancer; stage 3 ld1 kidney cancer; - PSHx: 09:39 Cholecystectomy; Nephrectomy; uterine ablation; polyps removed; ld1 - Immunization history:: Client reports receiving the 2nd dose of the Covid vaccine. - Social history:: Smoking status: Patient denies any tobacco usage or history of. Patient uses alcohol, occasionally. - Family history:: not pertinent. ROS: 11:36 Constitutional: Negative for fever, chills, and weight loss, Eyes: Negative for injury, jen pain, redness, and discharge, ENT: Negative for injury, pain, and discharge, Neck: Negative for injury, pain, and swelling, Cardiovascular: Negative for chest pain, palpitations, and edema, Abdomen/GI: Negative for abdominal pain, nausea, vomiting, diarrhea, and constipation, Back: Negative for injury and pain, : Negative for injury, bleeding, discharge, and swelling, MS/Extremity: Negative for injury and deformity, Skin: Negative for injury, rash, and discoloration, Neuro: Negative for headache, weakness, numbness, tingling, and seizure, Psych: Negative for depression, anxiety, suicide ideation, homicidal ideation, and hallucinations, Allergy/Immunology: Negative for hives, rash, and allergies, Endocrine: Negative for neck swelling, polydipsia, polyuria, polyphagia, and marked weight changes, Hematologic/Lymphatic: Negative for swollen nodes, abnormal bleeding, and unusual bruising, 11:36 Constitutional: Positive for chills, fatigue, fever, malaise, poor PO intake, 11:36 Respiratory: Positive for cough, "sounds productive", Exam: 11:38 Constitutional: This is a well developed, well nourished patient who is awake, alert, jen and in no acute distress. Head/Face: Normocephalic, atraumatic. Eyes: Pupils equal round and reactive to light, extra-ocular motions intact. Lids and lashes normal. Conjunctiva and sclera are non-icteric and not injected. Cornea within normal limits. Periorbital areas with no swelling, redness, or edema. ENT: Nares patent. No nasal discharge, no septal abnormalities noted. Tympanic membranes are normal and external auditory canals are clear. Oropharynx with no redness, swelling, or masses, exudates, or evidence of obstruction, uvula midline. Mucous membranes moist. Neck: Trachea midline, no thyromegaly or masses palpated, and no cervical lymphadenopathy. Supple, full range of motion without nuchal rigidity, or vertebral point tenderness. No Meningismus. Chest/axilla: Normal chest wall appearance and motion. Nontender with no deformity. No lesions are appreciated. Cardiovascular: Regular rate and rhythm with a normal S1 and S2. No gallops, murmurs, or rubs. Normal PMI, no JVD. No pulse deficits. Abdomen/GI: Soft, non-tender, with normal bowel sounds. No distension or tympany. No guarding or rebound. No evidence of tenderness throughout. Back: No spinal tenderness. No costovertebral tenderness. Full range of motion. Skin: Warm, dry with normal turgor. Normal color with no rashes, no lesions, and no evidence of cellulitis. MS/ Extremity: Pulses equal, no cyanosis. Neurovascular intact. Full, normal range of motion. Neuro: Awake and alert, GCS 15, oriented to person, place, time, and situation. Cranial nerves II-XII grossly intact. Motor strength 5/5 in all extremities. Sensory grossly intact. Cerebellar exam normal. Normal gait. Psych: Awake, alert, with orientation to person, place and time. Behavior, mood, and affect are within normal limits. 11:38 Respiratory: the patient does not display signs of respiratory distress, Respirations: normal, no acute changes, Breath sounds: rhonchi, that are mild, are scattered, stridor, is not appreciated, + upper airway congestion. Respiratory rate: 16 13:20 ECG was reviewed by the Attending Physician. [facility] Vital Signs: 09:45 Weight 90.72 kg; Height 4 ft. 8 in. ; ap3 09:49 BP 130 / 70; Pulse 84; Resp 16; Temp 100.6(O); Pulse Ox 95% on R/A; db 11:00 BP 113 / 72; Pulse 70; Resp 18; Pulse Ox 95% on R/A; db 12:00 BP 126 / 71; Pulse 72; Resp 16; Pulse Ox 95% on R/A; db 13:00 BP 103 / 65; Pulse 72; Resp 16; Pulse Ox 96% on R/A; db 09:45 Body Mass Index 44.84 (90.72 kg, 142.24 cm) ap3 MDM: 09:42 Patient medically screened. [facility] 11:38 Differential diagnosis: obstructed airway, bronchitis, flu, URI, viral Infection, jen bacterial infection, URI, bronchitis, pneumonia UTI. Antibiotic administration: The patient is discharged and will get outpatient antibiotics, Zithromax. Differential Diagnosis: Obstructed Airway Bronchitis Influenza Upper Respiratory Infection Sinusitis Pharyngitis Otitis Media Pneumonia. Data reviewed: vital signs, nurses notes, lab test result(s), radiologic studies, plain films. Consideration of Admission/Observation Escalation of care including admission/observation considered. I considered the following discharge prescriptions or medication management in the emergency department Medications were administered in the Emergency Department. See MAR. Independent interpretation of the following test(s) in the Emergency Department X-Ray: My interpretation is CXR. Test considered but Not performed: Labs: NO LABS. Care significantly affected by the following chronic conditions: Diabetes, Obesity, Cancer, Chronic Kidney Disease. Counseling: I had a detailed discussion with the patient and/or guardian regarding the historical points, exam findings, and any diagnostic results supporting the discharge/admit diagnosis, lab results, radiology results, the need for outpatient follow up, for definitive care, a family practitioner. 07/15 09:35 Order name: COVID-19/FLU A+B/RSV; Complete Time: 11:03 jen 07/15 11:41 Order name: Urinalysis w/ reflexes; Complete Time: 12:44 [facility] 07/15 11:04 Order name: Chest Pa And Lat (2 Views) XRAY; Complete Time: 12:04 [facility] 07/15 09:53 Order name: PO challenge; Complete Time: 09:59 [facility] EC:20 Rate is 82 beats/min. Rhythm is regular. QRS [place] is Normal. SD interval is normal. QRS jen interval is normal. QT interval is normal. No Q waves. T waves are Normal. No ST changes noted. Clinical impression: Normal ECG and No evidence of ischemia. Interpreted by me. Reviewed by me. Administered Medications: 09:55 Drug: Ibuprofen PO 800 mg PO once Route: PO; db 13:24 Follow up: Response: No adverse reaction db 12:34 Drug: Levalbuterol Inhalation 1.25 mg Inhalation once Route: Inhalation; db 13:24 Follow up: Response: No adverse reaction db 12:35 Drug: Ipratropium Inhalation Aerosol 0.5 mg Inhalation once Route: Inhalation; db 13:24 Follow up: Response: No adverse reaction db 12:35 Drug: LevOfloxacin PO 750 mg PO once Route: PO; db 13:24 Follow up: Response: No adverse reaction db 12:38 Drug: predniSONE PO 40 mg PO once Route: PO; db 13:24 Follow up: Response: No adverse reaction db Disposition Summary: 07/15/23 12:45 Discharge Ordered Notes: Location: Home jen Problem: new jen Symptoms: have improved jen Condition: Stable jen Diagnosis - Fever, unspecified jen - Acute upper respiratory infection, unspecified jen - Cough jen Followup: jen - With: Private Physician - When: 2 - 3 days - Reason: Recheck today's complaints, Continuance of care, Re-evaluation by your physician Discharge Instructions: - Discharge Summary Sheet jen - Fever, Adult jen - Cool Mist Vaporizer jen - Upper Respiratory Infection, Adult, [id number] jen - Cough, Adult, [id number] jen - Cough, Adult jen Forms: - Medication Reconciliation Form [facility] - Thank You Letter jen - Antibiotic Education jen - Prescription Opioid Use jen - Patient Portal Instructions [facility] - Leadership Thank You Letter [facility] Prescriptions: - albuterol sulfate 90 mcg/actuation Inhalation HFA Aerosol Inhaler - inhale 2 puff INHALATION route every 4 to 6 hours; 1 unit; Refills: 0, Product jen Selection Permitted - Medrol (Adal) 4 mg Oral Tablets, Dose Pack - take 1 tablet ORAL route as directed - follow package instructions; 1 packet; jen Refills: 0, Product Selection Permitted - levofloxacin 500 mg Oral tablet - take 1 tablet ORAL route once daily for 8-10 days; 9 tablet; Refills: 0, jen Product Selection Permitted Signatures: Dispatcher [employer] Matthew Thomas MD MD cha Prokisch, Amanda, RN RN ap3 Chanel Apodaca RN RN ld1 Jaimee Saldana RN RN db Corrections: (The following items were deleted from the chart) 09:39 09:39 PMHx: stage 3 kidney cancer, right kidney removed; ld1 ld1
--- NOTE | 2023-07-15 12:45 | ER ---
Nurse's Notes [facility] Name: Elvia Dumont Age: 53 yrs Sex: Female : 1970 Arrival Date: 07/15/2023 Time: 09:29 Bed 13 Private MD: Diagnosis: Fever, unspecified;Acute upper respiratory infection, unspecified;Cough Presentation: 07/15 09:45 Chief complaint: Patient states: she has had fever with cough, and congestion with ap3 chest pain for approx five days now. Coronavirus screen: Client presents with at least one sign or symptom that may indicate coronavirus-19. Ebola Screen: No symptoms or risks identified at this time. Initial Sepsis Screen: Does the patient meet any 2 criteria? No. Patient's initial sepsis screen is negative. Does the patient have a suspected source of infection? Yes: Productive cough/pneumonia. Risk Assessment: Do you want to hurt yourself or someone else? Patient reports no desire to harm self or others. Onset of symptoms was July 06, 2023. 09:45 Method Of Arrival: Ambulatory ap3 09:45 Acuity: ASIA 3 ap3 Triage Assessment: 09:47 General: Appears ill, Behavior is calm, cooperative. Pain: Complains of pain in chest ap3 Pain began gradually. EENT: Reports nasal congestion. Neuro: Level of Consciousness is awake, alert, obeys commands, Oriented to person, place, time, situation, Appropriate for age. Cardiovascular: Patient's skin is warm and dry. Respiratory: Airway is patent Respiratory effort is even, unlabored, Respiratory pattern is regular, symmetrical. Historical: - Allergies: 09:39 CEPHALOSPORINS; ld1 - PMHx: 09:39 back problems; diabetes mellitus; stage 3 kidney cancer; stage 3 kidney cancer; stage 3 ld1 kidney cancer; - PSHx: 09:39 Cholecystectomy; Nephrectomy; uterine ablation; polyps removed; ld1 - Immunization history:: Client reports receiving the 2nd dose of the Covid vaccine. - Social history:: Smoking status: Patient denies any tobacco usage or history of. Patient uses alcohol, occasionally. - Family history:: not pertinent. Screenin:48 [facility] ED Fall Risk Assessment (Adult) History of falling in the last 3 months, ap3 including since admission No falls in past 3 months (0 pts). Abuse screen: Denies threats or abuse. Nutritional screening: No deficits noted. Tuberculosis screening: No symptoms or risk factors identified. Assessment: 09:50 Reassessment: Patient appears in no apparent distress at this time. Patient and/or db family updated on plan of care and expected duration. Pain level reassessed. Patient is alert, oriented x 3, equal unlabored respirations, skin warm/dry/pink. FLU LIKE SYMPTOMS WITH CHEST PAIN X 3 DAYS. General: Appears in no apparent distress. comfortable, Behavior is calm, cooperative. Pain: Complains of pain in chest. Neuro: Level of Consciousness is awake, alert, obeys commands, Oriented to person, place, time, situation. Cardiovascular: Reports chest pain. Respiratory: Airway is patent Respiratory effort is even, unlabored, Respiratory pattern is regular, symmetrical. 09:59 Reassessment: Patient appears in no apparent distress at this time. Patient and/or db family updated on plan of care and expected duration. Pain level reassessed. Patient is alert, oriented x 3, equal unlabored respirations, skin warm/dry/pink. 11:09 Reassessment: PATIENT AMBULATORY TO RESTROOM. db 12:00 Reassessment: Patient appears in no apparent distress at this time. Patient and/or db family updated on plan of care and expected duration. Pain level reassessed. Patient is alert, oriented x 3, equal unlabored respirations, skin warm/dry/pink. 13:22 Reassessment: Patient appears in no apparent distress at this time. Patient and/or db family updated on plan of care and expected duration. Pain level reassessed. Patient is alert, oriented x 3, equal unlabored respirations, skin warm/dry/pink. Patient states feeling better. Patient states symptoms have improved. Vital Signs: 09:45 Weight 90.72 kg; Height 4 ft. 8 in. ; ap3 09:49 BP 130 / 70; Pulse 84; Resp 16; Temp 100.6(O); Pulse Ox 95% on R/A; db 11:00 BP 113 / 72; Pulse 70; Resp 18; Pulse Ox 95% on R/A; db 12:00 BP 126 / 71; Pulse 72; Resp 16; Pulse Ox 95% on R/A; db 13:00 BP 103 / 65; Pulse 72; Resp 16; Pulse Ox 96% on R/A; db 09:45 Body Mass Index 44.84 (90.72 kg, 142.24 cm) ap3 ED Course: 09:33 Patient arrived in ED. mg5 09:34 Matthew Thapa MD is Attending Physician. jen 09:39 Chanel Apodaca, RN is Primary Nurse. ld1 09:46 COVID-19/FLU A+B/RSV Sent. kj1 09:47 Triage completed. ap3 09:48 Arm band placed on right wrist. ap3 09:49 Patient has correct armband on for positive identification. Bed in low position. Call ap3 light in reach. Side rails up X 1. panel monitor on. Pulse ox on. NIBP on. 09:50 EKG done, by ED staff, reviewed by Matthew Thapa MD. db 09:51 Primary Nurse role handed off by Chanel Apodaca, RN db 09:51 Jaimee Saldana, RN is Primary Nurse. db 11:48 Chest Pa And Lat (2 Views) XRAY In Process Unspecified. EDMS 13:22 No provider procedures requiring assistance completed. Patient did not have IV access db during this emergency room visit. 13:22 Provided Education on: DISCHARGE. db Administered Medications: 09:55 Drug: Ibuprofen PO 800 mg PO once Route: PO; db 13:24 Follow up: Response: No adverse reaction db 12:34 Drug: Levalbuterol Inhalation 1.25 mg Inhalation once Route: Inhalation; db 13:24 Follow up: Response: No adverse reaction db 12:35 Drug: Ipratropium Inhalation Aerosol 0.5 mg Inhalation once Route: Inhalation; db 13:24 Follow up: Response: No adverse reaction db 12:35 Drug: LevOfloxacin PO 750 mg PO once Route: PO; db 13:24 Follow up: Response: No adverse reaction db 12:38 Drug: predniSONE PO 40 mg PO once Route: PO; db 13:24 Follow up: Response: No adverse reaction db Medication: 13:22 VIS not applicable for this client. db Outcome: 12:45 Discharge ordered by . jen 13:22 Discharged to home ambulatory, with family, db 13:22 Condition: stable 13:22 Discharge instructions given to patient, family, Instructed on discharge instructions, follow up and referral plans. Prescriptions given X 3, 13:24 Patient left the ED. db Signatures: Dispatcher [employer] EDMS Matthew Thapa MD MD cha Prokisch, Amanda RN RN ap3 Erlinda White kj1 Chanel Apodaca RN RN ld1 Jaimee Saldana RN RN Jacki Raza mg5 Corrections: (The following items were deleted from the chart) :39 09:39 PMHx: stage 3 kidney cancer, right kidney removed; ld1 ld1
[2023-07-15 15:52] VITALS: TEMP 100.6
[2023-07-15 15:57] VITALS: BP 103/65
[2023-07-15 15:58] VITALS: O2SAT 96
--- NOTE | 2023-07-18 15:15 | EKG ---
Test Date: 2023-07-15 Test Time: 09:45:40 Acoustical Carpenter: OMAR MEASUREMENT RESULTS: Intervals: Rate: 82 VT: 152 QRSD: 78 QT: 356 QTc: 415 [place]: P: 65 VT: 152 QRS: 25 T: 32 INTERPRETIVE STATEMENTS: Normal sinus rhythm Normal ECG Compared to ECG 03/03/2021 10:23:21 Myocardial infarct finding no longer present Electronically Signed On 07-18-23 15:10:33 [employer] by Trent Silva
== END ==
LOC: ER 09:29
DX: J06.9 Acute upper respiratory infection, unspecified (principal); R05.9 Cough, unspecified; Z11.52 Encounter for screening for COVID-19
CPT/HCPCS: 0241U; 71046; 81001; 93005; 99285; J7512; J7614; J7644

== ENCOUNTER 2023-11-14 09:35 | Emergency (ER) | payer SELFPAY ==
--- NOTE | 2023-11-14 10:07 | EDPHYS ---
Physician Documentation [facility] Name: Elvia Dumont Age: 53 yrs Sex: Female : 1970 Arrival Date: 11/14/2023 Time: 09:35 Bed IW1 Private MD: ED Physician Jimmie Wheeler HPI: 11/13 10:03 This 53 yrs old Female presents to ER via Ambulatory with complaints of Facial sp3 Swelling, Facial Pain. 10:03 53-year-old female with a history of diabetes, prior renal cancer now presents ED with sp3 chief complaint of right ear pain and jaw pain. Patient was started on Zithromax by her PCP with a diagnosis of strep pharyngitis and otitis media. She states she continues to have right jaw pain especially when she opens or closes her mouth. No difficulty swallowing or breathing noted. She continues to have right ear pain as well. Review of systems otherwise negative for headache, fever, chest pain, shortness of breath, abdominal pain, or any other signs or symptoms on ROS at this time.. 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 - Infectious Disease History:: Denies. - Social history:: Smoking status: Patient denies any tobacco usage or history of. ROS: 10:04 Constitutional: Negative for fever, chills, and weight loss, Eyes: Negative for injury, sp3 pain, redness, and discharge, Neck: Negative for injury, pain, and swelling, Cardiovascular: Negative for chest pain, palpitations, and edema, Respiratory: Negative for shortness of breath, cough, wheezing, and pleuritic chest pain, Abdomen/GI: Negative for abdominal pain, nausea, vomiting, diarrhea, and constipation, Back: Negative for injury and pain, : Negative for injury, bleeding, discharge, and swelling, MS/Extremity: Negative for injury and deformity, Skin: Negative for injury, rash, and discoloration, Neuro: Negative for headache, weakness, numbness, tingling, and seizure, Psych: Negative for depression, anxiety, suicide ideation, homicidal ideation, and hallucinations, Allergy/Immunology: Negative for hives, rash, and allergies, Endocrine: Negative for neck swelling, polydipsia, polyuria, polyphagia, and marked weight changes, Hematologic/Lymphatic: Negative for swollen nodes, abnormal bleeding, and unusual bruising, 10:04 All other systems are negative, Exam: 10:05 Constitutional: This is a well developed, well nourished patient who is awake, alert, sp3 and in no acute distress. Head/Face: Normocephalic, atraumatic. Eyes: Pupils equal round and reactive to light, extra-ocular motions intact. Lids and lashes normal. Conjunctiva and sclera are non-icteric and not injected. Cornea within normal limits. Periorbital areas with no swelling, redness, or edema. Neck: Trachea midline, no thyromegaly or masses palpated, and no cervical lymphadenopathy. Supple, full range of motion without nuchal rigidity, or vertebral point tenderness. No Meningismus. Chest/axilla: Normal chest wall appearance and motion. Nontender with no deformity. No lesions are appreciated. Cardiovascular: Regular rate and rhythm with a normal S1 and S2. No gallops, murmurs, or rubs. Normal PMI, no JVD. No pulse deficits. Respiratory: Lungs have equal breath sounds bilaterally, clear to auscultation and percussion. No rales, rhonchi or wheezes noted. No increased work of breathing, no retractions or nasal flaring. Abdomen/GI: Soft, non-tender, with normal bowel sounds. No distension or tympany. No guarding or rebound. No evidence of tenderness throughout. Back: No spinal tenderness. No costovertebral tenderness. Full range of motion. Skin: Warm, dry with normal turgor. Normal color with no rashes, no lesions, and no evidence of cellulitis. MS/ Extremity: Pulses equal, no cyanosis. Neurovascular intact. Full, normal range of motion. Neuro: Awake and alert, GCS 15, oriented to person, place, time, and situation. Cranial nerves II-XII grossly intact. Motor strength 5/5 in all extremities. Sensory grossly intact. Cerebellar exam normal. Normal gait. Psych: Awake, alert, with orientation to person, place and time. Behavior, mood, and affect are within normal limits. 10:05 ENT: Serous effusion noted. Patient has pain at the temporomandibular joint on the right side which is expressible on palpation and pressure. No dental injury, pain or infection visible. There is no peritonsillar abscess or uvular shift.. Vital Signs: 09:41 BP 135 / 74; Pulse 75; Resp 17; Temp 98; Pulse Ox 100% ; Weight 90.72 kg; Height 4 ft. ap3 8 in. ; Pain 10; 09:41 Body Mass Index 44.84 (90.72 kg, 142.24 cm) ap3 09:41 Pain Scale: Adult ap3 MDM: 09:47 Patient medically screened. sp3 10:05 Data reviewed: vital signs, nurses notes. ED course: 53-year-old female well-appearing sp3 with continued right ear pain and now new TMJ pain. I am not highly suspicious for mastoiditis or other infection. Vital signs are normal. We will start her on Augmentin and I have told her that she can take short course of NSAIDs given the fact that she has had a nephrectomy and is down to a single kidney. Follow-up with PCP as needed and further CT imaging if this next course does not resolve her symptoms.. Administered Medications: No medications were administered Disposition Summary: 11/14/23 10:06 Discharge Ordered Notes: Location: Home sp3 Condition: Stable sp3 Diagnosis - Otitis media, TMJ pain sp3 Followup: sp3 - With: Private Physician - When: Upon discharge from the Emergency Department - Reason: Continuance of care Discharge Instructions: - Discharge Summary Sheet sp3 - Otitis Media, Adult sp3 - Temporomandibular Joint Syndrome sp3 Forms: - Medication Reconciliation Form sp3 - Thank You Letter sp3 - Antibiotic Education sp3 - Prescription Opioid Use sp3 - Patient Portal Instructions sp3 - Leadership Thank You Letter sp3 Prescriptions: - Augmentin 875-125 mg Oral Tablet - take 1 tablet ORAL route every 12 hours for 10 days; 20 tablet; Refills: 0, sp3 Product Selection Permitted Signatures: Marleny Munroe RN RN ap3 Jimmie Wheeler MD MD sp3
--- NOTE | 2023-11-14 10:07 | ER ---
Nurse's Notes [facility] Name: Elvia Dumont Age: 53 yrs Sex: Female : 1970 Arrival Date: 11/14/2023 Time: 09:35 Bed IW1 Private MD: Diagnosis: Otitis media, TMJ pain Presentation: 11/13 09:41 Chief complaint: Patient states: she started taking the Z-Pack approx 5 days ago for ap3 sore throat and fluid in her right ear. patient reports she feels like her symptoms are not improving and she is having continued pain and swelling on her right side of her ear. patient reports her current pain as a 10/10 on the pain scale at this time. Coronavirus screen: At this time, the client does not indicate any symptoms associated with coronavirus-19. Ebola Screen: No symptoms or risks identified at this time. Initial Sepsis Screen: Does the patient meet any 2 criteria? No. Patient's initial sepsis screen is negative. Does the patient have a suspected source of infection? No. Patient's initial sepsis screen is negative. Risk Assessment: Do you want to hurt yourself or someone else? Patient reports no desire to harm self or others. Onset of symptoms was November 09, 2023. 09:41 Method Of Arrival: Ambulatory ap3 09:41 Acuity: ASIA 3 ap3 Triage Assessment: 09:45 General: Appears uncomfortable, Behavior is calm, cooperative, appropriate for age. ap3 Pain: Complains of pain in right ear. Neuro: Level of Consciousness is awake, alert, obeys commands, Oriented to person, place, time, situation. Cardiovascular: Patient's skin is warm and dry. Respiratory: Reports cough that is Airway is patent Respiratory effort is even, unlabored, Respiratory pattern is regular, symmetrical. 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 - Infectious Disease History:: Denies. - Social history:: Smoking status: Patient denies any tobacco usage or history of. Screenin:46 Abuse screen: Denies threats or abuse. Nutritional screening: No deficits noted. ap3 Tuberculosis screening: No symptoms or risk factors identified. Vital Signs: 09:41 BP 135 / 74; Pulse 75; Resp 17; Temp 98; Pulse Ox 100% ; Weight 90.72 kg; Height 4 ft. ap3 8 in. ; Pain 10; 09:41 Body Mass Index 44.84 (90.72 kg, 142.24 cm) ap3 09:41 Pain Scale: Adult ap3 ED Course: 09:36 Patient arrived in ED. rg4 09:42 Jimmie Wheeler MD is Attending Physician. sp3 09:44 Triage completed. ap3 09:46 Arm band placed on right wrist. ap3 10:41 No provider procedures requiring assistance completed. Patient did not have IV access ap3 during this emergency room visit. 10:42 Provided Education on: discharge. ap3 10:42 Patient has correct armband on for positive identification. ap3 Administered Medications: No medications were administered Medication: 10:45 VIS not applicable for this client. ap3 Outcome: 10:06 Discharge ordered by . sp3 10:41 Discharged to home ambulatory, ap3 10:41 Condition: good 10:41 Discharge instructions given to patient, Instructed on discharge instructions, follow up and referral plans. medication usage, Demonstrated understanding of instructions, follow-up care, medications, Prescriptions given X 1, 10:46 Patient left the ED. ap3 Signatures: Tila Ortiz rg4 Marleny Munroe RN RN ap3 Jimmie Wheeler MD MD sp3
[2023-11-14 11:10] VITALS: BP 135/74; TEMP 98; O2SAT 100
== END 2023-11-14 10:46 | disposition home or self-care (01) ==
LOC: ER 09:35
DX: H66.91 Otitis media, unspecified, right ear (principal); M26.601 Right temporomandibular joint disorder, unspecified; Z88.3 Allergy status to other anti-infective agents
CPT/HCPCS: 99283

== ENCOUNTER 2024-05-17 22:38 | Emergency (ER) | payer OTHER, SELFPAY ==
[2024-05-17] MEDS ORDERED: TETRACAINE HCL 0.5% 4ML OPTH ONE (23:06)
[2024-05-17] MEDS ORDERED: FLUORESCEIN SODIUM 1 MG/WRAP ONE (23:06)
--- NOTE | 2024-05-17 23:51 | ER ---
Nurse's Notes [facility] Name: Elvia Dumont Age: 54 yrs Sex: Female : 1970 Arrival Date: 05/17/2024 Time: 22:38 Bed 7 Private MD: Diagnosis: Acute left conjunctival abrasion, acute right conjunctival abrasion, acute left chemical conjunctivitis Presentation: 05/17 23:02 Chief complaint: Patient states: piece of glass shattered and i think i have shards in lg3 both of my eyes. left worse than right. Coronavirus screen: Client denies travel out of the [place] in the last 14 days. At this time, the client does not indicate any symptoms associated with coronavirus-19. Ebola Screen: No symptoms or risks identified at this time. Initial Sepsis Screen: Does the patient meet any 2 criteria? No. Patient's initial sepsis screen is negative. Does the patient have a suspected source of infection? No. Patient's initial sepsis screen is negative. Risk Assessment: Do you want to hurt yourself or someone else? Patient reports no desire to harm self or others. Onset of symptoms was May 17, 2024. 23:02 Method Of Arrival: Ambulatory lg3 23:02 Acuity: ASIA 4 lg3 Triage Assessment: 23:05 General: Appears in no apparent distress. comfortable, Behavior is calm, cooperative. lg3 Pain: Complains of pain in right eye and left eye. EENT: Sclera/Cornea are reddened in right eye and left eye Reports pain in right eye and left eye. Neuro: No deficits noted. Noyola Agitation-Sedation Scale (RASS): 0 - Alert and Calm Level of Consciousness is awake, alert, obeys commands, Oriented to person, place, time, situation. Cardiovascular: No deficits noted. Denies chest pain, shortness of breath, Capillary refill < 3 seconds Clubbing of nail beds is absent JVD is absent Patient's skin is warm and dry. Respiratory: No deficits noted. Airway is patent Respiratory effort is even, unlabored, Respiratory pattern is regular, symmetrical. GI: No deficits noted. No signs and/or symptoms were reported involving the gastrointestinal system. : No deficits noted. No signs and/or symptoms were reported regarding the genitourinary system. Derm: No deficits noted. No signs and/or symptoms reported regarding the dermatologic system. Skin is intact, is healthy with good turgor, Skin is dry, Skin is normal, Skin temperature is warm. Musculoskeletal: No deficits noted. No signs and/or symptoms reported regarding the musculoskeletal system. Circulation, motion, and sensation intact. Range of motion: intact in all extremities. 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 - Infectious Disease History:: Denies. - Social history:: Smoking status: Patient denies any tobacco usage or history of. Patient uses alcohol, occasionally. Patient/guardian denies using street drugs. - Family history:: not pertinent. Screenin:21 [facility] ED Fall Risk Assessment (Adult) History of falling in the last 3 months, bm8 including since admission No falls in past 3 months (0 pts). [facility] ED Fall Risk Assessment (Adult) Confusion or Disorientation No (0 pts) Intoxicated or Sedated No (0 pts) Impaired Gait No (0 pts) Mobility Assist Device Used No (0 pt) Altered Elimination No (0 pt) Score/Fall Risk Level 0 - 2 = Low Risk Oriented to surroundings, Maintained a safe environment, Educated pt \T\ family on fall prevention, incl call for assistance when getting out of bed, Assessed \T\ reinforced patient's understanding of fall precautions, Hourly rounding (assess needs \T\ fall precautionary measures) done, Used ambulatory aids as needed (educated on \T\ assisted with), Used gait belt as appropriate. Abuse screen: Denies threats or abuse. Nutritional screening: No deficits noted. Tuberculosis screening: No symptoms or risk factors identified. Assessment: 23:21 Reassessment: Patient appears in no apparent distress at this time. Patient and/or bm8 family updated on plan of care and expected duration. Pain level reassessed. Patient is alert, oriented x 3, equal unlabored respirations, skin warm/dry/pink. Pain: Complains of pain in left eye and right eye Pain currently is 7 out of 10 on a pain scale. EENT: Eyes tearing and redness to both eyes worse on left. pt believes she may have glass in them. 05/18 00:02 Reassessment: Patient appears in no apparent distress at this time. Patient and/or bm8 family updated on plan of care and expected duration. Pain level reassessed. Patient is alert, oriented x 3, equal unlabored respirations, skin warm/dry/pink. Patient denies pain at this time. Patient states feeling better. Patient states symptoms have improved. Vital Signs: 05/17 23:02 BP 135 / 75; Pulse 67; Resp 17 S; Temp 98.1(O); Pulse Ox 100% on R/A; Weight 89.81 kg lg3 (R); Height 4 ft. 8 in. (R); Pain 2/10; 05/18 00:02 BP 131 / 72; Pulse 65; Resp 17; Temp 98.1; Pulse Ox 100% ; Pain 0/10; bm8 05/17 23:02 Body Mass Index 44.39 (89.81 kg, 142.24 cm) lg3 05/17 23:02 Pain Scale: Adult lg3 05/18 00:02 Pain Scale: Adult bm8 Renetta Coma Score: 05/17 23:21 Eye Response: spontaneous(4). Motor Response: obeys commands(6). Verbal Response: bm8 oriented(5). Total: 15. 05/18 00:02 Eye Response: spontaneous(4). Motor Response: obeys commands(6). Verbal Response: bm8 oriented(5). Total: 15. 06:16 Eye Response: spontaneous(4). Motor Response: obeys commands(6). Verbal Response: sp4 oriented(5). Total: 15. ED Course: 05/17 22:42 Patient arrived in ED. jj6 22:49 Guille Mayen MD is Attending Physician. sp4 23:05 Triage completed. lg3 23:05 Arm band placed on left wrist. lg3 23:19 Victor Manuel Barbosa, RN is Primary Nurse. bm8 23:21 Patient has correct armband on for positive identification. Placed in gown. Bed in low bm8 position. Call light in reach. Side rails up X 1. Adult w/ patient. Client placed on continuous cardiac and pulse oximetry monitoring. NIBP monitoring applied. Pulse ox on. NIBP on. Door closed. Noise minimized. Warm blanket given. Pillow given. Verbal reassurance given. Head of bed elevated. 23:21 Assist provider with eye exam of both eyes. using fluorescein stain, Performed by bm8 Guille Mayen MD Patient tolerated well. 23:50 Hubert Ferreira MD is Referral Physician. sp4 05/18 00:02 Provided Education on: post er care. bm8 00:02 Patient did not have IV access during this emergency room visit. bm8 Administered Medications: 05/17 23:49 Drug: Tetracaine Ophthalmic Drops 0.5 % 1 drops Ophthalmic once Route: Ophthalmic; bm8 Site: both eyes; 05/18 00:04 Follow up: Response: No adverse reaction bm8 Medication: 05/17 23:21 VIS not applicable for this client. bm8 Outcome: 23:51 Discharge ordered by . sp4 05/18 00:02 Discharged to home ambulatory, bm8 Condition: stable Discharge instructions given to patient, family, Instructed on discharge instructions, follow up and referral plans. safety practices, Demonstrated understanding of instructions, follow-up care, medications, 00:04 Patient left the ED. bm8 Signatures: Nevin Strauss, RN RN lg3 Bell [id number] Guille Mayen MD MD sp4 Victor Manuel Barbosa RN RN bm8 Corrections: (The following items were deleted from the chart) 00:03 05/17 23:21 Assist provider with eye exam of both eyes. using fluorescein stain, bm8 Performed by Guille Mayen MD Patient tolerated well. bm8
--- NOTE | 2024-05-17 23:51 | EDPHYS ---
Physician Documentation [facility] Name: Elvia Dumont Age: 54 yrs Sex: Female : 1970 Arrival Date: 05/17/2024 Time: 22:38 Bed 7 Private MD: ED Physician Gulile Mayen HPI: 05/17 22:49 This 54 yrs old Female presents to ER via Unassigned with complaints of sp4 Foreign Body In Eye. 05/18 06:16 54-year-old female states she was cleaning up glass which broke and caused irritation sp4 in both eyes. Patient suspects glass particles in her eyes. . 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 - Infectious Disease History:: Denies. - Social history:: Smoking status: Patient denies any tobacco usage or history of. Patient uses alcohol, occasionally. Patient/guardian denies using street drugs. - Family history:: not pertinent. ROS: 05/18 06:16 Constitutional: Negative for fever, chills, and weight loss, positive for right and sp4 left eye irritation left greater than right All other systems are negative, Exam: 06:16 Visual Acuity: I have reviewed the nursing documentation. Visual acuity is within sp4 normal limits. 06:16 Constitutional: This is a well developed, well nourished patient who is awake, alert, and in no acute distress. Head/Face: Normocephalic, atraumatic. Eyes: Pupils equal round and reactive to light, extra-ocular motions intact. Lids and lashes normal. Cornea within normal limits. Periorbital areas with no swelling, redness, or edema. Bilateral fluorescein eye exam -right eye there is mild conjunctival irritation without signs of foreign body, no signs of foreign body on the right eyelid eversion. No sign of corneal abrasion. Left eye there is moderate conjunctival irritation, no sign of corneal abrasion, no sign of perforated globe, no sign of foreign body on left upper eyelid eversion. On fluorescein exam no foreign bodies were visualized. ENT: Nares patent. No nasal discharge, no septal abnormalities noted. Tympanic membranes are normal and external auditory canals are clear. Oropharynx with no redness, swelling, or masses, exudates, or evidence of obstruction, uvula midline. Mucous membranes moist. Neck: Trachea midline, no thyromegaly or masses palpated, and no cervical lymphadenopathy. Supple, full range of motion without nuchal rigidity, or vertebral point tenderness. Chest/axilla: Normal chest wall appearance and motion. Nontender with no deformity. No lesions are appreciated. Cardiovascular: Regular rate and rhythm with a normal S1 and S2. No gallops, murmurs, or rubs. Normal PMI, no JVD. No pulse deficits. Respiratory: Lungs have equal breath sounds bilaterally, clear to auscultation and percussion. No rales, rhonchi or wheezes noted. No increased work of breathing, no retractions or nasal flaring. Abdomen/GI: Soft, with normal bowel sounds. No distension or tympany. No guarding or rebound. No evidence of tenderness throughout. Back: No spinal tenderness. No costovertebral tenderness. Skin: Warm, dry with normal turgor. Normal color with no rashes, no lesions, and no evidence of cellulitis. MS/ Extremity: Pulses equal, no cyanosis. Neurovascular intact. Full, normal range of motion. Neuro: Awake and alert, GCS 15, oriented to person, place, time, and situation. Cranial nerves II-XII grossly intact. Motor strength 5/5 in all extremities. Sensory grossly intact. Psych: Awake, alert, with orientation to person, place and time. Behavior, mood, and affect are within normal limits Vital Signs: 05/17 23:02 BP 135 / 75; Pulse 67; Resp 17 S; Temp 98.1(O); Pulse Ox 100% on R/A; Weight 89.81 kg lg3 (R); Height 4 ft. 8 in. (R); Pain 2/10; 05/18 00:02 BP 131 / 72; Pulse 65; Resp 17; Temp 98.1; Pulse Ox 100% ; Pain 0/10; bm8 05/17 23:02 Body Mass Index 44.39 (89.81 kg, 142.24 cm) lg3 05/17 23:02 Pain Scale: Adult lg3 05/18 00:02 Pain Scale: Adult bm8 Mullins Coma Score: 05/17 23:21 Eye Response: spontaneous(4). Motor Response: obeys commands(6). Verbal Response: bm8 oriented(5). Total: 15. 05/18 00:02 Eye Response: spontaneous(4). Motor Response: obeys commands(6). Verbal Response: bm8 oriented(5). Total: 15. 06:16 Eye Response: spontaneous(4). Motor Response: obeys commands(6). Verbal Response: sp4 oriented(5). Total: 15. MDM: 05/17 23:26 Medical Screening Exam initiated sp4 05/18 06:16 Differential diagnosis: Corneal abrasion of Foreign body in Acute iritis of Ultraviolet sp4 keratitis in. Data reviewed: vital signs, nurses notes, old medical records. ED course: Bilateral eye exam does not reveal any sign of foreign bodies. Patient stable for discharge home. Advised lubricant eyedrops. . 05/17 23:12 Order name: Eye Tray; Complete Time: 23:12 lg3 05/17 23:12 Order name: Fluoresene Opth strip; Complete Time: 23:12 lg3 Administered Medications: 05/17 23:49 Drug: Tetracaine Ophthalmic Drops 0.5 % 1 drops Ophthalmic once Route: Ophthalmic; bm8 Site: both eyes; 05/18 00:04 Follow up: Response: No adverse reaction bm8 Disposition Summary: 05/17/24 23:51 Discharge Ordered Notes: No foreign body visualized in both eyes Location: Home sp4 Problem: new sp4 Symptoms: have improved sp4 Condition: Stable sp4 Diagnosis - Acute left conjunctival abrasion, acute right conjunctival abrasion, acute left sp4 chemical conjunctivitis Followup: sp4 - With: Hubert Ferreira MD - When: 7 - 10 days - Reason: Recheck today's complaints Discharge Instructions: - Discharge Summary Sheet sp4 - Chemical Conjunctivitis, Adult, [id number] sp4 Forms: - Patient Portal Instructions sp4 Signatures: Nevin Strauss RN RN lg3 Guille Mayen MD MD sp4 Barbosa, Victor Manuel, RN RN bm8
[2024-05-18 06:04] VITALS: TEMP 98.1; O2SAT 100
[2024-05-18 06:07] VITALS: BP 131/72
== END 2024-05-18 00:04 | disposition home or self-care (01) ==
LOC: ER 22:38
DX: S05.02XA Injury of conjunctiva and corneal abrasion without foreign body, left eye, initial encounter (principal); S05.01XA Injury of conjunctiva and corneal abrasion without foreign body, right eye, initial encounter; H10.212 Acute toxic conjunctivitis, left eye
CPT/HCPCS: 99284

== ENCOUNTER 2025-05-02 16:02 | Emergency (ER) | payer OTHER ==
[2025-05-02] MEDS ORDERED: LIDOCAINE VISCOUS 2% 10ML ORAL SOLN ONE (16:20)
--- NOTE | 2025-05-02 17:02 | RAD REPORT ---
EXAM: Chest Pa And Lat (2 Views) HISTORY: 55 years Female Congestion;Cough;Fever COMPARISON: No prior exams FINDINGS: LUNGS/PLEURA: The lungs are clear. No pleural effusions or pneumothorax. No pulmonary edema. CARDIAC/MEDIASTINUM: The cardiac silhouette is within normal limits. UPPER ABDOMEN: No significant abnormality. BONES: No acute abnormality. LINES/TUBES/OTHER: N/A IMPRESSION: No evidence of acute cardiopulmonary disease.
[2025-05-02 17:46] LABS: Influenza A Ag Negative; Influenza B Ag Negative; SARS-CoV-2 Antigen Rapid Res Negative (Negative)
--- NOTE | 2025-05-02 17:51 | ER ---
Nurse's Notes [facility] Name: Elvia Dumont Age: 55 yrs Sex: Female : 1970 Arrival Date: 05/02/2025 Time: 16:02 Bed 11 Private MD: Diagnosis: Other acute sinusitis Presentation: 05/02 16:16 Chief complaint: Patient states: cough, congestion, sore throat, body aches, chills me1 since . Pain 05/06. Coronavirus screen: Vaccine status: Patient reports being unvaccinated. Ebola Screen: No symptoms or risks identified at this time. Initial Sepsis Screen: Does the patient meet any 2 criteria? No. Patient's initial sepsis screen is negative. Does the patient have a suspected source of infection? No. Patient's initial sepsis screen is negative. Risk Assessment: Do you want to hurt yourself or someone else? Patient reports no desire to harm self or others. Onset of symptoms was April 28, 2025. 16:16 Method Of Arrival: Ambulatory in1 16:16 Acuity: ASIA 4 me1 Historical: - Allergies: 16:17 CEPHALOSPORINS; me1 16:17 metformin; me1 - PMHx: 16:17 back problems; diabetes mellitus; kidney cancer; me1 - PSHx: 16:17 Cholecystectomy; Nephrectomy; polyps removed; uterine ablation; me1 - Immunization history:: Adult Immunizations up to date. - Infectious Disease History:: Denies. - Social history:: Smoking status: Patient denies any tobacco usage or history of. Screenin:22 [facility] ED Fall Risk Assessment (Adult) History of falling in the last 3 months, jj7 including since admission No falls in past 3 months (0 pts) Confusion or Disorientation No (0 pts) Intoxicated or Sedated No (0 pts) Impaired Gait No (0 pts) Mobility Assist Device Used No (0 pt) Altered Elimination No (0 pt) Score/Fall Risk Level 0 - 2 = Low Risk Oriented to surroundings, Maintained a safe environment, Educated pt \T\ family on fall prevention, incl call for assistance when getting out of bed, Assessed \T\ reinforced patient's understanding of fall precautions. Abuse screen: Denies threats or abuse. Nutritional screening: No deficits noted. Tuberculosis screening: No symptoms or risk factors identified. Assessment: 16:22 General: Appears in no apparent distress. comfortable, Behavior is calm, cooperative, jj7 appropriate for age. Pain: Complains of pain in left aspect of posterior pharynx and right aspect of posterior pharynx. Respiratory: Airway is patent Respiratory effort is even, unlabored, Breath sounds are clear. EENT: Throat is clear is pink Reports SORE THROAT. Vital Signs: 16:16 BP 151 / 84; Pulse 79; Resp 18; Temp 97.8; Pulse Ox 100% ; Pain 10/10; me1 17:15 BP 104 / 61; Pulse 73; Resp 20; Pulse Ox 99% ; jj7 18:01 BP 121 / 59; Pulse 71; Resp 20; Temp 98.1; Pulse Ox 100% ; jj7 16:16 Pain Scale: Adult me1 ED Course: 16:03 Patient arrived in ED. mr 16:04 Karina Castellano PA-C is PHCP. sb4 16:04 Jimmie Wheeler MD is Attending Physician. sb4 16:17 Triage completed. me1 16:22 No provider procedures requiring assistance completed. jj7 16:22 Patient has correct armband on for positive identification. Provided Education on: USE jj7 OF CALL LAM. 16:33 Chalino Ibanez, RN is Primary Nurse. jj7 16:33 Group A Streptococcus Rapid Sent. jj7 16:33 COVID-19 Ag + Flu A+B Ag Sent. jj7 16:55 Chest Pa And Lat (2 Views) XRAY In Process Unspecified. EDMS 18:01 Patient did not have IV access during this emergency room visit. jj7 18:05 Arm band placed on right wrist. jj7 Administered Medications: 16:25 Drug: Viscous Lidocaine Mucous Membrane Liquid (4 %) 5 ml Mucous Membrane once; swallow jj7 Route: Mucous Membrane; 17:58 Follow up: Response: Marked relief of symptoms jj7 Medication: 16:22 VIS not applicable for this client. jj7 Outcome: 17:51 Discharge ordered by . sb4 18:01 Discharged to home ambulatory, with family, jj7 18:01 Condition: improved 18:01 Discharge instructions given to patient, Instructed on discharge instructions, medication usage, Demonstrated understanding of instructions, medications, Prescriptions given X 1, 18:05 Patient left the ED. jj7 Signatures: Dispatcher [employer] MIRIAN Carroll, Jessica, Reg Reg mr Shamar, Chalino, RN RN jj7 Karina Castellano PA-C PABreannC sb4 Melody Cuenca RN RN me1
--- NOTE | 2025-05-02 17:51 | EDPHYS ---
Physician Documentation [facility] Name: Elvia Dumont Age: 55 yrs Sex: Female : 1970 Arrival Date: 05/02/2025 Time: 16:02 Bed 11 Private MD: ED Physician Jimmie Wheeler HPI: 05/02 16:17 This 55 yrs old Female presents to ER via Unassigned with complaints of Sore sb4 Throat, Cough, Congestion. 16:17 Patient reports sore throat, fever, cough, congestion for 3 days now. States her sb4 symptoms all began when she got [place] a cruise ship. States she has been taking DayQuil and NyQuil without significant improvement in symptoms. Did have a televisit today but no medications were prescribed because no test could be done. Denies any chest pain or shortness of breath. Denies any nausea, vomiting, diarrhea. Historical: - Allergies: 16:17 CEPHALOSPORINS; me1 16:17 metformin; me1 - PMHx: 16:17 back problems; diabetes mellitus; kidney cancer; me1 - PSHx: 16:17 Cholecystectomy; Nephrectomy; polyps removed; uterine ablation; me1 - Immunization history:: Adult Immunizations up to date. - Infectious Disease History:: Denies. - Social history:: Smoking status: Patient denies any tobacco usage or history of. ROS: 16:17 Abdomen/GI: Negative for abdominal pain, nausea, vomiting, diarrhea, and constipation, sb4 16:17 Constitutional: Positive for fatigue, fever, malaise, 16:17 ENT: Positive for sore throat, 16:17 Respiratory: Positive for cough, 16:17 All other systems are negative, Exam: 16:17 Head/Face: Normocephalic, atraumatic. Eyes: Extra-ocular motions intact. Periorbital sb4 areas with no swelling, redness, or edema. ENT: Mucous membranes moist. Cardiovascular: Regular rate and rhythm with a normal S1 and S2. Respiratory: No increased work of breathing, no retractions or nasal flaring. Abdomen/GI: Soft, non-tender, no distension. Skin: Warm, dry with normal turgor. Normal color with no rashes, no lesions, and no evidence of cellulitis. 16:17 Constitutional: The patient appears in no acute distress, alert, awake, 16:17 ENT: TM's: are normal, no acute changes, Posterior pharynx: Tonsils: bilaterally enlarged, no erythema, no exudate, no ulcerations, Vital Signs: 16:16 BP 151 / 84; Pulse 79; Resp 18; Temp 97.8; Pulse Ox 100% ; Pain 10/10; me1 17:15 BP 104 / 61; Pulse 73; Resp 20; Pulse Ox 99% ; jj7 18:01 BP 121 / 59; Pulse 71; Resp 20; Temp 98.1; Pulse Ox 100% ; jj7 16:16 Pain Scale: Adult me1 MDM: 16:04 Medical Screening Exam initiated sb4 16:19 Differential diagnosis: bronchitis, group A strep tonsillitis, influenza, laryngitis, sb4 pharyngitis, tonsillitis, upper respiratory infection, viral syndrome. 17:02 Independent interpretation of the following test(s) in the Emergency Department X-Ray: sb4 My interpretation is Chest x-ray images -no acute consolidation or evidence of pneumonia. 17:50 Data reviewed: vital signs, nurses notes, lab test result(s), radiologic studies, and sb4 as a result, I will discharge patient. Care significantly affected by the following chronic conditions: Diabetes. Counseling: I had a detailed discussion with the patient and/or guardian regarding the historical points, exam findings, and any diagnostic results supporting the discharge/admit diagnosis, the presence of at least one elevated blood pressure reading (>120/80) during this emergency department visit, lab results, radiology results, the need for outpatient follow up, for definitive care, to return to the emergency department if symptoms worsen or persist or if there are any questions or concerns that arise at home. 05/02 16:16 Order name: COVID-19 Ag + Flu A+B Ag; Complete Time: 17:48 sb4 05/02 16:16 Order name: Group A Streptococcus Rapid; Complete Time: 17:39 sb4 05/02 17:41 Order name: Throat Culture EDMS 05/02 16:16 Order name: Chest Pa And Lat (2 Views) XRAY; Complete Time: 17:07 sb4 Administered Medications: 16:25 Drug: Viscous Lidocaine Mucous Membrane Liquid (4 %) 5 ml Mucous Membrane once; swallow jj7 Route: Mucous Membrane; 17:58 Follow up: Response: Marked relief of symptoms jj7 Disposition Summary: 05/02/25 17:51 Discharge Ordered Notes: Location: Home sb4 Problem: new sb4 Symptoms: have improved sb4 Condition: Stable sb4 Diagnosis - Other acute sinusitis sb4 Followup: sb4 - With: Emergency Department - When: As needed - Reason: Trouble breathing, Worsening of condition Discharge Instructions: - Discharge Summary Sheet sb4 - Sinusitis, Adult sb4 Forms: - Antibiotic Education sb4 - Patient Portal Instructions sb4 - Leadership Thank You Letter sb4 Prescriptions: - Augmentin 875-125 mg Oral tablet - take 1 tablet ORAL route every 12 hours for 7 days; 14 tablet; Refills: 0, sb4 Product Selection Permitted Signatures: Dispatcher [employer] EDChalino Odom, RN RN jj7 Karina Castellano PA-C PAPhilipp sb4 Melody Cuenca RN RN me1 Corrections: (The following items were deleted from the chart) 16:16 16:16 COVID-19 Ag + Flu A+B Ag+I.LAB.BRZ ordered. EDMS EDMS 16:16 16:16 Group A Streptococcus Rapid Sc+I.LAB.BRZ ordered. EDMS EDMS 16:16 16:16 Chest Pa And Lat (2 Views)+RAD.RAD.BRZ ordered. EDMS EDMS
[2025-05-02 18:41] VITALS: BP 121/59; TEMP 98.1; O2SAT 100
== END 2025-05-02 18:05 | disposition home or self-care (01) ==
LOC: ER 16:02
DX: J01.80 Other acute sinusitis (principal); E11.9 Type 2 diabetes mellitus without complications; C64.9 Malignant neoplasm of unspecified kidney, except renal pelvis; Z11.52 Encounter for screening for COVID-19
CPT/HCPCS: 36415; 71046; 87070; 87428; 99284